=== PATIENT | male | born 1960 | race Caucasian/White ===

== ENCOUNTER → 2023-06-05 | Outpatient (CLI) | payer OTHER ==
--- NOTE | 2023-06-05 15:54 | XR ---
EXAMINATION TYPE: XR shoulder complete RT DATE OF EXAM: 06/05/2023 COMPARISON: NONE HISTORY: Pain TECHNIQUE: Three views are submitted. FINDINGS: The osseous structures are intact. There is no acute fracture or dislocation. The AC joint is widen ed measuring 7 mm. There is severe narrowing of the glenohumeral joint. IMPRESSION: 1. Severe glenohumeral joint arthropathy. 2. Widening of the AC joint could be related to chronic infarction or chronic AC joint ligamentous in jury. Correlate clinically and with MRI as clinically warranted.
== END | disposition home or self-care (01) ==
LOC: RADXRMAIN 15:34
PROVIDERS: ATTEND Internal Medicine
DX: M19.011 Primary osteoarthritis, right shoulder (principal)

== ENCOUNTER 2023-06-16 09:02 | Emergency (ER) | payer OTHER ==
[2023-06-16] MEDS ORDERED: SODIUM CHLORIDE 0.9% 1,000 ML IV STA (09:33)
[2023-06-16] MEDS ORDERED: ONDANSETRON 4 MG/2 ML VIAL IVP STA (09:33)
--- NOTE | 2023-06-16 09:34 | ED ---
General Adult HPI - General Chief complaint: Recheck/Abnormal Lab/Rx Stated complaint: high blood sugar Time Seen by Provider: 06/16/23 09:12 Source: patient Mode of arrival: wheelchair Limitations: altered mental status, physical limitation - History of Present Illness Initial comments: Dictation was produced using [employer] dictation software. please excuse any grammatical, word or spelling errors. Chief Complaint: 63-year-old male presents emergency department for weakness and diarrhea History of Present Illness: 63-year-old male who has past medical history of CVA with residual right-sided deficits. Patient states that this morning he woke up he did not feel well. He states he felt generalized weakness maybe a little bit of dizziness. He did have one bout of watery diarrhea this morning. He states that he had no recent travel. No recent hospitalization or antibiotics. The ROS documented in this emergency department record has been reviewed and confirmed by me. Those systems with pertinent positive or negative responses have been documented in the HPI. All other systems are other negative and/or noncontributory. - Related Data Allergies Allergy/AdvReac Type Severity Reaction Status Date / Time No Known Allergies Allergy Verified 06/16/23 09:08 Review of Systems ROS Statement: Those systems with pertinent positive or pertinent negative responses have been documented in the HPI. ROS Other: All systems not noted in ROS Statement are negative. Past Medical History Past Medical History: Diabetes Mellitus, Myocardial Infarction (VA) History of Any Multi-Drug Resistant Organisms: None Reported Past Surgical History: No Surgical Hx Reported Past Psychological History: No Psychological Hx Reported Smoking Status: Former smoker Past Alcohol Use History: Occasional Past Drug Use History: None Reported General Exam - General Exam Comments Initial Comments: PHYSICAL EXAM: General Impression: Alert and oriented x3, not in acute distress HEENT: Normocephalic atraumatic, extra-ocular movements intact, pupils equal and reactive to light bilaterally, mucous membranes moist. Cardiovascular: Heart regular rate and rhythm Chest: Able to complete full sentences, no retractions, no tachypnea Abdomen: abdomen soft, non-tender, non-distended, no organomegaly Musculoskeletal: Pulses present and equal in all extremities, no peripheral edema Motor: no focal deficits noted Neurological: CN II-XII grossly intact, no focal motor or sensory deficits noted Skin: Intact with no visualized rashes Psych: Normal affect and mood Limitations: altered mental status, physical limitation Course Vital Signs 06/16/23 09:05 Temperature 98.0 F Pulse Rate 98 Respiratory 16 Rate Blood Pressure 132/84 O2 Sat by Pulse 95 Oximetry EKG Findings - EKG Comments: EKG Findings:: My EKG interpretation: Ventricular rate 91, sinus rhythm,. Interval 186, QRS 88, QTC 419. No TX prolongation, no QTC prolongation, no ST or T-wave changes noted. Overall, this EKG is unremarkable Medical Decision Making - Medical Decision Making Was pt. sent in by a medical professional or institution (DAVID Garcia, SOCIAL SERVICE COORDINATOR, urgent care, hospital, or [facility]...) When possible be specific @ -No Did you speak to anyone other than the patient for history (EMS, parent, family, police, friend...)? What history was obtained from this source @ -No Did you review nursing and triage notes (agree or disagree)? Why? @ -I reviewed and agree with nursing and triage notes Were old charts reviewed (outside hosp., previous admission, EMS record, old EKG, old radiological studies, urgent care reports/EKG's, [facility] records)? Report findings @ -No old charts were reviewed Differential Diagnosis (chest pain, altered mental status, abdominal pain women, abdominal pain men, vaginal bleeding, musculoskeletal, weakness, fever, dyspnea, syncope, headache, dizziness, GI bleed, back pain, seizure, CVA, palpatations, mental health)? @ -Differential Weakness: Hypoglycemia, shock, sepsis, hyponatremia, anemia, infection, VA, ETOH, adverse medicine reaction, overdose, stroke, this is not meant to be an all-inclusive list. EKG interpreted by me (3pts min.). @ -None done X-rays interpreted by me (1pt min.). @ -None done CT interpreted by me (1pt min.). @ -None done U/S interpreted by me (1pt. min.). @ -None done What testing was considered but not performed or refused? (CT, X-rays, U/S, labs)? Why? @ -None What meds were considered but not given or refused? Why? @ -None Did you discuss the management of the patient with other professionals (professionals i.e. DAVID Garcia, SOCIAL SERVICE COORDINATOR, lab, RT, psych nurse, manager social services, vocational placement specialist, teacher, college service officer, casework manager)? Give summary @ -No Was smoking cessation discussed for >3mins.? @ -No Was critical care preformed (if so, how long)? @ -No Were there social determinants of health that impacted care today? How? (Homelessness, low income, unemployed, alcoholism, drug addiction, transportation, low edu. Level, literacy, decrease access to med. care, skilled nursing, rehab)? @ -No Was there de-escalation of care discussed even if they declined (Discuss DNR or withdrawal of care, Hospice)? DNR status @ -No What co-morbidities impacted this encounter? (DM, HTN, Smoking, COPD, CAD, Cancer, CVA, ARF, Chemo, Hep., AIDS, mental health diagnosis, sleep apnea, morbid obesity)? @ -None Was patient admitted / discharged? Hospital course, mention meds given and route, prescriptions, significant lab abnormalities, going to OR and other pertinent info. @ -63-year-old male presents emergency department for generalized weakness nausea and diarrhea. Vital signs upon arrival are within acceptable limits. Physical examination is benign. Laboratory evaluation shows leukocytosis of 15.6 likely secondary to stress. Metabolic panel is unremarkable. Patient observed in emergency department with improvement of symptoms after IV fluids and antiemetics. Patient discharged advised up with primary care doctor. Undiagnosed new problem with uncertain prognosis? @ -No Drug Therapy requiring intensive monitoring for toxicity (Heparin, Nitro, Insulin, Cardizem)? @ -No Were any procedures done? @ -No Diagnosis/symptom? Acute, or Chronic, or Acute on Chronic? Uncomplicated (without systemic symptoms) or Complicated (systemic symptoms)? @ -Weakness Side effects of treatment? @ -No Exacerbation, Progression, or Severe Exacerbation? @ -No Poses a threat to life or bodily function? How? (Chest pain, [place], VA, pneumonia, PE, COPD, DKA, ARF, appy, cholecystitis, CVA, Diverticulitis, Homicidal, Suicidal, threat to staff... and all critical care pts) @ -No - Lab Data Result diagrams: 06/16/23 09:35 06/16/23 09:35 Lab Results 06/16/23 06/16/23 Range/Units 09:35 09:35 WBC 15.6 H (3.8-10.6) k/uL RBC 5.19 (4.30-5.90) m/uL Hgb 14.9 (13.0-17.5) gm/dL Hct 45.3 (39.0-53.0) % MCV 87.1 (80.0-100.0) fL MCH 28.6 (25.0-35.0) pg MCHC 32.9 (31.0-37.0) g/dL RDW 15.0 (11.5-15.5) % Plt Count 229 (150-450) k/uL MPV 8.5 Neutrophils % 80 % Lymphocytes % 10 % Monocytes % 6 % Eosinophils % 3 % Basophils % 0 % Neutrophils # 12.6 H (1.3-7.7) k/uL Lymphocytes # 1.5 (1.0-4.8) k/uL Monocytes # 0.9 (0-1.0) k/uL Eosinophils # 0.5 (0-0.7) k/uL Basophils # 0.1 (0-0.2) k/uL Sodium 139 (137-145) mmol/L Potassium 3.6 (3.5-5.1) mmol/L Chloride 104 (98-107) mmol/L Carbon Dioxide 25 (22-30) mmol/L Anion Gap 10 mmol/L BUN 21 H (9-20) mg/dL Creatinine 0.76 (0.66-1.25) mg/dL Est GFR (CKD-EPI)AfAm >90 (>60 ml/min/1.73 sqM) Est GFR (CKD-EPI)NonAf >90 (>60 ml/min/1.73 sqM) Glucose 144 H (74-99) mg/dL Calcium 9.5 (8.4-10.2) mg/dL Disposition Clinical Impression: Weakness Disposition: HOME SELF-CARE Condition: Good Instructions (If sedation given, give patient instructions): Weakness (ED) Is patient prescribed a controlled substance at d/c from ED?: No Referrals: Michell Maguire MD [Primary Care Provider] - 1-2 days Time of Disposition: 11:14
[2023-06-16 09:49] LABS: Basophils # (A) 0.1 k/uL (0-0.2); Basophils % (A) 0 %; Eosinophils # (A) 0.5 k/uL (0-0.7); Eosinophils % (A) 3 %; HCT 45.3 % (39.0-53.0); HGB 14.9 gm/dL (13.0-17.5); Lymphocytes # (A) 1.5 k/uL (1.0-4.8); Lymphocytes % (A) 10 %; MCH 28.6 pg (25.0-35.0); MCHC 32.9 g/dL (31.0-37.0); MCV 87.1 fL (80.0-100.0); Mean Platelet Volume 8.5; Monocytes # (A) 0.9 k/uL (0-1.0); Monocytes % (A) 6 %; Neutrophils # (A) 12.6 k/uL (1.3-7.7); Neutrophils % (A) 80 %; Platelet Count 229 k/uL (150-450); RBC 5.19 m/uL (4.30-5.90); WBC 15.6 k/uL (3.8-10.6)
[2023-06-16 09:56] LABS: African American GFR (CKD) >90 (>60 ml/min/1.73 sqM); Anion Gap 10 mmol/L; Blood Urea Nitrogen 21 mg/dL (9-20); Calcium 9.5 mg/dL (8.4-10.2); Carbon Dioxide 25 mmol/L (22-30); Chloride 104 mmol/L (98-107); Glucose 144 mg/dL (74-99); Non-African American GFR(CKD) >90 (>60 ml/min/1.73 sqM); Potassium 3.6 mmol/L (3.5-5.1); Sodium 139 mmol/L (137-145)
[2023-06-16 12:50] VITALS: BP 147/81; PULSE 80; RESP 18; TEMP 98.1
== END 2023-06-16 12:00 | disposition home or self-care (01) ==
LOC: EC 09:02
DX: R53.1 Weakness (principal); E11.9 Type 2 diabetes mellitus without complications; I25.2 Old myocardial infarction; Z87.891 Personal history of nicotine dependence
CPT/HCPCS: 36415; 93005; 80048; 85025; 99285; 96374; 96361; J2405

== ENCOUNTER → 2023-08-23 | Outpatient (CLI) | payer OTHER ==
--- NOTE | 2023-08-23 09:33 | US ---
EXAMINATION TYPE: US carotid duplex BILAT DATE OF EXAM: 08/23/2023 COMPARISON: NONE CLINICAL INDICATION: Male, 63 years old with history of Z86.73 hx of cva, R94.31 adn ekg; CVA, dizzin ess TECHNIQUE: Carotid duplex ultrasound examination. Indirect Doppler criteria was utilized. FINDINGS: EXAM MEASUREMENTS: RIGHT: Peak Systolic Velocity (PSV) cm/sec ----- Right CCA: 64.0 ----- Right ICA: 81.6 ----- Right ECA: 122 ICA/CCA ratio: 1.3 RIGHT: End Diastole cm/sec ----- Right CCA: 12.9 ----- Right ICA: 14.9 ----- Right ECA: 3.4 LEFT: Peak Systolic Velocity (PSV) cm/sec ----- Left CCA: 93.6 ----- Left ICA: 59.1 ----- Left ECA: 135 ICA/CCA ratio: 0.6 LEFT: End Diastole cm/sec ----- Left CCA: 12.0 ----- Left ICA: 19.2 ----- Left ECA: 0.0 VERTEBRALS (direction of flow): Right Vertebral: Antegrade Left Vertebral: Antegrade Rhythm: Normal DRAMA TEACHER NOTES: Heterogeneous plaque bilaterally, however no significant elevated velocities. IMPRESSION: Less than 50% stenosis of the bilateral carotid bifurcations. Criteria for Assigning % of Stenosis / Diameter reduction (Estimation based on the indirect measurements of the internal carotid artery velocities (ICA PSV). 1. Normal (no stenosis)=ICA PSV < 125 cm/s: ratio < 2.0: ICA EDV<40 cm/s. 2. Less than 50% stenosis=ICA PSV < 125 cm/s: ratio < 2.0: ICA EDV<40 cm/s. 3. 50 to 69% stenosis=ICA PSV of 125 to 230 cm/s: ration 2.0 ? 4.0: ICA EDV 40-100 cm/s. 4. Greater than 70% stenosis to near occlusion= ICA PSV > 230 cm/s: ratio > 4.0: ICA EDV > 100 cm/s. 5. Near occlusion= ICA PSV velocities may be low or undetectable: variable ratio and ICA EDV. 6. Total occlusion=unable to detect flow.
--- NOTE | 2023-08-23 12:45 | NM ---
EXAMINATION TYPE: NM stress lexiscan cardiolite DATE OF EXAM: 08/23/2023 COMPARISON: NONE CLINICAL INDICATION: Male, 63 years old with history of Z86.73 hx of cva, R94.31 adn ekg; TECHNIQUE: After the intravenous administration of 9.7 mCi Tc 99m Sestamibi - Cardiolite resting SPE CT images acquired 60 minutes post injection. The patient received 0.4mg Lexiscan, 25.3 mCi Tc 99m Sestamibi - Stress images obtained [address] injection FINDINGS: Review of stress and rest SPECT images demonstrates no distinct perfusion abnormality. Abnormality al selam the inferior lateral margin of the myocardial wall is likely is artifactual. Gated analysis shows normal wall motion with an estimated left ventricular ejection fraction of 55 %. IMPRESSION: 1. There is a area of reduced stress imaging uptake involving the inferior lateral myocardium. Suspec t this may be artifactual but should be correlated clinically for confirmation to exclude stress-ind uced reversible ischemia.
--- NOTE | 2023-08-23 12:55 | CA ---
Lexiscan Nuclear Stress Test Report Name: Clifton Coronel Exam Date: 08/23/2023 11:01 Exam Location: [place] Stress Ht (in): 69 Wt (lb): 129 BSA: 1.71 Ordering Phys: Michell Maguire MD Referring Phys: Brenda Vaz Technologist: DEION,, Age: 63 Gender: M : 1960 Procedure CPT: Indications: Z86.73 hx of cva, R94.31 adn ekg ICD-10 Codes: Patient History: Vertigo and hypertension Medications: Meds past 24 hrs: Pretest Chest Pain: STRESS TEST Lexiscan Protocol Exercise Duration (min:sec): 02:[address] Depressions (mm): Angina Score: Jolly Score: Resting HR (bpm): 70 Peak HR (bpm): 92 Resting BP (mmHg): 97 / 67 Peak BP (mmHg): 111 / 61 MPHR: 157 Target HR: 133 % MPHR: 59 METS: 1.0 Total Dose: Peak Dose: Atropine: Double Product: 63177 BP Response: Stress Termination: Headache Stress Symptoms: Stress Summary: ECG ANALYSIS Resting ECG: Sinus rhythm. Incomplete left bundle branch block. No arrhythmias. Normal repolarization. Stress ECG: No ECG changes from baseline with Lexiscan infusion. CONCLUSIONS No ECG evidence of ischemia with Lexiscan infusion. Nuclear test results to follow. Dr. Chris Lorenzo MD (Electronically Signed) Final Date: 23 August 2023 12:55
== END | disposition home or self-care (01) ==
LOC: RADUSWWP 08:23
PROVIDERS: ATTEND Internal Medicine
DX: I65.23 Occlusion and stenosis of bilateral carotid arteries (principal); R94.31 Abnormal electrocardiogram [ECG] [EKG]; Z86.73 Personal history of transient ischemic attack (TIA), and cerebral infarction without residual deficits
CPT/HCPCS: 93017; 93880; 78452; A9500

== ENCOUNTER 2023-09-04 11:02 | Inpatient (IN) | payer OTHER ==
--- NOTE | 2023-09-04 11:05 | ED ---
General Adult HPI - General Source: patient, family, RN notes reviewed Mode of arrival: wheelchair Limitations: no limitations <Jamey Manning - Last Filed: 09/04/23 11:04> - General Source: patient, family, RN notes reviewed Limitations: no limitations <Azam Cobos - Last Filed: 09/04/23 13:02> - General Stated complaint: SOB, Dizziness Time Seen by Provider: 09/04/23 11:04 - History of Present Illness Initial comments: 63-year-old male presents emergency department with family for evaluation of increasing weakness. Patient reportedly has been a long term and family has noticed that he been getting continuously worse. They states they didn't overnight stay with him and his upper urinating every few minutes is complaining is dizzy, short of breath. No surgeries very weak. (Jamey Manning) Patient is a pleasant 63-year-old male presenting to the emergency department with general weakness. Symptoms have been occurring for the last couple months, worse the past few days. Patient has had chest discomfort since this morning. Patient is somewhat a poor historian and son provides majority of history. Patient reportedly feels a little bit short of breath and a little dizzy. Patient has been urinating frequency. Blood sugars have been running high. Blood sugar yesterday was 400, today was 360. Patient has had decreased appetite. No oral intake today. Patient did have a shaking episode while in x-ray however did not fall. Patient does have a history of seizures and is on Keppra. no new isolated area of weakness. Patient does come from nursing facility. (Azam Cobos) - Related Data Home Medications Medication Instructions Recorded Confirmed Atorvastatin [Lipitor] 80 mg PO DAILY 07/12/23 07/12/23 Clopidogrel [Plavix] 75 mg PO DAILY 07/12/23 07/12/23 Empagliflozin [Jardiance] 25 mg PO DAILY 07/12/23 07/12/23 Insulin Aspart [NovoLOG Flexpen] See Protocol SQ ACHS PRN 07/12/23 07/12/23 amLODIPine [Norvasc] 5 mg PO DAILY 07/12/23 07/12/23 levETIRAcetam [Keppra] 500 mg PO Q12HR 07/12/23 07/12/23 Previous Rx's Medication Instructions Recorded Acetaminophen Tab [Tylenol] 650 mg PO Q6HR PRN tab 07/16/23 Cephalexin [Keflex] 500 mg PO Q8HR 7 Days #21 cap 07/16/23 Docusate [Colace] 100 mg PO BID cap 07/16/23 Enoxaparin [Lovenox] 40 mg SQ DAILY 7 Days each 07/16/23 Gabapentin [Neurontin] 300 mg PO BID #6 cap 07/16/23 Insulin Glargine,Hum.rec.anlog 20 units SQ HS #0 07/16/23 [Lantus Solostar Pen] metFORMIN HCL [Glucophage] 500 mg PO BID-W/MEALS tab 07/16/23 traMADol HCl [Ultram] 50 mg PO TID PRN #9 tab 07/16/23 Metoclopramide [Reglan] 10 mg PO ACHS PRN #30 tab 07/17/23 Ondansetron [Zofran] 4 mg PO Q8HR PRN #20 tab 07/17/23 Allergies Allergy/AdvReac Type Severity Reaction Status Date / Time No Known Allergies Allergy Verified 09/04/23 11:24 Review of Systems ROS Other: All systems not noted in ROS Statement are negative. <Jamey Manning - Last Filed: 09/04/23 11:04> ROS Other: All systems not noted in ROS Statement are negative. Constitutional: Denies: fever Eyes: Denies: eye pain ENT: Denies: ear pain Respiratory: Reports: as per HPI Cardiovascular: Reports: as per HPI, chest pain Endocrine: Reports: fatigue Gastrointestinal: Reports: nausea Genitourinary: Reports: frequency Musculoskeletal: Denies: back pain Skin: Denies: rash Neurological: Reports: as per HPI <Azam Cobos - Last Filed: 09/04/23 13:02> ROS Statement: Those systems with pertinent positive or pertinent negative responses have been documented in the HPI. Past Medical History Past Medical History: Diabetes Mellitus, Myocardial Infarction ([place]) Additional Past Medical History / Comment(s): cva 2019 Last Myocardial Infarction Date:: states few years ago History of Any Multi-Drug Resistant Organisms: None Reported Past Surgical History: No Surgical Hx Reported Past Anesthesia/Blood Transfusion Reactions: No Reported Reaction Past Psychological History: No Psychological Hx Reported Smoking Status: Former smoker Past Alcohol Use History: Occasional Past Drug Use History: None Reported <Jamey Manning - Last Filed: 09/04/23 11:04> General Exam <Jamey Manning - Last Filed: 09/04/23 11:04> Limitations: no limitations General appearance: alert, in no apparent distress Head exam: Present: atraumatic Eye exam: Present: normal appearance, PERRL, EOMI ENT exam: Present: normal oropharynx Neck exam: Present: normal inspection. Absent: tenderness, meningismus Respiratory exam: Present: normal lung sounds bilaterally Cardiovascular Exam: Present: regular rate, normal rhythm GI/Abdominal exam: Present: soft. Absent: tenderness Extremities exam: Present: normal inspection. Absent: pedal edema, calf tenderness Neurological exam: Present: alert Expanded Neurological exam: Present: protecting the airway Patient oriented to: Absent: time Speech: Present: fluid speech Motor strength exam: RUE: 4 (Reported as chronic), LUE: 5, RLE: 5, LLE: 5 Eye Response: (4) open spontaneously Motor Response: (6) obeys commands Verbal Response: (4) confused conversation Psychiatric exam: Present: normal affect, normal mood Skin exam: Present: normal color <Azam Cobos - Last Filed: 09/04/23 13:02> - General Exam Comments Initial Comments: Visual Physical Exam Vital signs reviewed General: Well-appearing, nontoxic, no acute distress. Head: Normocephalic, atraumatic Eyes: PERRLA, EOMI ENT: Airway patent Chest: Nonlabored breathing Skin: No visual rash, normal skin tone Neuro: Alert and oriented 3 Musculoskeletal: No gross abnormalities (Jamey Manning) Course Vital Signs 09/04/23 11:24 Temperature 98.9 F Pulse Rate 100 Respiratory 18 Rate Blood Pressure 87/63 O2 Sat by Pulse 98 Oximetry EKG Findings - EKG Results: EKG: interpreted by ERMD (Superior axis. Septal Q waves.), sinus rhythm, normal ST/T <Azam Cobos - Last Filed: 09/04/23 13:02> Medical Decision Making <Jamey Manning - Last Filed: 09/04/23 11:04> - Lab Data Result diagrams: 09/04/23 11:32 09/04/23 11:32 <Azam Cobos - Last Filed: 09/04/23 13:02> - Medical Decision Making I performed a quick note portion of the chart signed Jamey Manning PA-C (Jamey Manning) Was pt. sent in by a medical professional or institution (, DAVID, STEAM CLEANING MACHINE OPERATOR, urgent care, hospital, or long term...) When possible be specific @ -Patient was sent in by nursing facility Did you speak to anyone other than the patient for history (EMS, parent, family, police, friend...)? What history was obtained from this source @ -Son is present and provides majority of history. Did you review nursing and triage notes (agree or disagree)? Why? @ -I reviewed and agree with nursing and triage notes Were old charts reviewed (outside hosp., previous admission, EMS record, old EKG, old radiological studies, urgent care reports/EKG's, long term records)? Report findings @ -Previous admission reviewed Differential Diagnosis (chest pain, altered mental status, abdominal pain women, abdominal pain men, vaginal bleeding, weakness, fever, dyspnea, syncope, headache, dizziness, GI bleed, back pain, seizure, CVA, palpatations, mental health, musculoskeletal)? @ -Differential Chest Pain: Stable Angina, Unstable Angina, STEMI, NSTEMI Aortic Dissection, Pneumothorax, Musculoskeletal, Esophageal Spasm GERD, Cholecystitis, Pancreatitis, Zoster, this is not meant to be an all-inclusive list. EKG interpreted by me (3pts min.). @ -As above X-rays interpreted by me (1pt min.). @ -Chest x-ray shows no acute abnormality. CT interpreted by me (1pt min.). @ -None done U/S interpreted by me (1pt. min.). @ -None done What testing was considered but not performed or refused? (CT, X-rays, U/S, labs)? Why? @ -None What meds were considered but not given or refused? Why? @ -None Did you discuss the management of the patient with other professionals (professionals i.e. , DAVID, STEAM CLEANING MACHINE OPERATOR, lab, RT, psych nurse, director social, marketing strategy lead, teacher, wildlife conservation officer, vocational case manager)? Give summary @ -Case was discussed with Dr. Maguire who will admit his patient Was smoking cessation discussed for >3mins.? @ -No Was critical care preformed (if so, how long)? @ -No Were there social determinants of health that impacted care today? How? ( Homelessness, low income, unemployed, alcoholism, drug addiction, transportation, low edu. Level, literacy, decrease access to med. care, [facility], rehab)? @ -No Was there de-escalation of care discussed even if they declined (Discuss DNR or withdrawal of care, Hospice)? DNR status @ -No What co-morbidities impacted this encounter? (DM, HTN, Smoking, COPD, CAD, Cancer, CVA, ARF, Chemo, Hep., AIDS, mental health diagnosis, sleep apnea, morbid obesity)? @ -None Was patient admitted / discharged? Hospital course, mention meds given and route, prescriptions, significant lab abnormalities, going to OR and other pertinent info. @ -Patient reevaluated and unchanged. Patient is updated. Patient presents with new-onset chest pain. Patient will be admitted. Admission orders written. Cardiology will be placed on consult. Patient also does have dehydration and hyperglycemia and will be provided fluids for this. Urinalysis still pending. Undiagnosed new problem with uncertain prognosis? @ -No Drug Therapy requiring intensive monitoring for toxicity (Heparin, Nitro, Insulin, Cardizem)? @ -No Were any procedures done? @ -No Diagnosis/symptom? @ -Dehydration, chest pain, hyperglycemia Acute, or Chronic, or Acute on Chronic? @ -Acute, acute, acute on chronic Uncomplicated (without systemic symptoms) or Complicated (systemic symptoms)? @ -default Side effects of treatment? @ -No Exacerbation, Progression, or Severe Exacerbation? @ -No Poses a threat to life or bodily function? How? (Chest pain, USA, DC, pneumonia, PE, COPD, DKA, ARF, appy, cholecystitis, CVA, Diverticulitis, Homicidal, Suicidal, threat to staff... and all critical care pts) @ -No (Azam Cobos) - Lab Data Lab Results 09/04/23 09/04/23 09/04/23 Range/Units 11:32 11:32 11:32 WBC 15.6 H (3.8-10.6) k/uL RBC 4.56 (4.30-5.90) m/uL Hgb 13.3 (13.0-17.5) gm/dL Hct 41.3 (39.0-53.0) % MCV 90.6 (80.0-100.0) fL MCH 29.2 (25.0-35.0) pg MCHC 32.2 (31.0-37.0) g/dL RDW 14.5 (11.5-15.5) % Plt Count 300 (150-450) k/uL MPV 7.9 Neutrophils % 82 % Lymphocytes % 11 % Monocytes % 5 % Eosinophils % 1 % Basophils % 1 % Neutrophils # 12.7 H (1.3-7.7) k/uL Lymphocytes # 1.8 (1.0-4.8) k/uL Monocytes # 0.7 (0-1.0) k/uL Eosinophils # 0.1 (0-0.7) k/uL Basophils # 0.1 (0-0.2) k/uL PT 10.8 (10.0-12.5) sec INR 1.0 (<1.2) APTT 23.7 (22.0-30.0) sec VBG pH (7.31-7.41) VBG pCO2 (37-51) mmHg VBG HCO3 (24-28) mmol/L Sodium 136 L (137-145) mmol/L Potassium 4.8 (3.5-5.1) mmol/L Chloride 95 L (98-107) mmol/L Carbon Dioxide 15 L (22-30) mmol/L Anion Gap 26 mmol/L BUN 35 H (9-20) mg/dL Creatinine 0.89 (0.66-1.25) mg/dL Est GFR (CKD-EPI)AfAm >90 (>60 ml/min/1.73 sqM) Est GFR (CKD-EPI)NonAf >90 (>60 ml/min/1.73 sqM) Glucose 309 H (74-99) mg/dL Plasma Lactic Acid Iraj (0.7-2.0) mmol/L Calcium 10.1 (8.4-10.2) mg/dL Magnesium 2.0 (1.6-2.3) mg/dL Total Bilirubin 1.7 H (0.2-1.3) mg/dL AST 42 (17-59) U/L ALT 50 H (4-49) U/L Alkaline Phosphatase 102 (38-126) U/L Troponin I (0.000-0.034) ng/mL NT-Pro-B Natriuret Pep 318 pg/mL Total Protein 7.7 (6.3-8.2) g/dL Albumin 4.5 (3.5-5.0) g/dL 09/04/23 09/04/23 09/04/23 Range/Units 11:32 11:32 11:32 WBC (3.8-10.6) k/uL RBC (4.30-5.90) m/uL Hgb (13.0-17.5) gm/dL Hct (39.0-53.0) % MCV (80.0-100.0) fL MCH (25.0-35.0) pg MCHC (31.0-37.0) g/dL RDW (11.5-15.5) % Plt Count (150-450) k/uL MPV Neutrophils % % Lymphocytes % % Monocytes % % Eosinophils % % Basophils % % Neutrophils # (1.3-7.7) k/uL Lymphocytes # (1.0-4.8) k/uL Monocytes # (0-1.0) k/uL Eosinophils # (0-0.7) k/uL Basophils # (0-0.2) k/uL PT (10.0-12.5) sec INR (<1.2) APTT (22.0-30.0) sec VBG pH 7.23 L (7.31-7.41) VBG pCO2 42 (37-51) mmHg VBG HCO3 18 L (24-28) mmol/L Sodium (137-145) mmol/L Potassium (3.5-5.1) mmol/L Chloride (98-107) mmol/L Carbon Dioxide (22-30) mmol/L Anion Gap mmol/L BUN (9-20) mg/dL Creatinine (0.66-1.25) mg/dL Est GFR (CKD-EPI)AfAm (>60 ml/min/1.73 sqM) Est GFR (CKD-EPI)NonAf (>60 ml/min/1.73 sqM) Glucose (74-99) mg/dL Plasma Lactic Acid Iraj 1.8 (0.7-2.0) mmol/L Calcium (8.4-10.2) mg/dL Magnesium (1.6-2.3) mg/dL Total Bilirubin (0.2-1.3) mg/dL AST (17-59) U/L ALT (4-49) U/L Alkaline Phosphatase (38-126) U/L Troponin I <0.012 (0.000-0.034) ng/mL NT-Pro-B Natriuret Pep pg/mL Total Protein (6.3-8.2) g/dL Albumin (3.5-5.0) g/dL Disposition <Jamey Manning - Last Filed: 09/04/23 11:04> Is patient prescribed a controlled substance at d/c from ED?: No Time of Disposition: 13:02 <Azam Cobos - Last Filed: 09/04/23 13:02> Clinical Impression: Chest pain, Dehydration Disposition: ADMITTED IP TO THIS HOSP Referrals: Michell Maguire MD [Primary Care Provider] - 1-2 days
[2023-09-04 11:54] LABS: Basophils # (A) 0.1 k/uL (0-0.2); Basophils % (A) 1 %; Eosinophils # (A) 0.1 k/uL (0-0.7); Eosinophils % (A) 1 %; HCT 41.3 % (39.0-53.0); HGB 13.3 gm/dL (13.0-17.5); Lymphocytes # (A) 1.8 k/uL (1.0-4.8); Lymphocytes % (A) 11 %; MCH 29.2 pg (25.0-35.0); MCHC 32.2 g/dL (31.0-37.0); MCV 90.6 fL (80.0-100.0); Mean Platelet Volume 7.9; Monocytes # (A) 0.7 k/uL (0-1.0); Monocytes % (A) 5 %; Neutrophils # (A) 12.7 k/uL (1.3-7.7); Neutrophils % (A) 82 %; Platelet Count 300 k/uL (150-450); RBC 4.56 m/uL (4.30-5.90); RDW 14.5 % (11.5-15.5); WBC 15.6 k/uL (3.8-10.6)
[2023-09-04 12:02] LABS: VBG PH 7.23 (7.31-7.41)
[2023-09-04 12:04] LABS: Partial Thromboplastin Time 23.7 sec (22.0-30.0); Prothrombin Time 10.8 sec (10.0-12.5)
[2023-09-04 12:05] LABS: ALT 50 U/L (4-49); African American GFR (CKD) >90 (>60 ml/min/1.73 sqM); Albumin 4.5 g/dL (3.5-5.0); Anion Gap 26 mmol/L; Blood Urea Nitrogen 35 mg/dL (9-20); Calcium 10.1 mg/dL (8.4-10.2); Carbon Dioxide 15 mmol/L (22-30); Chloride 95 mmol/L (98-107); Glucose 309 mg/dL (74-99); Non-African American GFR(CKD) >90 (>60 ml/min/1.73 sqM); Sodium 136 mmol/L (137-145)
--- NOTE | 2023-09-04 12:11 | XR ---
EXAMINATION TYPE: XR chest 2V DATE OF EXAM: 09/04/2023 COMPARISON: 07/12/2023 TECHNIQUE: PA and lateral views submitted. HISTORY: Weakness FINDINGS: The lungs are clear and there is no pneumothorax, pleural effusion, or focal pneumonia. Heart size normal and no overt failure. Osseous structures demonstrate hypertrophic and degenerative changes of the spine. Hyperinflation of the lungs. Atherosclerotic change of the aorta. IMPRESSION: 1. No acute process. COPD.
[2023-09-04 12:12] LABS: AST 42 U/L (17-59); Alkaline Phosphatase 102 U/L (38-126); Potassium 4.8 mmol/L (3.5-5.1); Total Bilirubin 1.7 mg/dL (0.2-1.3); Total Protein 7.7 g/dL (6.3-8.2)
[2023-09-04 12:14] LABS: NT-Pro-B-Type Natriuretic Pept 318 pg/mL
[2023-09-04] MEDS ORDERED: SODIUM CHLORIDE 0.9% 1,000 ML IV STA (12:25)
[2023-09-04] MEDS ORDERED: FAMOTIDINE 20 MG/2 ML VIAL IV STA (12:25)
[2023-09-04] MEDS ORDERED: levETIRAcetam IV 500 MG/5 ML VIAL IVP STA (12:26)
[2023-09-04] MEDS ORDERED: ASPIRIN 81 MG PO STA (12:26)
[2023-09-04] MEDS ORDERED: INSULIN REGULAR 100 UNIT/ML VIAL (IV) IV ONE (12:26)
[2023-09-04] MEDS ORDERED: NITROGLYCERIN SL TABS 0.4 MG TAB SUBLINGUAL PRN (13:02)
[2023-09-04 14:05] LABS: Glucose,Whole Blood 315 mg/dL (70-110)
[2023-09-04] MEDS ORDERED: SODIUM CHLORIDE 0.9% 500 ML 500 ML IV STA (14:10)
[2023-09-04 14:39] LABS: Appearance,Urine Clear (Clear); Bilirubin,Urine Negative (Negative); Blood,Urine Negative (Negative); Color,Urine Colorless; Glucose,Urine (UA) 4+ (Negative); Leukocyte Esterase,Urine Negative (Negative); Nitrite,Urine Negative (Negative); Protein,Urine Negative (Negative); Specific Gravity,Urine 1.017 (1.001-1.035); Urobilinogen,Urine <2.0 mg/dL (<2.0)
[2023-09-04 15:09] LABS: Ketones,Urine 2+ (Negative)
[2023-09-04 18:43] LABS: Glucose,Whole Blood 334 mg/dL (70-110)
[2023-09-04 21:04] LABS: Glucose,Whole Blood 344 mg/dL (70-110)
[2023-09-04] MEDS ORDERED: INSULIN REGULAR BOLUS (FROM DRIP BAG) IV ONE (22:07)
[2023-09-04] MEDS ORDERED: Magnesium Replacement Protocol 1 EACH MISC MISCELLANE PRN (22:07)
[2023-09-04] MEDS ORDERED: Potassium Replacement Protocol 1 EACH MISC MISCELLANE PRN (22:07)
[2023-09-04] MEDS ORDERED: DEXTROSE 50% SYRINGE 50 ML IVP PRN ×2 (22:07)
[2023-09-04] MEDS ORDERED: LOPERAMIDE 2 MG CAP PO PRN (22:11)
[2023-09-04] MEDS ORDERED: ACETAMINOPHEN TAB 325 MG TAB PO PRN (22:11)
[2023-09-04] MEDS ORDERED: traMADol 50 MG TAB PO PRN (22:11)
[2023-09-04] MEDS ORDERED: ONDANSETRON 4 MG TAB PO PRN (22:11)
[2023-09-04 22:57] LABS: Basophils # (A) 0.1 k/uL (0-0.2); Basophils % (A) 0 %; Eosinophils # (A) 0.1 k/uL (0-0.7); Eosinophils % (A) 1 %; HCT 41.7 % (39.0-53.0); HGB 13.1 gm/dL (13.0-17.5); Hypochromasia Marked; Lymphocytes # (A) 0.8 k/uL (1.0-4.8); Lymphocytes % (A) 5 %; MCH 29.7 pg (25.0-35.0); MCHC 31.5 g/dL (31.0-37.0); MCV 94.3 fL (80.0-100.0); Mean Platelet Volume 7.8; Monocytes % (A) 6 %; Neutrophils # (A) 14.8 k/uL (1.3-7.7); Neutrophils % (A) 88 %; Platelet Count 290 k/uL (150-450); RBC 4.42 m/uL (4.30-5.90); RDW 14.2 % (11.5-15.5); WBC 16.9 k/uL (3.8-10.6)
[2023-09-04 23:01] LABS: VBG PH 7.15 (7.31-7.41)
[2023-09-04 23:15] LABS: African American GFR (CKD) >90 (>60 ml/min/1.73 sqM); Anion Gap 30 mmol/L; Blood Urea Nitrogen 41 mg/dL (9-20); Chloride 97 mmol/L (98-107); Glucose 395 mg/dL (74-99); Non-African American GFR(CKD) 87 (>60 ml/min/1.73 sqM); Phosphorus 6.7 mg/dL (2.5-4.5); Potassium 5.2 mmol/L (3.5-5.1); Sodium 135 mmol/L (137-145)
[2023-09-04 23:17] LABS: Carbon Dioxide 8 mmol/L (22-30)
[2023-09-04 23:51] LABS: Glucose,Whole Blood 411 mg/dL (70-110)
[2023-09-04] MEDS: INSULIN REGULAR 100 UNIT in SODIUM CHLORIDE 0.9% 100 ML IV SCH (23:52)
[2023-09-04] MEDS: SODIUM CHLORIDE 0.9% 1,000 ML IV SCH (23:56)
[2023-09-04] MEDS: ATORVASTATIN 80 MG TAB PO SCH (23:59)
[2023-09-05 00:49] LABS: African American GFR (CKD) >90 (>60 ml/min/1.73 sqM); Anion Gap 30 mmol/L; Blood Urea Nitrogen 42 mg/dL (9-20); Chloride 97 mmol/L (98-107); Glucose 406 mg/dL (74-99); Non-African American GFR(CKD) 86 (>60 ml/min/1.73 sqM); Potassium 4.9 mmol/L (3.5-5.1); Sodium 133 mmol/L (137-145)
[2023-09-05 00:52] LABS: Carbon Dioxide 6 mmol/L (22-30)
[2023-09-05 01:04] LABS: Glucose,Whole Blood 383 mg/dL (70-110)
[2023-09-05 02:17] LABS: Glucose,Whole Blood 304 mg/dL (70-110)
[2023-09-05 03:05] LABS: Glucose,Whole Blood 275 mg/dL (70-110)
[2023-09-05] MEDS: SODIUM CHLORIDE 0.9% 1,000 ML IV SCH ×3 (03:31→13:38)
[2023-09-05 04:04] LABS: Glucose,Whole Blood 224 mg/dL (70-110)
--- NOTE | 2023-09-05 04:38 | P.CNPUL ---
History of Present Illness Consult date: 09/05/23 Requesting physician: Michell Maguire Reason for consult: other (Diabetic ketoacidosis) Chief complaint: Generalized weakness and high blood sugars History of present illness: I am seeing this patient in new consultation today 09/05/2023 for acute diabetic ketoacidosis. Patient is a 63-year-old white male with past medical history significant for diabetes mellitus type 2, diabetic neuropathy, previous CVA with memory impairment, seizure disorder, hyperlipidemia, hypertension, hepatitis C status post treatment, and recent COVID-19 infection 2 months ago. Patient reportedly recently moved to [place], and resides at [facility]. He has significant limitations post CVA. Apparently, while at the [facility], staff noticed the patient to be increasingly weak. He had high blood sugars And increased thirst and urinary frequency. Most recent available labs show a blood glucose of 406, serum bicarb of 6, anion gap of 30, and he is acetone positive. This is consistent with acute diabetic ketoacidosis. Patient was not started on insulin infusion until around midnight. He did have a VBG at that time which showed a pH of 7.15 and pCO2 27. He is just been started on normal s rico at 200 ML's per hour. Most recent BMP shows a sodium 133, potassium 4.9, chloride 97, BUN 42, creatinine 0.94, and glucose is reported above. No significant hemodynamic instability or hyperkalemia. Patient is currently lying in bed, comfortable on room air, in no acute distress. He's had adequate oral intake. No nausea or vomiting or abdominal pain. Actually denies any specific complaints. Patient reportedly had some chest discomfort and mild shortness of breath on arrival, which he currently denies. Troponins less than 0.012. NT proBNP level 318. EKG shows normal sinus rhythm without any acute ischemic changes. Chest x-ray did not show any acute cardiopulmonary disease processes. We will repeat patient's labs in an hour, patient may need to be transferred to the intensive care unit if his acidosis does not improve or worsens. Review of Systems REVIEW OF SYSTEMS: CONSTITUTIONAL: Denies any recent significant weight loss or weight gain. EYES: Denies change in vision. EARS, NOSE, MOUTH, THROAT: Denies headaches, denies sore throat. CARDIOVASCULAR: Denies chest pain, palpitations or syncopal episodes. RESPIRATORY: Denies shortness of breath, cough, congestion or hemoptysis. GASTROINTESTINAL: Denies change in appetite, abdominal pain, nausea and vomiting, or diarrhea GENITOURINARY: Denies hematuria, denies infections. Admits polyuria and polydipsia MUSKULOSKELETAL: Denies pain, denies swelling. INTEGUMENTARY: Denies rash, denies eczema. NEUROLOGICAL: Denies recent memory loss, no recent seizure activity. PSYCHIATRIC: Denies anxiety, denies depression. HEMATOLOGIC/LYMPHATIC: Denies anemia, denies enlarged lymph node Past Medical History Past Medical History: Diabetes Mellitus, Myocardial Infarction ([place]) Additional Past Medical History / Comment(s): cva 2019 Last Myocardial Infarction Date:: states few years ago History of Any Multi-Drug Resistant Organisms: None Reported Past Surgical History: No Surgical Hx Reported Past Anesthesia/Blood Transfusion Reactions: No Reported Reaction Past Psychological History: No Psychological Hx Reported Smoking Status: Former smoker Past Alcohol Use History: None Reported, Occasional Past Drug Use History: None Reported Medications and Allergies Home Medications Medication Instructions Recorded Confirmed Type Atorvastatin [Lipitor] 80 mg PO HS 07/12/23 09/04/23 History Clopidogrel [Plavix] 75 mg PO DAILY 07/12/23 09/04/23 History Empagliflozin [Jardiance] 25 mg PO DAILY 07/12/23 09/04/23 History amLODIPine [Norvasc] 5 mg PO DAILY 07/12/23 09/04/23 History levETIRAcetam [Keppra] 500 mg PO BID 07/12/23 09/04/23 History metFORMIN HCL [Glucophage] 500 mg PO BID-W/MEALS tab 07/16/23 09/04/23 Rx Acetaminophen [Tylenol 8 Hour] 650 mg PO Q6H PRN 09/04/23 09/04/23 History Insulin Glargine,Hum.rec.anlog 46 units SQ HS 09/04/23 09/04/23 History [Lantus Solostar Pen] Insulin Lispro [humaLOG Kwikpen] See Protocol SQ ACHS 09/04/23 09/04/23 History Loperamide [Imodium] 2 mg PO DAILY PRN 09/04/23 09/04/23 History Losartan [Cozaar] 25 mg PO DAILY 09/04/23 09/04/23 History Ondansetron [Zofran] 4 mg PO Q8HR PRN 09/04/23 09/04/23 History traMADol HCl [Ultram] 50 mg PO BID PRN 09/04/23 09/04/23 History Allergies Allergy/AdvReac Type Severity Reaction Status Date / Time No Known Allergies Allergy Verified 09/04/23 14:40 Physical Exam Vitals: Vital Signs Temp Pulse Pulse Resp BP BP Pulse Ox 09/05/23 02:00 98.1 F 108 H 17 99/58 95 09/04/23 22:15 102 H 17 09/04/23 21:41 98.0 F 106 H 18 104/63 98 09/04/23 18:40 102 H 18 112/64 98 09/04/23 16:58 105 H 16 117/72 98 09/04/23 14:12 100 20 120/70 97 09/04/23 13:09 107 H 20 112/68 99 09/04/23 11:24 98.9 F 100 18 87/63 98 Intake and Output 09/04/23 09/04/23 09/05/23 14:59 22:59 06:59 Intake Total 22.056 Output Total 140 380 Balance -140 -357.944 Intake: Intake, IV Titration 22.056 Amount Insulin Regular 100 unit 22.056 In Sodium Chloride 0.9% 100 ml @ 0.1 UNITS/KG/HR 5.91 mls/hr IV .Q17H6M [facility] Rx#:[id number] Output: Urine 140 380 Other: Voiding Method Urinal Urinal # Voids 1 2 Weight 58.513 kg 58.513 kg GENERAL EXAM: Alert, 63-year-old white male, comfortable in no apparent distress. HEAD: Normocephalic and atraumatic EYES: Normal reaction of pupils, equal size. NOSE: Clear with pink turbinates. THROAT: No erythema or exudates. Dry mucous membranes NECK: No masses, no JVD. CHEST: No chest wall deformity. LUNGS: Equal air entry with no crackles, wheeze, rhonchi or dullness. On room air. No conversational dyspnea or accessory muscle use.. No kussmaul respirations noted. CVS: S1 and S2 normal with no audible murmur, regular rhythm. No extra heart sounds ABDOMEN: No hepatosplenomegaly, active bowel sounds, no guarding or rigidity. Dexicom subq glucometer in place. SPINE: No scoliosis or deformity SKIN: No rashes CENTRAL NERVOUS SYSTEM: No focal deficits, tone is normal in all 4 extremities. Alert but oriented to self only. EXTREMITIES: There is no peripheral edema, clubbing, or cyanosis. Peripheral pulses are intact. Results - Laboratory Findings CBC and BMP: 09/04/23 22:38 09/05/23 04:12 PT/INR, D-dimer PT 10.8 sec (10.0-12.5) 09/04/23 11:32 INR 1.0 (<1.2) 09/04/23 11:32 Abnormal lab findings: Abnormal Labs 09/04/23 09/04/23 09/04/23 11:32 11:32 11:32 WBC 15.6 H Neutrophils # 12.7 H Lymphocytes # VBG pH VBG pCO2 VBG HCO3 Sodium 136 L Potassium Chloride 95 L Carbon Dioxide 15 L BUN 35 H Glucose 309 H POC Glucose (mg/dL) Phosphorus Total Bilirubin 1.7 H ALT 50 H Urine Glucose (UA) 4+ H Urine Ketones 2+ H 09/04/23 09/04/23 09/04/23 11:32 14:04 18:41 WBC Neutrophils # Lymphocytes # VBG pH 7.23 L VBG pCO2 VBG HCO3 18 L Sodium Potassium Chloride Carbon Dioxide BUN Glucose POC Glucose (mg/dL) 315 H 334 H Phosphorus Total Bilirubin ALT Urine Glucose (UA) Urine Ketones 09/04/23 09/04/23 09/04/23 21:02 22:38 22:38 WBC 16.9 H Neutrophils # 14.8 H Lymphocytes # 0.8 L VBG pH VBG pCO2 VBG HCO3 Sodium 135 L Potassium 5.2 H Chloride 97 L Carbon Dioxide 8 L* BUN 41 H Glucose 395 H POC Glucose (mg/dL) 344 H Phosphorus 6.7 H Total Bilirubin ALT Urine Glucose (UA) Urine Ketones 09/04/23 09/04/23 09/05/23 22:38 23:50 00:19 WBC Neutrophils # Lymphocytes # VBG pH 7.15 L* VBG pCO2 27 L VBG HCO3 9 L* Sodium 133 L Potassium Chloride 97 L Carbon Dioxide 6 L* BUN 42 H Glucose 406 H POC Glucose (mg/dL) 411 H Phosphorus Total Bilirubin ALT Urine Glucose (UA) Urine Ketones 09/05/23 09/05/23 09/05/23 01:02 02:15 03:03 WBC Neutrophils # Lymphocytes # VBG pH VBG pCO2 VBG HCO3 Sodium Potassium Chloride Carbon Dioxide BUN Glucose POC Glucose (mg/dL) 383 H 304 H 275 H Phosphorus Total Bilirubin ALT Urine Glucose (UA) Urine Ketones 09/05/23 04:02 WBC Neutrophils # Lymphocytes # VBG pH VBG pCO2 VBG HCO3 Sodium Potassium Chloride Carbon Dioxide BUN Glucose POC Glucose (mg/dL) 224 H Phosphorus Total Bilirubin ALT Urine Glucose (UA) Urine Ketones - Diagnostic Findings Chest x-ray: image reviewed Assessment and Plan Assessment: Acute diabetic ketoacidosis Metabolic anion gap acidosis, secondary to above Leukocytosis, secondary to above, doubt infectious etiology Generalized weakness and dehydration Prerenal azotemia Diabetes mellitus type 2, insulin-dependent, complicated by diabetic neuropathy Hyperlipidemia Hypertension History of CVA, with residual memory impairment and visual impairment History of seizure disorder, managed on Keppra History of hepatitis C status/post treatment Former tobacco smoker Plan: Patient's medications, labs, chest x-ray reviewed Most recent labs show a blood glucose of 406, serum bicarb 6, anion gap 30, and he is acetone positive consistent with diabetic ketoacidosis. Patient was just recently started on the DKA protocol around midnight. This includes insulin infusing at 9 units per hour, normal saline infusing at 200 ML's per hour, and frequent lab draws. Patient has no severe hyperkalemia. No signs of hemodynamic instability. We will recheck labs in approximately 30 minutes. Adam montiel may have to be moved to the intensive care unit if his acidosis does not improve or worsens. I have personally seen and examined the patient, performed the documentation and the assessment and plan as written. Number of minutes spent on the visit:20 this is a joint evaluation that was done along with a nurse practitioner. This evaluation was done and 30 minutes. The patient was hospitalized for poorly controlled blood sugar and a component of DKA. He is currently on insulin drip which is running at 4.5 units an hour. He is also taking metformin at home/[facility] in combination with Lantus 46 units He is also on D5 half-normal saline running at 150 mL an hour and the patient's most recent 9 gap is down to 18 and a serum bicarb is up to 15. White cell count at 16.9 with a hemoglobin of 13.1. Home medications have been resumed. His chest x-ray shows no acute cardiac pulmonary process. The patient is on room air oxygen. The patient is hemodynamically stable and afebrile. We'll treat this patient based on the Protocol and we'll transition him to long-acting insulin once his anion gap is closed. Time with Patient: Greater than 30
[2023-09-05 04:46] LABS: African American GFR (CKD) >90 (>60 ml/min/1.73 sqM); Anion Gap 18 mmol/L; Blood Urea Nitrogen 39 mg/dL (9-20); Calcium 8.6 mg/dL (8.4-10.2); Carbon Dioxide 15 mmol/L (22-30); Chloride 102 mmol/L (98-107); Glucose 203 mg/dL (74-99); Non-African American GFR(CKD) >90 (>60 ml/min/1.73 sqM); Potassium 3.5 mmol/L (3.5-5.1); Sodium 135 mmol/L (137-145)
[2023-09-05] MEDS: D5-0.45% NACL WITH KCL 20MEQ/L 1,000 ML IV SCH ×2 (04:46→13:38)
[2023-09-05 04:47] LABS: African American GFR (CKD) >90 (>60 ml/min/1.73 sqM); Anion Gap 18 mmol/L; Blood Urea Nitrogen 40 mg/dL (9-20); Carbon Dioxide 15 mmol/L (22-30); Chloride 102 mmol/L (98-107); Glucose 203 mg/dL (74-99); Non-African American GFR(CKD) >90 (>60 ml/min/1.73 sqM); Phosphorus 3.9 mg/dL (2.5-4.5); Potassium 3.5 mmol/L (3.5-5.1); Sodium 135 mmol/L (137-145)
[2023-09-05] MEDS ORDERED: Potassium Replacement Protocol 1 EACH MISC MISCELLANE PRN (04:54)
[2023-09-05] MEDS ORDERED: POTASSIUM CHLORIDE ER 20 MEQ TAB.ER PO SCH (05:00)
[2023-09-05 05:09] LABS: Glucose,Whole Blood 212 mg/dL (70-110)
[2023-09-05 06:03] LABS: Glucose,Whole Blood 158 mg/dL (70-110)
[2023-09-05 07:32] LABS: Glucose,Whole Blood 167 mg/dL (70-110)
[2023-09-05] MEDS: CLOPIDOGREL 75 MG TAB PO SCH (08:26)
[2023-09-05] MEDS: ASPIRIN 325 MG TAB PO SCH (08:26)
[2023-09-05] MEDS: LOSARTAN 25 MG TAB PO SCH (08:26)
[2023-09-05] MEDS: levETIRAcetam 500 MG TAB PO SCH ×3 (08:26→20:13)
[2023-09-05] MEDS: amLODIPine 5 MG TAB PO SCH (08:26)
[2023-09-05 09:08] LABS: Chol/HDL Ratio 2.41 Ratio; LDL Cholesterol,Calculated 61.5 mg/dL (0.0-131.0); VLDL Calculation 10.96 mg/dL (5.00-40.00)
[2023-09-05 09:49] LABS: Glucose,Whole Blood 92 mg/dL (70-110)
[2023-09-05 10:18] LABS: Glucose,Whole Blood 102 mg/dL (70-110)
[2023-09-05] MEDS: INSULIN REGULAR 100 UNIT in SODIUM CHLORIDE 0.9% 100 ML IV SCH (10:44)
[2023-09-05 11:03] LABS: Glucose,Whole Blood 89 mg/dL (70-110)
[2023-09-05 11:29] VITALS: BMI 19.0
[2023-09-05 11:36] LABS: Glucose,Whole Blood 101 mg/dL (70-110)
[2023-09-05 11:53] LABS: African American GFR (CKD) >90 (>60 ml/min/1.73 sqM); Anion Gap 9 mmol/L; Blood Urea Nitrogen 30 mg/dL (9-20); Calcium 8.6 mg/dL (8.4-10.2); Carbon Dioxide 21 mmol/L (22-30); Chloride 105 mmol/L (98-107); Glucose 91 mg/dL (74-99); Non-African American GFR(CKD) >90 (>60 ml/min/1.73 sqM); Potassium 3.9 mmol/L (3.5-5.1); Sodium 135 mmol/L (137-145)
[2023-09-05 12:09] LABS: Glucose,Whole Blood 153 mg/dL (70-110)
[2023-09-05] MEDS ORDERED: DEXTROSE 50% SYRINGE 50 ML IVP PRN ×2 (13:14)
[2023-09-05 16:36] LABS: Glucose,Whole Blood 486 mg/dL (70-110)
[2023-09-05] MEDS: INSULIN ASPART (NovoLOG) 100 UNIT/ML VIAL SQ SCH ×3 (16:41→22:29)
[2023-09-05] MEDS ORDERED: INSULIN ASPART (NovoLOG) 100 UNIT/ML VIAL SQ ONE (16:54)
[2023-09-05] MEDS: ATORVASTATIN 80 MG TAB PO SCH (20:13)
[2023-09-05] MEDS ORDERED: INSULIN DETEMIR (LEVEMIR) 100 UNIT/ML SYR SQ SCH ×2 (21:00)
[2023-09-05 22:01] LABS: Glucose,Whole Blood 167 mg/dL (70-110)
[2023-09-06] MEDS: SODIUM CHLORIDE 0.9% 1,000 ML IV SCH ×2 (02:32→18:40)
[2023-09-06 06:00] LABS: Glucose,Whole Blood 31 mg/dL (70-110)
[2023-09-06 06:18] LABS: Glucose,Whole Blood 95 mg/dL (70-110)
[2023-09-06 08:36] LABS: Glucose,Whole Blood 43 mg/dL (70-110)
[2023-09-06 08:36] LABS: Glucose,Whole Blood 46 mg/dL (70-110)
[2023-09-06] MEDS: INSULIN ASPART (NovoLOG) 100 UNIT/ML VIAL SQ SCH ×7 (08:36→19:58)
[2023-09-06] MEDS: LOSARTAN 25 MG TAB PO SCH (08:44)
[2023-09-06] MEDS: CLOPIDOGREL 75 MG TAB PO SCH (08:44)
[2023-09-06] MEDS: amLODIPine 5 MG TAB PO SCH (08:44)
[2023-09-06] MEDS: levETIRAcetam 500 MG TAB PO SCH ×2 (08:44→19:57)
[2023-09-06] MEDS: ASPIRIN 325 MG TAB PO SCH (08:44)
[2023-09-06 08:46] LABS: Glucose,Whole Blood 122 mg/dL (70-110)
[2023-09-06 09:36] LABS: Glucose,Whole Blood 122 mg/dL (70-110)
[2023-09-06 09:56] LABS: HCT 40.3 % (39.0-53.0); HGB 13.4 gm/dL (13.0-17.5); MCHC 33.2 g/dL (31.0-37.0); Mean Platelet Volume 7.3; Platelet Count 268 k/uL (150-450); RBC 4.61 m/uL (4.30-5.90); RDW 14.3 % (11.5-15.5); WBC 14.8 k/uL (3.8-10.6)
[2023-09-06] MEDS: INSULIN REGULAR 100 UNIT in SODIUM CHLORIDE 0.9% 100 ML IV SCH (10:14)
[2023-09-06 10:32] LABS: MCV 87.4 fL (80.0-100.0)
[2023-09-06 11:41] LABS: Glucose,Whole Blood 181 mg/dL (70-110)
[2023-09-06 12:54] LABS: African American GFR (CKD) >90 (>60 ml/min/1.73 sqM); Anion Gap 14 mmol/L; Blood Urea Nitrogen 16 mg/dL (9-20); Calcium 9.2 mg/dL (8.4-10.2); Carbon Dioxide 23 mmol/L (22-30); Chloride 104 mmol/L (98-107); Glucose 135 mg/dL (74-99); Non-African American GFR(CKD) >90 (>60 ml/min/1.73 sqM); Potassium 3.8 mmol/L (3.5-5.1); Sodium 141 mmol/L (137-145)
--- NOTE | 2023-09-06 13:35 | P.PN ---
Subjective Progress Note Date: 09/06/23 I am seeing this patient in new consultation today 09/05/2023 for acute diabetic ketoacidosis. Patient is a 63-year-old white male with past medical history significant for diabetes mellitus type 2, diabetic neuropathy, previous CVA with memory impairment, seizure disorder, hyperlipidemia, hypertension, hepatitis C status post treatment, and recent COVID-19 infection 2 months ago. Patient reportedly recently moved to [place], and resides at [facility]. He has significant limitations post CVA. Apparently, while at the group home, staff noticed the patient to be increasingly weak. He had high blood sugars And increased thirst and urinary frequency. Most recent available labs show a blood glucose of 406, serum bicarb of 6, anion gap of 30, and he is acetone positive. This is consistent with acute diabetic ketoacidosis. Patient was not started on insulin infusion until around midnight. He did have a VBG at that time which showed a pH of 7.15 and pCO2 27. He is just been started on normal saline at 200 ML's per hour. Most recent BMP shows a sodium 133, potassium 4.9, chloride 97, BUN 42, creatinine 0.94, and glucose is reported above. No significant hemodynamic instability or hyperkalemia. Patient is currently lying in bed, comfortable on room air, in no acute distress. He's had adequate oral intake. No nausea or vomiting or abdominal pain. Actually denies any specific complaints. Patient reportedly had some chest discomfort and mild shortness of breath on arrival, which he currently denies. Troponins less than 0.012. NT proBNP level 318. EKG shows normal sinus rhythm without any acute ischemic changes. Chest x-ray did not show any acute cardiopulmonary disease processes. We will repeat patient's labs in an hour, patient may need to be transferred to the intensive care unit if his acidosis does not improve or worsens. On today's evaluation of 09/06/2023, the patient is doing well. He is on room air oxygen. He is communicating. Adequate mentation. 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 The patient was restarted on aspirin, Plavix, and Lipitor. He is also on Cozaar 25 mg by mouth daily. The patient is also on Keppra. The blood work from today shows a regular basis, 14.8, hemoglobin 15.4 and a platelet count of 268, BUN is at 60 with a creatinine of 0.4 and sodium levels of 141. Anion gap is at 14. He has no specific complaints. Hemodynamically stable. No chest pain. No focal neurological deficits. Objective - Vital Signs Vital signs: Vital Signs Temp 97.3 F L 09/06/23 08:41 Pulse 95 09/06/23 08:41 Resp 17 09/06/23 08:41 BP 171/92 09/06/23 08:41 Pulse Ox 98 09/06/23 08:41 FiO2 Intake & Output 09/05/23 09/06/23 09/06/23 18:59 06:59 18:59 Intake Total 633.938 118 Output Total 820 1160 Balance -186.062 -1160 118 Weight 58.513 kg Intake: Intake, IV Titration 35.938 Amount Insulin Regular 100 unit 35.938 In Sodium Chloride 0.9% 100 ml @ 0.1 UNITS/KG/HR 5.91 mls/hr IV .[id number] BROOKE Rx#:[id number] Oral 598 118 Output: Urine 820 1160 Other: Voiding Method Urinal Urinal Urinal # Voids 2 - Exam GENERAL EXAM: Alert, 63-year-old white male, comfortable in no apparent distress. HEAD: Normocephalic and atraumatic EYES: Normal reaction of pupils, equal size. NOSE: Clear with pink turbinates. THROAT: No erythema or exudates. Dry mucous membranes NECK: No masses, no JVD. CHEST: No chest wall deformity. LUNGS: Equal air entry with no crackles, wheeze, rhonchi or dullness. On room air. No conversational dyspnea or accessory muscle use.. No kussmaul respirations noted. CVS: S1 and S2 normal with no audible murmur, regular rhythm. No extra heart sounds ABDOMEN: No hepatosplenomegaly, active bowel sounds, no guarding or rigidity. Dexicom subq glucometer in place. SPINE: No scoliosis or deformity SKIN: No rashes CENTRAL NERVOUS SYSTEM: No focal deficits, tone is normal in all 4 extremities. Alert but oriented to self only. EXTREMITIES: There is no peripheral edema, clubbing, or cyanosis. Peripheral pulses are intact. - Labs CBC & Chem 7: 09/06/23 09:30 09/06/23 09:30 Labs: Abnormal Lab Results - Last 24 Hours (Table) 09/05/23 09/05/23 09/05/23 Range/Units 11:24 12:07 16:34 Sodium 135 L (137-145) mmol/L Carbon Dioxide 21 L (22-30) mmol/L BUN 30 H (9-20) mg/dL Creatinine 0.60 L (0.66-1.25) mg/dL POC Glucose (mg/dL) 153 H 486 H (70-110) mg/dL 09/05/23 09/06/23 09/06/23 Range/Units 21:59 05:57 08:27 Sodium (137-145) mmol/L Carbon Dioxide (22-30) mmol/L BUN (9-20) mg/dL Creatinine (0.66-1.25) mg/dL POC Glucose (mg/dL) 167 H 31 L 43 L (70-110) mg/dL 09/06/23 09/06/23 09/06/23 Range/Units 08:30 08:45 09:34 Sodium (137-145) mmol/L Carbon Dioxide (22-30) mmol/L BUN (9-20) mg/dL Creatinine (0.66-1.25) mg/dL POC Glucose (mg/dL) 46 L 122 H 122 H (70-110) mg/dL Assessment and Plan Assessment: Acute diabetic ketoacidosis, recovered and the patient is on long-acting insulin with Levemir Metabolic anion gap acidosis, secondary to above, recovered Leukocytosis, secondary to above, doubt infectious etiology, slightly improved compared to yesterday Generalized weakness and dehydration, improved Prerenal azotemia, improved Diabetes mellitus type 2, insulin-dependent, complicated by diabetic neuropathy Hyperlipidemia Hypertension History of CVA, with residual memory impairment and visual impairment History of seizure disorder, managed on Keppra History of hepatitis C status/post treatment Former tobacco smoker Plan: Continue Levemir 38 units at bedtime and 5 units of NovoLog with meals and a sliding scale coverage. Monitor blood sugar Diabetic education Continue aspirin and Plavix Continue Lipitor Continue losartan Tramadol for pain control Currently on room air oxygen
[2023-09-06 16:22] LABS: Glucose,Whole Blood 282 mg/dL (70-110)
[2023-09-06 19:51] LABS: Glucose,Whole Blood 205 mg/dL (70-110)
[2023-09-06] MEDS: ATORVASTATIN 80 MG TAB PO SCH (19:57)
[2023-09-06] MEDS ORDERED: INSULIN DETEMIR (LEVEMIR) 100 UNIT/ML SYR SQ SCH (21:00)
[2023-09-06 23:54] LABS: Glucose,Whole Blood 56 mg/dL (70-110)
[2023-09-06 23:55] LABS: Glucose,Whole Blood 77 mg/dL (70-110)
[2023-09-07 03:18] LABS: Glucose,Whole Blood 45 mg/dL (70-110)
[2023-09-07 03:42] LABS: Glucose,Whole Blood 65 mg/dL (70-110)
[2023-09-07 04:00] LABS: Glucose,Whole Blood 103 mg/dL (70-110)
[2023-09-07] MEDS: SODIUM CHLORIDE 0.9% 1,000 ML IV SCH (05:56)
[2023-09-07 06:03] LABS: Glucose,Whole Blood 102 mg/dL (70-110)
[2023-09-07] MEDS: ASPIRIN 325 MG TAB PO SCH (07:52)
[2023-09-07] MEDS: amLODIPine 5 MG TAB PO SCH (07:52)
[2023-09-07] MEDS: CLOPIDOGREL 75 MG TAB PO SCH (07:52)
[2023-09-07] MEDS: levETIRAcetam 500 MG TAB PO SCH ×2 (07:52→19:53)
[2023-09-07] MEDS: LOSARTAN 25 MG TAB PO SCH (07:52)
[2023-09-07] MEDS: INSULIN ASPART (NovoLOG) 100 UNIT/ML VIAL SQ SCH ×7 (07:57→19:53)
[2023-09-07 09:36] LABS: HCT 38.8 % (39.0-53.0); HGB 12.7 gm/dL (13.0-17.5); MCH 28.4 pg (25.0-35.0); MCHC 32.9 g/dL (31.0-37.0); MCV 86.4 fL (80.0-100.0); Mean Platelet Volume 7.8; Platelet Count 239 k/uL (150-450); RBC 4.49 m/uL (4.30-5.90); RDW 14.3 % (11.5-15.5); WBC 11.3 k/uL (3.8-10.6)
[2023-09-07 10:14] LABS: ALT 60 U/L (4-49); AST 77 U/L (17-59); African American GFR (CKD) >90 (>60 ml/min/1.73 sqM); Albumin 3.2 g/dL (3.5-5.0); Alkaline Phosphatase 83 U/L (38-126); Anion Gap 7 mmol/L; Blood Urea Nitrogen 15 mg/dL (9-20); Calcium 8.5 mg/dL (8.4-10.2); Carbon Dioxide 32 mmol/L (22-30); Chloride 101 mmol/L (98-107); Glucose 96 mg/dL (74-99); Non-African American GFR(CKD) >90 (>60 ml/min/1.73 sqM); Potassium 3.3 mmol/L (3.5-5.1); Sodium 140 mmol/L (137-145); Total Bilirubin 0.4 mg/dL (0.2-1.3); Total Protein 5.9 g/dL (6.3-8.2)
--- NOTE | 2023-09-07 11:54 | P.PN ---
Subjective Progress Note Date: 09/07/23 I am seeing this patient in new consultation today 09/05/2023 for acute diabetic ketoacidosis. Patient is a 63-year-old white male with past medical history significant for diabetes mellitus type 2, diabetic neuropathy, previous CVA with memory impairment, seizure disorder, hyperlipidemia, hypertension, hepatitis C status post treatment, and recent COVID-19 infection 2 months ago. Patient reportedly recently moved to [place], and resides at [facility]. He has significant limitations post CVA. Apparently, while at the senior living, staff noticed the patient to be increasingly weak. He had high blood sugars And increased thirst and urinary frequency. Most recent available labs show a blood glucose of 406, serum bicarb of 6, anion gap of 30, and he is acetone positive. This is consistent with acute diabetic ketoacidosis. Patient was not started on insulin infusion until around midnight. He did have a VBG at that time which showed a pH of 7.15 and pCO2 27. He is just been started on normal saline at 200 ML's per hour. Most recent BMP shows a sodium 133, potassium 4.9, chloride 97, BUN 42, creatinine 0.94, and glucose is reported above. No significant hemodynamic instability or hyperkalemia. Patient is currently lying in bed, comfortable on room air, in no acute distress. He's had adequate oral intake. No nausea or vomiting or abdominal pain. Actually denies any specific complaints. Patient reportedly had some chest discomfort and mild shortness of breath on arrival, which he currently denies. Troponins less than 0.012. NT proBNP level 318. EKG shows normal sinus rhythm without any acute ischemic changes. Chest x-ray did not show any acute cardiopulmonary disease processes. We will repeat patient's labs in an hour, patient may need to be transferred to the intensive care unit if his acidosis does not improve or worsens. On today's evaluation of 09/06/2023, the patient is doing well. He is on room air oxygen. He is communicating. Adequate mentation. 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 The patient was restarted on aspirin, Plavix, and Lipitor. He is also on Cozaar 25 mg by mouth daily. The patient is also on Keppra. The blood work from today shows a regular basis, 14.8, hemoglobin 15.4 and a platelet count of 268, BUN is at 60 with a creatinine of 0.4 and sodium levels of 141. Anion gap is at 14. He has no specific complaints. Hemodynamically stable. No chest pain. No focal neurological deficits. 09/07/2023, no new complaints and the patient is on Levemir insulin 38 units. The patient encounter some hypoglycemia overnight and for that reason the Levemir dose was reduced over 30 units . His overall respiratory status is stable. Mental status is stable. BUN is at 50 with a creatinine of 0.5. Bicarbonate 32 with a anion gap of 7. White cell count of 11.3 and the patient is currently on room air oxygen. Objective - Vital Signs Vital signs: Vital Signs Temp 98.5 F 09/07/23 07:50 Pulse 94 09/07/23 07:50 Resp 17 09/07/23 07:50 BP 118/72 09/07/23 07:50 Pulse Ox 97 09/07/23 07:50 FiO2 Intake & Output 09/06/23 09/07/23 09/07/23 18:59 06:59 18:59 Intake Total 595 118 236 Output Total 550 350 200 Balance 45 -232 36 Weight 58.513 kg Intake: Oral 595 118 236 Output: Urine 550 350 200 Other: Voiding Method Urinal Urinal Urinal # Voids 2 2 - Exam GENERAL EXAM: Alert, 63-year-old white male, comfortable in no apparent distress. HEAD: Normocephalic and atraumatic EYES: Normal reaction of pupils, equal size. NOSE: Clear with pink turbinates. THROAT: No erythema or exudates. Dry mucous membranes NECK: No masses, no JVD. CHEST: No chest wall deformity. LUNGS: Equal air entry with no crackles, wheeze, rhonchi or dullness. On room air. No conversational dyspnea or accessory muscle use.. No kussmaul respirations noted. CVS: S1 and S2 normal with no audible murmur, regular rhythm. No extra heart sounds ABDOMEN: No hepatosplenomegaly, active bowel sounds, no guarding or rigidity. Dexicom subq glucometer in place. SPINE: No scoliosis or deformity SKIN: No rashes CENTRAL NERVOUS SYSTEM: No focal deficits, tone is normal in all 4 extremities. Alert but oriented to self only. EXTREMITIES: There is no peripheral edema, clubbing, or cyanosis. Peripheral pulses are intact. - Labs CBC & Chem 7: 09/07/23 06:55 09/07/23 06:55 Labs: Abnormal Lab Results - Last 24 Hours (Table) 09/06/23 09/06/23 09/06/23 Range/Units 09:30 09:30 11:38 WBC 14.8 H (3.8-10.6) k/uL Hgb (13.0-17.5) gm/dL Hct (39.0-53.0) % Creatinine 0.46 L (0.66-1.25) mg/dL Glucose 135 H (74-99) mg/dL POC Glucose (mg/dL) 181 H (70-110) mg/dL C-Peptide (0.81-3.85) ng/mL 09/06/23 09/06/23 09/06/23 Range/Units 12:24 16:16 19:50 WBC (3.8-10.6) k/uL Hgb (13.0-17.5) gm/dL Hct (39.0-53.0) % Creatinine (0.66-1.25) mg/dL Glucose (74-99) mg/dL POC Glucose (mg/dL) 282 H 205 H (70-110) mg/dL C-Peptide <0.02 L (0.81-3.85) ng/mL 09/06/23 09/07/23 09/07/23 Range/Units 23:38 03:16 03:41 WBC (3.8-10.6) k/uL Hgb (13.0-17.5) gm/dL Hct (39.0-53.0) % Creatinine (0.66-1.25) mg/dL Glucose (74-99) mg/dL POC Glucose (mg/dL) 56 L 45 L 65 L (70-110) mg/dL C-Peptide (0.81-3.85) ng/mL 09/07/23 Range/Units 06:55 WBC 11.3 H (3.8-10.6) k/uL Hgb 12.7 L (13.0-17.5) gm/dL Hct 38.8 L (39.0-53.0) % Creatinine (0.66-1.25) mg/dL Glucose (74-99) mg/dL POC Glucose (mg/dL) (70-110) mg/dL C-Peptide (0.81-3.85) ng/mL Assessment and Plan Assessment: Acute diabetic ketoacidosis, recovered and the patient is on long-acting insulin with Levemir Metabolic anion gap acidosis, secondary to above, recovered Leukocytosis, secondary to above, doubt infectious etiology, slightly improved compared to yesterday Generalized weakness and dehydration, improved Prerenal azotemia, improved Diabetes mellitus type 2, insulin-dependent, complicated by diabetic neuropathy Hyperlipidemia Hypertension History of CVA, with residual memory impairment and visual impairment History of seizure disorder, managed on Keppra History of hepatitis C status/post treatment Former tobacco smoker Plan: Continue Levemir 30 units at bedtime and 5 units of NovoLog with meals and a sl iding scale coverage. Watch for any signs of hypoglycemia Anion gap is closed Change IV fluids to KVO Monitor blood sugar Diabetic education Continue aspirin and Plavix Continue Lipitor Continue losartan Tramadol for pain control Currently on room air oxygen
[2023-09-07 11:57] LABS: Glucose,Whole Blood 86 mg/dL (70-110)
--- NOTE | 2023-09-07 14:32 | P.HPIM ---
History of Present Illness H&P Date: 09/07/23 HISTORY OF PRESENT ILLNESS This is a 63-year-old male with past medical history of osteoarthritis ge neralized, diabetes mellitus type 2, diabetic neuropathy, and history of seizure disorder, history of stroke with short-term memory deficits, hepatitis C status post treatment, hypertension, hyperlipidemia, hidradenitis suppurativa. Patient had a hospitalization in June as he had been positive for Covid and ended up being discharged to [facility] in [place]. After he completed his course of isolation for Covid, patient was transferred to a long term locally. During his hospitalization in June, patient was also diagnosed with left axillary , UTI with sepsis, type II CO secondary to sepsis and Covid combination with urinary tract infection. Patient was brought into the emergency center due to increasing weakness at the long term. Patient did not seem to be gaining any strength along with frequent urination, dizziness and shortness of breath. Symptoms seem to be gradually worsening. Patient was found to be hypotensive initially. Chest x-ray revealed no acute process. COPD. CO2 was 15, blood sugar 309 and white count 15.6. Venous blood gas revealed pH of 7.23, pCO2 42, bicarbonate 18. Acetone was positive. Patient was started on DKA protocol and admitted to the hospital, consult with pulmonary medicine. REVIEW OF SYSTEMS Constitutional: positive for fever, no chills, no night sweats. No weight change. positive for weakness, fatigue or lethargy. No daytime sleepiness. HEENT: No headache. No blurred vision or double vision, no loss of vision. No loss of Hearing, no ringing in the ears, no dizziness. No nasal drainage or congestion. No epistaxis. No sore throat. Lungs: positive for shortness of breath,positive for cough, no sputum pr oduction. No wheezing. Cardiovascular: No chest pain, no lower extremity edema. No palpitations. No paroxysmal nocturnal dyspnea. No orthopnea. No lightheadedness or dizziness. No syncopal episodes. Abdominal: No abdominal pain. No nausea, vomiting. No diarrhea. No constipation. No bloody or tarry stools. No loss of appetite. Genitourinary: No dysuria, increased frequency, urgency. No urinary retention. Musculoskeletal: No myalgias.positive for muscle weakness, positive for gait dysfunction, frequent falls. No back pain. No neck pain. Integumentary: No wounds, positive for left axillary Hydradenitis suppurativa . No rash or pruritus. No unusual bruising. No change in hair or nails. Neurologic: No aphasia. No facial droop. No change in mentation. No head injury. No headache. No paralysis. No paresthesia. Psychiatric: No depression. No anxiety. No mood swings, CHI signs Endocrine: abnormal blood sugars. No weight change. No excessive sweating or thirst. No cold intolerance. MEDICAL HISTORY Hypertension and hypertensive cardiovascular disease. Hyperlipidemia. History of CVA. History of closed head injury. Diabetes mellitus type 2 with diabetic neuropathy. Hepatitis C status post treatment. Osteoarthritis. Hydradenitis suppurative SURGICAL HISTORY Intestinal surgical tear repair. 2005 SOCIAL HISTORY Patient smokes marijuana, he drinks about 1-2 cups of coffee every day, he denies any alcohol ingestion, no drug use or abuse. FAMILY HISTORY Father at age 72 from hypertension, mother at age of 72 from unknown cause, patient has one brother and 2 sisters and he also has 4 sons and 1 daughter. PHYSICAL EXAMINATION Gen: This is a 63-year-old male laying down in bed in no apparent distress. HEENT: Head is atraumatic, normocephalic. Pupils equal, round. Sclerae is anicteric. NECK: Supple. No JVD. No lymphadenopathy. No thyromegaly. LUNGS: Decreased breath sounds at the bases. Rhonchi, no expiratory wheezes, no chest wall tenderness, no intercostal retractions. HEART: first heart sound is depressed, second heart sounds normal, there is 1/6 diastolic murmur at the right second intercostal space ABDOMEN: Soft, nontender, nondistended, positive bowel sounds. EXTREMITIES: There is no edema, no calf tenderness, or sinus pedis +2 bilaterally. NEUROLOGICAL: Patient is awake, alert and oriented x3. Cranial nerves 2 through 12 are grossly intact, muscle power 4 out of 5 in upper extremities and 4 out of 5 in bilateral lower extremity is. ASSESSMENT AND PLAN 1. Acute diabetic ketoacidosis. Continue DKA protocol, patient admitted to the cardiac stepdown unit. He is on an insulin drip, IV fluids of D5W. Continue 1 hour Accu-Cheks and adjust insulin drip appropriately 2. Metabolic acidosis secondary to DKA. Continue treatment in #1. 3. Leukocytosis secondary to DKA. No infectious process identified. 4. Recent diagnosis of COVID-19 with generalized weakness and debility. Patient completed isolation and treatment for Covid. 5. Hypertension and hypertensive cardiovascular disease. Continue patient on amlodipine 5 mg orally once every day, losartan 25 mg daily and monitor the patient blood pressure very closely. 6. Mixed hyperlipidemia. Continue patient on atorvastatin 80 mg once every day, monitor lipid panel, keep LDL 55-70. 7. History of CVA in the past continue patient on atorvastatin 80 mg once every day as well as Lopid 75 milligrams once every day for secondary stroke prevention. 8. Diabetes mellitus type 2. Patient may have converted to type I. Continue insulin drip and plan to transition to Levemir and scale insulin, scheduled insulin with meals. Hold metformin. 9. Diabetic polyneuropathy. 10. History of seizure disorder. Continue patient on Keppra 500 mg orally twice every day. 11. History of closed head injury. Stable. 12. History of hepatitis C. Stable. 13. Left hydradenitis suppurative s/p IV antibtiotics, stable. 14. DVT prophylaxis. Lovenox 40 mg subcutaneously every 24 hours. 15. GI prophylaxis. Continue Protonix 40 mg orally once every day. 16. Admit to inpatient. Estimate a length of stay 2 midnights. 17. Full code. 17. family day care worker consultation for discharge planning. 18. PT OT evaluation. Impression and plan of care have been directed as dictated by the signing physician. Mey Bello nurse practitioner acting as scribe for signing physician. Past Medical History Past Medical History: Diabetes Mellitus, Myocardial Infarction (CO) Additional Past Medical History / Comment(s): cva 2019 Last Myocardial Infarction Date:: states few years ago History of Any Multi-Drug Resistant Organisms: None Reported Past Surgical History: No Surgical Hx Reported Past Anesthesia/Blood Transfusion Reactions: No Reported Reaction Past Psychological History: No Psychological Hx Reported Smoking Status: Former smoker Past Alcohol Use History: None Reported, Occasional Past Drug Use History: None Reported Medications and Allergies Home Medications Medication Instructions Recorded Confirmed Type Atorvastatin [Lipitor] 80 mg PO HS 07/12/23 09/04/23 History Clopidogrel [Plavix] 75 mg PO DAILY 07/12/23 09/04/23 History Empagliflozin [Jardiance] 25 mg PO DAILY 07/12/23 09/04/23 History amLODIPine [Norvasc] 5 mg PO DAILY 07/12/23 09/04/23 History levETIRAcetam [Keppra] 500 mg PO BID 07/12/23 09/04/23 History metFORMIN HCL [Glucophage] 500 mg PO BID-W/MEALS tab 07/16/23 09/04/23 Rx Acetaminophen [Tylenol 8 Hour] 650 mg PO Q6H PRN 09/04/23 09/04/23 History Insulin Glargine,Hum.rec.anlog 46 units SQ HS 09/04/23 09/04/23 History [Lantus Solostar Pen] Insulin Lispro [humaLOG Kwikpen] See Protocol SQ ACHS 09/04/23 09/04/23 History Loperamide [Imodium] 2 mg PO DAILY PRN 09/04/23 09/04/23 History Losartan [Cozaar] 25 mg PO DAILY 09/04/23 09/04/23 History Ondansetron [Zofran] 4 mg PO Q8HR PRN 09/04/23 09/04/23 History traMADol HCl [Ultram] 50 mg PO BID PRN 09/04/23 09/04/23 History Allergies Allergy/AdvReac Type Severity Reaction Status Date / Time No Known Allergies Allergy Verified 09/04/23 14:40 Physical Exam Vitals: Vital Signs Temp Pulse Resp BP Pulse Ox 09/07/23 12:44 93 17 128/80 97 09/07/23 11:30 96 09/07/23 07:50 98.5 F 94 17 118/72 97 09/07/23 03:21 98.5 F 95 20 136/73 96 09/06/23 23:30 98.4 F 111 H 18 149/79 98 09/06/23 20:05 98.2 F 99 18 142/72 95 09/06/23 19:36 97.5 F L 94 18 104/68 97 09/06/23 16:11 97.6 F 91 18 147/76 98 09/06/23 15:00 97.7 F 90 16 154/83 98 Intake and Output 09/06/23 09/07/23 09/07/23 22:59 06:59 14:59 Intake Total 357 118 236 Output Total 425 125 625 [facility] -68 -7 -389 Intake: Oral 357 118 236 Output: Urine 425 125 625 Other: Voiding Method Urinal Urinal Urinal # Voids 2 Weight 58.513 kg Results CBC & Chem 7: 09/07/23 06:55 09/07/23 06:55 Labs: Abnormal Lab Results - Last 24 Hours (Table) 09/06/23 09/06/23 09/06/23 Range/Units 12:24 12:24 16:16 WBC (3.8-10.6) k/uL Hgb (13.0-17.5) gm/dL Hct (39.0-53.0) % Potassium (3.5-5.1) mmol/L Carbon Dioxide (22-30) mmol/L Creatinine (0.66-1.25) mg/dL POC Glucose (mg/dL) 282 H (70-110) mg/dL C-Peptide <0.02 L (0.81-3.85) ng/mL AST (17-59) U/L ALT (4-49) U/L Total Protein (6.3-8.2) g/dL Albumin (3.5-5.0) g/dL WILLA Antibody >120 H (<5) IU/mL 09/06/23 09/06/23 09/07/23 Range/Units 19:50 23:38 03:16 WBC (3.8-10.6) k/uL Hgb (13.0-17.5) gm/dL Hct (39.0-53.0) % Potassium (3.5-5.1) mmol/L Carbon Dioxide (22-30) mmol/L Creatinine (0.66-1.25) mg/dL POC Glucose (mg/dL) 205 H 56 L 45 L (70-110) mg/dL C-Peptide (0.81-3.85) ng/mL AST (17-59) U/L ALT (4-49) U/L Total Protein (6.3-8.2) g/dL Albumin (3.5-5.0) g/dL WILLA Antibody (<5) IU/mL 09/07/23 09/07/23 09/07/23 Range/Units 03:41 06:55 06:55 WBC 11.3 H (3.8-10.6) k/uL Hgb 12.7 L (13.0-17.5) gm/dL Hct 38.8 L (39.0-53.0) % Potassium 3.3 L (3.5-5.1) mmol/L Carbon Dioxide 32 H (22-30) mmol/L Creatinine 0.53 L (0.66-1.25) mg/dL POC Glucose (mg/dL) 65 L (70-110) mg/dL C-Peptide (0.81-3.85) ng/mL AST 77 H (17-59) U/L ALT 60 H (4-49) U/L Total Protein 5.9 L (6.3-8.2) g/dL Albumin 3.2 L (3.5-5.0) g/dL WILLA Antibody (<5) IU/mL Thrombosis Risk Factor Assmnt - Choose All That Apply Any of the Below Risk Factors Present?: No Other Risk Factors: Yes Each Risk Factor Represents 2 Points: Age 61-74 years Other congenital or acquired thrombophilia - If yes, enter type in comment: No Thrombosis Risk Factor Assessment Total Risk Factor Score: 2 Thrombosis Risk Factor Assessment Level: Low Risk
--- NOTE | 2023-09-07 14:36 | P.PN ---
Subjective Progress Note Date: 09/05/23 HISTORY OF PRESENT ILLNESS This is a 63-year-old male with past medical history of osteoarthritis generali zed, diabetes mellitus type 2, diabetic neuropathy, and history of seizure disorder, history of stroke with short-term memory deficits, hepatitis C status post treatment, hypertension, hyperlipidemia, hidradenitis suppurativa. Patient had a hospitalization in June as he had been positive for Covid and ended up being discharged to [facility] in [place]. After he completed his course of isolation for Covid, patient was transferred to a group home locally. During his hospitalization in June, patient was also diagnosed with left axillary , UTI with sepsis, type II AR secondary to sepsis and Covid combination with urinary tract infection. Patient was brought into the emergency center due to increasing weakness at the group home. Patient did not seem to be gaining any strength along with frequent urination, dizziness and shortness of breath. Symptoms seem to be gradually worsening. Patient was found to be hypotensive initially. Chest x-ray revealed no acute process. COPD. CO2 was 15, blood sugar 309 and white count 15.6. Venous blood gas revealed pH of 7.23, pCO2 42, bicarbonate 18. Acetone was positive. Patient was started on DKA protocol and admitted to the hospital, consult with pulmonary medicine. 09/05: Patient's blood sugars are much improved. Insulin drip is on hold for the past hour and a half. IV fluids transitioned to 0.9 normal saline and decreased to 75 mL per hour. Patient has been seen by pulmonary medicine. Repeat blood work reveals sodium 135, potassium 3.9, chloride 105, CO2 21, BUN 30 and creatinine 0.6. Capillary blood glucose running between 89 and 153. Tonight, patient will be started on Levemir 20 units at bedtime, 5 units of NovoLog 3 times daily with meals and NovoLog scale. Patient's son has discussed discharge planning with the residential case manager and plan is for [facility] or [facility]. If he is not accepted at one of these facilities, son will consider taking him home with 24-hour care. REVIEW OF SYSTEMS Constitutional: no fever, no chills, no night sweats. Noted weight loss. positive for weakness, fatigue or lethargy. No daytime sleepiness. HEENT: No headache. No blurred vision or double vision, no loss of vision. No loss of Hearing, no ringing in the ears, no dizziness. No nasal drainage or congestion. No epistaxis. No sore throat. Lungs: positive for shortness of breath,positive for cough, no sputum production. No wheezing. Cardiovascular: No chest pain, no lower extremity edema. No palpitations. No paroxysmal nocturnal dyspnea. No orthopnea. No lightheadedness or dizziness. No syncopal episodes. Abdominal: No abdominal pain. No nausea, vomiting. No diarrhea. No constipation. No bloody or tarry stools. No loss of appetite. Genitourinary: No dysuria, increased frequency, urgency. No urinary retention. Musculoskeletal: No myalgias.positive for muscle weakness, positive for gait dysfunction, frequent falls. No back pain. No neck pain. Integumentary: No wounds, positive for left axillary Hydradenitis suppurativa . No rash or pruritus. No unusual bruising. No change in hair or nails. Neurologic: No aphasia. No facial droop. No change in mentation. No head injury. No headache. No paralysis. No paresthesia. Psychiatric: No depression. No anxiety. No mood swings, CHI signs Endocrine: abnormal blood sugars. Noted weight change. No excessive sweating or thirst. No cold intolerance. PHYSICAL EXAMINATION Gen: This is a 63-year-old male laying down in bed in no apparent distress. HEENT: Head is atraumatic, normocephalic. Pupils equal, round. Sclerae is anicteric. NECK: Supple. No JVD. No lymphadenopathy. No thyromegaly. LUNGS: Decreased breath sounds at the bases. Rhonchi, no expiratory wheezes, no chest wall tenderness, no intercostal retractions. HEART: first heart sound is depressed, second heart sounds normal, there is 1/6 diastolic murmur at the right second intercostal space ABDOMEN: Soft, nontender, nondistended, positive bowel sounds. EXTREMITIES: There is no edema, no calf tenderness, or sinus pedis +2 bilaterally. NEUROLOGICAL: Patient is awake, alert and oriented x3. Cranial nerves 2 through 12 are grossly intact, muscle power 4 out of 5 in upper extremities and 4 out of 5 in bilateral lower extremity is. ASSESSMENT AND PLAN 1. Acute diabetic ketoacidosis. Continue DKA protocol, patient admitted to the cardiac stepdown unit. Discontinue insulin drip, IV fluids changed to 0.9NS. Levemir 20 units at hs, novolog 3units with meals, and scale 2. Metabolic acidosis secondary to DKA. Continue treatment in #1. 3. Leukocytosis secondary to DKA. No infectious process identified. 4. Recent diagnosis of COVID-19 with generalized weakness and debility. Patient completed isolation and treatment for Covid. 5. Hypertension and hypertensive cardiovascular disease. Continue patient on amlodipine 5 mg orally once every day, losartan 25 mg daily and monitor the patient blood pressure very closely. 6. Mixed hyperlipidemia. Continue patient on atorvastatin 80 mg once every day, monitor lipid panel, keep LDL 55-70. 7. History of CVA in the past continue patient on atorvastatin 80 mg once every day as well as Lopid 75 milligrams once every day for secondary stroke prevention. 8. Diabetes mellitus type 2. Patient may have converted to type I. Continue insulin drip and plan to transition to Levemir and scale insulin, scheduled insulin with meals. Hold metformin. 9. Diabetic polyneuropathy. 10. History of seizure disorder. Continue patient on Keppra 500 mg orally twice every day. 11. History of closed head injury. Stable. 12. History of hepatitis C. Stable. 13. Left hydradenitis suppurative s/p IV antibtiotics, stable. 14. DVT prophylaxis. Lovenox 40 mg subcutaneously every 24 hours. 15. GI prophylaxis. Continue Protonix 40 mg orally once every day. 16. Admit to inpatient. Estimate a length of stay 2 midnights. 17. Full code. 17. conversion worker consultation for discharge planning. 18. PT OT evaluation. Impression and plan of care have been directed as dictated by the signing physician. Mey Bello nurse practitioner acting as scribe for signing physician. Objective - Vital Signs Vital signs: Vital Signs Temp 99.2 F 09/05/23 11:45 Pulse 100 09/05/23 11:45 Resp 17 09/05/23 11:45 BP 117/65 09/05/23 11:45 Pulse Ox 97 09/05/23 11:45 FiO2 Intake & Output 09/04/23 09/05/23 09/05/23 18:59 06:59 18:59 Intake Total 49.084 35.938 Output Total 520 320 Balance -470.916 -284.062 Weight 58.513 kg 58.513 kg 58.513 kg Intake: Intake, IV Titration 49.084 35.938 Amount Insulin Regular 100 unit 49.084 35.938 In Sodium Chloride 0.9% 100 ml @ 0.1 UNITS/KG/HR 5.91 mls/hr IV .Q17H6M [facility] Rx#:[id number] Output: Urine 520 320 Other: Voiding Method Urinal Urinal # Voids 2 - Labs CBC & Chem 7: 09/07/23 06:55 09/07/23 06:55 Labs: Abnormal Lab Results - Last 24 Hours (Table) 09/04/23 09/04/23 09/04/23 Range/Units 11:32 14:04 18:41 WBC (3.8-10.6) k/uL Neutrophils # (1.3-7.7) k/uL Lymphocytes # (1.0-4.8) k/uL VBG pH (7.31-7.41) VBG pCO2 (37-51) mmHg VBG HCO3 (24-28) mmol/L Sodium (137-145) mmol/L Potassium (3.5-5.1) mmol/L Chloride (98-107) mmol/L Carbon Dioxide (22-30) mmol/L BUN (9-20) mg/dL Creatinine (0.66-1.25) mg/dL Glucose (74-99) mg/dL POC Glucose (mg/dL) 315 H 334 H (70-110) mg/dL Phosphorus (2.5-4.5) mg/dL Urine Glucose (UA) 4+ H (Negative) Urine Ketones 2+ H (Negative) 09/04/23 09/04/23 09/04/23 Range/Units 21:02 22:38 22:38 WBC 16.9 H (3.8-10.6) k/uL Neutrophils # 14.8 H (1.3-7.7) k/uL Lymphocytes # 0.8 L (1.0-4.8) k/uL VBG pH (7.31-7.41) VBG pCO2 (37-51) mmHg VBG HCO3 (24-28) mmol/L Sodium 135 L (137-145) mmol/L Potassium 5.2 H (3.5-5.1) mmol/L Chloride 97 L (98-107) mmol/L Carbon Dioxide 8 L* (22-30) mmol/L BUN 41 H (9-20) mg/dL Creatinine (0.66-1.25) mg/dL Glucose 395 H (74-99) mg/dL POC Glucose (mg/dL) 344 H (70-110) mg/dL Phosphorus 6.7 H (2.5-4.5) mg/dL Urine Glucose (UA) (Negative) Urine Ketones (Negative) 09/04/23 09/04/23 09/05/23 Range/Units 22:38 23:50 00:19 WBC (3.8-10.6) k/uL Neutrophils # (1.3-7.7) k/uL Lymphocytes # (1.0-4.8) k/uL VBG pH 7.15 L* (7.31-7.41) VBG pCO2 27 L (37-51) mmHg VBG HCO3 9 L* (24-28) mmol/L Sodium 133 L (137-145) mmol/L Potassium (3.5-5.1) mmol/L Chloride 97 L (98-107) mmol/L Carbon Dioxide 6 L* (22-30) mmol/L BUN 42 H (9-20) mg/dL Creatinine (0.66-1.25) mg/dL Glucose 406 H (74-99) mg/dL POC Glucose (mg/dL) 411 H (70-110) mg/dL Phosphorus (2.5-4.5) mg/dL Urine Glucose (UA) (Negative) Urine Ketones (Negative) 09/05/23 09/05/23 09/05/23 Range/Units 01:02 02:15 03:03 WBC (3.8-10.6) k/uL Neutrophils # (1.3-7.7) k/uL Lymphocytes # (1.0-4.8) k/uL VBG pH (7.31-7.41) VBG pCO2 (37-51) mmHg VBG HCO3 (24-28) mmol/L Sodium (137-145) mmol/L Potassium (3.5-5.1) mmol/L Chloride (98-107) mmol/L Carbon Dioxide (22-30) mmol/L BUN (9-20) mg/dL Creatinine (0.66-1.25) mg/dL Glucose (74-99) mg/dL POC Glucose (mg/dL) 383 H 304 H 275 H (70-110) mg/dL Phosphorus (2.5-4.5) mg/dL Urine Glucose (UA) (Negative) Urine Ketones (Negative) 09/05/23 09/05/23 09/05/23 Range/Units 04:02 04:12 04:12 WBC (3.8-10.6) k/uL Neutrophils # (1.3-7.7) k/uL Lymphocytes # (1.0-4.8) k/uL VBG pH (7.31-7.41) VBG pCO2 (37-51) mmHg VBG HCO3 (24-28) mmol/L Sodium 135 L 135 L (137-145) mmol/L Potassium (3.5-5.1) mmol/L Chloride (98-107) mmol/L Carbon Dioxide 15 L 15 L (22-30) mmol/L BUN 40 H 39 H (9-20) mg/dL Creatinine (0.66-1.25) mg/dL Glucose 203 H 203 H (74-99) mg/dL POC Glucose (mg/dL) 224 H (70-110) mg/dL Phosphorus (2.5-4.5) mg/dL Urine Glucose (UA) (Negative) Urine Ketones (Negative) 09/05/23 09/05/23 09/05/23 Range/Units 05:07 05:59 07:30 WBC (3.8-10.6) k/uL Neutrophils # (1.3-7.7) k/uL Lymphocytes # (1.0-4.8) k/uL VBG pH (7.31-7.41) VBG pCO2 (37-51) mmHg VBG HCO3 (24-28) mmol/L Sodium (137-145) mmol/L Potassium (3.5-5.1) mmol/L Chloride (98-107) mmol/L Carbon Dioxide (22-30) mmol/L BUN (9-20) mg/dL Creatinine (0.66-1.25) mg/dL Glucose (74-99) mg/dL POC Glucose (mg/dL) 212 H 158 H 167 H (70-110) mg/dL Phosphorus (2.5-4.5) mg/dL Urine Glucose (UA) (Negative) Urine Ketones (Negative) 09/05/23 09/05/23 Range/Units 11:24 12:07 WBC (3.8-10.6) k/uL Neutrophils # (1.3-7.7) k/uL Lymphocytes # (1.0-4.8) k/uL VBG pH (7.31-7.41) VBG pCO2 (37-51) mmHg VBG HCO3 (24-28) mmol/L Sodium 135 L (137-145) mmol/L Potassium (3.5-5.1) mmol/L Chloride (98-107) mmol/L Carbon Dioxide 21 L (22-30) mmol/L BUN 30 H (9-20) mg/dL Creatinine 0.60 L (0.66-1.25) mg/dL Glucose (74-99) mg/dL POC Glucose (mg/dL) 153 H (70-110) mg/dL Phosphorus (2.5-4.5) mg/dL Urine Glucose (UA) (Negative) Urine Ketones (Negative)
--- NOTE | 2023-09-07 14:38 | P.PN ---
Subjective Progress Note Date: 09/06/23 HISTORY OF PRESENT ILLNESS This is a 63-year-old male with past medical history of osteoarthritis general ized, diabetes mellitus type 2, diabetic neuropathy, and history of seizure disorder, history of stroke with short-term memory deficits, hepatitis C status post treatment, hypertension, hyperlipidemia, hidradenitis suppurativa. Patient had a hospitalization in June as he had been positive for Covid and ended up being discharged to [facility] in [place]. After he completed his course of isolation for Covid, patient was transferred to a alf locally. During his hospitalization in June, patient was also diagnosed with left axillary , UTI with sepsis, type II [place] secondary to sepsis and Covid combination with urinary tract infection. Patient was brought into the emergency center due to increasing weakness at the alf. Patient did not seem to be gaining any strength along with frequent urination, dizziness and shortness of breath. Symptoms seem to be gradually worsening. Patient was found to be hypotensive initially. Chest x-ray revealed no acute process. COPD. CO2 was 15, blood sugar 309 and white count 15.6. Venous blood gas revealed pH of 7.23, pCO2 42, bicarbonate 18. Acetone was positive. Patient was started on DKA protocol and admitted to the hospital, consult with pulmonary medicine. 09/05: Patient's blood sugars are much improved. Insulin drip is on hold for the past hour and a half. IV fluids transitioned to 0.9 normal saline and decreased to 75 mL per hour. Patient has been seen by pulmonary medicine. Repeat blood work reveals sodium 135, potassium 3.9, chloride 105, CO2 21, BUN 30 and creatinine 0.6. Capillary blood glucose running between 89 and 153. Tonight, patient will be started on Levemir 20 units at bedtime, 5 units of NovoLog 3 times daily with meals and NovoLog scale. Patient's son has discussed discharge planning with the special education case manager and plan is for [facility] or [facility]. If he is not accepted at one of these facilities, son will consider taking him home with 24-hour care. 09/06: Yesterday afternoon, Levemir was decreased because patient was having low blood sugars but later in the afternoon/evening his blood sugar jumped up to 444 and Levemir was increased to 46 last evening which he received. Blood sugar this morning was 40 and Levemir decreased to 38 units. Glutamic acid D carboxy autoantibody, insulin antibiotics, C-peptide ordered. Patient remains afebrile, heart rate in the 90s, blood pressure 126/78, pulse ox 96% on room air. WBC 14.8, hemoglobin 13.4 and platelet count 268. Chemistry panel results are still pending at this time. REVIEW OF SYSTEMS Constitutional: no fever, no chills, no night sweats. Noted weight loss. positive for weakness, fatigue or lethargy. No daytime sleepiness. HEENT: No headache. No blurred vision or double vision, no loss of vision. No loss of Hearing, no ringing in the ears, no dizziness. No nasal drainage or congestion. No epistaxis. No sore throat. Lungs: positive for shortness of breath,positive for cough, no sputum production. No wheezing. Cardiovascular: No chest pain, no lower extremity edema. No palpitations. No paroxysmal nocturnal dyspnea. No orthopnea. No lightheadedness or dizziness. No syncopal episodes. Abdominal: No abdominal pain. No nausea, vomiting. No diarrhea. No constipation. No bloody or tarry stools. No loss of appetite. Genitourinary: No dysuria, increased frequency, urgency. No urinary retention. Musculoskeletal: No myalgias.positive for muscle weakness, positive for gait dysfunction, frequent falls. No back pain. No neck pain. Integumentary: No wounds, positive for left axillary Hydradenitis suppurativa . No rash or pruritus. No unusual bruising. No change in hair or nails. Neurologic: No aphasia. No facial droop. No change in mentation. No head injury. No headache. No paralysis. No paresthesia. Psychiatric: No depression. No anxiety. No mood swings, CHI signs Endocrine: abnormal blood sugars. Noted weight change. No excessive sweating or thirst. No cold intolerance. PHYSICAL EXAMINATION Gen: This is a 63-year-old male laying down in bed in no apparent distress. HEENT: Head is atraumatic, normocephalic. Pupils equal, round. Sclerae is anicteric. NECK: Supple. No JVD. No lymphadenopathy. No thyromegaly. LUNGS: Decreased breath sounds at the bases. Rhonchi, no expiratory wheezes, no chest wall tenderness, no intercostal retractions. HEART: first heart sound is depressed, second heart sounds normal, there is 1/6 diastolic murmur at the right second intercostal space ABDOMEN: Soft, nontender, nondistended, positive bowel sounds. EXTREMITIES: There is no edema, no calf tenderness, or sinus pedis +2 bilaterally. NEUROLOGICAL: Patient is awake, alert and oriented x3. Cranial nerves 2 through 12 are grossly intact, muscle power 4 out of 5 in upper extremities and 4 out of 5 in bilateral lower extremity is. ASSESSMENT AND PLAN 1. Acute diabetic ketoacidosis. Continue DKA protocol, patient admitted to the cardiac stepdown unit. Continue IV fluids changed to 0.9NS. Levemir decreased to 38 units. Continue novolog 5 units with meals, and scale. Glutamic acid D carboxy autoantibody, insulin antibiotics, C-peptide ordered. 2. Metabolic acidosis secondary to DKA. Continue treatment in #1. 3. Leukocytosis secondary to DKA. No infectious process identified. 4. Recent diagnosis of COVID-19 with generalized weakness and debility. Patient completed isolation and treatment for Covid. 5. Hypertension and hypertensive cardiovascular disease. Continue patient on amlodipine 5 mg orally once every day, losartan 25 mg daily and monitor the patient blood pressure very closely. 6. Mixed hyperlipidemia. Continue patient on atorvastatin 80 mg once every day, monitor lipid panel, keep LDL 55-70. 7. History of CVA in the past continue patient on atorvastatin 80 mg once every day as well as Lopid 75 milligrams once every day for secondary stroke prevention. 8. Diabetes mellitus type 2. Patient may have converted to type I. Continue insulin drip and plan to transition to Levemir and scale insulin, scheduled insulin with meals. Hold metformin. 9. Diabetic polyneuropathy. 10. History of seizure disorder. Continue patient on Keppra 500 mg orally twice every day. 11. History of closed head injury. Stable. 12. History of hepatitis C. Stable. 13. Left hydradenitis suppurative s/p IV antibtiotics, stable. 14. DVT prophylaxis. Lovenox 40 mg subcutaneously every 24 hours. 15. GI prophylaxis. Continue Protonix 40 mg orally once every day. 16. Admit to inpatient. Estimate a length of stay 2 midnights. 17. Full code. 17. warehouse worker 2nd shift consultation for discharge planning. 18. PT OT evaluation. Impression and plan of care have been directed as dictated by the signing physician. Mey Bello nurse practitioner acting as scribe for signing physician. Objective - Vital Signs Vital signs: Vital Signs Temp 97.8 F 09/06/23 11:36 Pulse 90 09/06/23 11:36 Resp 17 09/06/23 11:36 BP 126/78 09/06/23 11:36 Pulse Ox 96 09/06/23 11:36 FiO2 Intake & Output 09/05/23 09/06/23 09/06/23 18:59 06:59 18:59 Intake Total 633.938 118 Output Total 820 1160 Balance -186.062 -1160 118 Weight 58.513 kg Intake: Intake, IV Titration 35.938 Amount Insulin Regular 100 unit 35.938 In Sodium Chloride 0.9% 100 ml @ 0.1 UNITS/KG/HR 5.91 mls/hr IV .Q17H6M [facility] Rx#:[id number] Oral 598 118 Output: Urine 820 1160 Other: Voiding Method Urinal Urinal Urinal # Voids 2 - Labs CBC & Chem 7: 09/07/23 06:55 09/07/23 06:55 Labs: Abnormal Lab Results - Last 24 Hours (Table) 09/05/23 09/05/23 09/05/23 Range/Units 12:07 16:34 21:59 WBC (3.8-10.6) k/uL POC Glucose (mg/dL) 153 H 486 H 167 H (70-110) mg/dL 09/06/23 09/06/23 09/06/23 Range/Units 05:57 08:27 08:30 WBC (3.8-10.6) k/uL POC Glucose (mg/dL) 31 L 43 L 46 L (70-110) mg/dL 09/06/23 09/06/23 09/06/23 Range/Units 08:45 09:30 09:34 WBC 14.8 H (3.8-10.6) k/uL POC Glucose (mg/dL) 122 H 122 H (70-110) mg/dL 09/06/23 Range/Units 11:38 WBC (3.8-10.6) k/uL POC Glucose (mg/dL) 181 H (70-110) mg/dL
[2023-09-07] MEDS: IOPAMIDOL CONTRAST (ORAL USE) VIAL PO PRN ×2 (15:10→16:09)
--- NOTE | 2023-09-07 15:21 | P.PN ---
Subjective Progress Note Date: 09/07/23 HISTORY OF PRESENT ILLNESS This is a 63-year-old male with past medical history of osteoarthritis generali zed, diabetes mellitus type 2, diabetic neuropathy, and history of seizure disorder, history of stroke with short-term memory deficits, hepatitis C status post treatment, hypertension, hyperlipidemia, hidradenitis suppurativa. Patient had a hospitalization in June as he had been positive for Covid and ended up being discharged to [facility] in [place]. After he completed his course of isolation for Covid, patient was transferred to a fpc locally. During his hospitalization in June, patient was also diagnosed with left axillary , UTI with sepsis, type II CT secondary to sepsis and Covid combination with urinary tract infection. Patient was brought into the emergency center due to increasing weakness at the fpc. Patient did not seem to be gaining any strength along with frequent urination, dizziness and shortness of breath. Symptoms seem to be gradually worsening. Patient was found to be hypotensive initially. Chest x-ray revealed no acute process. COPD. CO2 was 15, blood sugar 309 and white count 15.6. Venous blood gas revealed pH of 7.23, pCO2 42, bicarbonate 18. Acetone was positive. Patient was started on DKA protocol and admitted to the hospital, consult with pulmonary medicine. 09/05: Patient's blood sugars are much improved. Insulin drip is on hold for the past hour and a half. IV fluids transitioned to 0.9 normal saline and decreased to 75 mL per hour. Patient has been seen by pulmonary medicine. Repeat blood work reveals sodium 135, potassium 3.9, chloride 105, CO2 21, BUN 30 and creatinine 0.6. Capillary blood glucose running between 89 and 153. Tonight, patient will be started on Levemir 20 units at bedtime, 5 units of NovoLog 3 times daily with meals and NovoLog scale. Patient's son has discussed discharge planning with the egg caser and plan is for [facility] or [facility]. If he is not accepted at one of these facilities, son will consider taking him home with 24-hour care. 09/06: Yesterday afternoon, Levemir was decreased because patient was having low blood sugars but later in the afternoon/evening his blood sugar jumped up to 444 and Levemir was increased to 46 last evening which he received. Blood sugar this morning was 40 and Levemir decreased to 38 units. Glutamic acid D carboxy autoantibody, insulin antibiotics, C-peptide ordered. Patient remains afebrile, heart rate in the 90s, blood pressure 126/78, pulse ox 96% on room air. WBC 14.8, hemoglobin 13.4 and platelet count 268. Chemistry panel results are still pending at this time. 09/07: WILLA antibiotic elevated at greater than 120. Again this morning patient was low blood sugar and insulin adjusted, Levemir to 20 units at bedtime and NovoLog will be decreased to 3 units with meals and continue scale. Sinuses at the bedside and concerned about multiple issues including concern for cancer and weight loss. He seems to be eating okay at this point. We will order CT of the chest abdomen and pelvis. If patient is doing well tomorrow, plan for discharge to [facility]. REVIEW OF SYSTEMS Constitutional: no fever, no chills, no night sweats. Noted weight loss. positive for weakness, fatigue or lethargy. No daytime sleepiness. HEENT: No headache. No blurred vision or double vision, no loss of vision. No loss of Hearing, no ringing in the ears, no dizziness. No nasal drainage or congestion. No epistaxis. No sore throat. Lungs: positive for shortness of breath,positive for cough, no sputum production. No wheezing. Cardiovascular: No chest pain, no lower extremity edema. No palpitations. No paroxysmal nocturnal dyspnea. No orthopnea. No lightheadedness or dizziness. No syncopal episodes. Abdominal: No abdominal pain. No nausea, vomiting. No diarrhea. No constipation. No bloody or tarry stools. No loss of appetite. Genitourinary: No dysuria, increased frequency, urgency. No urinary retention. Musculoskeletal: No myalgias.positive for muscle weakness, positive for gait dysfunction, frequent falls. No back pain. No neck pain. Integumentary: No wounds, positive for left axillary Hydradenitis suppurativa . No rash or pruritus. No unusual bruising. No change in hair or nails. Neurologic: No aphasia. No facial droop. No change in mentation. No head injury. No headache. No paralysis. No paresthesia. Psychiatric: No depression. No anxiety. No mood swings, CHI signs Endocrine: abnormal blood sugars. Noted weight change. No excessive sweating or thirst. No cold intolerance. PHYSICAL EXAMINATION Gen: This is a 63-year-old male laying down in bed in no apparent di stress. HEENT: Head is atraumatic, normocephalic. Pupils equal, round. Sclerae is anicteric. NECK: Supple. No JVD. No lymphadenopathy. No thyromegaly. LUNGS: Decreased breath sounds at the bases. Rhonchi, no expiratory wheezes, no chest wall tenderness, no intercostal retractions. HEART: first heart sound is depressed, second heart sounds normal, there is 1/6 diastolic murmur at the right second intercostal space ABDOMEN: Soft, nontender, nondistended, positive bowel sounds. EXTREMITIES: There is no edema, no calf tenderness, or dorsalis pedis +2 bilaterally. NEUROLOGICAL: Patient is awake, alert and oriented x3. Cranial nerves 2 through 12 are grossly intact, muscle power 4 out of 5 in upper extremities and 4 out of 5 in bilateral lower extremity is. ASSESSMENT AND PLAN 1. Acute diabetic ketoacidosis. Continue DKA protocol, patient admitted to the cardiac stepdown unit. Continue IV fluids changed to 0.9NS. Levemir decreased to 38 units. Continue novolog 5 units with meals, and scale.Insulin antibiotics, C-peptide ordered. 2. Metabolic acidosis secondary to DKA. Continue treatment in #1. 3. Leukocytosis secondary to DKA. No infectious process identified. 4. Recent diagnosis of COVID-19 with generalized weakness and debility. Patient completed isolation and treatment for Covid. 5. Hypertension and hypertensive cardiovascular disease. Continue patient on amlodipine 5 mg orally once every day, losartan 25 mg daily and monitor the patient blood pressure very closely. 6. Mixed hyperlipidemia. Continue patient on atorvastatin 80 mg once every day, monitor lipid panel, keep LDL 55-70. 7. History of CVA in the past continue patient on atorvastatin 80 mg once every day as well as Lopid 75 milligrams once every day for secondary stroke prev ention. 8. Diabetes mellitus type 2. Patient may have converted to type I. Continue insulin drip and plan to transition to Levemir and scale insulin, scheduled insulin with meals. Hold metformin. 9. Diabetic polyneuropathy. 10. History of seizure disorder. Continue patient on Keppra 500 mg orally twice every day. 11. History of closed head injury. Stable. 12. History of hepatitis C. Stable. 13. Left hydradenitis suppurative s/p IV antibtiotics, stable. 14. DVT prophylaxis. Lovenox 40 mg subcutaneously every 24 hours. 15. GI prophylaxis. Continue Protonix 40 mg orally once every day. 16. Full code. 17. behavioral health worker consultation for discharge planning. 18. PT OT evaluation. Impression and plan of care have been directed as dictated by the signing physician. Mey Bello nurse practitioner acting as scribe for signing physician. Objective - Vital Signs Vital signs: Vital Signs Temp 98.5 F 09/07/23 07:50 Pulse 93 09/07/23 12:44 Resp 17 09/07/23 12:44 BP 128/80 09/07/23 12:44 Pulse Ox 97 09/07/23 12:44 FiO2 Intake & Output 09/06/23 09/07/23 09/07/23 18:59 06:59 18:59 Intake Total 595 118 236 Output Total 550 350 625 Balance 45 -232 -389 Weight 58.513 kg Intake: Oral 595 118 236 Output: Urine 550 350 625 Other: Voiding Method Urinal Urinal Urinal # Voids 2 2 - Labs CBC & Chem 7: 09/07/23 06:55 09/07/23 06:55 Labs: Abnormal Lab Results - Last 24 Hours (Table) 09/06/23 09/06/23 09/06/23 Range/Units 12:24 12:24 16:16 WBC (3.8-10.6) k/uL Hgb (13.0-17.5) gm/dL Hct (39.0-53.0) % Potassium (3.5-5.1) mmol/L Carbon Dioxide (22-30) mmol/L Creatinine (0.66-1.25) mg/dL POC Glucose (mg/dL) 282 H (70-110) mg/dL C-Peptide <0.02 L (0.81-3.85) ng/mL AST (17-59) U/L ALT (4-49) U/L Total Protein (6.3-8.2) g/dL Albumin (3.5-5.0) g/dL WILLA Antibody >120 H (<5) IU/mL 09/06/23 09/06/23 09/07/23 Range/Units 19:50 23:38 03:16 WBC (3.8-10.6) k/uL Hgb (13.0-17.5) gm/dL Hct (39.0-53.0) % Potassium (3.5-5.1) mmol/L Carbon Dioxide (22-30) mmol/L Creatinine (0.66-1.25) mg/dL POC Glucose (mg/dL) 205 H 56 L 45 L (70-110) mg/dL C-Peptide (0.81-3.85) ng/mL AST (17-59) U/L ALT (4-49) U/L Total Protein (6.3-8.2) g/dL Albumin (3.5-5.0) g/dL WILLA Antibody (<5) IU/mL 09/07/23 09/07/23 09/07/23 Range/Units 03:41 06:55 06:55 WBC 11.3 H (3.8-10.6) k/uL Hgb 12.7 L (13.0-17.5) gm/dL Hct 38.8 L (39.0-53.0) % Potassium 3.3 L (3.5-5.1) mmol/L Carbon Dioxide 32 H (22-30) mmol/L Creatinine 0.53 L (0.66-1.25) mg/dL POC Glucose (mg/dL) 65 L (70-110) mg/dL C-Peptide (0.81-3.85) ng/mL AST 77 H (17-59) U/L ALT 60 H (4-49) U/L Total Protein 5.9 L (6.3-8.2) g/dL Albumin 3.2 L (3.5-5.0) g/dL WILLA Antibody (<5) IU/mL
--- NOTE | 2023-09-07 15:25 | P.DS ---
Providers Date of admission: 09/04/23 15:50 Expected date of discharge: 09/08/23 Attending physician: Michell Maguire Consults: 09/05/23 03:18 Consult Physician Urgent Consulting Provider: Iron Rahman Consult Reason/Comments: critical gases Do you want consulting provider notified?: Yes, Notify in am 09/05/23 03:21 Consult Physician Urgent Consulting Provider: Iron Rahman Consult Reason/Comments: DKA Critical gases Do you want consulting provider notified?: Yes Primary care physician: Michell Maguire Hospital Course: HISTORY OF PRESENT ILLNESS This is a 63-year-old male with past medical history of osteoarthritis generalized, diabetes mellitus type 2, diabetic neuropathy, and history of seizure disorder, history of stroke with short-term memory deficits, hepatitis C status post treatment, hypertension, hyperlipidemia, hidradenitis suppurativa. Patient had a hospitalization in June as he had been positive for Covid and ended up being discharged to [facility] in [place]. After he completed his course of isolation for Covid, patient was transferred to a skilled nursing locally. During his hospitalization in June, patient was also diagnosed with left axillary , UTI with sepsis, type II OR secondary to sepsis and Covid combination with urinary tract infection. Patient was brought into the emergency center due to increasing weakness at the skilled nursing. Patient did not seem to be gaining any strength along with frequent urination, dizziness and shortness of breath. Symptoms seem to be gradually worsening. Patient was found to be hypotensive initially. Chest x-ray revealed no acute process. COPD. CO2 was 15, blood sugar 309 and white count 15.6. Venous blood gas revealed pH of 7.23, pCO2 42, bicarbonate 18. Acetone was positive. Patient was started on DKA protocol and admitted to the hospital, consult with pulmonary medicine. 09/05: Patient's blood sugars are much improved. Insulin drip is on hold for the past hour and a half. IV fluids transitioned to 0.9 normal saline and decreased to 75 mL per hour. Patient has been seen by pulmonary medicine. Repeat blood work reveals sodium 135, potassium 3.9, chloride 105, CO2 21, BUN 30 and creatinine 0.6. Capillary blood glucose running between 89 and 153. Tonight, patient will be started on Levemir 20 units at bedtime, 5 units of NovoLog 3 times daily with meals and NovoLog scale. Patient's son has discussed discharge planning with the case managers and plan is for [facility] or [facility]. If he is not accepted at one of these facilities, son will consider taking him home with 24-hour care. 09/06: Yesterday afternoon, Levemir was decreased because patient was having low blood sugars but later in the afternoon/evening his blood sugar jumped up to 444 and Levemir was increased to 46 last evening which he received. Blood sugar this morning was 40 and Levemir decreased to 38 units. Glutamic acid D carboxy autoantibody, insulin antibiotics, C-peptide ordered. Patient remains afebrile, heart rate in the 90s, blood pressure 126/78, pulse ox 96% on room air. WBC 14.8, hemoglobin 13.4 and platelet count 268. Chemistry panel results are still pending at this time. 09/07: WILLA antibiotic elevated at greater than 120. Again this morning patient was low blood sugar and insulin adjusted, Levemir to 20 units at bedtime and NovoLog will be decreased to 3 units with meals and continue scale. Sinuses at the bedside and concerned about multiple issues including concern for cancer and weight loss. He seems to be eating okay at this point. We will order CT of the chest abdomen and pelvis. If patient is doing well tomorrow, plan for discharge to [facility]. DISCHARGE DIAGNOSES 1. Acute diabetic ketoacidosis. 2. Metabolic acidosis secondary to DKA. 3. Leukocytosis secondary to DKA. 4. Recent diagnosis of COVID-19 with generalized weakness and debility. 5. Hypertension and hypertensive cardiovascular disease. 6. Mixed hyperlipidemia. 7. History of CVA 8. Diabetes mellitus type 2 , converted to type I. 9. Diabetic polyneuropathy. 10. History of seizure disorder. 11. History of closed head injury. 12. History of hepatitis C. 13. Left hydradenitis suppurative s/p IV antibtiotics, stable. Greater than 35 minutes was utilized and coordinating patient's discharge. Impression and plan of care have been directed as dictated by the signing physician. Mey Bello nurse practitioner acting as scribe for signing physician. Plan - Discharge Summary Discharge Rx Participant: Yes New Discharge Prescriptions: New Insulin Detemir (Levemir) [Levemir] 20 unit SQ HS each INSULIN ASPART (NovoLOG) [NovoLOG (formulary)] 0 unit SQ ACHS each INSULIN ASPART (NovoLOG) [NovoLOG (formulary)] 3 unit SQ AC-TID each Continue Atorvastatin [Lipitor] 80 mg PO HS Loperamide [Imodium] 2 mg PO DAILY PRN PRN Reason: Diarrhea Acetaminophen [Tylenol 8 Hour] 650 mg PO Q6H PRN PRN Reason: Pain Losartan [Cozaar] 25 mg PO DAILY levETIRAcetam [Keppra] 500 mg PO BID Clopidogrel [Plavix] 75 mg PO DAILY amLODIPine [Norvasc] 5 mg PO DAILY Ondansetron [Zofran] 4 mg PO Q8HR PRN PRN Reason: Nausea And Vomiting Discontinued Empagliflozin [Jardiance] 25 mg PO DAILY metFORMIN HCL [Glucophage] 500 mg PO BID-W/MEALS tab Insulin Lispro [humaLOG Kwikpen] See Protocol SQ ACHS Insulin Glargine,Hum.rec.anlog [Lantus Solostar Pen] 46 units SQ HS traMADol HCl [Ultram] 50 mg PO BID PRN PRN Reason: Pain Discharge Medication List Atorvastatin [Lipitor] 80 mg PO HS 07/12/23 [History] Clopidogrel [Plavix] 75 mg PO DAILY 07/12/23 [History] amLODIPine [Norvasc] 5 mg PO DAILY 07/12/23 [History] levETIRAcetam [Keppra] 500 mg PO BID 07/12/23 [History] Acetaminophen [Tylenol 8 Hour] 650 mg PO Q6H PRN 09/04/23 [History] Loperamide [Imodium] 2 mg PO DAILY PRN 09/04/23 [History] Losartan [Cozaar] 25 mg PO DAILY 09/04/23 [History] Ondansetron [Zofran] 4 mg PO Q8HR PRN 09/04/23 [History] INSULIN ASPART (NovoLOG) [NovoLOG (formulary)] 0 unit SQ ACHS each 09/07/23 [Rx] INSULIN ASPART (NovoLOG) [NovoLOG (formulary)] 3 unit SQ AC-TID each 09/07/23 [Rx] Insulin Detemir (Levemir) [Levemir] 20 unit SQ HS each 09/07/23 [Rx] Follow up Appointment(s)/Referral(s): Michell Maguire MD [Primary Care Provider] - 1 Week (At [facility]) Activity/Diet/Wound Care/Special Instructions: Diet: Consistent Carb; No pasta/no bread Discharge Disposition: TRANSFER TO SNF/ECF
[2023-09-07 16:30] LABS: Glucose,Whole Blood 388 mg/dL (70-110)
[2023-09-07 17:52] LABS: Glucose,Whole Blood 392 mg/dL (70-110)
[2023-09-07] MEDS: ATORVASTATIN 80 MG TAB PO SCH (19:53)
[2023-09-07 19:54] LABS: Glucose,Whole Blood 395 mg/dL (70-110)
[2023-09-07] MEDS ORDERED: INSULIN DETEMIR (LEVEMIR) 100 UNIT/ML SYR SQ SCH ×2 (21:00)
[2023-09-07 22:25] LABS: Glucose,Whole Blood 231 mg/dL (70-110)
--- NOTE | 2023-09-07 23:20 | CT ---
EXAMINATION TYPE: CT ChestAbdPelvis w con DATE OF EXAM: 09/07/2023 COMPARISON: None HISTORY: 63-year-old male Unexplained weight loss, r/o malignancy. TECHNIQUE: Contiguous axial scanning of the chest, abdomen, and pelvis performed with IV Contrast, pa tient injected with 100 ml mL of Isovue 300. Delayed images through the kidneys were obtained. Ram l/sagittal reconstructions performed. CT DLP: 741.2 mGycm Automated exposure control for dose reduction was used. FINDINGS: CHEST: The heart is normal size without pericardial effusion. Three-vessel coronary artery calcifications ar e present. Ectatic ascending aorta 3.6 cm. Conventional branching anatomy. Prominent 1.1 cm subcarinal lymph node likely reactive/post inflammatory. Otherwise, no thoracic lymp hadenopathy by CT size criteria. There are some clustered nodularity in the right lower lobe measuring up to 8 mm, refer to axial imag es 35 and 37. Short interval follow-up recommended to reassess. No pleural effusion. Prominent strandy atelectasis in the lower lobes. Mild emphysematous change. Mi ld diffuse bronchial wall thickening. ABDOMEN: Liver borderline enlarged at 17.7 cm. Slight fatty infiltration. There is a vague area of hyperenhanc ement left liver lobe measuring 1.8 cm, axial image 54. Possible subtle washout on the delayed kidney images, axial image 20. Short-term follow-up to reassess. Portal venous system is patent. No biliary ductal dilatation. Gallbladder, adrenal glands, spleen, a atrophic pancreas show no gross anomaly. Possible mildly enlarged rancho hepatic lymph node measuring 2.3 x 1.3 cm, refer to axial series 301 i mage 24. Reassessed at follow-up. A couple nonobstructive 4 mm right renal calculi. A couple nonobstructing 3 mm left renal calculi. Mild to moderate nonspecific changes infrarenal abdominal aorta and common iliac arteries. No dilated small bowel, free fluid, or free air. No mesenteric or retroperitoneal lymphadenopathy. Normal appendix. There is moderate stool burden. No pericolonic inflammatory change. PELVIS: Prostate gland enlargement 4.8 cm wide. Pelvic phleboliths. Moderate circumferential bladder wall thi ckening. No abnormal fluid collection in the pelvis or pelvic lymphadenopathy. BONES: Mild degenerative change of the hips. Moderate to advanced degenerative disc disease L5-S1 and also m oderate at T9-T10. Normal variant sternal foramen. IMPRESSION: 1. COPD WITH MILD EMPHYSEMA. THERE IS SOME CLUSTERED NODULARITY IN THE RIGHT LOWER LOBE MEASURING UP TO 8 MM. ONE OF THESE HAVE A MORE GROUNDGLASS APPEARANCE. CONSIDER AN INFECTIOUS/INFLAMMATORY ETIOLOG Y. THREE-MONTH FOLLOW-UP CT TO ENSURE STABILITY. 2. HEPATIC STEATOSIS BUT WITH SUGGESTION OF A 1.8 CM LESION IN THE LEFT LIVER LOBE POSSIBLY WITH SOME DELAYED WASHOUT. GIVEN THE VERY SUBTLE APPEARANCE, FNH IS A POSSIBILITY. OTHER ETIOLOGIES NOT EXCLUD ED. REASSESS AT A THREE-MONTH FOLLOW-UP. 3. MILDLY ENLARGED 2.3 X 1.3 CM RANCHO HEPATIC LYMPH NODE SHOULD ALSO BE REASSESSED IN 3 MONTHS. POSSI BETH REACTIVE/POST INFLAMMATORY. 4. NONOBSTRUCTIVE BILATERAL RENAL CALCULI MEASURING UP TO 4 MM. 5. MODERATE CIRCUMFERENTIAL BLADDER WALL THICKENING MAY BE CHRONIC FOR THE PATIENT. CORRELATE TO EXCL UDE CYSTITIS. THERE IS MILD PROSTATOMEGALY AT 4.8 CM WIDE.
[2023-09-08 03:21] LABS: Glucose,Whole Blood 177 mg/dL (70-110)
[2023-09-08 06:20] LABS: Glucose,Whole Blood 231 mg/dL (70-110)
[2023-09-08 07:11] LABS: Glucose,Whole Blood 220 mg/dL (70-110)
[2023-09-08] MEDS: INSULIN ASPART (NovoLOG) 100 UNIT/ML VIAL SQ SCH ×6 (07:50→17:15)
[2023-09-08] MEDS: amLODIPine 5 MG TAB PO SCH (07:51)
[2023-09-08] MEDS: levETIRAcetam 500 MG TAB PO SCH (07:51)
[2023-09-08] MEDS: LOSARTAN 25 MG TAB PO SCH (07:51)
[2023-09-08] MEDS: ASPIRIN 325 MG TAB PO SCH (07:51)
[2023-09-08] MEDS: CLOPIDOGREL 75 MG TAB PO SCH (07:51)
[2023-09-08 08:10] VITALS: RESP 16
[2023-09-08] MEDS: SODIUM CHLORIDE 0.9% 1,000 ML IV SCH (08:33)
[2023-09-08 09:51] LABS: African American GFR (CKD) >90 (>60 ml/min/1.73 sqM); Anion Gap 10 mmol/L; Blood Urea Nitrogen 23 mg/dL (9-20); Carbon Dioxide 30 mmol/L (22-30); Chloride 97 mmol/L (98-107); Glucose 296 mg/dL (74-99); Non-African American GFR(CKD) >90 (>60 ml/min/1.73 sqM); Potassium 3.6 mmol/L (3.5-5.1); Sodium 137 mmol/L (137-145)
[2023-09-08 11:59] LABS: Glucose,Whole Blood 247 mg/dL (70-110)
--- NOTE | 2023-09-08 12:23 | P.PN ---
Subjective 63-year-old male with past medical history of osteoarthritis generalized, diabetes mellitus type 2, diabetic neuropathy, and history of seizure disorder, history of stroke with short-term memory deficits, hepatitis C status post treatment, hypertension, hyperlipidemia, hidradenitis suppurativa. Patient had a hospitalization in June as he had been positive for Covid and ended up being discharged to [facility] in [place]. After he completed his course of isolation for Covid, patient was transferred to a skilled nursing locally. During his hospitalization in June, patient was also diagnosed with left axillary , UTI with sepsis, type II OK secondary to sepsis and Covid combination with urinary tract infection. Patient was brought into the emergency center due to increasing weakness at the skilled nursing. Patient did not seem to be gaining any strength along with frequent urination, dizziness and shortness of breath. Symptoms seem to be gradually worsening. Patient was found to be hypotensive initially. Chest x-ray revealed no acute process. COPD. CO2 was 15, blood sugar 309 and white count 15.6. Venous blood gas revealed pH of 7.23, pCO2 42, bicarbonate 18. Acetone was positive. Patient was started on DKA protocol and admitted to the hospital, consult with pulmonary medicine. 09/05: Patient's blood sugars are much improved. Insulin drip is on hold for the past hour and a half. IV fluids transitioned to 0.9 normal saline and decreased to 75 mL per hour. Patient has been seen by pulmonary medicine. [facility] blood work reveals sodium 135, potassium 3.9, chloride 105, CO2 21, BUN 30 and creatinine 0.6. Capillary blood glucose running between 89 and 153. Tonight, patient will be started on Levemir 20 units at bedtime, 5 units of NovoLog 3 times daily with meals and NovoLog scale. Patient's son has discussed discharge planning with the registered nurse hh case manager and plan is for [facility] or [facility]. If he is not accepted at one of these facilities, son will consider taking him home with 24-hour care. 09/06: Yesterday afternoon, Levemir was decreased because patient was having low blood sugars but later in the afternoon/evening his blood sugar jumped up to 444 and Levemir was increased to 46 last evening which he received. Blood sugar this morning was 40 and Levemir decreased to 38 units. Glutamic acid D carboxy autoantibody, insulin antibiotics, C-peptide ordered. Patient remains afebrile, heart rate in the 90s, blood pressure 126/78, pulse ox 96% on room air. WBC 14.8, hemoglobin 13.4 and platelet count 268. Chemistry panel results are still pending at this time. 09/07: WILLA antibiotic elevated at greater than 120. Again this morning patient was low blood sugar and insulin adjusted, Levemir to 20 units at bedtime and NovoLog will be decreased to 3 units with meals and continue scale. Sinuses at the bedside and concerned about multiple issues including concern for cancer and weight loss. He seems to be eating okay at this point. We will order CT of the chest abdomen and pelvis. If patient is doing well tomorrow, plan for discharge to [facility]. 09/08: Patient seen and evaluated bedside, patient alert and oriented CT abdomen pelvis reviewed hemodynamically patient remains stable blood glucose well controlled encouraged increase oral intake and to discharge to rehab facility Serum chemistry revealed sodiumM renal function within normal limits care plan discussed with nursing staff. No overnight events. CT abdomen pelvis shows findings consistent with COPD hepatic steatosis reactive lymphadenopathy PHYSICAL EXAMINATION: GENERAL: The patient is alert and oriented x3, not in any acute distress chronically ill appearance HEENT: Pupils are round and equally reacting to light. EOMI. . CARDIOVASCULAR: S1 and S2 present. No murmurs, rubs, or gallops. PULMONARY: Chest is clear to auscultation, no wheezing or crackles. ABDOMEN: Soft, nontender, nondistended, normoactive bowel sounds. No palpable organomegaly. MUSCULOSKELETAL: No joint swelling or deformity. EXTREMITIES: No cyanosis, clubbing, or pedal edema. NEUROLOGICAL: Gross neurological examination did not reveal any focal deficits. SKIN: No rashes. DISCHARGE DIAGNOSES 1. Acute diabetic ketoacidosis. Resolved 2. Metabolic acidosis secondary to DKA. 3. Leukocytosis secondary to DKA. 4. Recent diagnosis of COVID-19 with generalized weakness and debility. 5. Hypertension and hypertensive cardiovascular disease. 6. Mixed hyperlipidemia. 7. History of CVA 8. Diabetes mellitus type 2 , converted to type I. 9. Diabetic polyneuropathy. 10. History of seizure disorder. 11. History of closed head injury. 12. History of hepatitis C. 13. Left hydradenitis suppurative s/p IV antibtiotics, stable. * Upon discharge continue patient on Levemir, NovoLog * Patient appropriately resuscitated with fluid continue Lipitor, Plavix, amlodipine, Keppra, Tylenol as needed * Outpatient follow-up with PCP Objective - Vital Signs Vital signs: Vital Signs Temp 97.7 F 09/08/23 07:49 Pulse 88 09/08/23 11:44 Resp 16 09/08/23 11:44 BP 144/80 09/08/23 11:44 Pulse Ox 96 09/08/23 11:44 FiO2 Intake & Output 09/07/23 09/08/23 09/08/23 18:59 06:59 18:59 Intake Total 354 370 Output Total 925 800 Balance -571 -800 370 Weight 58.513 kg Intake: IV 10 Invasive Line 1 10 Oral 354 360 Output: Urine 925 800 Other: Voiding Method Urinal External Catheter External Catheter # Voids 2 # Bowel Movements 1 - Labs CBC & Chem 7: 09/07/23 06:55 09/08/23 08:39 Labs: Abnormal Lab Results - Last 24 Hours (Table) 09/06/23 09/07/23 09/07/23 Range/Units 12:24 16:28 17:49 Chloride (98-107) mmol/L BUN (9-20) mg/dL Creatinine (0.66-1.25) mg/dL Glucose (74-99) mg/dL POC Glucose (mg/dL) 388 H 392 H (70-110) mg/dL WILLA Antibody >120 H (<5) IU/mL 09/07/23 09/07/23 09/08/23 Range/Units 19:51 22:23 03:18 Chloride (98-107) mmol/L BUN (9-20) mg/dL Creatinine (0.66-1.25) mg/dL Glucose (74-99) mg/dL POC Glucose (mg/dL) 395 H 231 H 177 H (70-110) mg/dL WILLA Antibody (<5) IU/mL 09/08/23 09/08/23 09/08/23 Range/Units 06:17 07:06 08:39 Chloride 97 L (98-107) mmol/L BUN 23 H (9-20) mg/dL Creatinine 0.56 L (0.66-1.25) mg/dL Glucose 296 H (74-99) mg/dL POC Glucose (mg/dL) 231 H 220 H (70-110) mg/dL WILLA Antibody (<5) IU/mL 09/08/23 Range/Units 11:42 Chloride (98-107) mmol/L BUN (9-20) mg/dL Creatinine (0.66-1.25) mg/dL Glucose (74-99) mg/dL POC Glucose (mg/dL) 247 H (70-110) mg/dL WILLA Antibody (<5) IU/mL
--- NOTE | 2023-09-08 12:43 | P.PN ---
Subjective Progress Note Date: 09/08/23 I am seeing this patient in new consultation today 09/05/2023 for acute diabetic ketoacidosis. Patient is a 63-year-old white male with past medical history significant for diabetes mellitus type 2, diabetic neuropathy, previous CVA with memory impairment, seizure disorder, hyperlipidemia, hypertension, hepatitis C status post treatment, and recent COVID-19 infection 2 months ago. Patient reportedly recently moved to [place], and resides at [facility]. He has significant limitations post CVA. Apparently, [facility] at the [facility], staff noticed the patient to be increasingly weak. He had high blood sugars And increased thirst and urinary frequency. Most recent available labs show a blood glucose of 406, serum bicarb of 6, anion gap of 30, and he is acetone positive. This is consistent with acute diabetic ketoacidosis. Patient was not started on insulin infusion until around midnight. He did have a VBG at that time which showed a pH of 7.15 and pCO2 27. He is just been started on normal saline at 200 ML's per hour. Most recent BMP shows a sodium 133, potassium 4.9, chloride 97, BUN 42, creatinine 0.94, and glucose is reported above. No significant hemodynamic instability or hyperkalemia. Patient is currently lying in bed, comfortable on room air, in no acute distress. He's had adequate oral intake. No nausea or vomiting or abdominal pain. Actually denies any specific complaints. Patient reportedly had some chest discomfort and mild shortness of breath on arrival, which he currently denies. Troponins less than 0.012. NT proBNP level 318. EKG shows normal sinus rhythm without any acute ischemic changes. Chest x-ray did not show any acute cardiopulmonary disease processes. We will repeat patient's labs in an hour, patient may need to be transferred to the intensive care unit if his acidosis does not improve or worsens. On today's evaluation of 09/06/2023, the patient is doing well. He is on room air oxygen. He is communicating. Adequate mentation. 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 The patient was restarted on aspirin, Plavix, and Lipitor. He is also on Cozaar 25 mg by mouth daily. The patient is also on Keppra. The blood work from today shows a regular basis, 14.8, hemoglobin 15.4 and a platelet count of 268, BUN is at 60 with a creatinine of 0.4 and sodium levels of 141. Anion gap is at 14. He has no specific complaints. Hemodynamically stable. No chest pain. No focal neurological deficits. 09/07/2023, no new complaints and the patient is on Levemir insulin 38 units. The patient encounter some hypoglycemia overnight and for that reason the Levemir dose was reduced over 30 units . His overall respiratory status is stable. Mental status is stable. BUN is at 50 with a creatinine of 0.5. Bicarbonate 32 with a anion gap of 7. White cell count of 11.3 and the patient is currently on room air oxygen. On today's evaluation of , no new complaints. The computed tomography scan of the abdomen showed COPD and hepatic steatosis. The patient is currently on Levemir insulin. No nausea. No emesis. No chest pain. No shortness of breath. No other significant events overnight. Blood work from today shows a sodium level of 137, BUN is 23 and creatinine 0.5. Blood sugars at 247. The patient is currently on Levemir insulin 20 units along with 3 units with meals. He is also utilizing a sliding scale coverage. Remains on room air oxygen. Objective - Vital Signs Vital signs: Vital Signs Temp 97.7 F 09/08/23 07:49 Pulse 88 09/08/23 11:44 Resp 16 09/08/23 11:44 BP 144/80 09/08/23 11:44 Pulse Ox 96 09/08/23 11:44 FiO2 Intake & Output 09/07/23 09/08/23 09/08/23 18:59 06:59 18:59 Intake Total 354 370 Output Total 925 800 Balance -571 -800 370 Weight 58.513 kg Intake: IV 10 Invasive Line 1 10 Oral 354 360 Output: Urine 925 800 Other: Voiding Method Urinal External Catheter External Catheter # Voids 2 # Bowel Movements 1 - Exam GENERAL EXAM: Alert, 63-year-old white male, comfortable in no apparent distr ess. HEAD: Normocephalic and atraumatic EYES: Normal reaction of pupils, equal size. NOSE: Clear with pink turbinates. THROAT: No erythema or exudates. Dry mucous membranes NECK: No masses, no JVD. CHEST: No chest wall deformity. LUNGS: Equal air entry with no crackles, wheeze, rhonchi or dullness. On room air. No conversational dyspnea or accessory muscle use.. No kussmaul respirations noted. CVS: S1 and S2 normal with no audible murmur, regular rhythm. No extra heart sounds ABDOMEN: No hepatosplenomegaly, active bowel sounds, no guarding or rigidity. Dexicom subq glucometer in place. SPINE: No scoliosis or deformity SKIN: No rashes CENTRAL NERVOUS SYSTEM: No focal deficits, tone is normal in all 4 extremities. Alert but oriented to self only. EXTREMITIES: There is no peripheral edema, clubbing, or cyanosis. Peripheral pulses are intact. - Labs CBC & Chem 7: 09/07/23 06:55 09/08/23 08:39 Labs: Abnormal Lab Results - Last 24 Hours (Table) 09/06/23 09/07/23 09/07/23 Range/Units 12:24 16:28 17:49 Chloride (98-107) mmol/L BUN (9-20) mg/dL Creatinine (0.66-1.25) mg/dL Glucose (74-99) mg/dL POC Glucose (mg/dL) 388 H 392 H (70-110) mg/dL WILLA Antibody >120 H (<5) IU/mL 09/07/23 09/07/23 09/08/23 Range/Units 19:51 22:23 03:18 Chloride (98-107) mmol/L BUN (9-20) mg/dL Creatinine (0.66-1.25) mg/dL Glucose (74-99) mg/dL POC Glucose (mg/dL) 395 H 231 H 177 H (70-110) mg/dL WILLA Antibody (<5) IU/mL 09/08/23 09/08/23 09/08/23 Range/Units 06:17 07:06 08:39 Chloride 97 L (98-107) mmol/L BUN 23 H (9-20) mg/dL Creatinine 0.56 L (0.66-1.25) mg/dL Glucose 296 H (74-99) mg/dL POC Glucose (mg/dL) 231 H 220 H (70-110) mg/dL WILLA Antibody (<5) IU/mL 09/08/23 Range/Units 11:42 Chloride (98-107) mmol/L BUN (9-20) mg/dL Creatinine (0.66-1.25) mg/dL Glucose (74-99) mg/dL POC Glucose (mg/dL) 247 H (70-110) mg/dL WILLA Antibody (<5) IU/mL Assessment and Plan Assessment: Acute diabetic ketoacidosis, recovered and the patient is on long-acting insulin with Levemir Metabolic anion gap acidosis, secondary to above, recovered Leukocytosis, secondary to above, doubt infectious etiology, slightly improved compared to yesterday Generalized weakness and dehydration, improved Prerenal azotemia, improved Diabetes mellitus type 2, insulin-dependent, complicated by diabetic neuropathy Hyperlipidemia Hypertension History of CVA, with residual memory impairment and visual impairment History of seizure disorder, managed on Keppra History of hepatitis C status/post treatment Former tobacco smoker Plan: Continue Levemir 20 units at bedtime and 3 units of NovoLog with meals and a sliding scale coverage. CAT scan of the abdomen and pelvis was noted. Watch for any signs of hypoglycemia Anion gap is closed Change IV fluids to KVO Monitor blood sugar Diabetic education Continue aspirin and Plavix Continue Lipitor Continue losartan Continue Keppra. Tramadol for pain control Currently on room air oxygen Discharged to subacute rehab
[2023-09-08 16:11] LABS: Glucose,Whole Blood 368 mg/dL (70-110)
[2023-09-08 18:06] VITALS: BP 130/65; PULSE 75; TEMP 97.9
== END 2023-09-08 18:48 | DRG 420 ==
LOC: EC 11:02 → 6NMEDSUR 13:03 → OBSVTOIN 15:50 → 3SCARD 16:14
PROVIDERS: ADMIT Internal Medicine; ATTEND Internal Medicine
DX: E11.10 Type 2 diabetes mellitus with ketoacidosis without coma (principal); R55 Syncope and collapse; N17.9 Acute kidney failure, unspecified; I10 Essential (primary) hypertension; E11.42 Type 2 diabetes mellitus with diabetic polyneuropathy; G40.909 Epilepsy, unspecified, not intractable, without status epilepticus; I69.30 Unspecified sequelae of cerebral infarction; H54.7 Unspecified visual loss; Z79.4 Long term (current) use of insulin; E86.0 Dehydration; E78.5 Hyperlipidemia, unspecified; I95.9 Hypotension, unspecified; I25.2 Old myocardial infarction; I25.10 Atherosclerotic heart disease of native coronary artery without angina pectoris; Z79.02 Long term (current) use of antithrombotics/antiplatelets; Z79.84 Long term (current) use of oral hypoglycemic drugs; Z86.16 Personal history of COVID-19; L73.2 Hidradenitis suppurativa; B19.20 Unspecified viral hepatitis C without hepatic coma; Z89.519 Acquired absence of unspecified leg below knee; E11.649 Type 2 diabetes mellitus with hypoglycemia without coma; E78.2 Mixed hyperlipidemia; Z87.440 Personal history of urinary (tract) infections; Z79.899 Other long term (current) drug therapy; Z82.49 Family history of ischemic heart disease and other diseases of the circulatory system
CPT/HCPCS: 36415; 71046; 71260; 74177; 80048; 80051; 80053; 80061; 80177; 81003; 82009; 82565; 82803; 82947; 83519; 83605; 83735; 83880; 84100; 84484; 84520; 84681; 85025; 85027; 85610; 85730; 86337; 93005; 96361; 96374; 96375; 99285

== ENCOUNTER 2024-01-21 19:45 | Inpatient (IN) | payer OTHER ==
[2024-01-21 20:03] LABS: Glucose,Whole Blood 555 mg/dL (70-110)
--- NOTE | 2024-01-21 20:23 | ED ---
General Adult HPI - General Source: patient, EMS, RN notes reviewed, old records reviewed Mode of arrival: EMS Limitations: no limitations <Clifton Ruiz - Last Filed: 01/21/24 20:50> <Joycelyn Shea - Last Filed: 01/21/24 22:24> - General Chief complaint: Recheck/Abnormal Lab/Rx Stated complaint: Hyperglycemia Time Seen by Provider: 01/21/24 19:58 - History of Present Illness Initial comments: 63-year-old male presenting for evaluation of hyperglycemia. Patient's initial blood sugar in the 500s. He states he did not eat today, uncertain if he took insulin today. He is currently at [facility] and it was reported by paramedics that the blood sugar had been low throughout the day today. No fever. Patient did report several episodes of vomiting. (Clifton Ruiz) - Related Data Home Medications Medication Instructions Recorded Confirmed Atorvastatin [Lipitor] 80 mg PO HS 07/12/23 09/04/23 Clopidogrel [Plavix] 75 mg PO DAILY 07/12/23 09/04/23 amLODIPine [Norvasc] 5 mg PO DAILY 07/12/23 09/04/23 levETIRAcetam [Keppra] 500 mg PO BID 07/12/23 09/04/23 Acetaminophen [Tylenol 8 Hour] 650 mg PO Q6H PRN 09/04/23 09/04/23 Loperamide [Imodium] 2 mg PO DAILY PRN 09/04/23 09/04/23 Losartan [Cozaar] 25 mg PO DAILY 09/04/23 09/04/23 Ondansetron [Zofran] 4 mg PO Q8HR PRN 09/04/23 09/04/23 Previous Rx's Medication Instructions Recorded INSULIN ASPART (NovoLOG) [NovoLOG 0 unit SQ ACHS each 09/07/23 (formulary)] INSULIN ASPART (NovoLOG) [NovoLOG 3 unit SQ AC-TID each 09/07/23 (formulary)] Insulin Detemir (Levemir) [Levemir] 20 unit SQ HS each 09/07/23 Allergies Allergy/AdvReac Type Severity Reaction Status Date / Time No Known Allergies Allergy Verified 09/04/23 14:40 Review of Systems ROS Other: All systems not noted in ROS Statement are negative. <Clifton Ruiz Myrna - Last Filed: 01/21/24 20:50> ROS Other: All systems not noted in ROS Statement are negative. <Jocyelyn Shea - Last Filed: 01/21/24 22:24> ROS Statement: Those systems with pertinent positive or pertinent negative responses have been documented in the HPI. Past Medical History Past Medical History: Diabetes Mellitus, Myocardial Infarction ([place]) Additional Past Medical History / Comment(s): cva 2020 Last Myocardial Infarction Date:: states few years ago History of Any Multi-Drug Resistant Organisms: None Reported Past Surgical History: No Surgical Hx Reported Past Anesthesia/Blood Transfusion Reactions: No Reported Reaction Past Psychological History: No Psychological Hx Reported Smoking Status: Former smoker Past Alcohol Use History: None Reported, Occasional Past Drug Use History: None Reported <Clifton Ruiz Myrna - Last Filed: 01/21/24 20:50> General Exam Limitations: no limitations General appearance: alert, in no apparent distress Head exam: Present: atraumatic, normocephalic Eye exam: Present: normal appearance, PERRL ENT exam: Present: normal exam Neck exam: Present: normal inspection. Absent: tenderness, meningismus Respiratory exam: Present: normal lung sounds bilaterally. Absent: respiratory distress, wheezes Cardiovascular Exam: Present: regular rate, normal rhythm GI/Abdominal exam: Present: soft. Absent: distended, tenderness Neurological exam: Present: alert Skin exam: Present: warm, dry, intact <Clifton Ruiz Myrna - Last Filed: 01/21/24 20:50> Course Vital Signs 01/21/24 19:48 Temperature 97.8 F Pulse Rate 95 Respiratory 14 Rate Blood Pressure 135/69 O2 Sat by Pulse 96 Oximetry Medical Decision Making <Clifton Ruiz Myrna - Last Filed: 01/21/24 20:50> - Lab Data Result diagrams: 01/21/24 20:47 01/21/24 20:47 <Joycelyn Shea - Last Filed: 01/21/24 22:24> - Medical Decision Making Was pt. sent in by a medical professional or institution (, PA, ACCESS REGISTRAR, urgent care, hospital, or half-way...) When possible be specific @ -No Did you speak to anyone other than the patient for history (EMS, parent, family, police, friend...)? What history was obtained from this source @ -No Did you review nursing and triage notes (agree or disagree)? Why? @ -I reviewed and agree with nursing and triage notes Were old charts reviewed (outside hosp., previous admission, EMS record, old EKG, old radiological studies, urgent care reports/EKG's, half-way records)? Report findings @ -No old charts were reviewed Differential Diagnosis (chest pain, altered mental status, abdominal pain women, abdominal pain men, vaginal bleeding, weakness, fever, dyspnea, syncope, headache, dizziness, GI bleed, back pain, seizure, CVA, palpatations, mental health, musculoskeletal)? @ -Differential Weakness: Hypoglycemia, hyperglycemia, shock, sepsis, hyponatremia, anemia, infection, NC, ETOH, adverse medicine reaction, overdose, stroke, this is not meant to be an all-inclusive list. EKG interpreted by me (3pts min.). @Chest x-ray sinus tachycardia rate of 101, low voltage no ST segment elevation, LA interval 172, QRS duration 105, QTc 426 X-rays interpreted by me (1pt min.). @ -None done CT interpreted by me (1pt min.). @ -None done U/S interpreted by me (1pt. min.). @ -None done What testing was considered but not performed or refused? (CT, X-rays, U/S, labs)? Why? @ -None What meds were considered but not given or refused? Why? @ -None Did you discuss the management of the patient with other professionals (professionals i.e. , PA, ACCESS REGISTRAR, lab, RT, psych nurse, community mental health social worker, vehicle body maker, teacher, systems support officer, manager case)? Give summary @ -No Was smoking cessation discussed for >3mins.? @ -No Was critical care preformed (if so, how long)? @ -No Were there social determinants of health that impacted care today? How? (Homelessness, low income, unemployed, alcoholism, drug addiction, transportation, low edu. Level, literacy, decrease access to med. care, correction, rehab)? @ -No Was there de-escalation of care discussed even if they declined (Discuss DNR or withdrawal of care, Hospice)? DNR status @ -No What co-morbidities impacted this encounter? (DM, HTN, Smoking, COPD, CAD, Cancer, CVA, ARF, Chemo, Hep., AIDS, mental health diagnosis, sleep apnea, morbid obesity)? @Insulin-dependent diabetes Was patient admitted / discharged? Hospital course, mention meds given and route, prescriptions, significant lab abnormalities, going to OR and other pertinent info. @Patient care signed out at shift change to Dr. Shea awaiting laboratory testing, and reevaluation. (Clifton Ruiz) Was patient admitted / discharged? Hospital course, mention meds given and route, prescriptions, significant lab abnormalities, going to OR and other pertinent info. @ -Patient was signed out to me from Dr. Oneill. I did review the patient's labs. Glucose is 552. CO2 low at 12 with an anion gap of 22. Patient does have ketones in his urine as well as serum acetone's. He does meet criteria for DKA. Because of this the patient was initiated on an insulin drip. Every 1 hour Accu-Cheks will be performed. Called and spoke with Dr. Moyer who was agreeable to the patient's admission. He is currently pending a bed on the floor in stable condition Undiagnosed new problem with uncertain prognosis? @ -No Drug Therapy requiring intensive monitoring for toxicity (Heparin, Nitro, Insulin, Cardizem)? @ -Insulin Were any procedures done? @ -No Diagnosis/symptom? @ -Acute DKA Acute, or Chronic, or Acute on Chronic? @ -Acute Uncomplicated (without systemic symptoms) or Complicated (systemic symptoms)? @ -Complicated Side effects of treatment? @ -No Exacerbation, Progression, or Severe Exacerbation? @ -No Poses a threat to life or bodily function? How? (Chest pain, USA, NC, pneumonia, PE, COPD, DKA, ARF, appy, cholecystitis, CVA, Diverticulitis, Homicidal, Suicidal, threat to staff... and all critical care pts) @ -Yes, patient is in DKA. Critical care time of 35 minutes for diagnosis of DKA with insulin drip and every hour Accu-Cheks (Joycelyn Shea) - Lab Data Lab Results 01/21/24 01/21/24 01/21/24 Range/Units 20:01 20:47 20:47 WBC 13.0 H (3.8-10.6) k/uL RBC 4.68 (4.30-5.90) m/uL Hgb 12.9 L (13.0-17.5) gm/dL Hct 42.2 (39.0-53.0) % MCV 90.2 (80.0-100.0) fL MCH 27.6 (25.0-35.0) pg MCHC 30.6 L (31.0-37.0) g/dL RDW 14.1 (11.5-15.5) % Plt Count 193 (150-450) k/uL MPV 8.2 Neutrophils % 89 % Lymphocytes % 5 % Monocytes % 4 % Eosinophils % 1 % Basophils % 0 % Neutrophils # 11.6 H (1.3-7.7) k/uL Lymphocytes # 0.7 L (1.0-4.8) k/uL Monocytes # 0.5 (0-1.0) k/uL Eosinophils # 0.1 (0-0.7) k/uL Basophils # 0.0 (0-0.2) k/uL Sodium (137-145) mmol/L Potassium (3.5-5.1) mmol/L Chloride (98-107) mmol/L Carbon Dioxide (22-30) mmol/L Anion Gap mmol/L BUN (9-20) mg/dL Creatinine (0.66-1.25) mg/dL Est GFR (CKD-EPI)AfAm (>60 ml/min/1.73 sqM) Est GFR (CKD-EPI)NonAf (>60 ml/min/1.73 sqM) Glucose (74-99) mg/dL POC Glucose (mg/dL) 555 H (70-110) mg/dL POC Glu Asphalt Engineer ID Brenda Eid Calcium (8.4-10.2) mg/dL Total Bilirubin (0.2-1.3) mg/dL AST (17-59) U/L ALT (4-49) U/L Alkaline Phosphatase (38-126) U/L Total Protein (6.3-8.2) g/dL Albumin (3.5-5.0) g/dL Urine Color Colorless Urine Appearance Clear (Clear) Urine pH 5.0 (5.0-8.0) Ur Specific [place] 1.024 (1.001-1.035) Urine Protein Negative (Negative) Urine Glucose (UA) 4+ H (Negative) Urine Ketones 2+ H (Negative) Urine Blood Moderate H (Negative) Urine Nitrite Negative (Negative) Urine Bilirubin Negative (Negative) Urine Urobilinogen <2.0 (<2.0) mg/dL Ur Leukocyte Esterase Negative (Negative) Urine RBC 1 (0-5) /hpf Urine WBC 1 (0-5) /hpf Urine Mucus Rare H (None) /hpf Acetone, Qual (Negative) 01/21/24 Range/Units 20:47 WBC (3.8-10.6) k/uL RBC (4.30-5.90) m/uL Hgb (13.0-17.5) gm/dL Hct (39.0-53.0) % MCV (80.0-100.0) fL MCH (25.0-35.0) pg MCHC (31.0-37.0) g/dL RDW (11.5-15.5) % Plt Count (150-450) k/uL MPV Neutrophils % % Lymphocytes % % Monocytes % % Eosinophils % % Basophils % % Neutrophils # (1.3-7.7) k/uL Lymphocytes # (1.0-4.8) k/uL Monocytes # (0-1.0) k/uL Eosinophils # (0-0.7) k/uL Basophils # (0-0.2) k/uL Sodium 135 L (137-145) mmol/L Potassium 4.2 (3.5-5.1) mmol/L Chloride 101 (98-107) mmol/L Carbon Dioxide 12 L (22-30) mmol/L Anion Gap 22 mmol/L BUN 25 H (9-20) mg/dL Creatinine 0.73 (0.66-1.25) mg/dL Est GFR (CKD-EPI)AfAm >90 (>60 ml/min/1.73 sqM) Est GFR (CKD-EPI)NonAf >90 (>60 ml/min/1.73 sqM) Glucose 552 H* (74-99) mg/dL POC Glucose (mg/dL) (70-110) mg/dL POC Glu Asphalt Engineer ID Calcium 9.1 (8.4-10.2) mg/dL Total Bilirubin 1.3 (0.2-1.3) mg/dL AST 52 (17-59) U/L ALT 56 H (4-49) U/L Alkaline Phosphatase 85 (38-126) U/L Total Protein 6.6 (6.3-8.2) g/dL Albumin 4.1 (3.5-5.0) g/dL Urine Color Urine Appearance (Clear) Urine pH (5.0-8.0) Ur Specific [place] (1.001-1.035) Urine Protein (Negative) Urine Glucose (UA) (Negative) Urine Ketones (Negative) Urine Blood (Negative) Urine Nitrite (Negative) Urine Bilirubin (Negative) Urine Urobilinogen (<2.0) mg/dL Ur Leukocyte Esterase (Negative) Urine RBC (0-5) /hpf Urine WBC (0-5) /hpf Urine Mucus (None) /hpf Acetone, Qual Positive (Negative) Disposition <Clifton Ruiz - Last Filed: 01/21/24 20:50> Is patient prescribed a controlled substance at d/c from ED?: No Time of Disposition: 21:57 Decision to Admit Reason: Admit from EC Decision Date: 01/21/24 Decision Time: 21:57 <Joycelyn Shea - Last Filed: 01/21/24 22:24> Clinical Impression: Diabetic ketoacidosis Disposition: ADMITTED IP TO THIS [facility] Condition: Serious
[2024-01-21 21:02] LABS: Appearance,Urine Clear (Clear); Basophils % (A) 0 %; Bilirubin,Urine Negative (Negative); Blood,Urine Moderate (Negative); Color,Urine Colorless; Eosinophils # (A) 0.1 k/uL (0-0.7); Eosinophils % (A) 1 %; Glucose,Urine (UA) 4+ (Negative); HCT 42.2 % (39.0-53.0); HGB 12.9 gm/dL (13.0-17.5); Leukocyte Esterase,Urine Negative (Negative); Lymphocytes # (A) 0.7 k/uL (1.0-4.8); Lymphocytes % (A) 5 %; MCH 27.6 pg (25.0-35.0); MCHC 30.6 g/dL (31.0-37.0); MCV 90.2 fL (80.0-100.0); Mean Platelet Volume 8.2; Monocytes # (A) 0.5 k/uL (0-1.0); Monocytes % (A) 4 %; Mucus,Urine Rare /hpf; Neutrophils # (A) 11.6 k/uL (1.3-7.7); Neutrophils % (A) 89 %; Nitrite,Urine Negative (Negative); Platelet Count 193 k/uL (150-450); Protein,Urine Negative (Negative); RBC 4.68 m/uL (4.30-5.90); RBC,Urine 1 /hpf (0-5); RDW 14.1 % (11.5-15.5); Specific Gravity,Urine 1.024 (1.001-1.035); Urobilinogen,Urine <2.0 mg/dL (<2.0); WBC,Urine 1 /hpf (0-5)
[2024-01-21] MEDS: SODIUM CHLORIDE 0.9% 1,000 ML IV ONE (21:03)
[2024-01-21 21:06] LABS: Ketones,Urine 2+ (Negative)
[2024-01-21 21:24] LABS: ALT 56 U/L (4-49); AST 52 U/L (17-59); African American GFR (CKD) >90 (>60 ml/min/1.73 sqM); Albumin 4.1 g/dL (3.5-5.0); Alkaline Phosphatase 85 U/L (38-126); Anion Gap 22 mmol/L; Blood Urea Nitrogen 25 mg/dL (9-20); Calcium 9.1 mg/dL (8.4-10.2); Carbon Dioxide 12 mmol/L (22-30); Chloride 101 mmol/L (98-107); Non-African American GFR(CKD) >90 (>60 ml/min/1.73 sqM); Potassium 4.2 mmol/L (3.5-5.1); Sodium 135 mmol/L (137-145); Total Bilirubin 1.3 mg/dL (0.2-1.3); Total Protein 6.6 g/dL (6.3-8.2)
[2024-01-21 21:27] LABS: Glucose 552 mg/dL (74-99)
[2024-01-21] MEDS ORDERED: DEXTROSE 50% SYRINGE 50 ML IVP PRN ×2 (21:29)
[2024-01-21] MEDS ORDERED: Magnesium Replacement Protocol 1 EACH MISC MISCELLANE PRN (21:29)
[2024-01-21] MEDS ORDERED: Potassium Replacement Protocol 1 EACH MISC MISCELLANE PRN (21:29)
[2024-01-21] MEDS ORDERED: NALOXONE 0.4 MG/ML 1 ML VIAL IV PRN (21:57)
[2024-01-21] MEDS: INSULIN REGULAR 100 UNIT in SODIUM CHLORIDE 0.9% 100 ML IV SCH (22:07)
[2024-01-21 22:08] LABS: Glucose,Whole Blood 439 mg/dL (70-110)
[2024-01-21] MEDS: SODIUM CHLORIDE 0.9% 1,000 ML IV SCH (22:50)
[2024-01-21 23:01] LABS: Glucose,Whole Blood 415 mg/dL (70-110)
[2024-01-21] MEDS: ONDANSETRON 4 MG/2 ML VIAL IVP STA (23:58)
[2024-01-22 00:04] LABS: Glucose,Whole Blood 344 mg/dL (70-110)
[2024-01-22 00:31] LABS: Glucose,Whole Blood 368 mg/dL (70-110)
[2024-01-22 00:46] LABS: African American GFR (CKD) >90 (>60 ml/min/1.73 sqM); Anion Gap 19 mmol/L; Blood Urea Nitrogen 21 mg/dL (9-20); Carbon Dioxide 15 mmol/L (22-30); Chloride 105 mmol/L (98-107); Glucose 378 mg/dL (74-99); Non-African American GFR(CKD) >90 (>60 ml/min/1.73 sqM); Sodium 139 mmol/L (137-145)
[2024-01-22 01:31] LABS: Glucose,Whole Blood 291 mg/dL (70-110)
[2024-01-22] MEDS: D5-0.45% NACL WITH KCL 20MEQ/L 1,000 ML IV SCH (01:55)
[2024-01-22 02:27] LABS: Glucose,Whole Blood 301 mg/dL (70-110)
[2024-01-22 03:06] LABS: Glucose,Whole Blood 274 mg/dL (70-110)
[2024-01-22 04:13] LABS: Glucose,Whole Blood 243 mg/dL (70-110)
[2024-01-22 04:58] LABS: Glucose,Whole Blood 223 mg/dL (70-110)
[2024-01-22 06:23] LABS: Glucose,Whole Blood 206 mg/dL (70-110)
[2024-01-22 06:39] LABS: African American GFR (CKD) >90 (>60 ml/min/1.73 sqM); Anion Gap 12 mmol/L; Blood Urea Nitrogen 19 mg/dL (9-20); Carbon Dioxide 23 mmol/L (22-30); Chloride 106 mmol/L (98-107); Glucose 232 mg/dL (74-99); Non-African American GFR(CKD) >90 (>60 ml/min/1.73 sqM); Phosphorus 1.8 mg/dL (2.5-4.5); Potassium 3.6 mmol/L (3.5-5.1); Sodium 141 mmol/L (137-145)
[2024-01-22 07:04] LABS: Glucose,Whole Blood 206 mg/dL (70-110)
[2024-01-22 08:01] LABS: Glucose,Whole Blood 164 mg/dL (70-110)
[2024-01-22 09:11] LABS: Glucose,Whole Blood 135 mg/dL (70-110)
[2024-01-22 10:21] LABS: Glucose,Whole Blood 104 mg/dL (70-110)
[2024-01-22] MEDS ORDERED: ACETAMINOPHEN TAB 325 MG TAB PO PRN (10:57)
[2024-01-22] MEDS ORDERED: HYDROcodone/APAP 5-325MG 1 EACH TAB PO PRN (10:57)
[2024-01-22] MEDS ORDERED: ZINC OXIDE PASTE (Z-GUARD) 1 APPLIC TOPICAL PRN (10:57)
[2024-01-22 11:16] LABS: Glucose,Whole Blood 91 mg/dL (70-110)
[2024-01-22 11:50] LABS: Glucose,Whole Blood 94 mg/dL (70-110)
[2024-01-22] MEDS: CLOPIDOGREL 75 MG TAB PO SCH (12:23)
[2024-01-22] MEDS: amLODIPine 5 MG TAB PO SCH (12:23)
[2024-01-22] MEDS: LOSARTAN 50 MG TAB PO SCH (12:23)
[2024-01-22 12:27] LABS: Glucose,Whole Blood 123 mg/dL (70-110)
[2024-01-22] MEDS ORDERED: INSULIN ASPART (NovoLOG) 100 UNIT/ML VIAL SQ SCH (12:30)
[2024-01-22] MEDS: POTASSIUM PHOSPHATE 10 MMOL in SODIUM CHLORIDE 0.9% 250 ML IV ONE (13:11)
[2024-01-22 13:31] LABS: Glucose,Whole Blood 123 mg/dL (70-110)
[2024-01-22 14:33] LABS: Glucose,Whole Blood 110 mg/dL (70-110)
[2024-01-22 15:32] LABS: Glucose,Whole Blood 94 mg/dL (70-110)
--- NOTE | 2024-01-22 15:48 | P.HPIM ---
History of Present Illness H&P Date: 01/22/24 Chief Complaint: Diabetic ketoacidosis HISTORY OF PRESENT ILLNESS This is a 63-year-old male with past medical history of osteoarthritis generalized, diabetes mellitus type 1, diabetic neuropathy, and history of seizure disorder, history of stroke with short-term memory deficits, hepatitis C status post treatment, hypertension, hyperlipidemia, hidradenitis suppurativa, patient was transferred from [facility] on the [place] after his blood glucose level was greater than 500s for the last few hours despite attempting giving him megadoses of NovoLog he did receive 320 units 2 hours apart without any relief he was sent to the ER after the patient was complaining of increased dizziness nausea but no vomiting, there is suspicion for diabetic ketoacidosis, he was evaluated in the emergency department, he was found to have a CO2 of 15, he was diagnosed with diabetic ketoacidosis he was given IV fluid resuscitation, he was started on insulin drip, and he was admitted to hospital for further evaluation and treatment, patient will be transitioned eventually to his insulin which was increased to like 46 units of Levemir as well as NovoLog 14 units before each meal 3 times every day. REVIEW OF SYSTEMS Constitutional: no fever, no chills, no night sweats. No weight change. positive for weakness, fatigue or lethargy. No daytime sleepiness. HEENT: No headache. No blurred vision or double vision, no loss of vision. No loss of Hearing, no ringing in the ears, no dizziness. No nasal drainage or congestion. No epistaxis. No sore throat. Lungs: positive for shortness of breath,no cough, no sputum production. No wheezing. Cardiovascular: No chest pain, no lower extremity edema. No palpitations. No paroxysmal nocturnal dyspnea. No orthopnea. No lightheadedness or dizziness. No syncopal episodes. Abdominal: No abdominal pain. positive for nausea,no vomiting. No diarrhea. No constipation. No bloody or tarry stools. loss of appetite. Genitourinary: No dysuria, increased frequency, urgency. No urinary retention. Musculoskeletal: No myalgias.positive for muscle weakness, positive for gait dysfunction, frequent falls. No back pain. No neck pain. Integumentary: No wounds. No rash or pruritus. No unusual bruising. No change in hair or nails. Neurologic: No aphasia. No facial droop. No change in mentation. No head injury. No headache. No paralysis. No paresthesia. Psychiatric:positive for depression. No anxiety. No mood swings, CHI signs Endocrine: abnormal blood sugars. No weight change. No excessive sweating or thirst. No cold intolerance. MEDICAL HISTORY Hypertension and hypertensive cardiovascular disease. Hyperlipidemia. History of CVA. History of closed head injury. Diabetes mellitus type 2 with diabetic neuropathy. Hepatitis C status post treatment. Osteoarthritis. Hydradenitis suppurative SURGICAL HISTORY Intestinal surgical tear repair. 2005 SOCIAL HISTORY Patient smokes marijuana, he drinks about 1-2 cups of coffee every day, he denies any alcohol ingestion, no drug use or abuse. FAMILY HISTORY Father at age 72 from hypertension, mother at age of 72 from unknown cause, patient has one brother and 2 sisters and he also has 4 sons and 1 daughter. PHYSICAL EXAMINATION Gen: This is a 63-year-old male laying down in bed in no apparent distress. HEENT: Head is atraumatic, normocephalic. Pupils equal, round. Sclerae is anicteric. NECK: Supple. No JVD. No lymphadenopathy. No thyromegaly. LUNGS: Decreased breath sounds at the bases. few Rhonchi, no expiratory wheezes, no chest wall tenderness, no intercostal retractions. HEART: first heart sound is depressed, second heart sounds normal, there is 1/6 diastolic murmur at the right second intercostal space ABDOMEN: Soft, nontender, nondistended, positive bowel sounds. EXTREMITIES: There is no edema, no calf tenderness, or sinus pedis +2 bilaterally. NEUROLOGICAL: Patient is awake, alert and oriented x3. Cranial nerves 2 through 12 are grossly intact, muscle power 4 out of 5 in upper extremities and 4 out of 5 in bilateral lower extremity is. ASSESSMENT AND PLAN 1. Acute diabetic ketoacidosis. Continue DKA protocol, patient admitted to the cardiac stepdown unit. He is on an insulin drip, IV fluids of D5W. Continue 1 hour Accu-Cheks and adjust insulin drip appropriately 2. Metabolic acidosis secondary to DKA. Continue treatment in #1. 3. Leukocytosis secondary to DKA. No infectious process identified. 4. Hypertension and hypertensive cardiovascular disease. Continue patient on amlodipine 5 mg orally once every day, losartan 50 mg daily and monitor the patient blood pressure very closely. 5. Mixed hyperlipidemia. Continue patient on atorvastatin 80 mg once every day, monitor lipid panel, keep LDL 55-70. 6. History of CVA in the past continue patient on atorvastatin 80 mg once every day as well as Plavix 75 milligrams once every day for secondary stroke prevention. 7. Diabetes mellitus type 1. Patient may have converted to type I. Continue insulin drip and plan to transition to Levemir 42 units at bedtime along with NovoLog 14 units before each meal 3 times every day. 8. Diabetic polyneuropathy. Tight control of diabetes. 9. History of seizure disorder. Continue patient on Keppra 500 mg orally twice every day. 10. History of closed head injury. Stable. 11. History of hepatitis C. Stable. 12. DVT prophylaxis. Lovenox 40 mg subcutaneously every 24 hours. 13. GI prophylaxis. Continue Protonix 40 mg orally once every day. 14. Admit to inpatient. Estimate a length of stay 2 midnights. 15. Full code. 17. funeral workers consultation for discharge planning. Past Medical History Past Medical History: Diabetes Mellitus, Myocardial Infarction ([place]) Additional Past Medical History / Comment(s): cva 2020 Last Myocardial Infarction Date:: states few years ago History of Any Multi-Drug Resistant Organisms: None Reported Past Surgical History: No Surgical Hx Reported Past Anesthesia/Blood Transfusion Reactions: No Reported Reaction Past Psychological History: No Psychological Hx Reported Smoking Status: Former smoker Past Alcohol Use History: None Reported, Occasional Past Drug Use History: None Reported Medications and Allergies Home Medications Medication Instructions Recorded Confirmed Type Atorvastatin [Lipitor] 80 mg PO HS 07/12/23 01/22/24 History Clopidogrel [Plavix] 75 mg PO DAILY 07/12/23 01/22/24 History amLODIPine [Norvasc] 5 mg PO DAILY 07/12/23 01/22/24 History levETIRAcetam [Keppra] 500 mg PO BID 07/12/23 01/22/24 History Ondansetron [Zofran] 4 mg PO Q8HR PRN 09/04/23 01/22/24 History Acetaminophen Tab [Tylenol] 650 mg PO Q6H PRN 01/22/24 01/22/24 History HYDROcodone/APAP 5-325MG [[place] 1 tab PO Q8H PRN 01/22/24 01/22/24 History 5-325] INSULIN ASPART (NovoLOG) [NovoLOG 14 unit SQ AC-TID 01/22/24 01/22/24 History (formulary)] INSULIN ASPART (NovoLOG) [NovoLOG See Protocol SQ ACHS 01/22/24 01/22/24 History (formulary)] Insulin Detemir (Levemir) [Levemir] 42 unit SQ HS 01/22/24 01/22/24 History Losartan [Cozaar] 50 mg PO DAILY 01/22/24 01/22/24 History Oxybutynin ER [Ditropan XL] 10 mg PO DAILY 01/22/24 01/22/24 History Tamsulosin HCl [Flomax] 0.4 mg PO DAILY 01/22/24 01/22/24 History Z-Guard 1 applic TOPICAL DIRECTED PRN 01/22/24 01/22/24 History Allergies Allergy/AdvReac Type Severity Reaction Status Date / Time No Known Allergies Allergy Verified 01/22/24 08:31 Physical Exam Vitals: Vital Signs Temp Pulse Resp BP Pulse Ox 01/22/24 08:00 100 18 153/79 96 01/22/24 06:45 92 17 154/86 96 01/22/24 05:13 99 17 161/84 97 01/22/24 02:36 99.4 F 92 16 147/80 96 01/22/24 00:32 105 H 10 L 135/69 95 01/21/24 23:00 101 H 12 115/57 97 01/21/24 22:00 99 14 130/74 97 01/21/24 21:00 101 H 15 119/72 97 01/21/24 20:36 100 12 135/69 97 01/21/24 19:48 97.8 F 95 14 135/69 96 Intake and Output 01/21/24 01/22/24 01/22/24 22:59 06:59 14:59 Intake Total 35.044 65.956 Balance 35.044 65.956 Intake: Intake, IV Titration 35.044 65.956 Amount Insulin Regular 100 unit 35.044 65.956 In Sodium Chloride 0.9% 100 ml @ 0.1 UNITS/KG/HR 6.643 mls/hr IV .[id number] [facility] Rx#:[id number] Other: Weight 65.771 kg Results CBC & Chem 7: 01/21/24 20:47 04/02/24 05:48 Labs: Abnormal Lab Results - Last 24 Hours (Table) 01/21/24 01/21/24 01/21/24 Range/Units 20:01 20:47 20:47 WBC 13.0 H (3.8-10.6) k/uL Hgb 12.9 L (13.0-17.5) gm/dL MCHC 30.6 L (31.0-37.0) g/dL Neutrophils # 11.6 H (1.3-7.7) k/uL Lymphocytes # 0.7 L (1.0-4.8) k/uL Sodium (137-145) mmol/L Carbon Dioxide (22-30) mmol/L BUN (9-20) mg/dL Creatinine (0.66-1.25) mg/dL Glucose (74-99) mg/dL POC Glucose (mg/dL) 555 H (70-110) mg/dL Phosphorus (2.5-4.5) mg/dL ALT (4-49) U/L Urine Glucose (UA) 4+ H (Negative) Urine Ketones 2+ H (Negative) Urine Blood Moderate H (Negative) Urine Mucus Rare H (None) /hpf 01/21/24 01/21/24 01/21/24 Range/Units 20:47 22:06 23:00 WBC (3.8-10.6) k/uL Hgb (13.0-17.5) gm/dL MCHC (31.0-37.0) g/dL Neutrophils # (1.3-7.7) k/uL Lymphocytes # (1.0-4.8) k/uL Sodium 135 L (137-145) mmol/L Carbon Dioxide 12 L (22-30) mmol/L BUN 25 H (9-20) mg/dL Creatinine (0.66-1.25) mg/dL Glucose 552 H* (74-99) mg/dL POC Glucose (mg/dL) 439 H 415 H (70-110) mg/dL Phosphorus (2.5-4.5) mg/dL ALT 56 H (4-49) U/L Urine Glucose (UA) (Negative) Urine Ketones (Negative) Urine Blood (Negative) Urine Mucus (None) /hpf 01/21/24 01/22/2424 Range/Units 23:47 00:02 00:29 WBC (3.8-10.6) k/uL Hgb (13.0-17.5) gm/dL MCHC (31.0-37.0) g/dL Neutrophils # (1.3-7.7) k/uL Lymphocytes # (1.0-4.8) k/uL Sodium (137-145) mmol/L Carbon Dioxide 15 L (22-30) mmol/L BUN 21 H (9-20) mg/dL Creatinine (0.66-1.25) mg/dL Glucose 378 H (74-99) mg/dL POC Glucose (mg/dL) 344 H 368 H (70-110) mg/dL Phosphorus (2.5-4.5) mg/dL ALT (4-49) U/L Urine Glucose (UA) (Negative) Urine Ketones (Negative) Urine Blood (Negative) Urine Mucus (None) /hpf 01/22/24 01/22/24 01/22/24 Range/Units 01:30 02:25 03:04 WBC (3.8-10.6) k/uL Hgb (13.0-17.5) gm/dL MCHC (31.0-37.0) g/dL Neutrophils # (1.3-7.7) k/uL Lymphocytes # (1.0-4.8) k/uL Sodium (137-145) mmol/L Carbon Dioxide (22-30) mmol/L BUN (9-20) mg/dL Creatinine (0.66-1.25) mg/dL Glucose (74-99) mg/dL POC Glucose (mg/dL) 291 H 301 H 274 H (70-110) mg/dL Phosphorus (2.5-4.5) mg/dL ALT (4-49) U/L Urine Glucose (UA) (Negative) Urine Ketones (Negative) Urine Blood (Negative) Urine Mucus (None) /hpf 01/22/24 01/22/24 01/22/24 Range/Units 04:11 04:56 05:48 WBC (3.8-10.6) k/uL Hgb (13.0-17.5) gm/dL MCHC (31.0-37.0) g/dL Neutrophils # (1.3-7.7) k/uL Lymphocytes # (1.0-4.8) k/uL Sodium (137-145) mmol/L Carbon Dioxide (22-30) mmol/L BUN (9-20) mg/dL Creatinine 0.57 L (0.66-1.25) mg/dL Glucose 232 H (74-99) mg/dL POC Glucose (mg/dL) 243 H 223 H (70-110) mg/dL Phosphorus 1.8 L (2.5-4.5) mg/dL ALT (4-49) U/L Urine Glucose (UA) (Negative) Urine Ketones (Negative) Urine Blood (Negative) Urine Mucus (None) /hpf 01/22/24 01/22/24 01/22/24 Range/Units 06:21 07:03 07:59 WBC (3.8-10.6) k/uL Hgb (13.0-17.5) gm/dL MCHC (31.0-37.0) g/dL Neutrophils # (1.3-7.7) k/uL Lymphocytes # (1.0-4.8) k/uL Sodium (137-145) mmol/L Carbon Dioxide (22-30) mmol/L BUN (9-20) mg/dL Creatinine (0.66-1.25) mg/dL Glucose (74-99) mg/dL POC Glucose (mg/dL) 206 H 206 H 164 H (70-110) mg/dL Phosphorus (2.5-4.5) mg/dL ALT (4-49) U/L Urine Glucose (UA) (Negative) Urine Ketones (Negative) Urine Blood (Negative) Urine Mucus (None) /hpf 01/22/24 Range/Units 09:10 WBC (3.8-10.6) k/uL Hgb (13.0-17.5) gm/dL MCHC (31.0-37.0) g/dL Neutrophils # (1.3-7.7) k/uL Lymphocytes # (1.0-4.8) k/uL Sodium (137-145) mmol/L Carbon Dioxide (22-30) mmol/L BUN (9-20) mg/dL Creatinine (0.66-1.25) mg/dL Glucose (74-99) mg/dL POC Glucose (mg/dL) 135 H (70-110) mg/dL Phosphorus (2.5-4.5) mg/dL ALT (4-49) U/L Urine Glucose (UA) (Negative) Urine Ketones (Negative) Urine Blood (Negative) Urine Mucus (None) /hpf
[2024-01-22 16:08] LABS: Glucose,Whole Blood 108 mg/dL (70-110)
[2024-01-22 17:09] LABS: Glucose,Whole Blood 152 mg/dL (70-110)
[2024-01-22 18:05] LABS: Glucose,Whole Blood 151 mg/dL (70-110)
[2024-01-22 19:22] LABS: Glucose,Whole Blood 125 mg/dL (70-110)
[2024-01-22] MEDS: levETIRAcetam 500 MG TAB PO SCH (20:54)
[2024-01-22] MEDS: ATORVASTATIN 80 MG TAB PO SCH (20:54)
[2024-01-22 20:59] LABS: Glucose,Whole Blood 160 mg/dL (70-110)
[2024-01-22] MEDS ORDERED: INSULIN DETEMIR (LEVEMIR) 100 UNIT/ML SYR SQ SCH (21:00)
[2024-01-22 21:05] LABS: African American GFR (CKD) >90 (>60 ml/min/1.73 sqM); Anion Gap 10 mmol/L; Blood Urea Nitrogen 9 mg/dL (9-20); Calcium 8.9 mg/dL (8.4-10.2); Carbon Dioxide 21 mmol/L (22-30); Chloride 107 mmol/L (98-107); Glucose 154 mg/dL (74-99); Non-African American GFR(CKD) >90 (>60 ml/min/1.73 sqM); Potassium 3.3 mmol/L (3.5-5.1); Sodium 138 mmol/L (137-145)
[2024-01-22 22:05] LABS: ALT 54 U/L (4-49); AST 87 U/L (17-59); African American GFR (CKD) >90 (>60 ml/min/1.73 sqM); Albumin 3.7 g/dL (3.5-5.0); Alkaline Phosphatase 74 U/L (38-126); Anion Gap 9 mmol/L; Blood Urea Nitrogen 8 mg/dL (9-20); Calcium 8.5 mg/dL (8.4-10.2); Carbon Dioxide 23 mmol/L (22-30); Chloride 107 mmol/L (98-107); Glucose 158 mg/dL (74-99); Non-African American GFR(CKD) >90 (>60 ml/min/1.73 sqM); Potassium 3.1 mmol/L (3.5-5.1); Sodium 139 mmol/L (137-145); Total Bilirubin 0.9 mg/dL (0.2-1.3); Total Protein 6.4 g/dL (6.3-8.2)
[2024-01-22] MEDS: INSULIN ASPART (NovoLOG) 100 UNIT/ML VIAL SQ SCH (22:40)
[2024-01-22 22:53] LABS: Glucose,Whole Blood 151 mg/dL (70-110)
[2024-01-22] MEDS: INSULIN DETEMIR (LEVEMIR) 100 UNIT/ML SYR SQ SCH (22:53)
[2024-01-23 01:40] LABS: ALT 53 U/L (4-49); AST 78 U/L (17-59); African American GFR (CKD) >90 (>60 ml/min/1.73 sqM); Albumin 3.7 g/dL (3.5-5.0); Alkaline Phosphatase 83 U/L (38-126); Anion Gap 9 mmol/L; Blood Urea Nitrogen 6 mg/dL (9-20); Calcium 8.7 mg/dL (8.4-10.2); Carbon Dioxide 25 mmol/L (22-30); Chloride 105 mmol/L (98-107); Glucose 148 mg/dL (74-99); Non-African American GFR(CKD) >90 (>60 ml/min/1.73 sqM); Potassium 3.2 mmol/L (3.5-5.1); Sodium 139 mmol/L (137-145); Total Bilirubin 0.9 mg/dL (0.2-1.3); Total Protein 6.5 g/dL (6.3-8.2)
[2024-01-23 02:01] LABS: Glucose,Whole Blood 117 mg/dL (70-110)
[2024-01-23 06:05] LABS: Glucose,Whole Blood 70 mg/dL (70-110)
[2024-01-23 06:30] LABS: Glucose,Whole Blood 148 mg/dL (70-110)
[2024-01-23] MEDS: INSULIN ASPART (NovoLOG) 100 UNIT/ML VIAL SQ SCH ×2 (08:41→17:41)
[2024-01-23] MEDS: ENOXAPARIN 40 MG/0.4 ML SYRINGE SQ SCH (08:54)
[2024-01-23] MEDS: ONDANSETRON 4 MG TAB PO PRN (08:55)
[2024-01-23] MEDS: TAMSULOSIN 0.4 MG CAP.ER.24H PO SCH (08:55)
[2024-01-23] MEDS: OXYBUTYNIN 10 MG TAB.ER.24 PO SCH (08:55)
[2024-01-23 10:27] LABS: ALT 52 U/L (4-49); AST 65 U/L (17-59); African American GFR (CKD) >90 (>60 ml/min/1.73 sqM); Albumin 3.7 g/dL (3.5-5.0); Alkaline Phosphatase 85 U/L (38-126); Anion Gap 7 mmol/L; Blood Urea Nitrogen 4 mg/dL (9-20); Calcium 8.8 mg/dL (8.4-10.2); Carbon Dioxide 26 mmol/L (22-30); Chloride 107 mmol/L (98-107); Glucose 101 mg/dL (74-99); Non-African American GFR(CKD) >90 (>60 ml/min/1.73 sqM); Potassium 3.2 mmol/L (3.5-5.1); Sodium 140 mmol/L (137-145); Total Bilirubin 0.9 mg/dL (0.2-1.3); Total Protein 6.5 g/dL (6.3-8.2)
[2024-01-23 10:49] LABS: Basophils % (A) 0 %; Eosinophils # (A) 0.1 k/uL (0-0.7); Eosinophils % (A) 1 %; HCT 42.8 % (39.0-53.0); Lymphocytes # (A) 1.6 k/uL (1.0-4.8); Lymphocytes % (A) 14 %; MCH 27.9 pg (25.0-35.0); MCHC 32.8 g/dL (31.0-37.0); Mean Platelet Volume 8.4; Monocytes # (A) 0.8 k/uL (0-1.0); Monocytes % (A) 7 %; Neutrophils # (A) 8.7 k/uL (1.3-7.7); Neutrophils % (A) 76 %; Platelet Count 216 k/uL (150-450); RBC 5.03 m/uL (4.30-5.90); RDW 14.5 % (11.5-15.5); WBC 11.4 k/uL (3.8-10.6)
[2024-01-23 11:17] VITALS: BMI 21.4
[2024-01-23 11:28] LABS: Glucose,Whole Blood 116 mg/dL (70-110)
[2024-01-23] MEDS ORDERED: IOPAMIDOL CONTRAST (ORAL USE) VIAL PO PRN (14:33)
--- NOTE | 2024-01-23 14:46 | P.PN ---
Subjective Progress Note Date: 01/23/24 HISTORY OF PRESENT ILLNESS This is a 63-year-old male with past medical history of osteoarthritis generali zed, diabetes mellitus type 1, diabetic neuropathy, and history of seizure disorder, history of stroke with short-term memory deficits, hepatitis C status post treatment, hypertension, hyperlipidemia, hidradenitis suppurativa, patient was transferred from [facility] [place] after his blood glucose level was greater than 500s for the last few hours despite attempting giving him megadoses of NovoLog he did receive 320 units 2 hours apart without any relief he was sent to the ER after the patient was complaining of increased dizziness nausea but no vomiting, there is suspicion for diabetic ketoacidosis, he was evaluated in the emergency department, he was found to have a CO2 of 15, he was diagnosed with diabetic ketoacidosis he was given IV fluid resuscitation, he was started on insulin drip, and he was admitted to hospital for further evaluation and treatment, patient will be transitioned eventually to his insulin which was increased to like 46 units of Levemir as well as NovoLog 14 units before each meal 3 times every day. 01/22: Patient is lying down in bed he has not been eating much, he is nauseated, he had lost a lot of weight, his labs are okay except for low potassium which wa s replaced, patient's family asked the nursing staff about following up on the CT scan of the chest abdomen pelvis that was done in August 2023, we will order a CT chest abdomen pelvis with IV and oral contrast at this time, patient also developed to have a significant urinary retention, will discontinue oxybutynin completely, start the patient on Ramirez catheter, continue Flomax 0.4 mg once every day, keep the catheter for a week and then discontinue and void trial after that, patient is to decrease his Levemir to 38 units, decrease NovoLog to 5 units with each meal, plus the sliding scale insulin hold insulin if the patient is not eating we will follow-up with the patient continue physica l therapy and Occupational Therapy evaluation, the plan is to return back to [facility] on [facility] hopefully in the next 1 or 2 days. REVIEW OF SYSTEMS Constitutional: no fever, no chills, no night sweats. No weight change. positive for weakness, fatigue or lethargy. No daytime sleepiness. HEENT: No headache. No blurred vision or double vision, no loss of vision. No loss of Hearing, no ringing in the ears, no dizziness. No nasal drainage or congestion. No epistaxis. No sore throat. Lungs: positive for shortness of breath,no cough, no sputum production. No wheezing. Cardiovascular: No chest pain, no lower extremity edema. No palpitations. No paroxysmal nocturnal dyspnea. No orthopnea. No lightheadedness or dizziness. No syncopal episodes. Abdominal: No abdominal pain. positive for nausea,no vomiting. No diarrhea. No constipation. No bloody or tarry stools. loss of appetite. Genitourinary: No dysuria, increased frequency, urgency. No urinary retention. Musculoskeletal: No myalgias.positive for muscle weakness, positive for gait dysfunction, frequent falls. No back pain. No neck pain. Integumentary: No wounds. No rash or pruritus. No unusual bruising. No change in hair or nails. Neurologic: No aphasia. No facial droop. No change in mentation. No head injury. No headache. No paralysis. No paresthesia. Psychiatric:positive for depression. No anxiety. No mood swings, CHI signs Endocrine: abnormal blood sugars. No weight change. No excessive sweating or thirst. No cold intolerance. PHYSICAL EXAMINATION Gen: This is a 63-year-old male laying down in bed in no apparent distress. HEENT: Head is atraumatic, normocephalic. Pupils equal, round. Sclerae is anicteric. NECK: Supple. No JVD. No lymphadenopathy. No thyromegaly. LUNGS: Decreased breath sounds at the bases. few Rhonchi, no expiratory wheezes, no chest wall tenderness, no intercostal retractions. HEART: first heart sound is depressed, second heart sounds normal, there is 1/6 diastolic murmur at the right second intercostal space ABDOMEN: Soft, nontender, nondistended, positive bowel sounds. EXTREMITIES: There is no edema, no calf tenderness, or sinus pedis +2 bi laterally. NEUROLOGICAL: Patient is awake, alert and oriented x3. Cranial nerves 2 through 12 are grossly intact, muscle power 4 out of 5 in upper extremities and 4 out of 5 in bilateral lower extremity is. ASSESSMENT AND PLAN 1. Acute diabetic ketoacidosis. Resolved, switch the patient to Levemir 38 units at bedtime along with NovoLog 5 units before each meal plus the sliding scale, patient at this time is not eating and is not interested in eating, he is nauseated quite a bit likely related to gastroparesis we will start the patient on metoclopramide 5 mg IV push before each meal 3 times every day and at bedtime. 2. Metabolic acidosis secondary to DKA. Resolved. 3. Leukocytosis secondary to DKA. No infectious process identified. Resolved. 4. Hypertension and hypertensive cardiovascular disease. Continue patient on amlodipine 5 mg orally once every day, losartan 50 mg daily and monitor the patient blood pressure very closely. 5. Mixed hyperlipidemia. Continue patient on atorvastatin 80 mg once every day, monitor lipid panel, keep LDL 55-70. 6. History of CVA in the past continue patient on atorvastatin 80 mg once every day as well as Plavix 75 milligrams once every day for secondary stroke prevention. 7. Diabetes mellitus type 1. Patient may have converted to type I. patient was switched to Levemir 38 units at bedtime along with Humalog 5 units before each meal 3 times every day and a sliding scale insulin. 8. Gastroparesis. Start the patient on metoclopramide 5 mg IV push every 6 hours. Discontinue Zofran. 9. History of seizure disorder. Continue patient on Keppra 500 mg orally twice every day. 10. History of closed head injury. Stable. 11. History of hepatitis C. Stable. I will obtain CT scan of the abdomen and pelvis with contrast for further evaluation of lymphadenopathy and liver steatosis. 12. DVT prophylaxis. Lovenox 40 mg subcutaneously every 24 hours. 13. GI prophylaxis. Continue Protonix 40 mg orally once every day. 14. Groundglass nodularity of the lung with emphysema changes along with lymphadenopathy around the diana hepatis we will arrange for CT scan of the chest abdomen and pelvis for follow-up as it was recommended by radiologist to be done in in the next 3 months. 15. Continue to work with physical therapy. 16. Urinary retention initiate Ramirez catheter continue Flomax 0.4 mg once every day, discontinue oxybutynin. 17. Disposition back to [facility] [place] in 1 or 2 days. Objective - Vital Signs Vital signs: Vital Signs Temp 98.4 F 01/23/24 11:40 Pulse 87 01/23/24 11:40 Resp 20 01/23/24 11:40 BP 156/83 01/23/24 11:40 Pulse Ox 95 01/23/24 11:40 FiO2 Intake & Output 01/22/24 01/23/24 01/23/24 18:59 06:59 18:59 Intake Total 92.658 240 Output Total 2060 500 Balance 92.658 -1820 -500 Weight 65.771 kg 65.771 kg Intake: Intake, IV Titration 92.658 Amount Insulin Regular 100 unit 92.658 In Sodium Chloride 0.9% 100 ml @ 0.1 UNITS/KG/HR 6.643 mls/hr IV .[id number] [facility] Rx#:[id number] Oral 240 Output: Urine 1960 500 Straight 710 Post Void Residual 100 Other: Voiding Method External Catheter Urinal # Voids 1 - Labs CBC & Chem 7: 01/23/24 09:24 01/23/24 09:24 Labs: Abnormal Lab Results - Last 24 Hours (Table) 01/22/24 01/22/24 01/22/24 Range/Units 17:08 18:03 19:20 WBC (3.8-10.6) k/uL Neutrophils # (1.3-7.7) k/uL Potassium (3.5-5.1) mmol/L Carbon Dioxide (22-30) mmol/L BUN (9-20) mg/dL Creatinine (0.66-1.25) mg/dL Glucose (74-99) mg/dL POC Glucose (mg/dL) 152 H 151 H 125 H (70-110) mg/dL AST (17-59) U/L ALT (4-49) U/L 01/22/24 01/22/24 01/22/24 Range/Units 20:37 20:57 21:36 WBC (3.8-10.6) k/uL Neutrophils # (1.3-7.7) k/uL Potassium 3.3 L 3.1 L (3.5-5.1) mmol/L Carbon Dioxide 21 L (22-30) mmol/L BUN 8 L (9-20) mg/dL Creatinine 0.49 L 0.49 L (0.66-1.25) mg/dL Glucose 154 H 158 H (74-99) mg/dL POC Glucose (mg/dL) 160 H (70-110) mg/dL AST 87 H (17-59) U/L ALT 54 H (4-49) U/L 01/22/24 01/23/24 01/23/24 Range/Units 22:51 00:58 01:59 WBC (3.8-10.6) k/uL Neutrophils # (1.3-7.7) k/uL Potassium 3.2 L (3.5-5.1) mmol/L Carbon Dioxide (22-30) mmol/L BUN 6 L (9-20) mg/dL Creatinine 0.48 L (0.66-1.25) mg/dL Glucose 148 H (74-99) mg/dL POC Glucose (mg/dL) 151 H 117 H (70-110) mg/dL AST 78 H (17-59) U/L ALT 53 H (4-49) U/L 01/23/24 01/23/24 01/23/24 Range/Units 06:28 09:24 09:24 WBC 11.4 H (3.8-10.6) k/uL Neutrophils # 8.7 H (1.3-7.7) k/uL Potassium 3.2 L (3.5-5.1) mmol/L Carbon Dioxide (22-30) mmol/L BUN 4 L (9-20) mg/dL Creatinine 0.54 L (0.66-1.25) mg/dL Glucose 101 H (74-99) mg/dL POC Glucose (mg/dL) 148 H (70-110) mg/dL AST 65 H (17-59) U/L ALT 52 H (4-49) U/L 01/23/24 Range/Units 11:22 WBC (3.8-10.6) k/uL Neutrophils # (1.3-7.7) k/uL Potassium (3.5-5.1) mmol/L Carbon Dioxide (22-30) mmol/L BUN (9-20) mg/dL Creatinine (0.66-1.25) mg/dL Glucose (74-99) mg/dL POC Glucose (mg/dL) 116 H (70-110) mg/dL AST (17-59) U/L ALT (4-49) U/L
[2024-01-23 16:18] LABS: Glucose,Whole Blood 155 mg/dL (70-110)
[2024-01-23] MEDS: METOCLOPRAMIDE 5 MG/ML 2 ML VIAL IVP SCH (17:44)
[2024-01-23 20:02] LABS: Glucose,Whole Blood 212 mg/dL (70-110)
[2024-01-24 02:08] LABS: Glucose,Whole Blood 333 mg/dL (70-110)
[2024-01-24] MEDS: INSULIN DETEMIR (LEVEMIR) 100 UNIT/ML SYR SQ SCH (02:12)
[2024-01-24 06:16] LABS: Glucose,Whole Blood 217 mg/dL (70-110)
[2024-01-24 11:19] LABS: Basophils % (A) 0 %; Eosinophils # (A) 0.2 k/uL (0-0.7); Eosinophils % (A) 2 %; HCT 41.9 % (39.0-53.0); HGB 13.5 gm/dL (13.0-17.5); Lymphocytes # (A) 2.3 k/uL (1.0-4.8); Lymphocytes % (A) 23 %; MCH 27.5 pg (25.0-35.0); MCHC 32.2 g/dL (31.0-37.0); MCV 85.5 fL (80.0-100.0); Mean Platelet Volume 7.8; Monocytes # (A) 0.8 k/uL (0-1.0); Monocytes % (A) 9 %; Neutrophils # (A) 6.3 k/uL (1.3-7.7); Neutrophils % (A) 64 %; Platelet Count 210 k/uL (150-450); RDW 14.3 % (11.5-15.5); WBC 9.7 k/uL (3.8-10.6)
[2024-01-24 11:35] LABS: ALT 42 U/L (4-49); AST 42 U/L (17-59); African American GFR (CKD) >90 (>60 ml/min/1.73 sqM); Albumin 3.5 g/dL (3.5-5.0); Alkaline Phosphatase 85 U/L (38-126); Anion Gap 5 mmol/L; Blood Urea Nitrogen 9 mg/dL (9-20); Calcium 8.7 mg/dL (8.4-10.2); Carbon Dioxide 30 mmol/L (22-30); Chloride 105 mmol/L (98-107); Glucose 117 mg/dL (74-99); Magnesium 1.8 mg/dL (1.6-2.3); Non-African American GFR(CKD) >90 (>60 ml/min/1.73 sqM); Potassium 3.5 mmol/L (3.5-5.1); Sodium 140 mmol/L (137-145); Total Bilirubin 1.2 mg/dL (0.2-1.3); Total Protein 6.2 g/dL (6.3-8.2)
[2024-01-24 11:44] LABS: Glucose,Whole Blood 98 mg/dL (70-110)
--- NOTE | 2024-01-24 15:03 | P.PN ---
Subjective Progress Note Date: 01/24/24 HISTORY OF PRESENT ILLNESS This is a 63-year-old male with past medical history of osteoarthritis generali zed, diabetes mellitus type 1, diabetic neuropathy, and history of seizure disorder, history of stroke with short-term memory deficits, hepatitis C status post treatment, hypertension, hyperlipidemia, hidradenitis suppurativa, patient was transferred from [facility] after his blood glucose level was greater than 500s for the last few hours despite attempting giving him megadoses of NovoLog he did receive 320 units 2 hours apart without any relief he was sent to the ER after the patient was complaining of increased dizziness nausea but no vomiting, there is suspicion for diabetic ketoacidosis, he was evaluated in the emergency department, he was found to have a CO2 of 15, he was diagnosed with diabetic ketoacidosis he was given IV fluid resuscitation, he was started on insulin drip, and he was admitted to hospital for further evaluation and treatment, patient will be transitioned eventually to his insulin which was increased to like 46 units of Levemir as well as NovoLog 14 units before each meal 3 times every day. 01/22: Patient is lying down in bed he has not been eating much, he is nauseated, he had lost a lot of weight, his labs are okay except for low potassium which wa s replaced, patient's family asked the nursing staff about following up on the CT scan of the chest abdomen pelvis that was done in August 2023, we will order a CT chest abdomen pelvis with IV and oral contrast at this time, patient also developed to have a significant urinary retention, will discontinue oxybutynin completely, start the patient on Ramirez catheter, continue Flomax 0.4 mg once every day, keep the catheter for a week and then discontinue and void trial after that, patient is to decrease his Levemir to 38 units, decrease NovoLog to 5 units with each meal, plus the sliding scale insulin hold insulin if the patient is not eating we will follow-up with the patient continue physica l therapy and Occupational Therapy evaluation, the plan is to return back to [facility] hopefully in the next 1 or 2 days. 01/23: Patient is laying down in bed he is feeling a bit better today, he ate about 25% of his lunch today, he denies any chest pain, or shortness of breath, he refused to drink the contrast for the CT scan of the chest abdomen and pelvis, we will continue with IV contrast only at this point, patient did have a Ramirez catheter placed yesterday due to residual volume of greater than 250 mL, we will continue the patient on tamsulosin 0.4 mg once every day keep the Ramirez catheter in for a week, obtain the results of the CT scan of the chest abdomen and pelvis with IV contrast only, patient can be discharged back to [facility] [place] tomorrow morning. REVIEW OF SYSTEMS Constitutional: no fever, no chills, no night sweats. No weight change. positive for weakness, fatigue or lethargy. No daytime sleepiness. HEENT: No headache. No blurred vision or double vision, no loss of vision. No loss of Hearing, no ringing in the ears, no dizziness. No nasal drainage or congestion. No epistaxis. No sore throat. Lungs: positive for shortness of breath,no cough, no sputum production. No wheezing. Cardiovascular: No chest pain, no lower extremity edema. No palpitations. No paroxysmal nocturnal dyspnea. No orthopnea. No lightheadedness or dizziness. No syncopal episodes. Abdominal: No abdominal pain. positive for nausea,no vomiting. No diarrhea. No constipation. No bloody or tarry stools. loss of appetite. Genitourinary: No dysuria, increased frequency, urgency. No urinary retention. Musculoskeletal: No myalgias.positive for muscle weakness, positive for gait dysfunction, frequent falls. No back pain. No neck pain. Integumentary: No wounds. No rash or pruritus. No unusual bruising. No change in hair or nails. Neurologic: No aphasia. No facial droop. No change in mentation. No head injury. No headache. No paralysis. No paresthesia. Psychiatric:positive for depression. No anxiety. No mood swings, CHI signs Endocrine: abnormal blood sugars. No weight change. No excessive sweating or thirst. No cold intolerance. PHYSICAL EXAMINATION Gen: This is a 63-year-old male laying down in bed in no apparent distress. HEENT: Head is atraumatic, normocephalic. Pupils equal, round. Sclerae is anicteric. NECK: Supple. No JVD. No lymphadenopathy. No thyromegaly. LUNGS: Decreased breath sounds at the bases. few Rhonchi, no expiratory wheezes, no chest wall tenderness, no intercostal retractions. HEART: first heart sound is depressed, second heart sounds normal, there is 1/6 diastolic murmur at the right second intercostal space ABDOMEN: Soft, nontender, nondistended, positive bowel sounds. EXTREMITIES: There is no edema, no calf tenderness, or sinus pedis +2 bilaterally. NEUROLOGICAL: Patient is awake, alert and oriented x3. Cranial nerves 2 through 12 are grossly intact, muscle power 4 out of 5 in upper extremities and 4 out of 5 in bilateral lower extremity is. ASSESSMENT AND PLAN 1. Acute diabetic ketoacidosis. continue patient on Levemir 40 units at bedtime along with NovoLog 5 units before each meal plus the sliding scale, patient at this time is not eating and is not interested in eating, he is nauseated quite a bit likely related to gastroparesis we will start the patient on metoclopramide 5 mg IV push before each meal 3 times every day and at bedtime. 2. Metabolic acidosis secondary to DKA. Resolved. 3. Leukocytosis secondary to DKA. No infectious process identified. Resolved. 4. Hypertension and hypertensive cardiovascular disease. Continue patient on amlodipine 5 mg orally once every day, losartan 50 mg daily and monitor the patient blood pressure very closely. 5. Mixed hyperlipidemia. Continue patient on atorvastatin 80 mg once every day, monitor lipid panel, keep LDL 55-70. 6. History of CVA in the past continue patient on atorvastatin 80 mg once every day as well as Plavix 75 milligrams once every day for secondary stroke prevention. 7. Diabetes mellitus type 1. Patient may have converted to type I. patient was switched to Levemir 38 units at bedtime along with Humalog 5 units before each meal 3 times every day and a sliding scale insulin. 8. Gastroparesis. Start the patient on metoclopramide 5 mg IV push every 6 hours. Discontinue Zofran. 9. History of seizure disorder. Continue patient on Keppra 500 mg orally twice every day. 10. History of closed head injury. Stable. 11. History of hepatitis C. Stable. I will obtain CT scan of the abdomen and pelvis with contrast for further evaluation of lymphadenopathy and liver steatosis. 12. DVT prophylaxis. Lovenox 40 mg subcutaneously every 24 hours. 13. GI prophylaxis. Continue Protonix 40 mg orally once every day. 14. Groundglass nodularity of the lung with emphysema changes along with lymphadenopathy around the diana hepatis we will arrange for CT scan of the chest abdomen and pelvis for follow-up as it was recommended by radiologist to be done in in the next 3 months. 15. Continue to work with physical therapy. 16. Urinary retention continue Ramirez catheter continue Flomax 0.4 mg once every day. 17. Disposition back to [facility] on the [place] tomorrow morning. 18. I spoke with his kuwhmvuz-eb-rla Roya and I gave her update about his current condition. Objective - Vital Signs Vital signs: Vital Signs Temp 98.2 F 01/24/24 11:37 Pulse 90 01/24/24 11:37 Resp 16 01/24/24 13:07 BP 101/64 01/24/24 11:37 Pulse Ox 97 01/24/24 11:37 FiO2 Intake & Output 01/23/24 01/24/24 01/24/24 18:59 06:59 18:59 Intake Total 100 Output Total 500 1200 Balance -500 -1200 100 Weight 65.771 kg Intake: Oral 100 Output: Urine 500 1200 Other: Voiding Method Urinal Indwelling Catheter Indwelling Catheter - Labs CBC & Chem 7: 01/24/24 10:11 01/24/24 10:11 Labs: Abnormal Lab Results - Last 24 Hours (Table) 01/23/24 01/23/24 01/24/24 Range/Units 16:10 20:01 02:07 Creatinine (0.66-1.25) mg/dL Glucose (74-99) mg/dL POC Glucose (mg/dL) 155 H 212 H 333 H (70-110) mg/dL Total Protein (6.3-8.2) g/dL 01/24/24 01/24/24 Range/Units 06:15 10:11 Creatinine 0.57 L (0.66-1.25) mg/dL Glucose 117 H (74-99) mg/dL POC Glucose (mg/dL) 217 H (70-110) mg/dL Total Protein 6.2 L (6.3-8.2) g/dL
[2024-01-24 16:54] LABS: Glucose,Whole Blood 101 mg/dL (70-110)
[2024-01-24] MEDS: METOCLOPRAMIDE 5 MG/ML 2 ML VIAL IVP SCH (18:10)
--- NOTE | 2024-01-24 18:14 | CT ---
EXAMINATION TYPE: CT ChestAbdPelvis w con DATE OF EXAM: 01/24/2024 COMPARISON: CT 09/07/2023 HISTORY: weight loss CT DLP: 826.5 mGycm. Automated Exposure Control for Dose Reduction was Utilized. CONTRAST: CT scan of the thorax, abdomen and pelvis is performed with IV Contrast, patient injected w ith 100 ml mL of Isovue 300. FINDINGS: LUNGS: Airways are unremarkable. No acute pulmonary process or focal lung parenchymal findings. Scant right pleural effusion noted; pleural spaces otherwise unremarkable. MEDIASTINUM: Mildly enlarged subcarinal lymph node is stable. No other greater than 1 cm hilar or med iastinal lymph nodes. Thyroid is unremarkable. Esophagus is air distended and demonstrates stable nonspecific mild circumferential mural thickening throughout its middle and distal thirds. No cardiomegaly or pericardial effusion. Prominent left and right coronary calcifications are noted. Pulmonary arteries are not dilated. The aorta is not dilated. LIVER/GB: Left hepatic lobe 1.9 cm left hepatic lobe lesion in segment 2 is redemonstrated. It is not seen on arterial phase imaging but is hypodense to liver parenchyma on portal venous phase imaging. PANCREAS, SPLEEN, ADRENALS, KIDNEYS: No significant abnormality is seen. BOWEL: No bowel dilation or inflammation. Appendix has normal appearance. Colonic stool volume is wi thin normal limits. PELVIC STRUCTURES: Ramirez catheter is in place. Prostatomegaly redemonstrated. LYMPH NODES: Previously seen prominent diana hepatic lymph node is stable. No other greater than 1cm abdominal or pelvic lymph nodes are appreciated. VASCULATURE: Nonaneurysmal atherosclerotic changes seen throughout the visualized arterial anatomy, i ncluding the left and right coronary arteries. Celiac trunk, SMA, CANDELARIO, and bilateral renal arteries a re all patent and the bilateral aortoiliac inflow is widely patent. OSSEOUS STRUCTURES: No focal aggressive lesion. IMPRESSION: CHEST: New scant right pleural effusion. Nonspecific findings of stable mildly enlarged subcarinal ly mph node and circumferential esophageal mural thickening. Prominent left and right coronary calcifica tions. ABDOMEN AND PELVIS: 1.9 cm left hepatic lobe lesion for which further characterization is recommended with MRI Abdomen without and with contrast.
[2024-01-24 20:08] LABS: Glucose,Whole Blood 122 mg/dL (70-110)
[2024-01-25 03:20] LABS: Glucose,Whole Blood 244 mg/dL (70-110)
[2024-01-25 06:26] LABS: Glucose,Whole Blood 291 mg/dL (70-110)
[2024-01-25] MEDS: INSULIN DETEMIR (LEVEMIR) 100 UNIT/ML SYR SQ SCH (06:33)
[2024-01-25 09:20] VITALS: BP 139/71; PULSE 82; RESP 16; TEMP 98.2
--- NOTE | 2024-01-25 09:28 | P.DS ---
Providers Date of admission: 01/21/24 21:58 Expected date of discharge: 01/25/24 Attending physician: Michell Maguire Primary care physician: Michell Maguire Hospital Course: HISTORY OF PRESENT ILLNESS This is a 63-year-old male with past medical history of osteoarthritis generalized, diabetes mellitus type 1, diabetic neuropathy, and history of seizure disorder, history of stroke with short-term memory deficits, hepatitis C status post treatment, hypertension, hyperlipidemia, hidradenitis suppurativa, patient was transferred from [facility] on [facility] after his blood glucose level was greater than 500s for the last few hours despite attempting giving him megadoses of NovoLog he did receive 320 units 2 hours apart without any relief he was sent to the ER after the patient was complaining of increased dizziness nausea but no vomiting, there is suspicion for diabetic ketoacidosis, he was evaluated in the emergency department, he was found to have a CO2 of 15, he was diagnosed with diabetic ketoacidosis he was given IV fluid resuscitation, he was started on insulin drip, and he was admitted to hospital for further evaluation and treatment, patient will be transitioned eventually to his insulin which was increased to like 46 units of Levemir as well as NovoLog 14 units before each meal 3 times every day. 01/22: Patient is lying down in bed he has not been eating much, he is nauseated, he had lost a lot of weight, his labs are okay except for low potassium which was replaced, patient's family asked the nursing staff about following up on the CT scan of the chest abdomen pelvis that was done in August 2023, we will order a CT chest abdomen pelvis with IV and oral contrast at this time, patient also developed to have a significant urinary retention, will discontinue oxybutynin completely, start the patient on Ramirez catheter, continue Flomax 0.4 mg once every day, keep the catheter for a week and then discontinue and void trial after that, patient is to decrease his Levemir to 38 units, decrease NovoLog to 5 units with each meal, plus the sliding scale insulin hold insulin if the patient is not eating we will follow-up with the patient continue physical therapy and Occupational Therapy evaluation, the plan is to return back to [facility] on [facility] hopefully in the next 1 or 2 days. 4/4: Patient is laying down in bed he is feeling a bit better today, he ate about 25% of his lunch today, he denies any chest pain, or shortness of breath, he refused to drink the contrast for the CT scan of the chest abdomen and pelvis, we will continue with IV contrast only at this point, patient did have a Ramirez catheter placed yesterday due to residual volume of greater than 250 mL, we will continue the patient on tamsulosin 0.4 mg once every day keep the Ramriez catheter in for a week, obtain the results of the CT scan of the chest abdomen and pelvis with IV contrast only, patient can be discharged back to [facility] on the [facility]zo tomorrow morning. 01/[address] of the chest abdomen pelvis which did reveal scant right pleural effusion. Nonspecific findings of stable mildly enlarged subcarinal lymph node and circumferential esophageal mural thickening. Prominent left and right coronary calcifications. 1.9 cm left hepatic lobe lesion which further characterize the cessation is recommended with MRI of the abdomen without and with contrast. Blood sugars this morning running between 244 and 291. Adjustments to his insulin dosing will be done for discharge. Consult was placed with Dr. Winsome Valadez for EGD and plan is to have this performed as an outpatient next week. Blood pressure 139/71, heart rate 82, pulse ox 97% on room air. Patient is been afebrile. Patient will be discharged back to [facility] today in stable condition. DISCHARGE DIAGNOSES 1. Acute diabetic ketoacidosis. Resolved. 2. Metabolic acidosis secondary to DKA. Resolved. 3. Leukocytosis secondary to DKA. No infectious process identified. Resolved. 4. Hypertension and hypertensive cardiovascular disease. 5. Mixed hyperlipidemia. 6. History of CVA in the past. 7. Diabetes mellitus type 1. Patient may have converted to type I. 8. Gastroparesis. 9. History of seizure disorder. 10. History of closed head injury. Stable. 11. History of hepatitis C. Stable. 12. Groundglass nodularity of the lung with emphysema changes along with lymphadenopathy around the diana hepatis we will arrange for CT scan of the chest abdomen and pelvis for follow-up as it was recommended by radiologist to be done in in the next 3 months. 13. Urinary retention Discharge plan: Return to [facility] Greater than 35 minutes was utilized and coordinating patient's discharge. Impression and plan of care have been directed as dictated by the signing physician. Mey Bello nurse practitioner acting as scribe for signing physic gwen. Patient Condition at Discharge: Serious Plan - Discharge Summary Discharge Rx Participant: No New Discharge Prescriptions: New Metoclopramide HCl [Reglan] 10 mg PO TID #90 tablet INSULIN ASPART (NovoLOG) [NovoLOG (formulary)] 8 unit SQ AC-TID each Continue Atorvastatin [Lipitor] 80 mg PO HS Acetaminophen Tab [Tylenol] 650 mg PO Q6H PRN PRN Reason: Pain INSULIN ASPART (NovoLOG) [NovoLOG (formulary)] See Protocol SQ ACHS Z-Guard 1 applic TOPICAL DIRECTED PRN PRN Reason: MACERATION levETIRAcetam [Keppra] 500 mg PO BID Clopidogrel [Plavix] 75 mg PO DAILY amLODIPine [Norvasc] 5 mg PO DAILY Ondansetron [Zofran] 4 mg PO Q8HR PRN PRN Reason: Nausea Tamsulosin HCl [Flomax] 0.4 mg PO DAILY Losartan [Cozaar] 50 mg PO DAILY HYDROcodone/APAP 5-325MG [[place] 5-325] 1 tab PO Q8H PRN #9 tab PRN Reason: Pain Changed Insulin Detemir (Levemir) [Levemir] 46 unit SQ HS #0 Discontinued INSULIN ASPART (NovoLOG) [NovoLOG (formulary)] 14 unit SQ AC-TID Oxybutynin ER [Ditropan XL] 10 mg PO DAILY Discharge Medication List Atorvastatin [Lipitor] 80 mg PO HS 07/12/23 [History] Clopidogrel [Plavix] 75 mg PO DAILY 07/12/23 [History] amLODIPine [Norvasc] 5 mg PO DAILY 07/12/23 [History] levETIRAcetam [Keppra] 500 mg PO BID 07/12/23 [History] Ondansetron [Zofran] 4 mg PO Q8HR PRN 09/04/23 [History] Acetaminophen Tab [Tylenol] 650 mg PO Q6H PRN 01/22/24 [History] INSULIN ASPART (NovoLOG) [NovoLOG (formulary)] See Protocol SQ ACHS 01/22/24 [History] Losartan [Cozaar] 50 mg PO DAILY 01/22/24 [History] Tamsulosin HCl [Flomax] 0.4 mg PO DAILY 01/22/24 [History] Z-Guard 1 applic TOPICAL DIRECTED PRN 01/22/24 [History] HYDROcodone/APAP 5-325MG [[place] 5-325] 1 tab PO Q8H PRN #9 tab 01/25/24 [Rx] INSULIN ASPART (NovoLOG) [NovoLOG (formulary)] 8 unit SQ AC-TID each 01/25/24 [Rx] Insulin Detemir (Levemir) [Levemir] 46 unit SQ HS #0 01/25/24 [Rx] Metoclopramide HCl [Reglan] 10 mg PO TID #90 tablet 01/25/24 [Rx] Follow up Appointment(s)/Referral(s): Michell Maguire MD [Primary Care Provider] - 1 Week Discharge Disposition: TRANSFER TO SNF/ECF
--- NOTE | 2024-01-25 10:36 | P.CONS ---
History of Present Illness - Reason for Consult Consult date: 01/25/24 Esophageal thickening Requesting physician: Michell Maguire - Chief Complaint Hyperglycemia - History of Present Illness This is a pleasant 63-year-old male who presented to the emergency department 4 days ago from [facility] on [facility] with hyperglycemia with blood sugars in the 500s. Patient states he had some nausea and vomiting associated with the elevated sugars however that has resolved. Past medical history includes insulin-dependent diabetes mellitus, myocardial infarction on plavix, seizure disorder, history of stroke with short-term memory deficits and hepatitis C status posttreatment. Patient had a CT of the chest abdomen pelvis which reported new scant right pleural effusion nonspecific findings of stable mildly enlarged subcarinal lymph node and circumferential esophageal mural thickening. Prominent left and right coronary calcification. 1.9 cm left hepatic lobe lesion further characterization recommended with MRI abdomen without and with contrast. Patient states he currently has no nausea or vomiting. States he has not eaten in 3 days. Denies any abdominal pain. No difficulty with swallowing no previous history of peptic ulcer disease no previous history of upper endoscopy and does not believe he has had a colonoscopy in the past either. Review of Systems REVIEW OF SYSTEMS: CARDIOPULMONARY: No chest pain or shortness of breath. Gastrointestinal: No abdominal pain. Nausea and vomiting resolved. No he matemesis, coffee-ground emesis. No rectal bleeding, or melena. GENITOURINARY: No dysuria or hematuria. MUSCULOSKELETAL: Reports normal range of motion., Joint pain. SKIN: No rashes. No jaundice. ENDOCRINE: No chills, fevers. No excessive weight gain or loss. No polydipsia or polyuria. PSYCHIATRIC: Unremarkable. NEUROLOGY: No change in mental status. Denies dizziness, headache. ENT: Vision unremarkable. CONSTITUTIONAL: No recent weight loss. No fever, chills, night sweats. Past Medical History Past Medical History: Diabetes Mellitus, Myocardial Infarction ([place]) Additional Past Medical History / Comment(s): cva 2020 Last Myocardial Infarction Date:: states few years ago History of Any Multi-Drug Resistant Organisms: None Reported Past Surgical History: No Surgical Hx Reported Additional Past Surgical History / Comment(s): pt cannot remember hx r/t CVA residual effects Past Anesthesia/Blood Transfusion Reactions: No Reported Reaction Past Psychological History: No Psychological Hx Reported Smoking Status: Former smoker Past Alcohol Use History: None Reported, Occasional Past Drug Use History: Marijuana - Past Family History Father Family Medical History: Cancer Medications and Allergies Home Medications Medication Instructions Recorded Confirmed Type Atorvastatin [Lipitor] 80 mg PO HS 07/12/23 01/22/24 History Clopidogrel [Plavix] 75 mg PO DAILY 07/12/23 01/22/24 History amLODIPine [Norvasc] 5 mg PO DAILY 07/12/23 01/22/24 History levETIRAcetam [Keppra] 500 mg PO BID 07/12/23 01/22/24 History Ondansetron [Zofran] 4 mg PO Q8HR PRN 09/04/23 01/22/24 History Acetaminophen Tab [Tylenol] 650 mg PO Q6H PRN 01/22/24 01/22/24 History INSULIN ASPART (NovoLOG) [NovoLOG See Protocol SQ ACHS 01/22/24 01/22/24 History (formulary)] Losartan [Cozaar] 50 mg PO DAILY 01/22/24 01/22/24 History Tamsulosin HCl [Flomax] 0.4 mg PO DAILY 01/22/24 01/22/24 History Z-Guard 1 applic TOPICAL DIRECTED PRN 01/22/24 01/22/24 History HYDROcodone/APAP 5-325MG [[place] 1 tab PO Q8H PRN #9 tab 01/25/24 Rx 5-325] INSULIN ASPART (NovoLOG) [NovoLOG 8 unit SQ AC-TID each 01/25/24 Rx (formulary)] Insulin Detemir (Levemir) [Levemir] 46 unit SQ HS #0 01/25/24 01/22/24 Rx Metoclopramide HCl [Reglan] 10 mg PO TID #90 tablet 01/25/24 Rx Allergies Allergy/AdvReac Type Severity Reaction Status Date / Time No Known Allergies Allergy Verified 01/22/24 08:31 Physical Exam Vitals: Vital Signs Temp Pulse Resp BP Pulse Ox 01/25/24 08:55 98.2 F 82 16 139/71 97 01/25/24 04:00 98.3 F 87 18 152/83 97 01/25/24 01:11 85 16 01/24/24 23:52 99.4 F 85 16 125/70 97 01/24/24 20:00 99.0 F 81 18 157/71 97 01/24/24 18:45 98.3 F 79 18 114/65 97 01/24/24 15:27 98.0 F 84 16 111/67 97 01/24/24 13:07 16 01/24/24 11:37 98.2 F 90 16 101/64 97 Intake and Output 01/24/24 01/25/24 01/25/24 22:59 06:59 14:59 Intake Total 540 20 Balance 540 20 Intake: IV 20 Invasive Line 1 10 Invasive Line 2 10 Oral 540 Other: Voiding Method Indwelling Catheter Indwelling Catheter Indwelling Catheter # Bowel Movements 0 1 General appearance: The patient is alert, oriented, appears in no acute distress. HET: Head is normocephalic and atraumatic. Conjunctiva pink. Sclera anicteric. Neck: Supple without lymphadenopathy. Trachea midline. Heart: Regular. Lungs: Equal expansion, normal respiratory effort. Abdomen: Soft, nontender, nondistended with bowel sounds. No guarding or rigidity. Skin: No rashes. No jaundice. Extremities: Normal skin color and turgor. No pedal edema. Neurological: No focal deficits. Alert and oriented x3. Results CBC & Chem 7: 01/24/24 10:11 01/24/24 10:11 Labs: Abnormal Lab Results - Last 24 Hours (Table) 01/24/24 01/24/24 01/25/24 Range/Units 10:11 20:06 03:18 Creatinine 0.57 L (0.66-1.25) mg/dL Glucose 117 H (74-99) mg/dL POC Glucose (mg/dL) 122 H 244 H (70-110) mg/dL Total Protein 6.2 L (6.3-8.2) g/dL 01/25/24 Range/Units 06:25 Creatinine (0.66-1.25) mg/dL Glucose (74-99) mg/dL POC Glucose (mg/dL) 291 H (70-110) mg/dL Total Protein (6.3-8.2) g/dL Comments: CT of the chest abdomen pelvis which reported new scant right pleural effusion nonspecific findings of stable mildly enlarged subcarinal lymph node and circumferential esophageal mural thickening. Prominent left and right coronary calcification. 1.9 cm left hepatic lobe lesion further characterization recommended with MRI abdomen without and with contrast Assessment and Plan (1) Thickening of esophagus Narrative/Plan: 63-year-old male with multiple comorbidities presented with hyperglycemia and diabetic ketoacidosis with symptoms of nausea and vomiting. He underwent a CT of the chest abdomen pelvis that reported esophageal mural thickening. Gastroenterology consulted for abnormal CT finding. Patient is without any symptoms of dysphagia or epigastric or abdominal pain. Unclear etiology. Recommended proceeding with EGD however patient had Lovenox this morning as well as Plavix. Recommend outpatient upper endoscopy, hold Plavix for 5 days prior to EGD which is scheduled on 02/01/2024. Current Visit: Yes Status: Acute Code(s): K22.89 - OTHER SPECIFIED DISEASE OF ESOPHAGUS SNOMED Code(s): 47698509 (2) Liver lesion Narrative/Plan: Recommend outpatient MRI, this is discussed with primary care physician Current Visit: Yes Status: Acute Code(s): K76.9 - LIVER DISEASE, UNSPECIFIED SNOMED Code(s): 603789602 (3) Insulin dependent diabetes mellitus Current Visit: Yes Status: Acute Code(s): NIT0796 - SNOMED Code(s): 64610169 (4) Diabetic ketoacidosis Current Visit: Yes Status: Acute Code(s): E11.10 - TYPE 2 DIABETES MELLITUS WITH KETOACIDOSIS WITHOUT COMA SNOMED Code(s): 607204634 Plan: 1. Continue symptomatic and supportive care 2. Patient may have consistent carbohydrate diet 3. Recommended upper endoscopy however patient was given Plavix and Lovenox this morning. This was discussed with patient's primary care provider who agreed for outpatient endoscopy. Patient is scheduled for outpatient upper endoscopy on 02/01/2024 4. Patient to hold Plavix 5 days prior to scheduled EGD 5. Recommend outpatient MRI with and without contrast of liver, this was discussed with patient's primary care provider Thank you for this consultation, we will sign off at this time. Dr. Caitlyn Valadez I agree with the dictator's note, documented as a scribe by Tamanna Gross.
== END 2024-01-25 11:06 | DRG 420 ==
LOC: EC 19:45 → 3SCARD 21:58
PROVIDERS: ADMIT Internal Medicine; ATTEND Internal Medicine
DX: E10.10 Type 1 diabetes mellitus with ketoacidosis without coma (principal); I11.9 Hypertensive heart disease without heart failure; E10.42 Type 1 diabetes mellitus with diabetic polyneuropathy; E10.43 Type 1 diabetes mellitus with diabetic autonomic (poly)neuropathy; G40.909 Epilepsy, unspecified, not intractable, without status epilepticus; J43.9 Emphysema, unspecified; Z79.4 Long term (current) use of insulin; K76.89 Other specified diseases of liver; I69.311 Memory deficit following cerebral infarction; K31.84 Gastroparesis; D72.828 Other elevated white blood cell count; E78.2 Mixed hyperlipidemia; M15.9 Polyosteoarthritis, unspecified; R33.9 Retention of urine, unspecified; Z79.02 Long term (current) use of antithrombotics/antiplatelets; Z79.899 Other long term (current) drug therapy; I25.2 Old myocardial infarction; Z87.891 Personal history of nicotine dependence; Z87.820 Personal history of traumatic brain injury; Z86.19 Personal history of other infectious and parasitic diseases
CPT/HCPCS: 36415; 71260; 74177; 80048; 80051; 80053; 80177; 81001; 82009; 82105; 82565; 82947; 83735; 84100; 84520; 85025; 93005; 96361; 96365; 96375; 99285

== ENCOUNTER → 2024-02-08 | Day surgery (SDC) | payer OTHER ==
[2024-02-06 12:43] VITALS: BMI 22.1
[~2024-02-08] MED LIST: LIDOCAINE 1% INJ 10MG/ML (20 ML MDV) ONE; PROPOFOL 10 MG/ML 20 ML VIAL IV ONE
[2024-02-08] MEDS: LACTATED RINGERS 1,000 ML IV SCH (06:54)
[2024-02-08 06:56] VITALS: TEMP 97
[2024-02-08 06:57] LABS: Glucose,Whole Blood 225 mg/dL (70-110)
--- NOTE | 2024-02-08 07:14 | P.PCN ---
Date of Procedure: 02/08/24 Procedure(s) Performed: BRIEF HISTORY: Patient is a 63-year-old, pleasant, White male scheduled for an upper endoscopy as a part of evaluation of abnormal CAT scan that showed thickening of the distal esophagus. Patient denies any abdominal pain, nausea vomiting or heartburn. He denies any dysphagia.. PROCEDURE PERFORMED: Esophagogastroduodenoscopy With biopsy. PREOPERATIVE DIAGNOSIS: Abnormal CAT scan showing thickening of the distal esophagus. IV sedation per anesthesia. PROCEDURE: After informed consent was obtained, the patient was brought into the endoscopy unit. IV sedation was administered by Anesthesia under continuous monitoring. Initially the Olympus GIF-140 video endoscope was inserted into the mouth. Esophagus intubated without any difficulty. It was gradually advanced into the stomach and duodenum and carefully examined. The bulb and the second part of the duodenum appeared normal. The scope at this time was withdrawn to the stomach, adequately insufflated with air, and upon careful examination, mucosa of the antrum,A few scattered erosions consistent with gastritis and biopsies were done from this area. Mucosa of the body, cardia and the fundus appeared normal. The scope was then withdrawn into the esophagus. The GE junction was located at 39 cm from the incisors. The esophagus appeared normal. There were no erosions or ulcerations seen. In the mid and distal esophagus there where a few whitish plaques identified suspicious for Elena esophagitis and biopsies were done from this area. Rest of esophagus appeared normal and the patient tolerated the procedure well. IMPRESSION: 1.Diffuse scattered whitish plaques in the mid esophagus status post biopsies to rule out Elena esophagitis. 2.Mild antral gastritis. RECOMMENDATIONS: The findings of this examination were discussed with the patientAs well as his family. He was advised to follow with the biopsy results. Continue with current medications..
[2024-02-08 07:26] LABS: Glucose,Whole Blood 227 mg/dL (70-110)
[2024-02-08 07:41] VITALS: BP 156/83; PULSE 66; RESP 16
== END ==
LOC: ORWHC2ENDO 05:57
PROVIDERS: ATTEND Internal Medicine Gastroenterology
DX: K29.50 Unspecified chronic gastritis without bleeding (principal); K31.9 Disease of stomach and duodenum, unspecified; I25.2 Old myocardial infarction; I10 Essential (primary) hypertension; E78.5 Hyperlipidemia, unspecified; J44.9 Chronic obstructive pulmonary disease, unspecified; E11.9 Type 2 diabetes mellitus without complications; Z79.4 Long term (current) use of insulin; Z79.02 Long term (current) use of antithrombotics/antiplatelets; Z79.899 Other long term (current) drug therapy
CPT/HCPCS: 88305; 43239; J2001; J2704; 88312

== ENCOUNTER → 2024-02-18 | Outpatient (CLI) | payer OTHER ==
--- NOTE | 2024-02-19 08:28 | MR ---
EXAMINATION TYPE: MR abdomen wo/w con DATE OF EXAM: 02/18/2024 11:30 AM CLINICAL INDICATION:Male, 63 years old with history of liver abscess; COMPARISON: CT scan abdomen from 01/24/2024, 09/07/2023. TECHNIQUE: Multiplanar multi-sequence imaging was performed without contrast. Post contrast imaging was performed. Post IV contrast subtraction images were also submitted for review. IV Contrast: 6.5 cc Gadavist FINDINGS: LOWER CHEST: No gross irregularity. ABDOMEN Liver: No evidence for hepatic steatosis or cirrhosis. Left hepatic lobe observation measuring 21 x 2 0 mm is low T1 and higher T2 high DWI signal which has somewhat peripheral enhancement within septati ons also suggesting enhancement. This may have measured up to 18 mm on 09/07/2023. Gallbladder and Bile ducts: No evidence for ductal dilation, or biliary stricture or evidence of chol edocholithiasis. The gallbladder is within normal limits. Pancreas: No ductal dilation. No evidence for solid mass. Spleen: Normal for size. Adrenal glands: Unremarkable. Kidneys: Bilateral intrinsic high T1 signal lesions measuring up tor 10 mm on the right and 4 mm on t he left. No evidence for obstructive uropathy. No suspicious renal masses. Stomach and Bowel: No evidence for bowel wall thickening or evidence for obstruction. Retroperitoneum/Peritoneum: No evidence of pneumoperitoneum or free fluid. Vasculature: No aortic aneurysm. Musculoskeletal: The osseous structures appear intact. Lymph Nodes: No gross evidence for lymphadenopathy. Abdominal wall: Unremarkable. IMPRESSION: 1. Left hepatic lobe lesion measuring up to 21 mm with indeterminate enhancement characteristics. Ti ssue sampling recommended for definitive diagnosis. This does not have the appearance of an abscess. Solid hepatic neoplasm should be considered including malignancy. This may be minimally increased in size from 09/07/2023 however is poorly visualized on single phase CT scan at that time. 2. Bilateral Bosniak type II equivalent renal cysts.
== END | disposition home or self-care (01) ==
LOC: RADMRIMAIN 09:30
PROVIDERS: ATTEND Internal Medicine
DX: N28.1 Cyst of kidney, acquired (principal); A06.4 Amebic liver abscess
CPT/HCPCS: 74183; A9585

== ENCOUNTER 2024-06-28 02:16 | Inpatient (IN) | payer OTHER ==
[2024-06-28 02:25] LABS: Glucose,Whole Blood 179 mg/dL (70-110)
--- NOTE | 2024-06-28 02:46 | ED ---
Fall HPI - General Stated Complaint: Fall Time Seen by Provider: 06/28/24 02:24 Source: RN notes reviewed, old records reviewed Mode of arrival: EMS Limitations: no limitations - History of Present Illness Initial Comments: This is a 64-year-old female to the ER, patient presents today for evaluation of fall unknown cause of fall. Patient has complicated medical history but comes in for a fall with facial injury. Fall was unwitnessed patient is on blood thinners and was found on the floor MD Complaint: fall, other -: hour(s) Fall From: standing When Fall Occurred: 1 hour KARATE BL[facility]T Fall Witnessed: yes, by living facility staff Place Fall Occurred: home Loss of Consciousness: none Prolonged Down Time?: no Symptoms Prior to Fall: none Location: head, face Severity: moderate Quality: sharp Context: tripped/slipped Associated Symptoms: denies - Related Data Home Medications Medication Instructions Recorded Confirmed Atorvastatin [Lipitor] 80 mg PO HS@209907/12/23 06/28/24 Clopidogrel [Plavix] 75 mg PO DAILY@89907/12/23 06/28/24 amLODIPine [Norvasc] 5 mg PO DAILY@89907/12/23 06/28/24 levETIRAcetam [Keppra] 500 mg PO BID@899,209907/12/23 06/28/24 Ondansetron [Zofran] 4 mg PO Q8HR PRN 09/04/23 06/28/24 INSULIN ASPART (NovoLOG) [NovoLOG See Protocol SQ ACHS@09,13,18,01/22/24 06/28/24 (formulary)] Losartan [Cozaar] 50 mg PO DAILY@89901/22/24 06/28/24 Tamsulosin HCl [Flomax] 0.4 mg PO HS@209901/22/24 06/28/24 Glucerna Shake 1 can PO BID@0900,1700 06/28/24 06/28/24 Memantine [Namenda] 5 mg PO HS@209906/28/24 06/28/24 Metoclopramide HCl [Reglan] 10 mg PO TID@06,13,21 06/28/24 06/28/24 guaiFENesin [Mucinex] 600 mg PO BID@00,209906/28/24 06/28/24 Previous Rx's Medication Instructions Recorded Acetaminophen Tab [Tylenol] 650 mg PO Q6HR PRN tab 07/04/24 Amoxic-Pot Clav 875-125Mg 1 each PO Q12HR #14 tab 07/04/24 [Augmentin 875-125] Aspirin 81 mg PO DAILY tab 07/04/24 HYDROcodone/APAP 5-325MG [Alna 1 tab PO Q8H PRN #9 tab 07/04/24 5-325] INSULIN ASPART (NovoLOG) [NovoLOG 6 unit SQ AC-TID@,,18 #0 07/04/24 (formulary)] Insulin Detemir (Levemir) [Levemir] 34 unit SQ HS@2100 #0 07/04/24 Metoprolol Tartrate [Lopressor] 25 mg PO BID tab 07/04/24 Nitroglycerin Sl Tabs [Nitrostat] 0.4 mg SUBLINGUAL Q5M PRN tab 07/04/24 Allergies Allergy/AdvReac Type Severity Reaction Status Date / Time No Known Allergies Allergy Verified 06/28/24 11:50 Review of Systems ROS Statement: Those systems with pertinent positive or pertinent negative responses have been documented in the HPI. ROS Other: All systems not noted in ROS Statement are negative. Past Medical History Past Medical History: Diabetes Mellitus, Myocardial Infarction ([place]) Additional Past Medical History / Comment(s): cva 2019 Last Myocardial Infarction Date:: states few years ago History of Any Multi-Drug Resistant Organisms: None Reported Past Surgical History: No Surgical Hx Reported Additional Past Surgical History / Comment(s): pt cannot remember hx r/t CVA residual effects Past Anesthesia/Blood Transfusion Reactions: No Reported Reaction Smoking Status: Former smoker - Past Family History Father Family Medical History: Cancer Additional Family Medical History / Comment(s): unknown per patient General Exam General appearance: alert, in no apparent distress, anxious Head exam: Present: atraumatic, normocephalic, normal inspection Eye exam: Present: normal appearance, PERRL, EOMI. Absent: scleral icterus, conjunctival injection, periorbital swelling ENT exam: Present: normal exam, mucous membranes moist Neck exam: Present: normal inspection. Absent: tenderness, meningismus, lymphadenopathy Respiratory exam: Present: decreased breath sounds, prolonged expiratory. Absent: respiratory distress, wheezes, rales, rhonchi, stridor Cardiovascular Exam: Present: normal rhythm, tachycardia, normal heart sounds. Absent: systolic murmur, diastolic murmur, rubs, gallop, clicks GI/Abdominal exam: Present: soft, normal bowel sounds. Absent: distended, tenderness, guarding, rebound, rigid Extremities exam: Present: normal inspection, full ROM, normal capillary refill. Absent: tenderness, pedal edema, joint swelling, calf tenderness Back exam: Present: normal inspection Neurological exam: Present: alert, oriented X3, CN II-XII intact Psychiatric exam: Present: normal affect, normal mood Skin exam: Present: warm, dry, intact, normal color. Absent: rash Course Vital Signs 06/28/24 06/28/24 06/28/24 02:23 02:45 03:30 Temperature 97.4 F L Pulse Rate 108 H 106 H 104 H Respiratory 20 20 20 Rate Blood Pressure 116/68 128/68 107/64 O2 Sat by Pulse 92 L 92 L 96 Oximetry 06/28/24 06/28/24 06/28/24 04:30 06:47 07:56 Temperature Pulse Rate 101 H 90 92 Respiratory 20 16 16 Rate Blood Pressure 109/69 110/65 110/65 O2 Sat by Pulse 97 93 L 93 L Oximetry 06/28/24 06/28/24 06/28/24 09:20 10:44 13:56 Temperature Pulse Rate 92 75 81 Respiratory 18 14 16 Rate Blood Pressure 104/61 99/58 114/63 O2 Sat by Pulse 94 L 93 L 96 Oximetry 06/28/24 06/28/24 06/28/24 14:45 15:23 18:06 Temperature Pulse Rate 89 88 99 Respiratory 16 14 16 Rate Blood Pressure 130/45 113/80 136/84 O2 Sat by Pulse 96 96 94 L Oximetry 06/28/24 20:35 Temperature Pulse Rate 98 Respiratory 16 Rate Blood Pressure 128/72 O2 Sat by Pulse 95 Oximetry - Reevaluation(s) Reevaluation #1: 06/28/24 04:34 Medical records reviewed Reevaluation #2: 06/28/24 04:34 Patient has no chest pain here in the ER Reevaluation #3: 06/28/24 04:34 Patient informed of results questions answered Reevaluation #4: Was pt. sent in by a medical professional or institution (Dr., PA, [employer], urgent care, hospital, or custodial...) When possible be specific @ -no Did you speak to anyone other than the patient for history (EMS, parent, family, police, friend...)? What history was obtained from this source @ -no Did you review nursing and triage notes (agree or disagree)? Why? @ -agree Are old charts reviewed (outside hosp., previous admission, EMS record, old EKG, old radiological studies, urgent care reports/EKG's, custodial records)? Report findings @ -yes Differential Diagnosis (chest pain, altered mental status, abdominal pain women, abdominal pain men, vaginal bleeding, weakness, fever, dyspnea, syncope, headache, dizziness, GI bleed, back pain, seizure, CVA, palpatations, mental he alth, musculoskeletal)? @ -prior EKG interpreted by me (3pts min.). @ -yes X-rays interpreted by me (1pt min.). @ -yes negative for acute disease CT interpreted by me (1pt min.). @ -Yes negative for acute disease U/S interpreted by me (1pt. min.). @ -no What testing was considered but not performed or refused? (CT, X-rays, U/S, labs)? Why? @ -none What meds were considered but not given or refused? Why? @ -none Did you discuss the management of the patient with other professionals (deuce suarez i.e. DAVID Garcia, [employer], lab, RT, psych nurse, social media analyst, business administrator, teacher, digital controls technical officer, case maker)? Give summary @ -no Was smoking cessation discussed for >3mins.? @ -no Was critical care preformed (if so, how long)? @ -yes31 Were there social determinants of health that impacted care today? How? (Homelessness, low income, unemployed, alcoholism, drug addiction, transportation, low edu. Level, literacy, decrease access to med. care, longterm, rehab)? @ -none Was there de-escalation of care discussed even if they declined (Discuss DNR or withdrawal of care, Hospice)? DNR status @ -no What co-morbidities impacted this encounter? (DM, HTN, Smoking, COPD, CAD, Cancer, CVA, ARF, Chemo, Hep., AIDS, mental health diagnosis, sleep apnea, morbid obesity)? @ -none Was patient admitted / discharged? Hospital course, mention meds given and route, prescriptions, significant lab abnormalities, going to OR and other pertinent info. @ - 64 male found down, patient had a fall unknown cause, possible syncopal event suspected, patient is a fall on blood thinners, does have evidence of fa cial injury no significant traumatic injury found on CT scan, patient does have elevated troponin will admit for a non-ST elevated [place] Admitted Undiagnosed new problem with uncertain prognosis? @ -no Drug Therapy requiring intensive monitoring for toxicity (Heparin, Nitro, Insulin, Cardizem)? @ -no Were any procedures done? @ -no Diagnosis/symptom? @ -NSTEMI Acute, or Chronic, or Acute on Chronic? @ -Acute Uncomplicated (without systemic symptoms) or Complicated (systemic symptoms)? @ -Complicated Side effects of treatment? @ -no Exacerbation, Progression, or Severe Exacerbation? @ -exacerbation Poses a threat to life or bodily function? How? (Chest pain, [place], [place], pneumonia, PE, COPD, DKA, ARF, appy, cholecystitis, CVA, Diverticulitis, Homicidal, Suicidal, threat to staff... and all critical care pts) @ -yes NSTEMI Reevaluation #5: Differential Syncope: Valvular disease, hypertrophic cardiomyopathy, pulmonary embolism, tamponade, tachycardia, bradycardia, IA, hypovolemia, hemorrhage, dissection, anemia, intracranial hemorrhage, seizure, hypoglycemia, carbon monoxide poisoning, this is not meant to be an all-inclusive list. - Consultations Consultation #1: Spoke with [facility] who agrees to admit this patient Medical Decision Making - Medical Decision Making 64 male found down, patient had a fall unknown cause, possible syncopal event suspected, patient is a fall on blood thinners, does have evidence of facial injury no significant traumatic injury found on CT scan, patient does have elevated troponin will admit for a non-ST elevated IA - Lab Data Result diagrams: 07/04/24 06:07 07/04/24 06:07 Lab Results 06/28/24 06/28/24 06/28/24 Range/Units 02:24 02:26 02:26 WBC 14.3 H (3.8-10.6) k/uL RBC 4.62 (4.30-5.90) m/uL Hgb 13.3 (13.0-17.5) gm/dL Hct 39.2 (39.0-53.0) % MCV 84.9 D (80.0-100.0) fL MCH 28.9 (25.0-35.0) pg MCHC 34.0 (31.0-37.0) g/dL RDW 13.7 (11.5-15.5) % Plt Count 227 (150-450) k/uL MPV 8.8 Neutrophils % 86 % Lymphocytes % 5 % Monocytes % 8 % Eosinophils % 1 % Basophils % 0 % Neutrophils # 12.3 H (1.3-7.7) k/uL Lymphocytes # 0.6 L (1.0-4.8) k/uL Monocytes # 1.1 H (0-1.0) k/uL Eosinophils # 0.1 (0-0.7) k/uL Basophils # 0.0 (0-0.2) k/uL PT 10.2 (10.0-12.5) sec INR 0.9 (<1.2) APTT 26.1 (22.0-30.0) sec Sodium (137-145) mmol/L Potassium (3.5-5.1) mmol/L Chloride (98-107) mmol/L Carbon Dioxide (22-30) mmol/L Anion Gap mmol/L BUN (9-20) mg/dL Creatinine (0.66-1.25) mg/dL Est GFR (CKD-EPI)AfAm (>60 ml/min/1.73 sqM) Est GFR (CKD-EPI)NonAf (>60 ml/min/1.73 sqM) Glucose (74-99) mg/dL POC Glucose (mg/dL) 179 H (70-110) mg/dL POC Glu Pin Drafter ID Eddie Brito Calcium (8.4-10.2) mg/dL Phosphorus (2.5-4.5) mg/dL Magnesium (1.6-2.3) mg/dL Total Bilirubin (0.2-1.3) mg/dL AST (17-59) U/L ALT (4-49) U/L Alkaline Phosphatase (38-126) U/L Ammonia (<30) umol/L Troponin I (0.000-0.034) ng/mL NT-Pro-B Natriuret Pep pg/mL Total Protein (6.3-8.2) g/dL Albumin (3.5-5.0) g/dL 06/28/24 06/28/24 06/28/24 Range/Units 02:26 02:26 04:17 WBC (3.8-10.6) k/uL RBC (4.30-5.90) m/uL Hgb (13.0-17.5) gm/dL Hct (39.0-53.0) % MCV (80.0-100.0) fL MCH (25.0-35.0) pg MCHC (31.0-37.0) g/dL RDW (11.5-15.5) % Plt Count (150-450) k/uL MPV Neutrophils % % Lymphocytes % % Monocytes % % Eosinophils % % Basophils % % Neutrophils # (1.3-7.7) k/uL Lymphocytes # (1.0-4.8) k/uL Monocytes # (0-1.0) k/uL Eosinophils # (0-0.7) k/uL Basophils # (0-0.2) k/uL PT (10.0-12.5) sec INR (<1.2) APTT (22.0-30.0) sec Sodium 136 L (137-145) mmol/L Potassium 3.1 L (3.5-5.1) mmol/L Chloride 98 (98-107) mmol/L Carbon Dioxide 25 (22-30) mmol/L Anion Gap 13 mmol/L BUN 24 H (9-20) mg/dL Creatinine 1.23 (0.66-1.25) mg/dL Est GFR (CKD-EPI)AfAm 72 (>60 ml/min/1.73 sqM) Est GFR (CKD-EPI)NonAf 62 (>60 ml/min/1.73 sqM) Glucose 190 H (74-99) mg/dL POC Glucose (mg/dL) (70-110) mg/dL POC Glu Pin Drafter ID Calcium 9.7 (8.4-10.2) mg/dL Phosphorus 2.1 L (2.5-4.5) mg/dL Magnesium 1.9 (1.6-2.3) mg/dL Total Bilirubin 1.9 H (0.2-1.3) mg/dL AST 43 (17-59) U/L ALT 42 (4-49) U/L Alkaline Phosphatase 94 (38-126) U/L Ammonia <9 (<30) umol/L Troponin I 0.381 H* (0.000-0.034) ng/mL NT-Pro-B Natriuret Pep 412 pg/mL Total Protein 6.8 (6.3-8.2) g/dL Albumin 4.0 (3.5-5.0) g/dL - EKG Data -: EKG Interpreted by Me (EKG is sinus 107 [place] 144 QRS 94 QTc 413) - Radiology Data Radiology results: report reviewed (CT brain and C-spine facial bones negative for acute fracture), image reviewed Critical Care Time Critical Care Time: Yes Total Critical Care Time: 31 Disposition Clinical Impression: Fall, Pre-syncope, Chest pain, NSTEMI (non-ST elevated myocardial infarction) Disposition: ADMITTED IP TO THIS [facility] Condition: Serious Is patient prescribed a controlled substance at d/c from ED?: No Time of Disposition: 04:30
[2024-06-28 02:47] LABS: INR 0.9 (<1.2); Partial Thromboplastin Time 26.1 sec (22.0-30.0); Prothrombin Time 10.2 sec (10.0-12.5)
[2024-06-28 02:50] LABS: Anion Gap 13 mmol/L; Blood Urea Nitrogen 24 mg/dL (9-20); Carbon Dioxide 25 mmol/L (22-30); Chloride 98 mmol/L (98-107); Glucose 190 mg/dL (74-99); Potassium 3.1 mmol/L (3.5-5.1); Sodium 136 mmol/L (137-145)
[2024-06-28 02:51] LABS: ALT 42 U/L (4-49); AST 43 U/L (17-59); African American GFR (CKD) 72 (>60 ml/min/1.73 sqM); Alkaline Phosphatase 94 U/L (38-126); Calcium 9.7 mg/dL (8.4-10.2); Magnesium 1.9 mg/dL (1.6-2.3); Non-African American GFR(CKD) 62 (>60 ml/min/1.73 sqM); Phosphorus 2.1 mg/dL (2.5-4.5); Total Bilirubin 1.9 mg/dL (0.2-1.3); Total Protein 6.8 g/dL (6.3-8.2)
[2024-06-28] MEDS: SODIUM CHLORIDE 0.9% 500 ML 500 ML IV STA (02:52)
[2024-06-28 02:55] LABS: Basophils % (A) 0 %; Eosinophils # (A) 0.1 k/uL (0-0.7); Eosinophils % (A) 1 %; HCT 39.2 % (39.0-53.0); HGB 13.3 gm/dL (13.0-17.5); Lymphocytes # (A) 0.6 k/uL (1.0-4.8); Lymphocytes % (A) 5 %; MCH 28.9 pg (25.0-35.0); Mean Platelet Volume 8.8; Monocytes # (A) 1.1 k/uL (0-1.0); Monocytes % (A) 8 %; Neutrophils # (A) 12.3 k/uL (1.3-7.7); Neutrophils % (A) 86 %; Platelet Count 227 k/uL (150-450); RBC 4.62 m/uL (4.30-5.90); RDW 13.7 % (11.5-15.5); WBC 14.3 k/uL (3.8-10.6)
[2024-06-28 02:59] LABS: NT-Pro-B-Type Natriuretic Pept 412 pg/mL
[2024-06-28 03:08] LABS: MCV 84.9 fL (80.0-100.0)
--- NOTE | 2024-06-28 03:30 | CT ---
EXAM: CT Head Without Intravenous Contrast CLINICAL HISTORY: ITS.REASON CT Reason: fall TECHNIQUE: Axial computed tomography images of the head/brain without intravenous contrast. CTDI is 25.8 mGy and DLP is 866.1 mGy-cm. This CT exam was performed using one or more of the following dose reduction techniques: automated exposure control, adjustment of the mA and/or kV according to patient size, and/or use of iterative reconstruction technique. COMPARISON: No relevant prior studies available. FINDINGS: Brain: No hemorrhage or mass effect. Prior left [place] territory infarct. Ventricles: No hydrocephalus. Bones/joints: Age-indeterminate right nasal bone fracture. Soft tissues: Unremarkable. Sinuses: No air fluid level. Mastoid air cells: Clear. IMPRESSION: No acute hemorrhage, hydrocephalus, or mass effect. Age-indeterminate right nasal bone fracture. EXAM: CT Cervical Spine Without Intravenous Contrast CLINICAL HISTORY: ITS.REASON CT Reason: fall TECHNIQUE: Axial computed tomography images of the cervical spine without intravenous contrast. CTDI is 10.3 mGy and DLP is 303.6 mGy-cm. This CT exam was performed using one or more of the following dose reduction techniques: automated exposure control, adjustment of the mA and/or kV according to patient size, and/or use of iterative reconstruction technique. COMPARISON: No relevant prior studies available. FINDINGS: Vertebrae: No acute fracture. Discs/spinal canal/neural foramina: degenerative changes. Soft tissues: No prevertebral swelling. IMPRESSION: No acute fracture or subluxation.
--- NOTE | 2024-06-28 04:11 | CT ---
EXAM: CT Head and Maxillofacial Without Intravenous Contrast CLINICAL HISTORY: ITS.REASON CT Reason: fall TECHNIQUE: Axial computed tomography images of the head/brain and face without intravenous contrast. CTDI is 0 mGy and DLP is 0 mGy-cm. This CT exam was performed using one or more of the following dose reduction techniques: automated exposure control, adjustment of the mA and/or kV according to patient size, and/or use of iterative reconstruction technique. COMPARISON: No relevant prior studies available. FINDINGS: See Impression. IMPRESSION: Acute nasal bone fracture. Remaining facial bones are intact
[2024-06-28] MEDS: POTASSIUM BICARBONATE/CIT AC 20 MEQ TABLET.EFF PO ONE ×2 (04:15)
[2024-06-28] MEDS ORDERED: MORPHINE SULFATE 4 MG/ML SYRINGE IV PRN (04:26)
[2024-06-28] MEDS ORDERED: NITROGLYCERIN SL TABS 0.4 MG TAB SUBLINGUAL PRN (04:26)
[2024-06-28] MEDS: HEPARIN SOD,PORK IN 0.45% NACL 25,000 UNIT in 0.45% NACL 1 250ML.BAG IV SCH (04:38)
[2024-06-28] MEDS: ASPIRIN 81 MG PO STA (04:38)
[2024-06-28] MEDS: ATORVASTATIN 80 MG TAB PO STA (04:38)
[2024-06-28] MEDS: HEPARIN SODIUM 1,000 UN/ML (10ML VL) IV ONE (04:38)
[2024-06-28] MEDS: METOPROLOL TARTRATE 25 MG TAB PO SCH (09:18)
--- NOTE | 2024-06-28 10:09 | P.CRDCN ---
History of Present Illness Consult date: 06/28/24 History of present illness: HISTORY OF PRESENTING ILLNESS Patient is a 64-year-old male with past medical history of CVA, type 2 diabetes, hypertension, dyslipidemia. He is a very poor historian and is not able to tell me any sequence of events or any other clinically relevant details. On detailed review of medical chart patient had a Lexiscan nuclear stress test in August 2023 which did not show any major reversible or fixed perfusion defect and she did show some artifact involving the inferolateral wall with fixed defect. His echocardiogram from June 2023 did not show any regional wall motion abnormality with preserved LVEF and no major valvular abnormality. At that time he was hospitalized for mild elevated troponin and generalized weak ness and confusion. This time he presents with a similar complaints of generalized weakness confusi on and a suspected fall. It is unknown nature of a fall it was unwitnessed. It is not sure how long the patient was on floor. Resting ECG does not show any significant ST or T wave changes that are diagnostic for ischemia. He does not have any arrhythmias on telemetry monitoring since admission. His labs shows elevated troponin of 0.3 with a flat pattern. Along with this he has low potassium of 3.1 REVIEW OF SYSTEMS 14 point review of system is negative except what is mentioned above in HPI. PHYSICAL EXAMINATION Vital signs reviewed. Head: Normocephalic. Eyes: Sclerae nonicteric. Neck: Brisk carotid upstroke, Lungs: Diminished breath sounds with reduced inspiratory effort, no significant crackles or wheezing Heart: Regular rate and rhythm, S1-S2, no S3, mild systolic murmur audible Abdomen: Soft nontender, positive bowel sounds. Extremities: No edema, intact distal pulses. Neuro: Drowsy but arousable with verbal stimuli. Able to follow simple commands. Not interested in talking much. Detailed neuroexam was not performed ASSESSMENT Metabolic encephalopathy Generalized weakness Fall, unwitnessed with prolonged downtime Elevation of troponin with a flat pattern patterns, likely not related to acute coronary syndrome Right history of CVA Hypertension Type 2 diabetes Dyslipidemia PLAN Continue aspirin 81 mg, Lipitor 40 mg Continue management of for other comorbidities as per primary team Obtain alcohol levels, urine drug screen, urinalysis, CPK levels To find the etiology of the fall Obtain echocardiogram Continue telemetry monitoring At this time I will not heparinize patient for a flat troponin which I believe could be related to muscle injury and rhabdomyolysis from prolonged downtime and fall. He also has active nosebleeding. CT head and face did not show any acute fractures Consider neurology consult to evaluate for metabolic encephalopathy and fall Eric Enciso MD, [facility], [facility] Thank you for allowing [facility] to participate in this patient's care. Feel free to reach out in case of any followup questions. Past Medical History Past Medical History: Diabetes Mellitus, Myocardial Infarction ([place]) Additional Past Medical History / Comment(s): cva 2020 Last Myocardial Infarction Date:: states few years ago History of Any Multi-Drug Resistant Organisms: None Reported Past Surgical History: No Surgical Hx Reported Additional Past Surgical History / Comment(s): pt cannot remember hx r/t CVA residual effects Past Anesthesia/Blood Transfusion Reactions: No Reported Reaction Smoking Status: Former smoker - Past Family History Father Family Medical History: Cancer Additional Family Medical History / Comment(s): unknown per patient Medications and Allergies Home Medications Medication Instructions Recorded Confirmed Type Atorvastatin [Lipitor] 80 mg PO HS 07/12/23 02/06/24 History Clopidogrel [Plavix] 75 mg PO QAM 07/12/23 02/06/24 History amLODIPine [Norvasc] 5 mg PO QAM 07/12/23 02/06/24 History levETIRAcetam [Keppra] 500 mg PO BID 07/12/23 02/06/24 History Ondansetron [Zofran] 4 mg PO Q8HR PRN 09/04/23 02/06/24 History Acetaminophen Tab [Tylenol] 650 mg PO Q6H PRN 01/22/24 02/06/24 History INSULIN ASPART (NovoLOG) [NovoLOG See Protocol SQ ACHS 01/22/24 02/06/24 History (formulary)] Losartan [Cozaar] 50 mg PO DAILY 01/22/24 02/06/24 History Tamsulosin HCl [Flomax] 0.4 mg PO HS 01/22/24 02/06/24 History HYDROcodone/APAP 5-325MG [Foster 1 tab PO Q8H PRN #9 tab 01/25/24 02/06/24 Rx 5-325] INSULIN ASPART (NovoLOG) [NovoLOG 8 unit SQ AC-TID each 01/25/24 02/06/24 Rx (formulary)] Metoclopramide HCl [Reglan] 10 mg PO TID #90 tablet 01/25/24 02/06/24 Rx Insulin Detemir (Levemir) [Levemir] 46 unit SQ HS 01/30/24 02/06/24 History Allergies Allergy/AdvReac Type Severity Reaction Status Date / Time No Known Allergies Allergy Verified 01/30/24 14:32 Physical Exam Vitals: Vital Signs Temp Pulse Resp BP Pulse Ox 06/28/24 09:20 92 18 104/61 94 L 06/28/24 07:56 92 16 110/65 93 L 06/28/24 06:47 90 16 110/65 93 L 06/28/24 04:30 101 H 20 109/69 97 06/28/24 03:30 104 H 20 107/64 96 06/28/24 02:45 106 H 20 128/68 92 L 06/28/24 02:23 97.4 F L 108 H 20 116/68 92 L Intake and Output 06/27/24 06/28/24 06/28/24 22:59 06:59 14:59 Other: Weight 68.039 kg Results 06/28/24 02:26 06/28/24 02:26 Cardiac Enzymes 06/28/24 06/28/24 06/28/24 Range/Units 02:26 02:26 06:30 AST 43 (17-59) U/L Troponin I 0.381 H* 0.373 H* (0.000-0.034) ng/mL 06/28/24 Range/Units 07:51 AST (17-59) U/L Troponin I 0.371 H* (0.000-0.034) ng/mL Coagulation 06/28/24 Range/Units 02:26 PT 10.2 (10.0-12.5) sec APTT 26.1 (22.0-30.0) sec CBC 06/28/24 Range/Units 02:26 WBC 14.3 H (3.8-10.6) k/uL RBC 4.62 (4.30-5.90) m/uL Hgb 13.3 (13.0-17.5) gm/dL Hct 39.2 (39.0-53.0) % Plt Count 227 (150-450) k/uL Comprehensive Metabolic Panel 06/28/24 Range/Units 02:26 Sodium 136 L (137-145) mmol/L Potassium 3.1 L (3.5-5.1) mmol/L Chloride 98 (98-107) mmol/L Carbon Dioxide 25 (22-30) mmol/L BUN 24 H (9-20) mg/dL Creatinine 1.23 (0.66-1.25) mg/dL Glucose 190 H (74-99) mg/dL Calcium 9.7 (8.4-10.2) mg/dL AST 43 (17-59) U/L ALT 42 (4-49) U/L Alkaline Phosphatase 94 (38-126) U/L Total Protein 6.8 (6.3-8.2) g/dL Albumin 4.0 (3.5-5.0) g/dL Current Medications Generic Name Dose Route Start Last Admin Trade Name Freq PRN Reason Stop Dose Admin Aspirin 81 mg 06/29/24 09:00 Aspirin 81 Mg PO DAILY [facility] Atorvastatin Calcium 40 mg 06/28/24 21:00 Atorvastatin 40 Mg Tab PO [facility] Metoprolol Tartrate 25 mg 06/28/24 09:00 06/28/24 09:18 Metoprolol Tartrate 25 Mg Tab PO 25 mg BID [facility] Administration Morphine Sulfate 4 mg 06/28/24 04:26 Morphine Sulfate 4 Mg/Ml Syringe IV Q4HR PRN Chest Pain Nitroglycerin 0.4 mg 06/28/24 04:26 Nitroglycerin Sl Tabs 0.4 Mg Tab SUBLINGUAL Q5M PRN Chest Pain Intake and Output 06/27/24 06/28/24 06/28/24 22:59 06:59 14:59 Other: Weight 68.039 kg 06/28/24 02:26 06/28/24 02:26
[2024-06-28] MEDS ORDERED: DEXTROSE 50% SYRINGE 50 ML IVP PRN ×2 (10:37)
[2024-06-28] MEDS ORDERED: NALOXONE 0.4 MG/ML 1 ML VIAL IV PRN (10:38)
[2024-06-28] MEDS ORDERED: MAG HYDROX/AL HYDROX/SIMETH 30 ML CUP PO PRN (10:38)
--- NOTE | 2024-06-28 11:08 | XR ---
EXAMINATION TYPE: XR chest 2V DATE OF EXAM: 06/28/2024 11:04 AM CLINICAL INDICATION: Male, 64 years old with history of Shortness of breath; H COMPARISON: Chest radiographs from 09/04/2023 TECHNIQUE: XR chest 2V Frontal view of the chest. FINDINGS: Lungs/Pleura: Airspace opacities projecting over the spine lateral view and right lower lung on front al view. There is no evidence of pleural effusion, focal consolidation, or pneumothorax. Pulmonary vascularity: Unremarkable. Heart/mediastinum: Cardiomediastinal silhouette is unremarkable. Musculoskeletal: No acute osseous pathology. IMPRESSION: Right lower lung airspace opacities correlate for pneumonia.
[2024-06-28 11:34] LABS: Appearance,Urine Cloudy (Clear); Bilirubin,Urine Negative (Negative); Blood,Urine Small (Negative); Color,Urine Yellow; Glucose,Urine (UA) Negative (Negative); Hyaline Casts,Urine 2 /lpf (0-2); Ketones,Urine Negative (Negative); Leukocyte Esterase,Urine Moderate (Negative); Mucus,Urine Rare /hpf; Nitrite,Urine Negative (Negative); Protein,Urine 2+ (Negative); RBC,Urine 1 /hpf (0-5); Specific Gravity,Urine 1.024 (1.001-1.035); WBC,Urine 11 /hpf (0-5)
[2024-06-28 11:53] LABS: Glucose,Whole Blood 91 mg/dL (70-110)
[2024-06-28] MEDS: PIPERACILLIN-TAZOBACTAM 3.375 GM in SODIUM CHLORIDE 0.9% 100 ML IVPB SCH (12:14)
[2024-06-28] MEDS: INSULIN ASPART (NovoLOG) 100 UNIT/ML VIAL SQ SCH (12:15)
--- NOTE | 2024-06-28 13:48 | P.CNPUL ---
History of Present Illness Consult date: 06/28/24 Reason for consult: pneumonia History of present illness: This is a 64-year-old male patient, prison resident, who came into the emergency department from [facility] on the leg after sustaining a fall. The exact circumstances and the cause of fall is not clear. The patient had facial injury. The fall was unwitnessed and the patient had some epistaxis. Based on that, he came into the emergency department. The patient had a CAT scan of the head and the cervical spine that showed no acute hemorrhage. There was a right nasal bone fracture. CAT scan of the face was also done and showed an acute nasal bone fracture. Chest x-ray also showed a new onset right lower lobe consolidation. The patient is currently on room air oxygen. Limits congested cough no significant sputum production. Is a poor historian. The white cell count of 14 with a heme of 13.3. Normal coagulation profile. BUN 24 with a creatinine of 1.12 sodium level is at 136. Hemodynamically stable and the patient is afebrile. Cardiac rhythm is sinus. Troponins were elevated with levels of 0.3 x 3 respectively. The EKG showed normal sinus rhythm with left axis deviation. No ST segment elevation or depression. The patient accordingly will be seen by cardiology. Noted the patient's C the patient's proBNP elevated at 412. Liver function tests are essentially within normal limits. UA showing 11 WBCs, positive protein, alcohol level is less than 10. On a separate note, I reviewed records from the prison and the patient was being treated with a course of antibiotics utilizing a combination of Augmentin and Zithromax given to him by the primary care physician. Review of Systems Poor historian and information provided is not reliable Past Medical History Past Medical History: Diabetes Mellitus, Myocardial Infarction ([place]) Additional Past Medical History / Comment(s): cva 2019 Last Myocardial Infarction Date:: states few years ago History of Any Multi-Drug Resistant Organisms: None Reported Past Surgical History: No Surgical Hx Reported Additional Past Surgical History / Comment(s): pt cannot remember hx r/t CVA residual effects Past Anesthesia/Blood Transfusion Reactions: No Reported Reaction Smoking Status: Former smoker - Past Family History Father Family Medical History: Cancer Additional Family Medical History / Comment(s): unknown per patient Medications and Allergies Home Medications Medication Instructions Recorded Confirmed Type Atorvastatin [Lipitor] 80 mg PO HS@2100 07/12/23 09/07/24 History Clopidogrel [Plavix] 75 mg PO DAILY@89907/12/23 06/28/24 History amLODIPine [Norvasc] 5 mg PO DAILY@89907/12/23 06/28/24 History levETIRAcetam [Keppra] 500 mg PO BID@0900,209907/12/23 06/28/24 History Ondansetron [Zofran] 4 mg PO Q8HR PRN 09/04/23 06/28/24 History INSULIN ASPART (NovoLOG) [NovoLOG See Protocol SQ ACHS@,,,01/22/24 06/28/24 History (formulary)] Losartan [Cozaar] 50 mg PO DAILY@89901/22/24 06/28/24 History Tamsulosin HCl [Flomax] 0.4 mg PO HS@209901/22/24 06/28/24 History HYDROcodone/APAP 5-325MG [[place] 1 tab PO Q8H PRN #9 tab 01/25/24 06/28/24 Rx 5-325] Insulin Detemir (Levemir) [Levemir] 46 unit SQ HS@209901/30/24 06/28/24 History Amoxic-Pot Clav 875-125Mg 1 tab PO Q12HR 06/28/24 06/28/24 History [Augmentin 875-125] Azithromycin [Zithromax] 500 mg PO DAILY 06/28/24 06/28/24 History Glucerna Shake 1 can PO BID@0900,1700 06/28/24 06/28/24 History INSULIN ASPART (NovoLOG) [NovoLOG 8 unit SQ AC-TID@,,06/28/24 06/28/24 History (formulary)] Memantine [Namenda] 5 mg PO HS@209906/28/24 06/28/24 History Metoclopramide HCl [Reglan] 10 mg PO TID@,,06/28/24 06/28/24 History guaiFENesin [Mucinex] 600 mg PO BID@0900,209906/28/24 06/28/24 History Allergies Allergy/AdvReac Type Severity Reaction Status Date / Time No Known Allergies Allergy Verified 06/28/24 11:50 Physical Exam Vitals: Vital Signs Temp Pulse Resp BP Pulse Ox 06/28/24 10:44 75 14 99/58 93 L 06/28/24 09:20 92 18 104/61 94 L 06/28/24 07:56 92 16 110/65 93 L 06/28/24 06:47 90 16 110/65 93 L 06/28/24 04:30 101 H 20 109/69 97 06/28/24 03:30 104 H 20 107/64 96 06/28/24 02:45 106 H 20 128/68 92 L 06/28/24 02:23 97.4 F L 108 H 20 116/68 92 L Intake and Output 06/27/24 06/28/24 06/28/24 22:59 06:59 14:59 Other: Weight 68.039 kg GENERAL EXAM: Alert, 63-year-old white male, comfortable in no apparent distress. HEAD: Normocephalic and atraumatic EYES: Normal reaction of pupils, equal size. NOSE: Clear with pink turbinates. Dried blood over the nasal passages and the nostrils. No evidence of any acute bleeding THROAT: No erythema or exudates. Dry mucous membranes NECK: No masses, no JVD. CHEST: No chest wall deformity. LUNGS: Equal air entry no wheeze, rhonchi or dullness. On room air. No conversational dyspnea or accessory muscle use.. No kussmaul respirations noted. The patient is has crackles in the right lung base CVS: Cardiac exam revealed the PMI to be normally situated and sized. The rhythm was regular and no extrasystoles were noted during several minutes of auscultation. The first and second heart sounds were normal and physiologic splitting of the second heart sound was noted. There were no murmurs, rubs, clicks, or gallops. ABDOMEN: No hepatosplenomegaly, active bowel sounds, no guarding or rigidity. SPINE: No scoliosis or deformity SKIN: No rashes CENTRAL NERVOUS SYSTEM: No focal deficits, tone is normal in all 4 extremities. Poor historian. EXTREMITIES: There is no peripheral edema, clubbing, or cyanosis. Peripheral pulses are intact. Results - Laboratory Findings CBC and BMP: 06/28/24 02:26 06/28/24 02:26 PT/INR, D-dimer PT 10.2 sec (10.0-12.5) 06/28/24 02:26 INR 0.9 (<1.2) 06/28/24 02:26 Abnormal lab findings: Abnormal Labs 06/28/24 06/28/24 06/28/24 02:24 02:26 02:26 WBC 14.3 H Neutrophils # 12.3 H Lymphocytes # 0.6 L Monocytes # 1.1 H Sodium 136 L Potassium 3.1 L BUN 24 H Glucose 190 H POC Glucose (mg/dL) 179 H Phosphorus 2.1 L Total Bilirubin 1.9 H Troponin I Urine Protein Urine Blood Ur Leukocyte Esterase Urine WBC Urine Mucus 06/28/24 06/28/24 06/28/24 02:26 06:30 07:51 WBC Neutrophils # Lymphocytes # Monocytes # Sodium Potassium BUN Glucose POC Glucose (mg/dL) Phosphorus Total Bilirubin Troponin I 0.381 H* 0.373 H* 0.371 H* Urine Protein Urine Blood Ur Leukocyte Esterase Urine WBC Urine Mucus 06/28/24 10:31 WBC Neutrophils # Lymphocytes # Monocytes # Sodium Potassium BUN Glucose POC Glucose (mg/dL) Phosphorus Total Bilirubin Troponin I Urine Protein 2+ H Urine Blood Small H Ur Leukocyte Esterase Moderate H Urine WBC 11 H Urine Mucus Rare H - Diagnostic Findings Chest x-ray: image reviewed Assessment and Plan Plan: Acute fall with fracture of the right nasal bone. 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 CAT scan of the head and cervical spine were negative Right lower lobe pneumonia with obvious consolidation crackles in the right lung base on examination. Patient was being treated on an outpatient basis with a combination of Augmentin and Zithromax Leukocytosis, mild Abnormal troponin leak under investigation Generalized weakness and dehydration Diabetes mellitus type 2, insulin-dependent, complicated by diabetic neuropathy Hyperlipidemia Hypertension History of CVA, with residual memory impairment and visual impairment History of seizure disorder, managed on Keppra History of hepatitis C status/post treatment Former tobacco smoker Plan Stable on room air oxygen no signs of any respiratory distress Will cover the patient with IV Zosyn Monitor chest x-ray repeat chest x-ray within next 24 to 48 hours Echocardiogram Cardiology regarding the abnormal troponins Resume home medications IV fluids Will continue to follow
--- NOTE | 2024-06-28 14:07 | P.HPIM ---
History of Present Illness H&P Date: 06/28/24 History of present illness; patient is 64-year-old gentleman with past medical history significant for CVA, type 2 diabetes, hypertension, dyslipidemia who presented to the ER because of a fall. Patient is a poor historian and is a resident of a residential facility.. Patient was found face down on the floor with unknown downtime. Patient did not lose consciousness. Denies any chest pain or shortness of breath prior to it. Patient is complaining of facial pain. Denied any fever or chills. Because of this fall, patient brought to the ER Initial lab work done in the ER showed WBC 14.3, hemoglobin 13.3, sodium 136, potassium 3.1, chloride 98, carbon is a 25, BUN 24, creatinine 1.23, glucose 190 phosphorous 2.1, bilirubin 1.9 troponin 0.381 EKG done in the ER showed heart rate of 104, no ST segment elevation or depression seen, no T-wave inversions seen. CT head done showed no acute intracranial process, no acute hemorrhage, no mass effect CT cervical spine done showed no acute fracture or subluxation CT face done showed acute nasal bone fracture Patient admitted to internal medicine service REVIEW OF SYSTEMS: CONSTITUTIONAL: No fever, no malaise, no fatigue. HEENT: No recent visual problems or hearing problems. Denied any sore throat. CARDIOVASCULAR: No chest pain, orthopnea, PND, no palpitations, no syncope. PULMONARY: No shortness of breath, no cough, no hemoptysis. GASTROINTESTINAL: No diarrhea, no nausea, no vomiting, no abdominal pain. NEUROLOGICAL: No headaches, no weakness, no numbness. HEMATOLOGICAL: Denies any bleeding or petechiae. GENITOURINARY: Denies any burning micturition, frequency, or urgency. MUSCULOSKELETAL/RHEUMATOLOGICAL: Denies any joint pain, swelling, or any muscle pain. ENDOCRINE: Denies any polyuria or polydipsia. The rest of the 14-point review of systems is negative. PHYSICAL EXAMINATION: GENERAL: The patient is alert and oriented x3, not in any acute distress. Ill looking HEENT: Pupils are round and equally reacting to light. EOMI. No scleral icterus. No conjunctival pallor. Normocephalic, atraumatic. No pharyngeal erythema. No thyromegaly. CARDIOVASCULAR: S1 and S2 present. No murmurs, rubs, or gallops. PULMONARY: Diminished breath sounds at the bases, right lower lobe crackles heard ABDOMEN: Soft, nontender, nondistended, normoactive bowel sounds. No palpable organomegaly. MUSCULOSKELETAL: No joint swelling or deformity. EXTREMITIES: No cyanosis, clubbing, or pedal edema. NEUROLOGICAL: Gross neurological examination did not reveal any focal deficits. SKIN: No rashes. Assessment and plan Metabolic encephalopathy Generalized weakness Hypokalemia Bacterial pneumonia Fall, unwitnessed with prolonged downtime Nasal bone fracture Elevation of troponin with a flat pattern patterns, likely not related to acute coronary syndrome Right history of CVA Hypertension Type 2 diabetes Dyslipidemia Monitor vital signs Monitor CBC Monitor CMP Continue telemetry monitoring Trend troponins. Replace electrolytes Fall precautions Start aspirin, Lipitor Start IV Zosyn Ordered blood sugar levels, sliding scale insulin Consult cardiology Consult pulmonary Consult ID PT and OT consulted Labs and medication were reviewed.. Continue same treatment. Continue with symptomatic treatment. Resume home medication. Monitor labs and vitals. DVT and GI prophylaxis. Further recommendations as per clinical course of the patient Dictation was produced using [employer] dictation software. please excuse any gram matical, word or spelling errors. Past Medical History Past Medical History: Diabetes Mellitus, Myocardial Infarction ([place]) Additional Past Medical History / Comment(s): cva 2019 Last Myocardial Infarction Date:: states few years ago History of Any Multi-Drug Resistant Organisms: None Reported Past Surgical History: No Surgical Hx Reported Additional Past Surgical History / Comment(s): pt cannot remember hx r/t CVA residual effects Past Anesthesia/Blood Transfusion Reactions: No Reported Reaction Smoking Status: Former smoker - Past Family History Father Family Medical History: Cancer Additional Family Medical History / Comment(s): unknown per patient Medications and Allergies Home Medications Medication Instructions Recorded Confirmed Type Atorvastatin [Lipitor] 80 mg PO HS@209907/12/23 06/28/24 History Clopidogrel [Plavix] 75 mg PO DAILY@89907/12/23 06/28/24 History amLODIPine [Norvasc] 5 mg PO DAILY@89907/12/23 06/28/24 History levETIRAcetam [Keppra] 500 mg PO BID@0900,209907/12/23 06/28/24 History Ondansetron [Zofran] 4 mg PO Q8HR PRN 09/04/23 06/28/24 History INSULIN ASPART (NovoLOG) [NovoLOG See Protocol SQ ACHS@,,,01/22/24 06/28/24 History (formulary)] Losartan [Cozaar] 50 mg PO DAILY@0900 01/22/24 06/28/24 History Tamsulosin HCl [Flomax] 0.4 mg PO HS@209901/22/24 06/28/24 History HYDROcodone/APAP 5-325MG [[place] 1 tab PO Q8H PRN #9 tab 01/25/24 06/28/24 Rx 5-325] Insulin Detemir (Levemir) [Levemir] 46 unit SQ HS@209901/30/24 06/28/24 History Amoxic-Pot Clav 875-125Mg 1 tab PO Q12HR 06/28/24 06/28/24 History [Augmentin 875-125] Azithromycin [Zithromax] 500 mg PO DAILY 06/28/24 06/28/24 History Glucerna Shake 1 can PO BID@0900,1700 06/28/24 06/28/24 History INSULIN ASPART (NovoLOG) [NovoLOG 8 unit SQ AC-TID@,,06/28/24 06/28/24 History (formulary)] Memantine [Namenda] 5 mg PO HS@209906/28/24 06/28/24 History Metoclopramide HCl [Reglan] 10 mg PO TID@06,,06/28/24 06/28/24 History guaiFENesin [Mucinex] 600 mg PO BID@0900,209906/28/24 06/28/24 History Allergies Allergy/AdvReac Type Severity Reaction Status Date / Time No Known Allergies Allergy Verified 06/28/24 11:50 Physical Exam Vitals: Vital Signs Temp Pulse Resp BP Pulse Ox 06/28/24 09:20 92 18 104/61 94 L 06/28/24 07:56 92 16 110/65 93 L 06/28/24 06:47 90 16 110/65 93 L 06/28/24 04:30 101 H 20 109/69 97 06/28/24 03:30 104 H 20 107/64 96 06/28/24 02:45 106 H 20 128/68 92 L 06/28/24 02:23 97.4 F L 108 H 20 116/68 92 L Intake and Output 06/27/24 06/28/24 06/28/24 22:59 06:59 14:59 Other: Weight 68.039 kg Results CBC & Chem 7: 06/28/24 02:26 06/28/24 02:26 Labs: Abnormal Lab Results - Last 24 Hours (Table) 06/28/24 06/28/24 06/28/24 Range/Units 02:24 02:26 02:26 WBC 14.3 H (3.8-10.6) k/uL Neutrophils # 12.3 H (1.3-7.7) k/uL Lymphocytes # 0.6 L (1.0-4.8) k/uL Monocytes # 1.1 H (0-1.0) k/uL Sodium 136 L (137-145) mmol/L Potassium 3.1 L (3.5-5.1) mmol/L BUN 24 H (9-20) mg/dL Glucose 190 H (74-99) mg/dL POC Glucose (mg/dL) 179 H (70-110) mg/dL Phosphorus 2.1 L (2.5-4.5) mg/dL Total Bilirubin 1.9 H (0.2-1.3) mg/dL Troponin I (0.000-0.034) ng/mL 06/28/24 06/28/24 06/28/24 Range/Units 02:26 06:30 07:51 WBC (3.8-10.6) k/uL Neutrophils # (1.3-7.7) k/uL Lymphocytes # (1.0-4.8) k/uL Monocytes # (0-1.0) k/uL Sodium (137-145) mmol/L Potassium (3.5-5.1) mmol/L BUN (9-20) mg/dL Glucose (74-99) mg/dL POC Glucose (mg/dL) (70-110) mg/dL Phosphorus (2.5-4.5) mg/dL Total Bilirubin (0.2-1.3) mg/dL Troponin I 0.381 H* 0.373 H* 0.371 H* (0.000-0.034) ng/mL
--- NOTE | 2024-06-28 15:59 | CA ---
Transthoracic Echo Report Name: Clifton Coronel Age: 64 Gender: M : 1960 Exam Date: 06/28/2024 10:30 Exam Location: [place] [facility] Ht (in): 69 Wt (lb): 150 Ordering Physician: Brice Goyal DO Attending/Referring Phys: [id number], Jay Jay Director Of Corporate Sponsorships Katarzyna Rose, GUILLE Procedure CPT: Indications: ACS Cardiac Hx: Technical Quality: Contrast 1: Total Dose (mL): Contrast 2: Total Dose (mL): MEASUREMENTS (Male / Female) Normal Values 2D ECHO LV Diastolic Diameter PLAX 4.6 cm 4.2 - 5.9 / 3.9 - 5.3 cm LV Systolic Diameter PLAX 3.3 cm IVS Diastolic Thickness 1.0 cm 0.6 - 1.0 / 0.6 - 0.9 cm LVPW Diastolic Thickness 1.0 cm 0.6 - 1.0 / 0.6 - 0.9 cm LV Relative Wall Thickness 0.4 LVOT Diameter 2.3 cm LV Diastolic Volume MOD 4C 94.5 cm??? LV Systolic Volume MOD 4C 53.1 cm??? LV Ejection Fraction MOD 4C 43.8 % LV Diastolic Length 4C 8.4 cm LV Systolic Length 4C 7.0 cm DOPPLER MV Area PHT 3.6 cm??? Mitral E Point Velocity 48.3 cm/s Mitral A Point Velocity 72.1 cm/s Mitral E to A Ratio 0.7 MV Deceleration Time 209.6 ms PV Peak Velocity 61.3 cm/s PV Peak Gradient 1.5 mmHg FINDINGS Left Ventricle Left ventricular ejection fraction is estimated at 55 %. Left ventricular cavity size normal. Left ventricular wall thickness normal. No obvious regional wall motion abnormalities. Right Ventricle Normal right ventricular size and function. Unable to estimate the right ventricular systolic pressure. Right Atrium Normal right atrial size. Left Atrium Normal left atrial size. Mitral Valve Structurally normal mitral valve. No mitral stenosis, regurgitation or prolapse. Aortic Valve Trileaflet aortic valve. No aortic valve stenosis or regurgitation. Tricuspid Valve Structurally normal tricuspid valve. No tricuspid stenosis, regurgitation or prolapse. Pulmonic Valve Pulmonic valve not well visualized. Pericardium Small pericardial effusion (normal variant). No tamponade physiology Aorta Aortic annulus normal. CONCLUSIONS Left ventricular ejection fraction is estimated at 55 %. No obvious regional wall motion abnormalities. Normal RV size and systolic function No significant valve dysfunction Small pericardial effusion with no signs of tamponade Previewed by: Dr Eric Enciso (Electronically Signed) Final Date: 28 June 2024 15:58
[2024-06-28 17:59] LABS: Glucose,Whole Blood 205 mg/dL (70-110)
[2024-06-28 20:21] LABS: Glucose,Whole Blood 143 mg/dL (70-110)
[2024-06-28] MEDS: ATORVASTATIN 40 MG TAB PO SCH (20:26)
--- NOTE | 2024-06-28 22:49 | P.CONS ---
History of Present Illness - Reason for Consult Consult date: 06/28/24 Pneumonia Requesting physician: Ra Moreno - Chief Complaint Fall and shortness of breath x 1 day - History of Present Illness Patient is a 64-year-old male with a past medical history significant for diabetes mellitus and [place] CVA former smoker has been brought to the hospital after apparently the patient have a fall with facial injury fall was unwitnessed and the patient did not recall loss of consciousness patient has been complaining of some headache but no urinary symptoms denies any chest pain some shortness of breath he also have a cough but are very clear about bringing up any sputum did have some nausea but no vomiting no abdominal pain or diarrhea on presentation to the hospital patient was afebrile and no fever have been found subsequently patient was not tachycardic hypotensive or hypoxic patient did have a white count of 14.3 with a left shift BUN was mildly elevated creatinine is 1.23 bilirubin was elevated respiratory exams are normal troponin is elevated urine is mildly positive serum alcohol was less than 10 patient did have a chest x-ray right lower lung airspace opacity correlate for pneumonia patient has been admitted to hospital he was started on Zosyn infectious was consulted for further management of antibiotic therapy Review of Systems Positive point and negatives has been mentioned in the HPI, complete review of systems was performed and all other systems are negative Past Medical History Past Medical History: Diabetes Mellitus, Myocardial Infarction (ME) Additional Past Medical History / Comment(s): cva 2019 Last Myocardial Infarction Date:: states few years ago History of Any Multi-Drug Resistant Organisms: None Reported Past Surgical History: No Surgical Hx Reported Additional Past Surgical History / Comment(s): pt cannot remember hx r/t CVA residual effects Past Anesthesia/Blood Transfusion Reactions: No Reported Reaction Smoking Status: Former smoker - Past Family History Father Family Medical History: Cancer Additional Family Medical History / Comment(s): unknown per patient Medications and Allergies Home Medications Medication Instructions Recorded Confirmed Type Atorvastatin [Lipitor] 80 mg PO HS@209907/12/23 06/28/24 History Clopidogrel [Plavix] 75 mg PO DAILY@89907/12/23 06/28/24 History amLODIPine [Norvasc] 5 mg PO DAILY@89907/12/23 06/28/24 History levETIRAcetam [Keppra] 500 mg PO BID@07/12/2324 History Ondansetron [Zofran] 4 mg PO Q8HR PRN 09/04/23 06/28/24 History INSULIN ASPART (NovoLOG) [NovoLOG See Protocol SQ ACHS@,,,01/22/24 06/28/24 History (formulary)] Losartan [Cozaar] 50 mg PO DAILY@0900 01/22/24 06/28/24 History Tamsulosin HCl [Flomax] 0.4 mg PO HS@209901/22/24 06/28/24 History HYDROcodone/APAP 5-325MG [[place] 1 tab PO Q8H PRN #9 tab 01/25/24 06/28/24 Rx 5-325] Insulin Detemir (Levemir) [Levemir] 46 unit SQ HS@209901/30/24 06/28/24 History Amoxic-Pot Clav 875-125Mg 1 tab PO Q12HR 06/28/24 06/28/24 History [Augmentin 875-125] Azithromycin [Zithromax] 500 mg PO DAILY 06/28/24 06/28/24 History Glucerna Shake 1 can PO BID@0900,1700 06/28/24 06/28/24 History INSULIN ASPART (NovoLOG) [NovoLOG 8 unit SQ AC-TID@,06/28/24 06/28/24 History (formulary)] Memantine [Namenda] 5 mg PO HS@209906/28/24 06/28/24 History Metoclopramide HCl [Reglan] 10 mg PO TID@,06/28/24 06/28/24 History guaiFENesin [Mucinex] 600 mg PO BID@0900,209906/28/24 06/28/24 History Allergies Allergy/AdvReac Type Severity Reaction Status Date / Time No Known Allergies Allergy Verified 06/28/24 11:50 Physical Exam Vitals: Vital Signs Temp Pulse Resp BP Pulse Ox 06/28/24 13:56 81 16 114/63 96 06/28/24 10:44 75 14 99/58 93 L 06/28/24 09:20 92 18 104/61 94 L 06/28/24 07:56 92 16 110/65 93 L 06/28/24 06:47 90 16 110/65 93 L 06/28/24 04:30 101 H 20 109/69 97 06/28/24 03:30 104 H 20 107/64 96 06/28/24 02:45 106 H 20 128/68 92 L 06/28/24 02:23 97.4 F L 108 H 20 116/68 92 L Intake and Output 06/27/24 06/28/24 06/28/24 22:59 06:59 14:59 Other: Weight 68.039 kg GENERAL DESCRIPTION: Middle-aged male lying in bed, no distress. No tachypnea or accessory muscle of respiration use. HEENT: Shows Pallor , no scleral icterus. Oral mucous membrane is dry. No pharyngeal erythema or thrush NECK: Trachea central, no thyromegaly. LUNGS: Unlabored breathing. Decreased breath sound the base HEART: S1, S2, regular rate and rhythm. No loud murmur ABDOMEN: Soft, no tenderness , guarding or rigidity, no organomegaly EXTREMITIES: No edema of feet. SKIN: No rash, no masses palpable. NEUROLOGICAL: The patient is awake, alert, oriented x3, mood and affect normal. Results CBC & Chem 7: 06/28/24 02:26 06/28/24 02:26 Labs: Abnormal Lab Results - Last 24 Hours (Table) 06/28/24 06/28/24 06/28/24 Range/Units 02:24 02:26 02:26 WBC 14.3 H (3.8-10.6) k/uL Neutrophils # 12.3 H (1.3-7.7) k/uL Lymphocytes # 0.6 L (1.0-4.8) k/uL Monocytes # 1.1 H (0-1.0) k/uL Sodium 136 L (137-145) mmol/L Potassium 3.1 L (3.5-5.1) mmol/L BUN 24 H (9-20) mg/dL Glucose 190 H (74-99) mg/dL POC Glucose (mg/dL) 179 H (70-110) mg/dL Phosphorus 2.1 L (2.5-4.5) mg/dL Total Bilirubin 1.9 H (0.2-1.3) mg/dL Troponin I (0.000-0.034) ng/mL Urine Protein (Negative) Urine Blood (Negative) Ur Leukocyte Esterase (Negative) Urine WBC (0-5) /hpf Urine Mucus (None) /hpf 06/28/24 06/28/24 06/28/24 Range/Units 02:26 06:30 07:51 WBC (3.8-10.6) k/uL Neutrophils # (1.3-7.7) k/uL Lymphocytes # (1.0-4.8) k/uL Monocytes # (0-1.0) k/uL Sodium (137-145) mmol/L Potassium (3.5-5.1) mmol/L BUN (9-20) mg/dL Glucose (74-99) mg/dL POC Glucose (mg/dL) (70-110) mg/dL Phosphorus (2.5-4.5) mg/dL Total Bilirubin (0.2-1.3) mg/dL Troponin I 0.381 H* 0.373 H* 0.371 H* (0.000-0.034) ng/mL Urine Protein (Negative) Urine Blood (Negative) Ur Leukocyte Esterase (Negative) Urine WBC (0-5) /hpf Urine Mucus (None) /hpf 06/28/24 Range/Units 10:31 WBC (3.8-10.6) k/uL Neutrophils # (1.3-7.7) k/uL Lymphocytes # (1.0-4.8) k/uL Monocytes # (0-1.0) k/uL Sodium (137-145) mmol/L Potassium (3.5-5.1) mmol/L BUN (9-20) mg/dL Glucose (74-99) mg/dL POC Glucose (mg/dL) (70-110) mg/dL Phosphorus (2.5-4.5) mg/dL Total Bilirubin (0.2-1.3) mg/dL Troponin I (0.000-0.034) ng/mL Urine Protein 2+ H (Negative) Urine Blood Small H (Negative) Ur Leukocyte Esterase Moderate H (Negative) Urine WBC 11 H (0-5) /hpf Urine Mucus Rare H (None) /hpf Assessment and Plan (1) Pneumonia Current Visit: Yes Status: Acute Code(s): J18.9 - PNEUMONIA, UNSPECIFIED ORGANISM SNOMED Code(s): 702841615 Plan: 1patient presented to hospital with fall also complaining of shortness of breath he did have a cough with some sputum production chest x-ray with right lower lobe infiltrate did have elevated white count concerning for pneumonia likely community-acquired aspiration pneumonia not entirely excluded 2-we will try to obtain sputum for Gram stain and culture check a CRP and procalcitonin 3-continue with Zosyn 3.375 g every 8 hours We will follow on clinical condition and cultures to further adjust medication if needed Thank you for this consultation we will follow the patient along with you Dictation was produced using [email or web address] dictation software. please excuse any grammatical, word or spelling errors. Time with Patient: Greater than 30
[2024-06-29 06:15] LABS: Glucose,Whole Blood 286 mg/dL (70-110)
[2024-06-29] MEDS ORDERED: ASPIRIN 325 MG TAB PO SCH (09:00)
[2024-06-29 09:01] LABS: C Reactive Protein 15.4 mg/dL (<1.0)
[2024-06-29 09:08] LABS: Basophils % (A) 0 %; Eosinophils # (A) 0.1 k/uL (0-0.7); Eosinophils % (A) 1 %; HGB 11.9 gm/dL (13.0-17.5); Lymphocytes % (A) 9 %; MCH 28.7 pg (25.0-35.0); MCHC 33.1 g/dL (31.0-37.0); MCV 86.7 fL (80.0-100.0); Mean Platelet Volume 8.2; Monocytes # (A) 0.9 k/uL (0-1.0); Monocytes % (A) 8 %; Neutrophils # (A) 9.5 k/uL (1.3-7.7); Neutrophils % (A) 82 %; Platelet Count 274 k/uL (150-450); RBC 4.15 m/uL (4.30-5.90); RDW 13.5 % (11.5-15.5); WBC 11.6 k/uL (3.8-10.6)
[2024-06-29 09:09] LABS: ALT 59 U/L (4-49); AST 62 U/L (17-59); African American GFR (CKD) >90 (>60 ml/min/1.73 sqM); Albumin 3.2 g/dL (3.5-5.0); Alkaline Phosphatase 74 U/L (38-126); Anion Gap 9 mmol/L; Blood Urea Nitrogen 19 mg/dL (9-20); Calcium 8.5 mg/dL (8.4-10.2); Carbon Dioxide 28 mmol/L (22-30); Chloride 98 mmol/L (98-107); Glucose 253 mg/dL (74-99); Non-African American GFR(CKD) >90 (>60 ml/min/1.73 sqM); Potassium 2.9 mmol/L (3.5-5.1); Sodium 135 mmol/L (137-145); Total Bilirubin 1.4 mg/dL (0.2-1.3); Total Protein 5.9 g/dL (6.3-8.2)
[2024-06-29] MEDS ORDERED: Potassium Replacement Protocol 1 EACH MISC MISCELLANE PRN (10:31)
[2024-06-29] MEDS: POTASSIUM CHLORIDE ER 20 MEQ TAB.ER PO SCH (10:48)
[2024-06-29] MEDS: ASPIRIN 81 MG PO SCH (10:49)
[2024-06-29 11:27] LABS: Glucose,Whole Blood 298 mg/dL (70-110)
--- NOTE | 2024-06-29 11:50 | P.PN ---
Subjective Progress Note Date: 06/29/24 This is a 64-year-old male patient, penitentiary resident, who came into the em ergency department from [facility] on the leg after sustaining a fall. The exact circumstances and the cause of fall is not clear. The patient had facial injury. The fall was unwitnessed and the patient had some epistaxis. Based on that, he came into the emergency department. The patient had a CAT scan of the head and the cervical spine that showed no acute hemorrhage. There was a right nasal bone fracture. CAT scan of the face was also done and showed an acute nasal bone fracture. Chest x-ray also showed a new onset right lower lobe consolidation. The patient is currently on room air oxygen. Limits congested cough no significant sputum production. Is a poor historian. The white cell count of 14 with a heme of 13.3. Normal coagulation profile. BUN 24 with a creatinine of 1.12 sodium level is at 136. Hemodynamically stable and the patient is afebrile. Cardiac rhythm is sinus. Troponins were elevated with levels of 0.3 x 3 respectively. The EKG showed normal sinus rhythm with left axis deviation. No ST segment elevation or depression. The patient accordingly will be seen by cardiology. Noted the patient's C the patient's proBNP elevated at 412. Liver function tests are essentially within normal limits. UA showing 11 WBCs, positive protein, alcohol level is less than 10. On a separate note, I reviewed records [facility] the [facility] and the patient was being treated with a course of antibiotics utilizing a combination of Augmentin and Zithromax given to him by the primary care physician. 06/29/2024, the patient is being seen for a follow-up., Comfortable remains on room air oxygen being treated for a pneumonia involving the lower lobes more so on the right. He is having some liquidy diarrhea the patient had 3 episodes. Currently on IV Zosyn. Will check stool for C. difficile. No nausea vomiting or abdominal pain. The white cell count 11.6 with a hemoglobin 11.9 and a platelet count of 274. Electrolytes show a potassium level of 2.9. Serum bica rbonate 28 with a BUN of 19 and a creatinine of 0.8. Objective - Vital Signs Vital signs: Vital Signs Temp 99.1 F 06/29/24 03:48 Pulse 100 06/29/24 03:48 Resp 16 06/29/24 03:48 BP 136/77 06/29/24 03:48 Pulse Ox 97 06/29/24 04:26 FiO2 35 06/29/24 04:26 Intake & Output 06/28/24 06/29/24 06/29/24 18:59 06:59 18:59 Intake Total 118 Balance 118 Weight 64.8 kg Intake: Oral 118 Other: Voiding Method Toilet # Voids 1 # Bowel Movements 3 - Exam GENERAL EXAM: Alert, 63-year-old white male, comfortable in no apparent dis tress. HEAD: Normocephalic and atraumatic EYES: Normal reaction of pupils, equal size. NOSE: Clear with pink turbinates. Dried blood over the nasal passages and the nostrils. No evidence of any acute bleeding THROAT: No erythema or exudates. Dry mucous membranes NECK: No masses, no JVD. CHEST: No chest wall deformity. LUNGS: Equal air entry no wheeze, rhonchi or dullness. On room air. No conv ersational dyspnea or accessory muscle use.. No kussmaul respirations noted. The patient is has crackles in the right lung base CVS: Cardiac exam revealed the PMI to be normally situated and sized. The rhythm was regular and no extrasystoles were noted during several minutes of auscultation. The first and second heart sounds were normal and physiologic splitting of the second heart sound was noted. There were no murmurs, rubs, clicks, or gallops. ABDOMEN: No hepatosplenomegaly, active bowel sounds, no guarding or rigidity. SPINE: No scoliosis or deformity SKIN: No rashes CENTRAL NERVOUS SYSTEM: No focal deficits, tone is normal in all 4 extremities. Poor historian. EXTREMITIES: There is no peripheral edema, clubbing, or cyanosis. Peripheral pulses are intact. - Labs CBC & Chem 7: 06/29/24 08:10 06/29/24 08:10 Labs: Abnormal Lab Results - Last 24 Hours (Table) 06/28/24 06/28/24 06/28/24 Range/Units 06:00 10:31 17:58 WBC (3.8-10.6) k/uL RBC (4.30-5.90) m/uL Hgb (13.0-17.5) gm/dL Hct (39.0-53.0) % Neutrophils # (1.3-7.7) k/uL Sodium (137-145) mmol/L Potassium (3.5-5.1) mmol/L Glucose (74-99) mg/dL POC Glucose (mg/dL) 205 H (70-110) mg/dL Hemoglobin A1c 9.1 H (<=6.0) % Total Bilirubin (0.2-1.3) mg/dL AST (17-59) U/L ALT (4-49) U/L C-Reactive Protein (<1.0) mg/dL Total Protein (6.3-8.2) g/dL Albumin (3.5-5.0) g/dL Urine Protein 2+ H (Negative) Urine Blood Small H (Negative) Ur Leukocyte Esterase Moderate H (Negative) Urine WBC 11 H (0-5) /hpf Urine Mucus Rare H (None) /hpf 06/28/24 06/29/24 06/29/24 Range/Units 20:20 06:14 06:46 WBC (3.8-10.6) k/uL RBC (4.30-5.90) m/uL Hgb (13.0-17.5) gm/dL Hct (39.0-53.0) % Neutrophils # (1.3-7.7) k/uL Sodium (137-145) mmol/L Potassium (3.5-5.1) mmol/L Glucose (74-99) mg/dL POC Glucose (mg/dL) 143 H 286 H (70-110) mg/dL Hemoglobin A1c (<=6.0) % Total Bilirubin (0.2-1.3) mg/dL AST (17-59) U/L ALT (4-49) U/L C-Reactive Protein 15.4 H (<1.0) mg/dL Total Protein (6.3-8.2) g/dL Albumin (3.5-5.0) g/dL Urine Protein (Negative) Urine Blood (Negative) Ur Leukocyte Esterase (Negative) Urine WBC (0-5) /hpf Urine Mucus (None) /hpf 06/29/24 06/29/24 Range/Units 08:10 08:10 WBC 11.6 H (3.8-10.6) k/uL RBC 4.15 L (4.30-5.90) m/uL Hgb 11.9 L (13.0-17.5) gm/dL Hct 36.0 L (39.0-53.0) % Neutrophils # 9.5 H (1.3-7.7) k/uL Sodium 135 L (137-145) mmol/L Potassium 2.9 L (3.5-5.1) mmol/L Glucose 253 H (74-99) mg/dL POC Glucose (mg/dL) (70-110) mg/dL Hemoglobin A1c (<=6.0) % Total Bilirubin 1.4 H (0.2-1.3) mg/dL AST 62 H (17-59) U/L ALT 59 H (4-49) U/L C-Reactive Protein (<1.0) mg/dL Total Protein 5.9 L (6.3-8.2) g/dL Albumin 3.2 L (3.5-5.0) g/dL Urine Protein (Negative) Urine Blood (Negative) Ur Leukocyte Esterase (Negative) Urine WBC (0-5) /hpf Urine Mucus (None) /hpf Assessment and Plan Plan: Acute fall with fracture of the right nasal bone. No evidence of any REPAIRER HELPER bleed. CAT scan of the head and cervical spine were negative Right lower lobe pneumonia with obvious consolidation crackles in the right lung base on examination. Patient was being treated on an outpatient basis with a combination of Augmentin and Zithromax Leukocytosis, mild Diarrhea, rule out C. difficile colitis Abnormal troponin leak under investigation Generalized weakness and dehydration Diabetes mellitus type 2, insulin-dependent, complicated by diabetic neuropathy Hyperlipidemia Hypertension History of CVA, with residual memory impairment and visual impairment History of seizure disorder, managed on Keppra History of hepatitis C status/post treatment Former tobacco smoker Plan Stable on room air oxygen no signs of any respiratory distress Monitor diarrhea and check stool for C. difficile if persistent diarrhea Continue IV Zosyn Monitor chest x-ray repeat chest x-ray within next 24 to 48 hours Echocardiogram Cardiology regarding the abnormal troponins Resume home medications IV fluids Will continue to follow
[2024-06-29 12:52] LABS: Chol/HDL Ratio 2.39 Ratio; LDL Cholesterol,Calculated 42.4 mg/dL (0.0-131.0); VLDL Calculation 12.26 mg/dL (5.00-40.00)
--- NOTE | 2024-06-29 13:05 | P.PN ---
Subjective Progress Note Date: 06/29/24 patient is 64-year-old gentleman with past medical history significant for CVA, type 2 diabetes, hypertension, dyslipidemia who presented to the ER because of a fall. Patient is a poor historian and is a resident of a penitentiary facility.. Patient was found face down on the floor with unknown downtime. Patient did not lose consciousness. Denies any chest pain or shortness of breath prior to it. Patient is complaining of facial pain. Denied any fever or chills. Because of this fall, patient brought to the ER Initial lab work done in the ER showed WBC 14.3, hemoglobin 13.3, sodium 136, potassium 3.1, chloride 98, carbon is a 25, BUN 24, creatinine 1.23, glucose 190 phosphorous 2.1, bilirubin 1.9 troponin 0.381 EKG done in the ER showed heart rate of 104, no ST segment elevation or depress ion seen, no T-wave inversions seen. CT head done showed no acute intracranial process, no acute hemorrhage, no mass effect CT cervical spine done showed no acute fracture or subluxation CT face done showed acute nasal bone fracture Patient admitted to internal medicine service 06/29. Patient seen and examined. Blood work on showed WBC 11.6, hemoglobin 0.9, platelet count 274, sodium 135, potassium 2.9, BUN 19, creatinine 0.89. States he feels better. Family at the bedside, answered their questions. REVIEW OF SYSTEMS: CONSTITUTIONAL: No fever, no malaise,. CARDIOVASCULAR: No chest pain, no palpitations, no syncope. PULMONARY: No shortness of breath, no cough, GASTROINTESTINAL: No diarrhea, no nausea, no vomiting, no abdominal pain. NEUROLOGICAL: No headaches, no weakness, PHYSICAL EXAMINATION: GENERAL: The patient is alert and oriented x3, chronically ill looking HEENT: Pupils are round and equally reacting to light. EOMI. No scleral icterus. No conjunctival pallor. Normocephalic, atraumatic. No pharyngeal erythema. No thyromegaly. CARDIOVASCULAR: S1 and S2 present. No murmurs, rubs, or gallops. PULMONARY: Chest is clear to auscultation, no wheezing or crackles. ABDOMEN: Soft, nontender, nondistended, normoactive bowel sounds. No palpable organomegaly. MUSCULOSKELETAL: No joint swelling or deformity. EXTREMITIES: No cyanosis, clubbing, or pedal edema. NEUROLOGICAL: Gross neurological examination did not reveal any focal deficits. SKIN: No rashes. Assessment and plan Metabolic encephalopathy Generalized weakness Hypokalemia Bacterial pneumonia Fall, unwitnessed with prolonged downtime Nasal bone fracture Elevation of troponin with a flat pattern patterns, likely not related to acute coronary syndrome Right history of CVA Hypertension Type 2 diabetes Dyslipidemia Monitor vital signs Monitor CBC Monitor CMP Continue telemetry monitoring Follow-up on blood cultures Continue IV Zosyn Continue aspirin, Lipitor Continue sliding scale insulin ID following Pulmonology following Labs and medication were reviewed.. Continue same treatment. Continue with symptomatic treatment. Resume home medication. Monitor labs and vitals. DVT and GI prophylaxis. Further recommendations as per clinical course of the patient Dictation was produced using [employer] dictation software. please excuse any grammatical, word or spelling errors. Objective - Vital Signs Vital signs: Vital Signs Temp 99.1 F 06/29/24 03:48 Pulse 100 06/29/24 03:48 Resp 16 06/29/24 03:48 BP 136/77 06/29/24 03:48 Pulse Ox 97 06/29/24 04:26 FiO2 35 06/29/24 04:26 Intake & Output 06/28/24 06/29/24 06/29/24 18:59 06:59 18:59 Intake Total 118 Balance 118 Weight 64.8 kg Intake: Oral 118 Other: Voiding Method Toilet # Voids 1 # Bowel Movements 3 - Labs CBC & Chem 7: 06/29/24 08:10 06/29/24 08:10 Labs: Abnormal Lab Results - Last 24 Hours (Table) 06/28/24 06/28/24 06/28/24 Range/Units 06:00 10:31 17:58 WBC (3.8-10.6) k/uL RBC (4.30-5.90) m/uL Hgb (13.0-17.5) gm/dL Hct (39.0-53.0) % Neutrophils # (1.3-7.7) k/uL Sodium (137-145) mmol/L Potassium (3.5-5.1) mmol/L Glucose (74-99) mg/dL POC Glucose (mg/dL) 205 H (70-110) mg/dL Hemoglobin A1c 9.1 H (<=6.0) % Total Bilirubin (0.2-1.3) mg/dL AST (17-59) U/L ALT (4-49) U/L C-Reactive Protein (<1.0) mg/dL Total Protein (6.3-8.2) g/dL Albumin (3.5-5.0) g/dL Urine Protein 2+ H (Negative) Urine Blood Small H (Negative) Ur Leukocyte Esterase Moderate H (Negative) Urine WBC 11 H (0-5) /hpf Urine Mucus Rare H (None) /hpf 06/28/24 06/29/24 06/29/24 Range/Units 20:20 06:14 06:46 WBC (3.8-10.6) k/uL RBC (4.30-5.90) m/uL Hgb (13.0-17.5) gm/dL Hct (39.0-53.0) % Neutrophils # (1.3-7.7) k/uL Sodium (137-145) mmol/L Potassium (3.5-5.1) mmol/L Glucose (74-99) mg/dL POC Glucose (mg/dL) 143 H 286 H (70-110) mg/dL Hemoglobin A1c (<=6.0) % Total Bilirubin (0.2-1.3) mg/dL AST (17-59) U/L ALT (4-49) U/L C-Reactive Protein 15.4 H (<1.0) mg/dL Total Protein (6.3-8.2) g/dL Albumin (3.5-5.0) g/dL Urine Protein (Negative) Urine Blood (Negative) Ur Leukocyte Esterase (Negative) Urine WBC (0-5) /hpf Urine Mucus (None) /hpf 06/29/24 06/29/24 Range/Units 08:10 08:10 WBC 11.6 H (3.8-10.6) k/uL RBC 4.15 L (4.30-5.90) m/uL Hgb 11.9 L (13.0-17.5) gm/dL Hct 36.0 L (39.0-53.0) % Neutrophils # 9.5 H (1.3-7.7) k/uL Sodium 135 L (137-145) mmol/L Potassium 2.9 L (3.5-5.1) mmol/L Glucose 253 H (74-99) mg/dL POC Glucose (mg/dL) (70-110) mg/dL Hemoglobin A1c (<=6.0) % Total Bilirubin 1.4 H (0.2-1.3) mg/dL AST 62 H (17-59) U/L ALT 59 H (4-49) U/L C-Reactive Protein (<1.0) mg/dL Total Protein 5.9 L (6.3-8.2) g/dL Albumin 3.2 L (3.5-5.0) g/dL Urine Protein (Negative) Urine Blood (Negative) Ur Leukocyte Esterase (Negative) Urine WBC (0-5) /hpf Urine Mucus (None) /hpf
--- NOTE | 2024-06-29 15:19 | P.PN ---
Subjective Progress Note Date: 06/29/24 Principal diagnosis: Reason for follow-up is pneumonia Patient is a 64-year-old male with a past medical history significant for diabetes mellitus and [place] CVA former smoker has been brought to the hospital after apparently the patient have a fall with facial injury, patient also noticed to have right lower lung airspace disease concerning for pneumonia prompting this consultation. On today's evaluation that is 06/29/2024, the patient continues to be afebrile, the patient is on room air and breathing comfortably, the Pt denies having any chest pain or any worsening cough, the patient denies having any abdominal pain no vomiting or any diarrhea has been reported by the nursing staff. Patient white count is down to 11.6, creatinine 0.89 Objective - Vital Signs Vital signs: Vital Signs Temp 98.1 F 06/29/24 13:00 Pulse 87 06/29/24 13:00 Resp 16 06/29/24 13:00 BP 134/74 06/29/24 13:00 Pulse Ox 97 06/29/24 13:00 FiO2 35 06/29/24 04:26 Intake & Output 06/28/24 06/29/24 06/29/24 18:59 06:59 18:59 Intake Total 598 Balance 598 Weight 64.8 kg Intake: Oral 598 Other: Voiding Method Toilet # Voids 1 # Bowel Movements 3 - Exam GENERAL DESCRIPTION: An elderly male lying in bed in no distress RESPIRATORY SYSTEM: Unlabored breathing , decreased breath sounds at bases HEART: S1 S2 regular rate and rhythm , ABDOMEN: Soft , no tenderness EXTREMITIES: No edema feet - Labs CBC & Chem 7: 06/29/24 08:10 06/29/24 08:10 Labs: Abnormal Lab Results - Last 24 Hours (Table) 06/28/24 06/28/24 06/28/24 Range/Units 06:00 17:58 20:20 WBC (3.8-10.6) k/uL RBC (4.30-5.90) m/uL Hgb (13.0-17.5) gm/dL Hct (39.0-53.0) % Neutrophils # (1.3-7.7) k/uL Sodium (137-145) mmol/L Potassium (3.5-5.1) mmol/L Glucose (74-99) mg/dL POC Glucose (mg/dL) 205 H 143 H (70-110) mg/dL Hemoglobin A1c 9.1 H (<=6.0) % Total Bilirubin (0.2-1.3) mg/dL AST (17-59) U/L ALT (4-49) U/L C-Reactive Protein (<1.0) mg/dL Total Protein (6.3-8.2) g/dL Albumin (3.5-5.0) g/dL HDL Cholesterol (40.00-60.00) mg/dL 06/29/24 06/29/24 06/29/24 Range/Units 06:14 06:46 08:10 WBC 11.6 H (3.8-10.6) k/uL RBC 4.15 L (4.30-5.90) m/uL Hgb 11.9 L (13.0-17.5) gm/dL Hct 36.0 L (39.0-53.0) % Neutrophils # 9.5 H (1.3-7.7) k/uL Sodium (137-145) mmol/L Potassium (3.5-5.1) mmol/L Glucose (74-99) mg/dL POC Glucose (mg/dL) 286 H (70-110) mg/dL Hemoglobin A1c (<=6.0) % Total Bilirubin (0.2-1.3) mg/dL AST (17-59) U/L ALT (4-49) U/L C-Reactive Protein 15.4 H (<1.0) mg/dL Total Protein (6.3-8.2) g/dL Albumin (3.5-5.0) g/dL HDL Cholesterol 39.30 L (40.00-60.00) mg/dL 06/29/24 06/29/24 Range/Units 08:10 11:26 WBC (3.8-10.6) k/uL RBC (4.30-5.90) m/uL Hgb (13.0-17.5) gm/dL Hct (39.0-53.0) % Neutrophils # (1.3-7.7) k/uL Sodium 135 L (137-145) mmol/L Potassium 2.9 L (3.5-5.1) mmol/L Glucose 253 H (74-99) mg/dL POC Glucose (mg/dL) 298 H (70-110) mg/dL Hemoglobin A1c (<=6.0) % Total Bilirubin 1.4 H (0.2-1.3) mg/dL AST 62 H (17-59) U/L ALT 59 H (4-49) U/L C-Reactive Protein (<1.0) mg/dL Total Protein 5.9 L (6.3-8.2) g/dL Albumin 3.2 L (3.5-5.0) g/dL HDL Cholesterol (40.00-60.00) mg/dL Assessment and Plan (1) Pneumonia Current Visit: Yes Status: Acute Code(s): J18.9 - PNEUMONIA, UNSPECIFIED ORGANISM SNOMED Code(s): 996087189 Plan: 1patient presented to hospital with fall also complaining of shortness of breath he did have a cough with some sputum production chest x-ray with right lower lobe infiltrate did have elevated white count concerning for pneumonia likely community-acquired aspiration pneumonia not entirely excluded 2-we will try to obtain sputum for Gram stain and culture 3-patient white count is trending down, to continue with Zosyn 3.375 g every 8 hours while waiting for the workup to be completed Dictation was produced using [employer] dictation software. please excuse any grammatical, word or spelling errors. Time with Patient: Less than 30
[2024-06-29 16:34] LABS: Glucose,Whole Blood 312 mg/dL (70-110)
--- NOTE | 2024-06-29 19:07 | P.PN ---
Subjective Progress Note Date: 06/29/24 HISTORY OF PRESENTING ILLNESS Patient is a 64-year-old male with past medical history of CVA, type 2 diabetes, hypertension, dyslipidemia. He is a very poor historian and is not able to tell me any sequence of events or any other clinically relevant details. On detailed review of medical chart patient had a Lexiscan nuclear stress test in August 2023 which did not show any major reversible or fixed perfusion defect and she did show some artifact involving the inferolateral wall with fixe d defect. His echocardiogram from June 2023 did not show any regional wall motion abnormality with preserved LVEF and no major valvular abnormality. At that time he was hospitalized for mild elevated troponin and generalized weakness and confusion. This time he presents with a similar complaints of generalized weakness confusion and a suspected fall. It is unknown nature of a fall it was unwitnessed. It is not sure how long the patient was on floor. Resting ECG does not show any significant ST or T wave changes that are diagnostic for ischemia. He does not have any arrhythmias on telemetry monitoring since admission. His labs shows elevated troponin of 0.3 with a flat pattern. Along with this he has low potassium of 3.1 Progress note June 29, 2024 I had a detailed discussion about patient's current condition, and her working diagnosis with the patient's son over the phone. Patient's son is concerned about elevated troponin. I explained him that his echocardiogram did not show any concerns of cardiomyopathy or any regional wall motion abnormality. He also had recent Lexiscan nuclear stress test in 2022 which did not show any concerns of acute ischemia. His ECG does not show any significant signs of acute ischemia as well. Considering all this I was not able to explain his elevation of troponins. Further this would not explain patient's generalized weakness, metabolic encephalopathy. For this I would recommend neurological evaluation. Rule out any possibility of stroke which can also cause elevation of troponin. PHYSICAL EXAMINATION Vital signs reviewed. Head: Normocephalic. Eyes: Sclerae nonicteric. Neck: Brisk carotid upstroke, Lungs: Diminished breath sounds with reduced inspiratory effort, no significant crackles or wheezing Heart: Regular rate and rhythm, S1-S2, no S3, mild systolic murmur audible Abdomen: Soft nontender, positive bowel sounds. Extremities: No edema, intact distal pulses. Neuro: Drowsy but arousable with verbal stimuli. Able to follow simple commands. Not interested in talking much. Detailed neuroexam was not performed ASSESSMENT Metabolic encephalopathy Generalized weakness Fall, unwitnessed with prolonged downtime Elevation of troponin with a flat pattern patterns, likely not related to acute coronary syndrome Right history of CVA Hypertension Type 2 diabetes Dyslipidemia Liver mass, being worked up for possible malignancy. Relevant labs Patient CPK levels, urinalysis, alcohol levels all came back within normal range. Echocardiogram showed an EF of 55 to 60% with no major valvular abnormalities or any significant regional wall motion normality PLAN Continue aspirin 81 mg, Lipitor 40 mg Continue management of for other comorbidities as per primary team Obtain alcohol levels, urine drug screen, urinalysis, CPK levels Continue telemetry monitoring At this time I will not heparinize patient for a flat troponin. CT head and face did not show any acute fractures. Would recommend neurological consult and detailed neurology evaluation. Objective - Vital Signs Vital signs: Vital Signs Temp 97.8 F 06/29/24 16:00 Pulse 85 06/29/24 16:00 Resp 16 06/29/24 16:00 BP 125/70 06/29/24 16:00 Pulse Ox 95 06/29/24 16:00 FiO2 35 06/29/24 04:26 Intake & Output 06/29/24 06/29/24 06/30/24 06:59 18:59 06:59 Intake Total 838 Balance 838 Weight 64.8 kg Intake: Oral 838 Other: Voiding Method Toilet Toilet # Voids 1 2 # Bowel Movements 3 - Labs CBC & Chem 7: 06/29/24 08:10 06/29/24 16:12 Labs: Abnormal Lab Results - Last 24 Hours (Table) 06/28/24 06/28/24 06/29/24 Range/Units 06:00 20:20 06:14 WBC (3.8-10.6) k/uL RBC (4.30-5.90) m/uL Hgb (13.0-17.5) gm/dL Hct (39.0-53.0) % Neutrophils # (1.3-7.7) k/uL Sodium (137-145) mmol/L Potassium (3.5-5.1) mmol/L Glucose (74-99) mg/dL POC Glucose (mg/dL) 143 H 286 H (70-110) mg/dL Hemoglobin A1c 9.1 H (<=6.0) % Total Bilirubin (0.2-1.3) mg/dL AST (17-59) U/L ALT (4-49) U/L C-Reactive Protein (<1.0) mg/dL Total Protein (6.3-8.2) g/dL Albumin (3.5-5.0) g/dL HDL Cholesterol (40.00-60.00) mg/dL 06/29/24 06/29/24 06/29/24 Range/Units 06:46 08:10 08:10 WBC 11.6 H (3.8-10.6) k/uL RBC 4.15 L (4.30-5.90) m/uL Hgb 11.9 L (13.0-17.5) gm/dL Hct 36.0 L (39.0-53.0) % Neutrophils # 9.5 H (1.3-7.7) k/uL Sodium 135 L (137-145) mmol/L Potassium 2.9 L (3.5-5.1) mmol/L Glucose 253 H (74-99) mg/dL POC Glucose (mg/dL) (70-110) mg/dL Hemoglobin A1c (<=6.0) % Total Bilirubin 1.4 H (0.2-1.3) mg/dL AST 62 H (17-59) U/L ALT 59 H (4-49) U/L C-Reactive Protein 15.4 H (<1.0) mg/dL Total Protein 5.9 L (6.3-8.2) g/dL Albumin 3.2 L (3.5-5.0) g/dL HDL Cholesterol 39.30 L (40.00-60.00) mg/dL 06/29/24 06/29/24 Range/Units 11:26 16:22 WBC (3.8-10.6) k/uL RBC (4.30-5.90) m/uL Hgb (13.0-17.5) gm/dL Hct (39.0-53.0) % Neutrophils # (1.3-7.7) k/uL Sodium (137-145) mmol/L Potassium (3.5-5.1) mmol/L Glucose (74-99) mg/dL POC Glucose (mg/dL) 298 H 312 H (70-110) mg/dL Hemoglobin A1c (<=6.0) % Total Bilirubin (0.2-1.3) mg/dL AST (17-59) U/L ALT (4-49) U/L C-Reactive Protein (<1.0) mg/dL Total Protein (6.3-8.2) g/dL Albumin (3.5-5.0) g/dL HDL Cholesterol (40.00-60.00) mg/dL
[2024-06-29 20:16] LABS: Urine Alcohol Negative (Negative)
[2024-06-29 20:17] LABS: Urine Barbiturate Negative (Negative); Urine Cocaine Negative (Negative); Urine Methadone Negative (Negative); Urine Opiates Positive (Negative); Urine Phencyclidine Negative (Negative)
[2024-06-29 20:31] LABS: Glucose,Whole Blood 280 mg/dL (70-110)
[2024-06-29] MEDS: ZINC OXIDE PASTE (Z-GUARD) 1 APPLIC TOPICAL SCH (21:45)
[2024-06-30] MEDS: METOCLOPRAMIDE 10 MG TAB PO SCH (05:24)
[2024-06-30 06:34] LABS: Glucose,Whole Blood 346 mg/dL (70-110)
[2024-06-30] MEDS: amLODIPine 5 MG TAB PO SCH (08:05)
[2024-06-30] MEDS: LOSARTAN 50 MG TAB PO SCH (08:05)
[2024-06-30] MEDS: levETIRAcetam 500 MG TAB PO SCH (08:05)
[2024-06-30] MEDS: CLOPIDOGREL 75 MG TAB PO SCH (08:05)
[2024-06-30] MEDS ORDERED: RX INFO: IV CONTRAST WAS GIVEN 1 EACH MISC MISCELLANE PRN (10:49)
--- NOTE | 2024-06-30 11:23 | P.PN ---
Subjective Progress Note Date: 06/30/24 HISTORY OF PRESENTING ILLNESS Patient is a 64-year-old male with past medical history of CVA, type 2 diabetes, hypertension, dyslipidemia. He is a very poor historian and is not able to tell me any sequence of events or any other clinically relevant details. On detailed review of medical chart patient had a Lexiscan nuclear stress test in August 2023 which did not show any major reversible or fixed perfusion defect and she did show some artifact involving the inferolateral wall with fixed defect. His echocardiogram from June 2023 did not show any regional wall motion abnormality with preserved LVEF and no major valvular abnormality. At that time he was hospitalized for mild elevated troponin and generalized weakness and confusion. This time he presents with a similar complaints of generalized weakness confusion and a suspected fall. It is unknown nature of a fall it was un witnessed. It is not sure how long the patient was on floor. Resting ECG does not show any significant ST or T wave changes that are diagnostic for ischemia. He does not have any arrhythmias on telemetry monitoring since admission. His labs shows elevated troponin of 0.3 with a flat pattern. Along with this he has low potassium of 3.1 June 29, 2024 I had a detailed discussion about patient's current condition, and her working diagnosis with the patient's son over the phone. Patient's son is concerned about elevated troponin. I explained him that his echocardiogram did not show any concerns of cardiomyopathy or any regional wall motion abnormality. He also had recent Lexiscan nuclear stress test in 2022 which did not show any concerns of acute ischemia. His ECG does not show any significant signs of acute ischemia as well. Considering all this I was not able to explain his elevation of troponins. Further this would not explain patient's generalized weakness, metabolic encep halopathy. For this I would recommend neurological evaluation. Rule out any possibility of stroke which can also cause elevation of troponin. 06/30 Patient denies having any chest pain and no shortness of breath. Blood pressure 127/66, heart rate 99, pulse ox 96% on room air. No repeat blood work is available. Patient is on IV Zosyn for pneumonia and followed by pulmonary medicine and infectious disease. PHYSICAL EXAMINATION Vital signs reviewed. Head: Normocephalic. Eyes: Sclerae nonicteric. Neck: Brisk carotid upstroke, Lungs: Diminished breath sounds with reduced inspiratory effort, no significant crackles or wheezing Heart: Regular rate and rhythm, S1-S2, no S3, mild systolic murmur audible Abdomen: Soft nontender, positive bowel sounds. Extremities: No edema, intact distal pulses. ASSESSMENT Metabolic encephalopathy Generalized weakness Fall, unwitnessed with prolonged downtime Elevation of troponin with a flat pattern patterns, likely not related to acute coronary syndrome Right history of CVA Hypertension Type 2 diabetes Dyslipidemia Liver mass Echocardiogram showed an EF of 55 to 60% with no major valvular abnormalities or any significant regional wall motion normality PLAN Patient is currently on the following cardiac medications: Amlodipine 5 mg daily, aspirin 81 mg daily, atorvastatin 40 mg at bedtime, Plavix 75 mg daily, losartan 50 mg daily, Lopressor 25 mg twice daily. Aspirin 81 mg, Lipitor 40 mg Continue management of for other comorbidities as per primary team Continue telemetry monitoring Nurse practitioner note has been reviewed, I agree with documented findings and plan of care. Patient was seen and examined. Objective - Vital Signs Vital signs: Vital Signs Temp 98.7 F 06/30/24 04:50 Pulse 93 06/30/24 04:50 Resp 20 06/30/24 04:50 BP 148/77 06/30/24 04:50 Pulse Ox 94 L 06/30/24 04:50 FiO2 35 06/29/24 04:26 Intake & Output 06/29/24 06/30/24 06/30/24 18:59 06:59 18:59 Intake Total 838 550 Output Total 650 Balance 838 -100 Weight 48 kg Intake: IV 10 Invasive Line 1 10 Oral 838 540 Output: Urine 650 Other: Voiding Method Toilet Toilet # Voids 2 # Bowel Movements 1 - Labs CBC & Chem 7: 06/29/24 08:10 06/29/24 16:12 Labs: Abnormal Lab Results - Last 24 Hours (Table) 06/28/24 06/29/24 06/29/24 Range/Units 10:31 06:46 08:10 WBC 11.6 H (3.8-10.6) k/uL RBC 4.15 L (4.30-5.90) m/uL Hgb 11.9 L (13.0-17.5) gm/dL Hct 36.0 L (39.0-53.0) % Neutrophils # 9.5 H (1.3-7.7) k/uL Sodium (137-145) mmol/L Potassium (3.5-5.1) mmol/L Glucose (74-99) mg/dL POC Glucose (mg/dL) (70-110) mg/dL Total Bilirubin (0.2-1.3) mg/dL AST (17-59) U/L ALT (4-49) U/L C-Reactive Protein 15.4 H (<1.0) mg/dL Total Protein (6.3-8.2) g/dL Albumin (3.5-5.0) g/dL HDL Cholesterol 39.30 L (40.00-60.00) mg/dL Urine Opiates Screen Positive A (Negative) U Cannabinoids Screen Positive A (Negative) 06/29/24 06/29/24 06/29/24 Range/Units 08:10 11:26 16:22 WBC (3.8-10.6) k/uL RBC (4.30-5.90) m/uL Hgb (13.0-17.5) gm/dL Hct (39.0-53.0) % Neutrophils # (1.3-7.7) k/uL Sodium 135 L (137-145) mmol/L Potassium 2.9 L (3.5-5.1) mmol/L Glucose 253 H (74-99) mg/dL POC Glucose (mg/dL) 298 H 312 H (70-110) mg/dL Total Bilirubin 1.4 H (0.2-1.3) mg/dL AST 62 H (17-59) U/L ALT 59 H (4-49) U/L C-Reactive Protein (<1.0) mg/dL Total Protein 5.9 L (6.3-8.2) g/dL Albumin 3.2 L (3.5-5.0) g/dL HDL Cholesterol (40.00-60.00) mg/dL Urine Opiates Screen (Negative) U Cannabinoids Screen (Negative) 06/29/24 06/30/24 Range/Units 20:30 06:33 WBC (3.8-10.6) k/uL RBC (4.30-5.90) m/uL Hgb (13.0-17.5) gm/dL Hct (39.0-53.0) % Neutrophils # (1.3-7.7) k/uL Sodium (137-145) mmol/L Potassium (3.5-5.1) mmol/L Glucose (74-99) mg/dL POC Glucose (mg/dL) 280 H 346 H (70-110) mg/dL Total Bilirubin (0.2-1.3) mg/dL AST (17-59) U/L ALT (4-49) U/L C-Reactive Protein (<1.0) mg/dL Total Protein (6.3-8.2) g/dL Albumin (3.5-5.0) g/dL HDL Cholesterol (40.00-60.00) mg/dL Urine Opiates Screen (Negative) U Cannabinoids Screen (Negative)
[2024-06-30 11:43] LABS: Glucose,Whole Blood 313 mg/dL (70-110)
[2024-06-30] MEDS: INSULIN ASPART (NovoLOG) 100 UNIT/ML VIAL SQ SCH (12:04)
[2024-06-30] MEDS ORDERED: INSULIN ASPART (NovoLOG) 100 UNIT/ML VIAL SQ SCH (12:30)
[2024-06-30 12:53] LABS: HCT 36.9 % (39.0-53.0); HGB 12.3 gm/dL (13.0-17.5); MCHC 33.2 g/dL (31.0-37.0); MCV 87.4 fL (80.0-100.0); Mean Platelet Volume 7.7; Platelet Count 323 k/uL (150-450); RBC 4.23 m/uL (4.30-5.90); RDW 13.4 % (11.5-15.5); WBC 12.9 k/uL (3.8-10.6)
[2024-06-30 13:11] LABS: ALT 99 U/L (4-49); AST 92 U/L (17-59); African American GFR (CKD) >90 (>60 ml/min/1.73 sqM); Albumin 3.5 g/dL (3.5-5.0); Alkaline Phosphatase 90 U/L (38-126); Anion Gap 14 mmol/L; Blood Urea Nitrogen 12 mg/dL (9-20); Calcium 8.7 mg/dL (8.4-10.2); Carbon Dioxide 23 mmol/L (22-30); Chloride 97 mmol/L (98-107); Creatine Kinase 94 U/L (55-170); Glucose 300 mg/dL (74-99); Non-African American GFR(CKD) >90 (>60 ml/min/1.73 sqM); Potassium 3.8 mmol/L (3.5-5.1); Sodium 134 mmol/L (137-145); Total Bilirubin 1.3 mg/dL (0.2-1.3); Total Protein 6.3 g/dL (6.3-8.2)
--- NOTE | 2024-06-30 13:41 | P.CNNES ---
History of Present Illness Consult date: 06/30/24 Requesting physician: Eric Enciso Reason for Consult: metabolic encephalopathy, suspect acute cva History of Present Illness: This is a 64-year-old gentleman with history of stroke with residual right hemiparesis, diabetes mellitus, myocardial infarction who presents emergency department from [facility] after sustaining a fall. Patient is not a great historian. The fall was not witnessed. No known exact cause of the fall patient seems the patient had facial injury. Patient denies any new focal deficit. Denies any visual disturbance, denies any speech difficulty. He stated that he had an old stroke that probably happened about 4 5 years ago with residual weakness over the right side upper and lower extremity. Cardiology is on board and felt the patient probably have metabolic encephalopathy but to rule out acute stroke. Denies any seizure history. But it seems that he is on Keppra 500 mg twice daily and that seems to be his home medication. He is also on Plavix 75 mg daily, Lipitor 80 mg nightly. Some of the workup during this hospital visit: Hospital visit patient's glucose level has been in the range of 200s to 300s. His AST is trending up was normal on presentation now it is 92. Also ALT was normal on presentation now it is 99 Ammonia level is less than 9 Panel is triglyceride is 61, cholesterol is 94, LDL is 42 and HDL is 39 Hemoglobin A1c is 9.1 Urine drug screen is positive for opiates and cannabinoids. Serum alcohol is less than 10 CT of the head on 06/28/2024 is reported as no acute hemorrhage, hydrocephalus or mass effect. Age-indeterminate right nasal bone fracture. CT cervical spine is reported as no acute fracture or subluxation. 2D echo was reported as left ventricular ejection fraction of 55%. No significant valve dysfunction. Chest x-ray shows right lower lung airspace opacity correlate for pneumonia. Review of Systems Limited and positive and negative as per HPI. Past Medical History Past Medical History: Diabetes Mellitus, Myocardial Infarction (DE) Additional Past Medical History / Comment(s): cva 2019 Last Myocardial Infarction Date:: states few years ago History of Any Multi-Drug Resistant Organisms: None Reported Past Surgical History: No Surgical Hx Reported Additional Past Surgical History / Comment(s): pt cannot remember hx r/t CVA residual effects Past Anesthesia/Blood Transfusion Reactions: No Reported Reaction Smoking Status: Former smoker - Past Family History Father Family Medical History: Cancer Additional Family Medical History / Comment(s): unknown per patient Medications and Allergies Home Medications Medication Instructions Recorded Confirmed Type Atorvastatin [Lipitor] 80 mg PO HS@209907/12/23 06/28/24 History Clopidogrel [Plavix] 75 mg PO DAILY@89907/12/23 06/28/24 History amLODIPine [Norvasc] 5 mg PO DAILY@89907/12/23 06/28/24 History levETIRAcetam [Keppra] 500 mg PO BID@899,209907/12/23 06/28/24 History Ondansetron [Zofran] 4 mg PO Q8HR PRN 09/04/23 06/28/24 History INSULIN ASPART (NovoLOG) [NovoLOG See Protocol SQ ACHS@,,,01/22/24 06/28/24 History (formulary)] Losartan [Cozaar] 50 mg PO DAILY@89901/22/24 06/28/24 History Tamsulosin HCl [Flomax] 0.4 mg PO HS@209901/22/24 06/28/24 History HYDROcodone/APAP 5-325MG [[place] 1 tab PO Q8H PRN #9 tab 01/25/24 06/28/24 Rx 5-325] Insulin Detemir (Levemir) [Levemir] 46 unit SQ HS@209901/30/24 06/28/24 History Amoxic-Pot Clav 875-125Mg 1 tab PO Q12HR 06/28/24 06/28/24 History [Augmentin 875-125] Azithromycin [Zithromax] 500 mg PO DAILY 06/28/24 06/28/24 History Glucerna Shake 1 can PO BID@0900,1700 06/28/24 06/28/24 History INSULIN ASPART (NovoLOG) [NovoLOG 8 unit SQ AC-TID@,06/28/24 06/28/24 History (formulary)] Memantine [Namenda] 5 mg PO HS@209906/28/24 06/28/24 History Metoclopramide HCl [Reglan] 10 mg PO TID@,,06/28/24 06/28/24 History guaiFENesin [Mucinex] 600 mg PO BID@0900,2100 06/28/24 06/28/24 History Allergies Allergy/AdvReac Type Severity Reaction Status Date / Time No Known Allergies Allergy Verified 06/28/24 11:50 Physical Examination - Vital Signs Vital Signs: Vital Signs Temp Pulse Pulse Resp BP BP Pulse Ox 06/30/24 09:07 95 06/30/24 08:00 98.5 F 99 20 127/66 96 06/30/24 04:50 98.7 F 93 20 148/77 94 L 06/30/24 00:33 99.1 F 89 20 139/74 94 L 06/29/24 19:50 98.7 F 91 16 140/69 96 06/29/24 16:00 97.8 F 85 16 125/70 95 06/29/24 14:00 16 Intake and Output 06/29/24 06/30/24 06/30/24 22:59 06:59 14:59 Intake Total 790 240 Output Total 200 450 Balance 590 -450 240 Intake: IV 10 Invasive Line 1 10 Oral 780 240 Output: Urine 200 450 Other: Voiding Method Toilet Toilet Toilet # Bowel Movements 1 Weight 48 kg General: Lying in bed and does not appear in acute distress. HENT: Supple neck. Neuro: Somewhat limited. The patient is awake alert oriented to self he correctly stated that he is in the hospital. He stated the year is he and he stated the month was April then later stated was September. He is able to identify objects correctly and was only 1 the pen other than that he was not able to identify glasses. He is somewhat slow responding. Does appear aphasic from limited language The pupils are round equal reactive to light. The pupils are round 3 to 4 mm bilaterally. Visual tan appears full to confrontation. Extraocular movements intact no nystagmus No facial weakness. Tongue is midline moves [id number] without any difficulty. Mild dysarthria. Motor: Is the right upper and lower is 4+ while the left is 5 out of 5. Sensation is normal to touch throughout Reflexes is 2 positive throughout Plantars is he refused to cooperate. Results - Laboratory Findings CBC and BMP: 06/30/24 12:34 06/30/24 12:34 Abnormal Lab Findings: Abnormal Labs 06/28/24 06/28/24 06/28/24 02:24 02:26 02:26 WBC 14.3 H RBC Hgb Hct Neutrophils # 12.3 H Lymphocytes # 0.6 L Monocytes # 1.1 H Sodium 136 L Potassium 3.1 L Chloride BUN 24 H Glucose 190 H POC Glucose (mg/dL) 179 H Hemoglobin A1c Phosphorus 2.1 L Total Bilirubin 1.9 H AST ALT Troponin I C-Reactive Protein Total Protein Albumin HDL Cholesterol Urine Protein Urine Blood Ur Leukocyte Esterase Urine WBC Urine Mucus Urine Opiates Screen U Cannabinoids Screen 06/28/24 06/28/24 06/28/24 02:26 06:00 06:30 WBC RBC Hgb Hct Neutrophils # Lymphocytes # Monocytes # Sodium Potassium Chloride BUN Glucose POC Glucose (mg/dL) Hemoglobin A1c 9.1 H Phosphorus Total Bilirubin AST ALT Troponin I 0.381 H* 0.373 H* C-Reactive Protein Total Protein Albumin HDL Cholesterol Urine Protein Urine Blood Ur Leukocyte Esterase Urine WBC Urine Mucus Urine Opiates Screen U Cannabinoids Screen 06/28/24 06/28/24 06/28/24 07:51 10:31 10:31 WBC RBC Hgb Hct Neutrophils # Lymphocytes # Monocytes # Sodium Potassium Chloride BUN Glucose POC Glucose (mg/dL) Hemoglobin A1c Phosphorus Total Bilirubin AST ALT Troponin I 0.371 H* C-Reactive Protein Total Protein Albumin HDL Cholesterol Urine Protein 2+ H Urine Blood Small H Ur Leukocyte Esterase Moderate H Urine WBC 11 H Urine Mucus Rare H Urine Opiates Screen Positive A U Cannabinoids Screen Positive A 06/28/24 06/28/24 06/29/24 17:58 20:20 06:14 WBC RBC Hgb Hct Neutrophils # Lymphocytes # Monocytes # Sodium Potassium Chloride BUN Glucose POC Glucose (mg/dL) 205 H 143 H 286 H Hemoglobin A1c Phosphorus Total Bilirubin AST ALT Troponin I C-Reactive Protein Total Protein Albumin HDL Cholesterol Urine Protein Urine Blood Ur Leukocyte Esterase Urine WBC Urine Mucus Urine Opiates Screen U Cannabinoids Screen 06/29/24 06/29/24 06/29/24 06:46 08:10 08:10 WBC 11.6 H RBC 4.15 L Hgb 11.9 L Hct 36.0 L Neutrophils # 9.5 H Lymphocytes # Monocytes # Sodium 135 L Potassium 2.9 L Chloride BUN Glucose 253 H POC Glucose (mg/dL) Hemoglobin A1c Phosphorus Total Bilirubin 1.4 H AST 62 H ALT 59 H Troponin I C-Reactive Protein 15.4 H Total Protein 5.9 L Albumin 3.2 L HDL Cholesterol 39.30 L Urine Protein Urine Blood Ur Leukocyte Esterase Urine WBC Urine Mucus Urine Opiates Screen U Cannabinoids Screen 06/29/24 06/29/24 06/29/24 11:26 16:22 20:30 WBC RBC Hgb Hct Neutrophils # Lymphocytes # Monocytes # Sodium Potassium Chloride BUN Glucose POC Glucose (mg/dL) 298 H 312 H 280 H Hemoglobin A1c Phosphorus Total Bilirubin AST ALT Troponin I C-Reactive Protein Total Protein Albumin HDL Cholesterol Urine Protein Urine Blood Ur Leukocyte Esterase Urine WBC Urine Mucus Urine Opiates Screen U Cannabinoids Screen 06/30/24 06/30/24 06/30/24 06:33 11:41 12:34 WBC 12.9 H RBC 4.23 L Hgb 12.3 L Hct 36.9 L Neutrophils # Lymphocytes # Monocytes # Sodium Potassium Chloride BUN Glucose POC Glucose (mg/dL) 346 H 313 H Hemoglobin A1c Phosphorus Total Bilirubin AST ALT Troponin I C-Reactive Protein Total Protein Albumin HDL Cholesterol Urine Protein Urine Blood Ur Leukocyte Esterase Urine WBC Urine Mucus Urine Opiates Screen U Cannabinoids Screen 06/30/24 12:34 WBC RBC Hgb Hct Neutrophils # Lymphocytes # Monocytes # Sodium 134 L Potassium Chloride 97 L BUN Glucose 300 H POC Glucose (mg/dL) Hemoglobin A1c Phosphorus Total Bilirubin AST 92 H ALT 99 H Troponin I C-Reactive Protein Total Protein Albumin HDL Cholesterol Urine Protein Urine Blood Ur Leukocyte Esterase Urine WBC Urine Mucus Urine Opiates Screen U Cannabinoids Screen Assessment and Plan Assessment: This is a 64-year-old gentleman with history of stroke in 2019 with residual right hemiparesis, diabetes mellitus, myocardial infarction who presents to the emergency department and 06/28/2024 from [facility] after a fall which was not witnessed and unsure exact cause. Patient is confused and he has a sugar level in the 200s to 300s during this admission. His AST and ALT is trending up. Chest x-ray shows questionable infiltrates. Altered mental status and likely metabolic encephalopathy. R/O Acute stroke. Initial CT head is negative for acute process.. Unsure if patient has recent seizure and that lead to his fall and confusion (especially with hx of stroke that can cause cortical irritability) and he is on home Keppra 500mg bid but denies hx of seizure (but again not great historian at this time). Fall of unknown etiology and possible due to above Acute transaminitis Uncontrolled sugar and sugar has been in the range of 200-300 History of diabetes mellitus and his hemoglobin A1c is 9.1 History of stroke 2019 with residual right hemiparesis History of myocardial infarction Plan: Ordered a repeat CT of the head. If CT of the head continues to be negative will proceed with MRI of the brain I ordered a routine EEG Patient is on home dose of Keppra 500 mg twice daily and he denies history of seizure Patient is on aspirin 81 times daily started by cardiology team. He is resumed on his home dose of Plavix 75 mg daily. Also started the patient on Plavix 75 mg daily Ordered vitamin B12. Patient had a recent TSH which was normal. Continue neurochecks Cardiac monitoring PT, OT are consulted. I also consulted CLINICAL PSYCHIATRIST. Will defer the rest of the medical management to primary and other specialist Thank you for the consultation. Time with Patient: Greater than 30
--- NOTE | 2024-06-30 15:17 | P.PN ---
Subjective Progress Note Date: 06/30/24 Principal diagnosis: Acute right lower lobe pneumonia/consolidation, community-acquired This is a 64-year-old male patient, [facility] resident, who came into the emergency department from [facility] on the leg after sustaining a fall. The exact circumstances and the cause of fall is not clear. The patient had facial injury. The fall was unwitnessed and the patient had some epistaxis. Based on that, he came into the emergency department. The patient had a CAT scan of the head and the cervical spine that showed no acute hemorrhage. There was a right nasal bone fracture. CAT scan of the face was also done and showed an acute nasal bone fracture. Chest x-ray also showed a new onset right lower lobe consolidation. The patient is currently on room air oxygen. Limits congested cough no significant sputum production. Is a poor historian. The white cell count of 14 with a heme of 13.3. Normal coagulation profile. BUN 24 with a creatinine of 1.12 sodium level is at 136. Hemodynamically stable and the patient is afebrile. Cardiac rhythm is sinus. Troponins were elevated with levels of 0.3 x 3 respectively. The EKG showed normal sinus rhythm with left ax is deviation. No ST segment elevation or depression. The patient accordingly will be seen by cardiology. Noted the patient's C the patient's proBNP elevated at 412. Liver function tests are essentially within normal limits. UA showing 11 WBCs, positive protein, alcohol level is less than 10. On a separate note, I reviewed records from the correction and the patient was being treated with a course of antibiotics utilizing a combination of Augmentin and Zithromax given to him by the primary care physician. 06/29/2024, the patient is being seen for a follow-up., Comfortable remains on room air oxygen being treated for a pneumonia involving the lower lobes more so on the right. He is having some liquidy diarrhea the patient had 3 episodes. Currently on IV Zosyn. Will check stool for C. difficile. No nausea vomiting or abdominal pain. The white cell count 11.6 with a hemoglobin 11.9 and a platelet count of 274. Electrolytes show a potassium level of 2.9. Serum bicarbonate 28 with a BUN of 19 and a creatinine of 0.8. Reevaluated today on 06/30/2024, patient is doing well, on room air, no further episodes of epistaxis, denies having shortness of breath cough or wheezing, eliseo st x-ray is showing a masslike consolidation in the right lower lobe hence I am recommending a CT of the chest. In the meantime the patient is receiving antibiotics for presumptive community-acquired pneumonia. Patient is afebrile, WBC count 12.9 hemoglobin 12.3 electrolytes are normal renal profile is normal Objective - Vital Signs Vital signs: Vital Signs Temp 98.1 F 06/30/24 12:00 Pulse 94 06/30/24 12:00 Resp 18 06/30/24 12:00 BP 149/81 06/30/24 12:00 Pulse Ox 97 06/30/24 12:00 FiO2 35 06/29/24 04:26 Intake & Output 06/29/24 06/30/24 06/30/24 18:59 06:59 18:59 Intake Total 838 550 420 Output Total 650 Balance 838 -100 420 Weight 48 kg Intake: IV 10 Invasive Line 1 10 Oral 838 540 420 Output: Urine 650 Other: Voiding Method Toilet Toilet Toilet # Voids 2 1 # Bowel Movements 1 - Exam GENERAL EXAM: Reveals 64-year-old white male in no distress on room air HEAD: Normocephalic and atraumatic EYES: Normal reaction of pupils, equal size. NOSE: Clear with pink turbinates. Dried blood over the nasal passages and the nostrils. No evidence of any acute bleeding THROAT: No erythema or exudates. Dry mucous membranes NECK: No masses, no JVD. CHEST: No chest wall deformity. LUNGS: Equal air entry no wheeze, rhonchi or dullness. On room air. CVS: Distant S1-S2, no S3 gallop, no murmur. ABDOMEN: No hepatosplenomegaly, active bowel sounds, no guarding or rigidity. SKIN: No rashes CENTRAL NERVOUS SYSTEM: Alert oriented x 3 but the patient is slow and is a very poor historian EXTREMITIES: No clubbing edema or cyanosis - Labs CBC & Chem 7: 06/30/24 12:34 06/30/24 12:34 Labs: Abnormal Lab Results - Last 24 Hours (Table) 06/28/24 06/29/24 06/29/24 Range/Units 10:31 16:22 20:30 WBC (3.8-10.6) k/uL RBC (4.30-5.90) m/uL Hgb (13.0-17.5) gm/dL Hct (39.0-53.0) % Sodium (137-145) mmol/L Chloride (98-107) mmol/L Glucose (74-99) mg/dL POC Glucose (mg/dL) 312 H 280 H (70-110) mg/dL AST (17-59) U/L ALT (4-49) U/L Urine Opiates Screen Positive A (Negative) U Cannabinoids Screen Positive A (Negative) 06/30/24 06/30/24 06/30/24 Range/Units 06:33 11:41 12:34 WBC 12.9 H (3.8-10.6) k/uL RBC 4.23 L (4.30-5.90) m/uL Hgb 12.3 L (13.0-17.5) gm/dL Hct 36.9 L (39.0-53.0) % Sodium (137-145) mmol/L Chloride (98-107) mmol/L Glucose (74-99) mg/dL POC Glucose (mg/dL) 346 H 313 H (70-110) mg/dL AST (17-59) U/L ALT (4-49) U/L Urine Opiates Screen (Negative) U Cannabinoids Screen (Negative) 06/30/24 Range/Units 12:34 WBC (3.8-10.6) k/uL RBC (4.30-5.90) m/uL Hgb (13.0-17.5) gm/dL Hct (39.0-53.0) % Sodium 134 L (137-145) mmol/L Chloride 97 L (98-107) mmol/L Glucose 300 H (74-99) mg/dL POC Glucose (mg/dL) (70-110) mg/dL AST 92 H (17-59) U/L ALT 99 H (4-49) U/L Urine Opiates Screen (Negative) U Cannabinoids Screen (Negative) Assessment and Plan Assessment: Impression Acute right nasal bone fractures secondary to fall Right lower lobe masslike consolidation hence ordering a CT of the chest to be done today Leukocytosis, mild Diarrhea, rule out C. difficile colitis Abnormal troponin leak under investigation Generalized weakness and dehydration Diabetes mellitus type 2, insulin-dependent, complicated by diabetic neuropathy Hyperlipidemia Hypertension History of CVA, with residual memory impairment and visual impairment History of seizure disorder, managed on Keppra History of hepatitis C status/post treatment Former tobacco smoker Recommendation: Continue Zosyn Continue IV fluids for his diarrhea and conservative measures, his C. difficile screen is negative CT of the chest with contrast to evaluate the masslike consolidation noted on chest x-ray Patient is being followed by neurology for his altered mental status and mild metabolic encephalopathy rule out acute stroke, head CT is negative for acute process Will continue to follow-up Time with Patient: Less than 30
[2024-06-30 16:37] LABS: Glucose,Whole Blood 255 mg/dL (70-110)
[2024-06-30 20:12] LABS: Glucose,Whole Blood 237 mg/dL (70-110)
[2024-06-30] MEDS: TAMSULOSIN 0.4 MG CAP.ER.24H PO SCH (20:39)
[2024-06-30] MEDS: INSULIN DETEMIR (LEVEMIR) 100 UNIT/ML SYR SQ SCH (20:39)
[2024-06-30] MEDS: MEMANTINE 5 MG TAB PO SCH (20:40)
[2024-07-01 06:12] LABS: Glucose,Whole Blood 78 mg/dL (70-110)
--- NOTE | 2024-07-01 09:47 | CDI ---
Documentation Clarification Form Date: 07/01/2024 From: Mary Holm RN CCDS Phone: [phone] Admit Date: 06/28/2024 04:26:00 AM Patient Name: Clifton Coronel Visit Number: [id number] Discharge Date: ATTENTION: The Clinical Documentation Specialists (CDI) and [facility] Coding Staff appreciate your assistance in clarifying documentation. Please respond to the clarification below the line at the bottom and electronically sign. The CDI & [facility] Coding staff will review the response and follow-up if needed. Please note: Queries are made part of the Legal Health Record. If you have any questions, please contact the author of this message via ITS. Doctor/Provider: Michlel Maguire MD: Rhabdomyolysis is documented in the Cardiology consult 06/28. Additional clarification regarding the type of rhabdomyolysis is requested. History/Risk Factors: 64-year-old male with a history of CVA, DM2, HTN who presents after suspected fall with generalized weakness and confusion Clinical Indicators: 06/28 H&P, HPI: "Patient was found face down on the floor with unknown downtime. Patient did not lose consciousness." 06/28 Cardiology consult, Plan: "At this time I will not heparinize patient for a flat troponin which I believe could be related to muscle injury and rhabdomyolysis from prolonged downtime and fall." 06/30 Creatine Kinase: 94 06/28-06/30 Potassium: 3.1, 2.9, 4.1, 3.8 Sodium: 136, 135, 134 AST: 43, 62, 92 AST: 42, 59, 99 Please clarify the type of rhabdomyolysis, if known: [ ] Traumatic rhabdomyolysis due to prolonged immobility [ ] Rhabdomyolysis ruled out [ ] Other, please specify [ ] Unable to Determine MTDD
[2024-07-01 11:29] LABS: Glucose,Whole Blood 195 mg/dL (70-110)
--- NOTE | 2024-07-01 11:58 | P.PN ---
Subjective Progress Note Date: 07/01/24 HISTORY OF PRESENTING ILLNESS Patient is a 64-year-old male with past medical history of CVA, type 2 diabetes, hypertension, dyslipidemia. He is a very poor historian and is not able to tell me any sequence of events or any other clinically relevant details. On detailed review of medical chart patient had a Lexiscan nuclear stress test in August 2023 which did not show any major reversible or fixed perfusion defect and she did show some artifact involving the inferolateral wall with fixed defect. His echocardiogram from June 2023 did not show any regional wall motion abnormality with preserved LVEF and no major valvular abnormality. At that time he was hospitalized for mild elevated troponin and generalized weakness and confusion. This time he presents with a similar complaints of generalized weakness confusion and a suspected fall. It is unknown nature of a fall it was un witnessed. It is not sure how long the patient was on floor. Resting ECG does not show any significant ST or T wave changes that are diagnostic for ischemia. He does not have any arrhythmias on telemetry monitoring since admission. His labs shows elevated troponin of 0.3 with a flat pattern. Along with this he has low potassium of 3.1 June 29, 2024 I had a detailed discussion about patient's current condition, and her working diagnosis with the patient's son over the phone. Patient's son is concerned about elevated troponin. I explained him that his echocardiogram did not show any concerns of cardiomyopathy or any regional wall motion abnormality. He also had recent Lexiscan nuclear stress test in 2022 which did not show any concerns of acute ischemia. His ECG does not show any significant signs of acute ischemia as well. Considering all this I was not able to explain his elevation of troponins. Further this would not explain patient's generalized weakness, metabolic encep halopathy. For this I would recommend neurological evaluation. Rule out any possibility of stroke which can also cause elevation of troponin. 06/30 Patient denies having any chest pain and no shortness of breath. Blood pressure 127/66, heart rate 99, pulse ox 96% on room air. No repeat blood work is available. Patient is on IV Zosyn for pneumonia and followed by pulmonary medicine and infectious disease. 07/01 Blood pressure 136/78, heart rate 95, pulse ox 95% on room air. CAT scan of the chest has been ordered by pulmonary medicine regarding a masslike consolidation on the right side. PHYSICAL EXAMINATION Vital signs reviewed. Head: Normocephalic. Eyes: Sclerae nonicteric. Neck: Brisk carotid upstroke, Lungs: Diminished breath sounds with reduced inspiratory effort, no significant crackles or wheezing Heart: Regular rate and rhythm, S1-S2, no S3, mild systolic murmur audible Abdomen: Soft nontender, positive bowel sounds. Extremities: No edema, intact distal pulses. ASSESSMENT Metabolic encephalopathy Generalized weakness Fall, unwitnessed Elevation of troponin with a flat pattern patterns, likely not related to acute coronary syndrome Masslike consolidation on the right side, pulmonary medicine working up with CAT scan History of CVA Hypertension Type 2 diabetes Dyslipidemia Liver mass Echocardiogram showed an EF of 55 to 60% with no major valvular abnormalities or any significant regional wall motion normality PLAN Continue cardiac medications: Amlodipine 5 mg daily, aspirin 81 mg daily, atorvastatin 40 mg at bedtime, Plavix 75 mg daily, losartan 50 mg daily, Lo pressor 25 mg twice daily. Aspirin 81 mg, Lipitor 40 mg Continue management of for other comorbidities as per primary team Continue telemetry monitoring Cardiology will sign off this case and follow on an as-needed basis. Please reconsult for any new concerns. Patient may follow-up in the office in one to 2 weeks. Nurse practitioner note has been reviewed, I agree with documented findings and plan of care. Patient was seen and examined. Objective - Vital Signs Vital signs: Vital Signs Temp 99.0 F 07/01/24 07:40 Pulse 95 07/01/24 07:40 Resp 20 07/01/24 07:40 BP 136/78 07/01/24 07:40 Pulse Ox 95 07/01/24 07:40 FiO2 35 06/29/24 04:26 Intake & Output 06/30/24 07/01/24 07/01/24 18:59 06:59 18:59 Intake Total 1580 Output Total 900 400 Balance 1580 -900 -400 Weight 48 kg 42 kg Intake: Intake, IV Titration 200 Amount Piperacillin-Tazobactam 3 200 .375 gm In Sodium Chloride 0.9% 100 ml @ 25 mls/hr IVPB [facility] Rx#: [id number] Oral 1380 Output: Urine 900 400 Other: Voiding Method Toilet Toilet Toilet Urinal Urinal # Voids 1 1 # Bowel Movements 1 - Labs CBC & Chem 7: 06/30/24 12:34 06/30/24 12:34 Labs: Abnormal Lab Results - Last 24 Hours (Table) 06/30/24 06/30/24 06/30/24 Range/Units 12:34 12:34 16:36 WBC 12.9 H (3.8-10.6) k/uL RBC 4.23 L (4.30-5.90) m/uL Hgb 12.3 L (13.0-17.5) gm/dL Hct 36.9 L (39.0-53.0) % Sodium 134 L (137-145) mmol/L Chloride 97 L (98-107) mmol/L Glucose 300 H (74-99) mg/dL POC Glucose (mg/dL) 255 H (70-110) mg/dL AST 92 H (17-59) U/L ALT 99 H (4-49) U/L 06/30/24 07/01/24 Range/Units 20:09 11:27 WBC (3.8-10.6) k/uL RBC (4.30-5.90) m/uL Hgb (13.0-17.5) gm/dL Hct (39.0-53.0) % Sodium (137-145) mmol/L Chloride (98-107) mmol/L Glucose (74-99) mg/dL POC Glucose (mg/dL) 237 H 195 H (70-110) mg/dL AST (17-59) U/L ALT (4-49) U/L
--- NOTE | 2024-07-01 13:03 | CT ---
EXAMINATION TYPE: CT brain wo con DATE OF EXAM: 06/30/2024 COMPARISON: 06/28/2024 HISTORY: confusion CT DLP: 1150.[address] of the brain was performed. The ventricles, basal cisterns and sulci overlying the cerebral convexities demonstrate mild enlargem ent. Left occipital remote infarct noted. There is no evidence for intracranial hemorrhage or sulcal effacement. There is decreased attenuation about the periventricular white matter and deep white matter of both c erebral hemispheres, compatible with chronic small vessel ischemia. Differential diagnosis does inclu de demyelination. No mass effects are seen.No midline shift. Osseous calvarium is intact. If symptoms persist consider MRI. IMPRESSION: 1. Age related atrophic and chronic small vessel ischemic change without acute intracranial process s een at this time.
--- NOTE | 2024-07-01 13:08 | CT ---
EXAMINATION TYPE: CT chest w con DATE OF EXAM: 06/30/2024 COMPARISON: 01/24/2024 HISTORY: ? lung nodule RLL CT DLP: 315 mGycm Automated exposure control for dose reduction was used. CONTRAST: CT scan of the chest is performed with IV Contrast, patient injected with 100 mL of Isovue 300. FINDINGS: LUNGS: There is a new pleural-based masslike density within the right lower lobe measuring 5.7 x 5.4 cm a couple of foci of internal air. There is also moderate airspace consolidation seen throughout th e right lower lobe. The findings could reflect necrotic pneumonia. Neoplasm is not excluded however. Strict clinical correlation is advised as well as appropriate follow-up following the therapeutic int ervention. The remainder of the lungs are clear. MEDIASTINUM: 1.8 cm subcarinal lymph node identified. Subcentimeter paratracheal lymph node seen. N o pericardial effusion is seen. Thoracic aorta is of normal caliber. The heart is not enlarged. UPPER ABDOMEN: No significant abnormality appreciated. OTHER: No additional significant abnormality is seen. IMPRESSION: 1. There is a new pleural-based masslike density within the right lower lobe measuring 5.7 x 5.4 cm a couple of foci of internal air. There is also moderate airspace consolidation seen throughout the ri ght lower lobe. The findings could reflect necrotic pneumonia. Neoplasm is not excluded however.
--- NOTE | 2024-07-01 13:56 | P.PN ---
Subjective Progress Note Date: 07/01/24 I am following-up with patient and he is accompanied with his son. Per the son the patient had multiple cysts in the past he thinks at least 4 or could be more and he does have right sided weakness as well as visual deficit from the stroke. The son stated the patient does have underlying history of seizure and the patient is on Keppra 500 mg twice daily. He stated that he thinks the patient is having a seizure every time he has an admission and he thinks he had a seizure in 4 times in the last 4 months and he thinks is probably once a month he is having a seizure. Objective - Vital Signs Vital signs: Vital Signs Temp 98.8 F 07/01/24 11:16 Pulse 83 07/01/24 13:01 Resp 20 07/01/24 11:16 BP 132/72 07/01/24 11:16 Pulse Ox 94 L 07/01/24 11:16 FiO2 35 06/29/24 04:26 Intake & Output 06/30/24 07/01/24 07/01/24 18:59 06:59 18:59 Intake Total 1580 Output Total 900 400 Balance 1580 -900 -400 Weight 48 kg 42 kg Intake: Intake, IV Titration 200 Amount Piperacillin-Tazobactam 3 200 .375 gm In Sodium Chloride 0.9% 100 ml @ 25 mls/hr IVPB Q[facility] Rx#: [id number] Oral 1380 Output: Urine 900 400 Other: Voiding Method Toilet Toilet Toilet Urinal Urinal # Voids 1 1 # Bowel Movements 1 - Exam General: Lying in bed and does not appear in acute distress. HENT: Supple neck. Neuro: Somewhat limited. The patient is awake alert oriented to self he correctly stated that he is in the hospital. He does not know the time. He is somewhat slow responding. Does appear aphasic from limited language The pupils are round equal reactive to light. The pupils are round 3 to 4 mm bilaterally. Visual tan is right homonymous hemianopsia to confrontation. Extraocular movements intact no nystagmus No facial weakness. Tongue is midline moves [id number] without any difficulty. Mild dysarthria. Motor: To assess individual muscle strength because of his cooperation but appears he has right sided weakness more than the left which seems old. Some of the workup during this hospital visit: Hospital visit patient's glucose level has been in the range of 200s to 300s. His AST is trending up was normal on presentation now it is 92. Also ALT was normal on presentation now it is 99 Ammonia level is less than 9 Lipid Panel is triglyceride is 61, cholesterol is 94, LDL is 42 and HDL is 39 Hemoglobin A1c is 9.1 Vitamin B12 is 546 Urine drug screen is positive for opiates and cannabinoids. Serum alcohol is less than 10 CT of the head on 06/28/2024 is reported as no acute hemorrhage, hydrocephalus or mass effect. Age-indeterminate right nasal bone fracture. CT cervical spine is reported as no acute fracture or subluxation. 2D echo was reported as left ventricular ejection fraction of 55%. No significant valve dysfunction. Chest x-ray shows right lower lung airspace opacity correlate for pneumonia. CT of the head is reported as age-related atrophy and chronic small vessel ischemic change without acute intracranial process seen at this time. I personally reviewed it and he has old left TANK COOPER stroke. CT chest is reported as there is new pleural-based masslike density within the right lower lobe ... For further could reflect a chronic pneumonia. Neoplasm is not excluded. - Labs CBC & Chem 7: 06/30/24 12:34 06/30/24 12:34 Labs: Abnormal Lab Results - Last 24 Hours (Table) 06/30/24 06/30/24 07/01/24 Range/Units 16:36 20:09 11:27 POC Glucose (mg/dL) 255 H 237 H 195 H (70-110) mg/dL Assessment and Plan Assessment: This is a 64-year-old gentleman with history of stroke in 2019 with residual right hemiparesis, diabetes mellitus, myocardial infarction who presents to the emergency department and 06/28/2024 from [facility] after a fall which was not witnessed and unsure exact cause. Patient is confused and he has a sugar level in the 200s to 300s during this admission. His AST and ALT is trending up. Chest x-ray shows questionable infiltrates. Altered mental status and likely metabolic encephalopathy. Repeat CT head is negative for acute or subacute stroke. New pleural-based masslike density in the right lower lobe could be necrotic pneumonia and neoplasm is not excluded on reported CT chest and [facility] is concerned about more of neoplasm Fall of unknown etiology and possible due to above History of seizures the patient is on Keppra and the son feels that the patient possibly had 4 seizures in the last 4-month and it is every time he is hospitalized he felt like he had a seizure. History of multiple strokes with residual right hemiparesis as well as right homonymous hemianposia Acute transaminitis Uncontrolled sugar and sugar has been in the range of 200-300 History of diabetes mellitus and his hemoglobin A1c is 9.1 History of myocardial infarction Plan: Thank MRI of the brain Routine EEG is completed today and preliminary report is negative for any seizure or discharges. I went up on his home Keppra from 500 to 1000 mg twice daily because of the son concerned about i having breakthrough seizures about 4 over in the last 4 months and that is when he is hospitalized. Will obtain a Keppra level. Patient is on aspirin 81 times daily started by cardiology team. He is resumed on his home dose of Plavix 75 mg daily. Continue neurochecks Cardiac monitoring PT, OT and [facility] are consulted. Pulmonary team is on board and spoke with the [facility] and he is concerned that the patient has lung mass Recommend Oncology consultation Will defer the rest of the medical management to primary and other specialist Overall condition is critical. The plan discussed with the patient, his son was at bedside and his nurse. Time with Patient: Less than 30
[2024-07-01] MEDS: HYDROcodone/APAP 5-325MG 1 EACH TAB PO PRN (15:09)
--- NOTE | 2024-07-01 15:17 | P.PN ---
Subjective Progress Note Date: 07/01/24 Principal diagnosis: Right lower lobe mass, highly suggestive of bronchogenic carcinoma This is a 64-year-old male patient, halfway resident, who came into the emergency department from [facility] on the leg after sustaining a fall. The exact circumstances and the cause of fall is not clear. The patient had facial injury. The fall was unwitnessed and the patient had some epistaxis. Based on that, he came into the emergency department. The patient had a CAT scan of the head and the cervical spine that showed no acute hemorrhage. There was a right nasal bone fracture. CAT scan of the face was also done and showed an acute nasal bone fracture. Chest x-ray also showed a new onset right lower lobe consolidation. The patient is currently on room air oxygen. Limits congested cough no significant sputum production. Is a poor historian. The white cell count of 14 with a heme of 13.3. Normal coagulation profile. BUN 24 with a creatinine of 1.12 sodium level is at 136. Hemodynamically stable and the patient is afebrile. Cardiac rhythm is sinus. Troponins were elevated with levels of 0.3 x 3 respectively. The EKG showed normal sinus rhythm with left ax is deviation. No ST segment elevation or depression. The patient accordingly will be seen by cardiology. Noted the patient's C the patient's proBNP elevated at 412. Liver function tests are essentially within normal limits. UA showing 11 WBCs, positive protein, alcohol level is less than 10. On a separate note, I reviewed records from the halfway and the patient was being treated with a course of antibiotics utilizing a combination of Augmentin and Zithromax given to him by the primary care physician. 06/29/2024, the patient is being seen for a follow-up., Comfortable remains on room air oxygen being treated for a pneumonia involving the lower lobes more so on the right. He is having some liquidy diarrhea the patient had 3 episodes. Currently on IV Zosyn. Will check stool for C. difficile. No nausea vomiting or abdominal pain. The white cell count 11.6 with a hemoglobin 11.9 and a platelet count of 274. Electrolytes show a potassium level of 2.9. Serum bicarbonate 28 with a BUN of 19 and a creatinine of 0.8. Reevaluated today on 06/30/2024, patient is doing well, on room air, no further episodes of epistaxis, denies having shortness of breath cough or wheezing, [facility] st x-ray is showing a masslike consolidation in the right lower lobe hence I am recommending a CT of the chest. In the meantime the patient is receiving antibiotics for presumptive community-acquired pneumonia. Patient is afebrile, WBC count 12.9 hemoglobin 12.3 electrolytes are normal renal profile is normal Patient was evaluated today on 07/01/2024, patient seems to be comfortable, not in distress, his CT of the chest is highly suggestive of bronchogenic carcinoma, CT of the brain showed age-related atrophic and chronic small vessel ischemia changes with old infarct left occipital area. At any rate patient is being followed by neurology for his mental status, I am quite concerned about his right lower lobe findings, would recommend further workup and possibly CT-guided needle biopsy or bronchoscopy and biopsy to evaluate for bronchogenic carcinoma or possibly necrotic or cavitary pneumonia in the right lower lobe. My clinical impression that this is more or less bronchogenic carcinoma unless proven otherwise. His procalcitonin level is normal hence infection is less likely Objective - Vital Signs Vital signs: Vital Signs Temp 98.8 F 07/01/24 11:16 Pulse 83 07/01/24 13:01 Resp 20 07/01/24 11:16 BP 132/72 07/01/24 11:16 Pulse Ox 94 L 07/01/24 11:16 FiO2 35 06/29/24 04:26 Intake & Output 06/30/24 07/01/24 07/01/24 18:59 06:59 18:59 Intake Total 1580 180 Output Total 900 400 Balance 1580 -900 -220 Weight 48 kg 42 kg Intake: Intake, IV Titration 200 Amount Piperacillin-Tazobactam 3 200 .375 gm In Sodium Chloride 0.9% 100 ml @ 25 mls/hr IVPB Q8H [facility] Rx#: [id number] Oral 1380 180 Output: Urine 900 400 Other: Voiding Method Toilet Toilet Toilet Urinal Urinal # Voids 1 1 # Bowel Movements 1 - Exam GENERAL EXAM: Reveals 64-year-old white male in no distress on room air HEAD: Normocephalic and atraumatic EYES: Normal reaction of pupils, equal size. NOSE: Clear with pink turbinates. Dried blood over the nasal passages and the nostrils. No evidence of any acute bleeding THROAT: No erythema or exudates. Dry mucous membranes NECK: No masses, no JVD. CHEST: No chest wall deformity. LUNGS: Equal air entry no wheeze, rhonchi or dullness. On room air. CVS: Distant S1-S2, no S3 gallop, no murmur. ABDOMEN: No hepatosplenomegaly, active bowel sounds, no guarding or rigidity. SKIN: No rashes CENTRAL NERVOUS SYSTEM: Alert oriented x 3 but the patient is slow and is a very poor historian EXTREMITIES: No clubbing edema or cyanosis - Labs CBC & Chem 7: 06/30/24 12:34 06/30/24 12:34 Labs: Abnormal Lab Results - Last 24 Hours (Table) 06/30/24 06/30/24 07/01/24 Range/Units 16:36 20:09 11:27 POC Glucose (mg/dL) 255 H 237 H 195 H (70-110) mg/dL Assessment and Plan Assessment: Impression Acute right nasal bone fractures secondary to fall Right lower lobe masslike highly suspicious for bronchogenic carcinoma with negative procalcitonin level. Leukocytosis, mild Diarrhea, rule out C. difficile colitis Abnormal troponin leak under investigation Generalized weakness and dehydration Diabetes mellitus type 2, insulin-dependent, complicated by diabetic neuropathy Hyperlipidemia Hypertension History of CVA, with residual memory impairment and visual impairment History of seizure disorder, managed on Keppra History of hepatitis C status/post treatment Former tobacco smoker Recommendation: Continue Zosyn Continue IV fluids for his diarrhea and conservative measures, his C. difficile screen is negative Will arrange for CT-guided needle biopsy, if declined to be done by interventional radiology, will arrange for bronchoscopy although the yield from CT-guided needle biopsy considering the mass is abutting the pleural surface is much higher Patient is being followed by neurology for his altered mental status and mild metabolic encephalopathy rule out acute stroke, head CT is negative for acute process Will continue to follow-up Time with Patient: Less than 30
--- NOTE | 2024-07-01 15:22 | P.PN ---
Subjective Progress Note Date: 06/30/24 Principal diagnosis: Reason for follow-up is pneumonia Patient is a 64-year-old male with a past medical history significant for diabetes mellitus and [place] CVA former smoker has been brought to the hospital after apparently the patient have a fall with facial injury, patient also noticed to have right lower lung airspace disease concerning for pneumonia prompting this consultation. On today's evaluation that is 06/30/2024, Patient is afebrile patient is currently on room air and denies having any shortness of breath, the patient denies any chest pain or worsening cough, the patient denies any nausea vomiting did not have any abdominal pain and no diarrhea. Patient white count is 12.9, creatinine 0.78 Objective - Vital Signs Vital signs: Vital Signs Temp 98.5 F 06/30/24 08:00 Pulse 99 06/30/24 08:00 Resp 20 06/30/24 08:00 BP 127/66 06/30/24 08:00 Pulse Ox 95 06/30/24 09:07 FiO2 35 06/29/24 04:26 Intake & Output 06/29/24 06/30/24 06/30/24 18:59 06:59 18:59 Intake Total 838 550 240 Output Total 650 Balance 838 -100 240 Weight 48 kg Intake: IV 10 Invasive Line 1 10 Oral 838 540 240 Output: Urine 650 Other: Voiding Method Toilet Toilet Toilet # Voids 2 # Bowel Movements 1 - Exam GENERAL DESCRIPTION: An elderly male lying in bed in no distress RESPIRATORY SYSTEM: Unlabored breathing , decreased breath sounds at bases HEART: S1 S2 regular rate and rhythm , ABDOMEN: Soft , no tenderness EXTREMITIES: No edema feet - Labs CBC & Chem 7: 06/30/24 12:34 06/30/24 12:34 Labs: Abnormal Lab Results - Last 24 Hours (Table) 06/28/24 06/29/24 06/29/24 Range/Units 10:31 16:22 20:30 WBC (3.8-10.6) k/uL RBC (4.30-5.90) m/uL Hgb (13.0-17.5) gm/dL Hct (39.0-53.0) % POC Glucose (mg/dL) 312 H 280 H (70-110) mg/dL Urine Opiates Screen Positive A (Negative) U Cannabinoids Screen Positive A (Negative) 06/30/24 06/30/24 06/30/24 Range/Units 06:33 11:41 12:34 WBC 12.9 H (3.8-10.6) k/uL RBC 4.23 L (4.30-5.90) m/uL Hgb 12.3 L (13.0-17.5) gm/dL Hct 36.9 L (39.0-53.0) % POC Glucose (mg/dL) 346 H 313 H (70-110) mg/dL Urine Opiates Screen (Negative) U Cannabinoids Screen (Negative) Assessment and Plan (1) Pneumonia Current Visit: Yes Status: Acute Code(s): J18.9 - PNEUMONIA, UNSPECIFIED ORGANISM SNOMED Code(s): 961051892 Plan: 1patient presented to hospital with fall also complaining of shortness of breath he did have a cough with some sputum production chest x-ray with right lower lobe infiltrate did have elevated white count concerning for pneumonia likely community-acquired aspiration pneumonia not entirely excluded 2-patient white count is trending down, patient to continue with Zosyn 3.375 g every 8 hours try to obtain a sputum to narrow down on antibiotics Dictation was produced using [employer] dictation software. please excuse any grammatical, word or spelling errors. Time with Patient: Less than 30
--- NOTE | 2024-07-01 15:24 | P.PN ---
Subjective Progress Note Date: 07/01/24 Principal diagnosis: Reason for follow-up is pneumonia Patient is a 64-year-old male with a past medical history significant for diabetes mellitus and [place] CVA former smoker has been brought to the hospital after apparently the patient have a fall with facial injury, patient also noticed to have right lower lung airspace disease concerning for pneumonia prompting this consultation. On today's evaluation that is 07/01/2024, patient has been afebrile, patient is breathing comfortably and is currently on room air, patient denies having any significant cough no chest pain shortness of breath, patient denies nausea vomiting or diarrhea and no abdominal pain. No new labs has been obtained today patient did have a CT of the chest concerning for right lower lobe mass concerning for necrotic pneumonia with the foci of internal air Objective - Vital Signs Vital signs: Vital Signs Temp 98.8 F 07/01/24 11:16 Pulse 83 07/01/24 13:01 Resp 20 07/01/24 11:16 BP 132/72 07/01/24 11:16 Pulse Ox 94 L 07/01/24 11:16 FiO2 35 06/29/24 04:26 Intake & Output 06/30/24 07/01/24 07/01/24 18:59 06:59 18:59 Intake Total 1580 180 Output Total 900 400 Balance 1580 -900 -220 Weight 48 kg 42 kg Intake: Intake, IV Titration 200 Amount Piperacillin-Tazobactam 3 200 .375 gm In Sodium Chloride 0.9% 100 ml @ 25 mls/hr IVPB Q8H [facility] Rx#: [id number] Oral 1380 180 Output: Urine 900 400 Other: Voiding Method Toilet Toilet Toilet Urinal Urinal # Voids 1 1 # Bowel Movements 1 - Exam GENERAL DESCRIPTION: An elderly male lying in bed in no distress RESPIRATORY SYSTEM: Unlabored breathing , decreased breath sounds at bases HEART: S1 S2 regular rate and rhythm , ABDOMEN: Soft , no tenderness EXTREMITIES: No edema feet - Labs CBC & Chem 7: 06/30/24 12:34 06/30/24 12:34 Labs: Abnormal Lab Results - Last 24 Hours (Table) 06/30/24 06/30/24 07/01/24 Range/Units 16:36 20:09 11:27 POC Glucose (mg/dL) 255 H 237 H 195 H (70-110) mg/dL Assessment and Plan (1) Pneumonia Current Visit: Yes Status: Acute Code(s): J18.9 - PNEUMONIA, UNSPECIFIED ORGANISM SNOMED Code(s): 648722091 Plan: 1patient presented to hospital with fall also complaining of shortness of breath he did have a cough with some sputum production chest x-ray with right lower lobe infiltrate did have elevated white count concerning for pneumonia likely community-acquired aspiration pneumonia not entirely excluded 2-patient did have significant normality on the right lower lobe on the chest CT IR has been consulted for biopsy versus bronchoscopy and biopsy of the pulmonary following the patient continue with Zosyn while waiting for the workup to be completed Dictation was produced using [employer] dictation software. please excuse any grammatical, word or spelling errors. Time with Patient: Less than 30
[2024-07-01 16:16] LABS: Glucose,Whole Blood 417 mg/dL (70-110)
[2024-07-01 17:01] LABS: Glucose,Whole Blood 459 mg/dL (70-110)
--- NOTE | 2024-07-01 18:50 | P.PN ---
Subjective Progress Note Date: 06/30/24 HISTORY OF PRESENT ILLNESS: This is a 64-year-old male with a previous medical history significant for diabetes mellitus type 1 insulin requiring, hypertension and hypertensive heart vascular disease, mixed hyperlipidemia, history of seizure disorder, 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, patient has been residing at [facility] on [facility] for quite some times, his sugar has been very uncontrolled due to the patient noncompliance with the diet and taking his insulin, apparently the patient developed to have a significant mental status changes with significant diaphoresis few days prior to the admission at that time laboratory evaluation was obtained and patient showed a white count of 20,000, at that time I started the patient on oral antibiotic in the form of Augmentin after obtaining chest x-ray that showed right lower lobe infiltrate, suggestive of possible aspiration pneumonia, his urinalysis did not show evidence of acute abnormalities, apparently the patient had fallen that day off the bed and he was found on the floor the fall was unwitnessed and the patient did have minimal bruising from his nose, and he cut his lip, and he was having some epistaxis at that time I sent the patient to the emergency department at [facility] where he was evaluated by CT scan of the brain did not show evidence of acute infarct or bleed, had a CT scan of the cervical spine negative for fracture CT of the facial bones showed nasal bone fracture, his chest x-ray did show evidence of right lower lobe infiltrate, initially was started on Zosyn 3.375 g piggyback every 8 hours, he was seen in consultation by pulmonary medicine as well as by infectious disease, sputum culture was obtained, and the patient also was seen in consultation by cardiology because the patient troponin was slightly elevated apparently the patient was admitted to the hospital for metabolic toxic encephalopathy likely due to right lower lobe pneumonia likely community-acquired pneumonia, patient was kept on Zosyn at that time, he was seen as a said by cardiology who kept him on aspirin and atorvastatin, and then he was seen also in consultation by neurology who recommended for the patient to have a CT scan of the brain again that did not show evidence of acute abnormalities this was followed by an MRI of the brain that is still pending at the time of dictation. Patient was admitted through the weekend under the hospitalist service. 06/30: Patient is laying down in bed in no apparent distress, he continues to be a bit slower than normal, but he has been feeling as having poor appetite, patient also also was only taking the sliding scale insulin, he was started back on his Levemir 23 units at bedtime along with 4 units before each meal along with a sliding scale insulin, he was maintained on current treatment plan, and patient will be seen in consultation by physical therapy and Occupational Therapy most likely the patient will be able to be transferred back to [facility] on the [place] in the next 1 or 2 days, meanwhile we will continue to monitor the patient very closely and follow-up with the patient very closely as well. REVIEW OF SYSTEMS Constitutional: no fever, no chills, no night sweats. No weight change. positive for weakness, fatigue or lethargy. No daytime sleepiness. HEENT: No headache. No blurred vision or double vision, no loss of vision. No loss of Hearing, no ringing in the ears, no dizziness. No nasal drainage or congestion. No epistaxis. No sore throat. Lungs: positive for shortness of breath,no cough, no sputum production. No w heezing. Cardiovascular: No chest pain, no lower extremity edema. No palpitations. No paroxysmal nocturnal dyspnea. No orthopnea. No lightheadedness or dizziness. No syncopal episodes. Abdominal: No abdominal pain. positive for nausea,no vomiting. No diarrhea. No constipation. No bloody or tarry stools. loss of appetite. Genitourinary: No dysuria, increased frequency, urgency. No urinary retention. Musculoskeletal: No myalgias.positive for muscle weakness, positive for gait dysfunction, frequent falls. No back pain. No neck pain. Integumentary: No wounds. No rash or pruritus. No unusual bruising. No change in hair or nails. Neurologic: No aphasia. No facial droop. No change in mentation. No head injury. No headache. No paralysis. No paresthesia. Psychiatric:positive for depression. No anxiety. No mood swings, CHI signs Endocrine: abnormal blood sugars. No weight change. No excessive sweating or thirst. No cold intolerance. PHYSICAL EXAMINATION Gen: This is a 64-year-old male laying down in bed in no apparent distress. HEENT: Head is atraumatic, normocephalic. Pupils equal, round. Sclerae is anicteric. NECK: Supple. No JVD. No lymphadenopathy. No thyromegaly. LUNGS: Decreased breath sounds at the bases. few Rhonchi, no expiratory wheezes, no chest wall tenderness, no intercostal retractions. HEART: first heart sound is depressed, second heart sounds normal, there is no gallop or murmur. ABDOMEN: Soft, nontender, nondistended, positive bowel sounds. EXTREMITIES: There is no edema, no calf tenderness, or sinus pedis +2 bilaterally. NEUROLOGICAL: Patient is awake, alert and oriented x3. Cranial nerves 2 through 12 are grossly intact, muscle power 4 out of 5 in upper extremities and 4 out of 5 in bilateral lower extremity is. ASSESSMENT AND PLAN 1. Acute toxic metabolic encephalopathy likely due to right lower lobe pneumoni a with sepsis rule out acute ischemic event. Patient has been seen in consultation by neurology who recommended to go for MRI of the brain with and without gadolinium he has been on aspirin 81 mg once every day, atorvastatin 40 mg once every day, we will continue to monitor the patient very closely, continue patient on Zosyn 3.375 g piggyback every 8 hours, obtain the final result of the sputum culture. 2. Elevated troponin likely due to type II SC secondary to sepsis. No evidence of acute coronary syndrome continue patient on aspirin 81 g once every day, atorvastatin 40 mg once every day, cardiology has been following. Patient underwent echocardiogram that showed evidence of ejection fraction 55%, with no significant valvular abnormalities 3. Leukocytosis likely due to right lower lobe pneumonia with sepsis. Patient has been followed by pulmonary medicine, continue IV antibiotic for now. 4. Hypertension and hypertensive cardiovascular disease. Continue patient on losartan 50 mg once every day, metoprolol 25 mg orally twice every day. 5. Mixed hyperlipidemia. Continue patient on atorvastatin 80 mg once every day, monitor lipid panel, keep LDL 55-70. 6. History of CVA in the past continue patient on atorvastatin 40 mg once every day as well as Plavix 75 mg orally once every day and aspirin 81 mg once every day as well. MRI of the brain still pending. 7. Diabetes mellitus type 1. Patient may have converted to type I. patient was switched to Levemir 23 units at bedtime along with Humalog 4 units before each meal 3 times every day and a sliding scale insulin. 8. Gastroparesis. We will continue patient on metoprolol clopamide 5 mg orally 3 times every day before meals. 9. History of seizure disorder. Continue patient on Keppra 1000 mg orally twice every day. 10. History of closed head injury. Stable. 11. History of hepatitis C. with a prior liver lesion suggestive of possible hepatoma patient was seen in consultation by [facility] liver clinic and he was supposed to have a repeated MRI of the liver in July we will try to obtain ev al the patient in the hospital. 12. DVT prophylaxis. Lovenox 40 mg subcutaneously every 24 hours. 13. GI prophylaxis. Continue Protonix 40 mg orally once every day. 14. Nasal fracture. Stable at this time. 15. Medical debility. Physical therapy evaluation. 16. Enlarged prostate. Continue tamsulosin 0.4 mg once every day. 17. black off worker consultation for discharge planning Objective - Vital Signs Vital signs: Vital Signs Temp 98.5 F 06/30/24 08:00 Pulse 99 06/30/24 08:00 Resp 20 06/30/24 08:00 BP 127/66 06/30/24 08:00 Pulse Ox 95 06/30/24 09:07 FiO2 35 06/29/24 04:26 Intake & Output 06/29/24 06/30/24 06/30/24 18:59 06:59 18:59 Intake Total 838 550 240 Output Total 650 Balance 838 -100 240 Weight 48 kg Intake: IV 10 Invasive Line 1 10 Oral 838 540 240 Output: Urine 650 Other: Voiding Method Toilet Toilet Toilet # Voids 2 # Bowel Movements 1 - Labs CBC & Chem 7: 06/30/24 12:34 06/30/24 12:34 Labs: Abnormal Lab Results - Last 24 Hours (Table) 06/28/24 06/29/24 06/29/24 Range/Units 10:31 16:22 20:30 WBC (3.8-10.6) k/uL RBC (4.30-5.90) m/uL Hgb (13.0-17.5) gm/dL Hct (39.0-53.0) % POC Glucose (mg/dL) 312 H 280 H (70-110) mg/dL Urine Opiates Screen Positive A (Negative) U Cannabinoids Screen Positive A (Negative) 06/30/24 06/30/24 06/30/24 Range/Units 06:33 11:41 12:34 WBC 12.9 H (3.8-10.6) k/uL RBC 4.23 L (4.30-5.90) m/uL Hgb 12.3 L (13.0-17.5) gm/dL Hct 36.9 L (39.0-53.0) % POC Glucose (mg/dL) 346 H 313 H (70-110) mg/dL Urine Opiates Screen (Negative) U Cannabinoids Screen (Negative)
--- NOTE | 2024-07-01 18:53 | P.PN ---
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, patient has been residing at [facility] for quite some times, his sugar has been very uncontrolled due to the patient noncompliance with the diet and taking his insulin, apparently the patient developed to have a significant mental status changes with significant diaphoresis few days prior to the admission at that time laboratory evaluation was obtained and patient showed a white count of 20,000, at that time I started the patient on oral antibiotic in the form of Augmentin after obtaining chest x-ray that showed right lower lobe infiltrate, suggestive of possible aspiration pneumonia, his urinalysis did not show evidence of acute abnormalities, apparently the patient had fallen that day off the bed and he was found on the floor the fall was unwitnessed and the patient did have minimal bruising from his nose, and he cut his lip, and he was having some epistaxis at that time I sent the patient to the emergency department at [facility] where he was evaluated by CT scan of the brain did not show evidence of acute infarct or bleed, had a CT scan of the cervical spine negative for fracture CT of the facial bones showed nasal bone fracture, his chest x-ray did show evidence of right lower lobe infiltrate, initially was started on Zosyn 3.375 g piggyback every 8 hours, he was seen in consultation by pulmonary medicine as well as by infectious disease, sputum culture was obtained, and the patient also was seen in consultation by cardiology because the patient troponin was slightly elevated apparently the patient was admitted to the hospital for metabolic toxic encephalopathy likely due to right lower lobe pneumonia likely community-acquired pneumonia, patient was kept on Zosyn at that time, he was seen as a said by cardiology who kept him on aspirin and atorvastatin, and then he was seen also in consultation by neurology who recommended for the patient to have a CT scan of the brain again that did not show evidence of acute abnormalities this was followed by an MRI of the brain that is still pending at the time of dictation. Patient was admitted through the weekend under the hospitalist service. 06/30: Patient is laying down in bed in no apparent distress, he continues to be a bit slower than normal, but he has been feeling as having poor appetite, patient also also was only taking the sliding scale insulin, he was started back on his Levemir 23 units at bedtime along with 4 units before each meal along with a sliding scale insulin, he was maintained on current treatment plan, and patient will be seen in consultation by physical therapy and Occupational Therapy most likely the patient will be able to be transferred back to [facility] on the [facility] in the next 1 or 2 days, meanwhile we will continue to monitor the patient very closely and follow-up with the patient very closely as well. 07/01: Patient is laying down in bed in no apparent distress, he is more awake and more alert today, he is eating better today, he has been doing better, however his blood glucose level is quite elevated today, he has brought blood glucose level in the morning was about 78, will continue Levemir 23 units, continue with a sliding scale insulin as well, monitor the patient very closely, patient underwent CT scan of the chest with contrast that showed evidence of 5.7 x 5.4 centimeter masslike density with a few air foci in the air suggestive of either necrotizing pneumonia versus neoplasm, patient has been on Zosyn at this point, has been followed by pulmonary medicine, will continue with this, will discuss with pulmonary team whether or not the patient will need to have more aggressive treatment, sputum cultures will need to be collected, MRI of the brain was done still pending at the time of dictation. MRI of the abdomen still pending at the time of dictation. REVIEW OF SYSTEMS Constitutional: no fever, no chills, no night sweats. No weight change. positive for weakness, fatigue or lethargy. No daytime sleepiness. HEENT: No headache. No blurred vision or double vision, no loss of vision. No loss of Hearing, no ringing in the ears, no dizziness. No nasal drainage or congestion. No epistaxis. No sore throat. Lungs: positive for shortness of breath,no cough, no sputum production. No wheezing. Cardiovascular: No chest pain, no lower extremity edema. No palpitations. No paroxysmal nocturnal dyspnea. No orthopnea. No lightheadedness or dizziness. No syncopal episodes. Abdominal: No abdominal pain. positive for nausea,no vomiting. No diarrhea. No constipation. No bloody or tarry stools. loss of appetite. Genitourinary: No dysuria, increased frequency, urgency. No urinary retention. Musculoskeletal: No myalgias.positive for muscle weakness, positive for gait dysfunction, frequent falls. No back pain. No neck pain. Integumentary: No wounds. No rash or pruritus. No unusual bruising. No change in hair or nails. Neurologic: No aphasia. No facial droop. No change in mentation. No head injury. No headache. No paralysis. No paresthesia. Psychiatric:positive for depression. No anxiety. No mood swings, CHI signs Endocrine: abnormal blood sugars. No weight change. No excessive sweating or thirst. No cold intolerance. PHYSICAL EXAMINATION Gen: This is a 64-year-old male laying down in bed in no apparent distress. HEENT: Head is atraumatic, normocephalic. Pupils equal, round. Sclerae is anicteric. NECK: Supple. No JVD. No lymphadenopathy. No thyromegaly. LUNGS: Decreased breath sounds at the bases. few Rhonchi, no expiratory wheezes, no chest wall tenderness, no intercostal retractions. HEART: first heart sound is depressed, second heart sounds normal, there is no gallop or murmur. ABDOMEN: Soft, nontender, nondistended, positive bowel sounds. EXTREMITIES: There is no edema, no calf tenderness, or sinus pedis +2 bilaterally. NEUROLOGICAL: Patient is awake, alert and oriented x3. Cranial nerves 2 through 12 are grossly intact, muscle power 4 out of 5 in upper extremities and 4 out of 5 in bilateral lower extremity is. ASSESSMENT AND PLAN 1. Acute toxic metabolic encephalopathy likely due to right lower lobe pneumonia with sepsis rule out acute ischemic event. Patient has been seen in consultation by neurology who recommended to go for MRI of the brain with and without gadolinium he has been on aspirin 81 mg once every day, Plavix 75 mg once every day, atorvastatin 40 mg once every day, we will continue to monitor the patient very closely, continue patient on Zosyn 3.375 g piggyback every 8 hours, obtain the final result of the sputum culture. 2. Elevated troponin likely due to type II MT secondary to sepsis. No evidence of acute coronary syndrome continue patient on aspirin 81 g once every day, atorvastatin 40 mg once every day, metoprolol 25 mg orally twice every day cardiology has been following. Patient underwent echocardiogram that showed evidence of ejection fraction 55%, with no significant valvular abnormalities 3. Leukocytosis likely due to right lower lobe pneumonia with sepsis. Patient has been followed by pulmonary medicine, continue IV antibiotic for now. 4. Hypertension and hypertensive cardiovascular disease. Continue patient on losartan 50 mg once every day, metoprolol 25 mg orally twice every day. 5. Mixed hyperlipidemia. Continue patient on atorvastatin 80 mg once every day, monitor lipid panel, keep LDL 55-70. 6. History of CVA in the past continue patient on atorvastatin 40 mg once every day as well as Plavix 75 mg orally once every day and aspirin 81 mg once every day as well. MRI of the brain still pending. 7. Diabetes mellitus type 1. Patient may have converted to type I. patient was switched to Levemir 23 units at bedtime along with Humalog 4 units before each meal 3 times every day and a sliding scale insulin. 8. Gastroparesis. We will continue patient on metoprolol clopamide 5 mg orally 3 times every day before meals. 9. History of seizure disorder. Continue patient on Keppra 1000 mg orally twice every day. 10. Right lower lobe masslike density 5.7 x 5.4 cm possible necrotizing pneumonia versus neoplasm. Obtain carcinoembryonic antigen, continue IV antibiotic will discuss with pulmonary medicine. I will try to obtain sputum culture again. 11. History of hepatitis C. with a prior liver lesion suggestive of possible hepatoma patient was seen in consultation by [facility] liver clinic and he was supposed to have a repeated MRI of the liver in July we will try to obtain eval the patient in the hospital. 12. DVT prophylaxis. Lovenox 40 mg subcutaneously every 24 hours. 13. GI prophylaxis. Continue Protonix 40 mg orally once every day. 14. Nasal fracture. Stable at this time. 15. Medical debility. Physical therapy evaluation. 16. Enlarged prostate. Continue tamsulosin 0.4 mg once every day. 17. 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 Objective - Vital Signs Vital signs: Vital Signs Temp 98.2 F 07/01/24 15:00 Pulse 98 07/01/24 15:00 Resp 20 07/01/24 15:00 BP 133/70 07/01/24 15:00 Pulse Ox 95 07/01/24 15:00 FiO2 35 06/29/24 04:26 Intake & Output 06/30/24 07/01/24 07/01/24 18:59 06:59 18:59 Intake Total 1580 360 Output Total 900 700 Balance 1580 -900 -340 Weight 48 kg 42 kg Intake: Intake, IV Titration 200 Amount Piperacillin-Tazobactam 3 200 .375 gm In Sodium Chloride 0.9% 100 ml @ 25 mls/hr IVPB Q8H [facility] Rx#: [id number] Oral 1380 360 Output: Urine 900 700 Other: Voiding Method Toilet Toilet Toilet Urinal Urinal # Voids 1 1 # Bowel Movements 1 - Labs CBC & Chem 7: 06/30/24 12:34 06/30/24 12:34 Labs: Abnormal Lab Results - Last 24 Hours (Table) 06/30/24 07/01/24 07/01/24 Range/Units 20:09 11:27 16:15 POC Glucose (mg/dL) 237 H 195 H 417 H (70-110) mg/dL 07/01/24 Range/Units 17:00 POC Glucose (mg/dL) 459 H (70-110) mg/dL
--- NOTE | 2024-07-01 19:36 | MR ---
EXAMINATION TYPE: MR brain wo con DATE OF EXAM: 07/01/2024 COMPARISON: CT brain 07/10/2024 HISTORY: confusion. r/o stroke CONTRAST: Performed utilizing 0 mL intravenous Gadavist gadolinium contrast. TECHNIQUE: Multiplanar, multiecho imaging on a 3.0 Laura magnet is performed through the brain. Stud y is performed within 24 hours of arrival to the hospital. The craniovertebral junction is normal. The pituitary is normal. Diffusion-weighted imaging is performed. No abnormal hyperintensity is present to suggest an acute i ntracranial infarct or acute ischemic change. There is an old left occipital lobe infarct. There is some hypodensity within the left cerebral peduncle compatible some wallerian degeneration. Periventricular white matter hyperintensity is present best visualized on the inversion recovery weig hted sequences likely on the basis of chronic white matter ischemic change. There is a 1.5 x 0.9 cm a renny perpendicular to the left lateral ventricle in the centrum semiovale. This is nonspecific and can be related to microvascular ischemic change. Multiple sclerosis should be considered within the diff erential. White matter changes are present bilaterally. Largest on the right measures 0.6 cm in the r ight centrum semiovale. Ventricles and sulci are somewhat prominent for the patient age. IMPRESSION: 1. No acute intracranial process radiographically apparent. Chronic appearing changes appear stable f rom the CT exam. 2. Periventricular chronic appearing white matter ischemic-type changes. Differential diagnosis shoul d include multiple sclerosis. 3. Age-related atrophy
--- NOTE | 2024-07-01 20:03 | EEG ---
ELECTROENCEPHALOGRAM REPORT CLINICAL HISTORY: This is a 64-year-old gentleman with history of seizure, stroke with altered mental status. The video EEG is obtained to evaluate for seizure epileptiform activity. RELEVANT MEDICATION: Keppra. EEG TYPE: A routine 21-channel EEG with video using the 10/20 electrode placement system. DESCRIPTION: Wakefulness and drowsiness are obtained. During awake state, the background consists of low to moderate voltage of 5.5 to 6 hertz activity. There is no physiological stage 2 sleep architecture. There is no focal slowing. Interictal and ictal is none. ACTIVATION PROCEDURE: Photic stimulation did not evoke a posterior driving response. There is no abnormality during the photic stimulation. Hyperventilation is not performed. CLINICAL INTERPRETATION: This is an abnormal routine EEG. The background slowing is suggestive of moderate encephalopathy, likely due to toxic metabolic derangement. Otherwise, there is no focal slowing, epileptiform discharge, or seizure on the EEG. Clinical correlation is recommended. DONOVAN / AN: [id number] / MTDD
[2024-07-01 20:15] LABS: Glucose,Whole Blood 281 mg/dL (70-110)
[2024-07-01] MEDS: ENOXAPARIN 40 MG/0.4 ML SYRINGE SQ SCH (21:28)
[2024-07-01] MEDS: levETIRAcetam 500 MG TAB PO SCH (21:28)
[2024-07-02 06:37] LABS: Glucose,Whole Blood 86 mg/dL (70-110)
[2024-07-02 09:07] LABS: Basophils % (A) 0 %; Eosinophils # (A) 0.1 k/uL (0-0.7); Eosinophils % (A) 1 %; Lymphocytes # (A) 1.4 k/uL (1.0-4.8); Lymphocytes % (A) 14 %; MCH 28.9 pg (25.0-35.0); MCHC 34.2 g/dL (31.0-37.0); MCV 84.6 fL (80.0-100.0); Mean Platelet Volume 7.8; Monocytes # (A) 0.9 k/uL (0-1.0); Monocytes % (A) 9 %; Neutrophils # (A) 7.8 k/uL (1.3-7.7); Neutrophils % (A) 74 %; Platelet Count 332 k/uL (150-450); RBC 4.14 m/uL (4.30-5.90); RDW 13.6 % (11.5-15.5); WBC 10.4 k/uL (3.8-10.6)
[2024-07-02 09:46] LABS: ALT 71 U/L (4-49); AST 47 U/L (17-59); African American GFR (CKD) >90 (>60 ml/min/1.73 sqM); Albumin 3.1 g/dL (3.5-5.0); Alkaline Phosphatase 69 U/L (38-126); Anion Gap 8 mmol/L; Blood Urea Nitrogen 5 mg/dL (9-20); Calcium 8.7 mg/dL (8.4-10.2); Carbon Dioxide 30 mmol/L (22-30); Chloride 99 mmol/L (98-107); Glucose 141 mg/dL (74-99); Magnesium 1.6 mg/dL (1.6-2.3); Non-African American GFR(CKD) >90 (>60 ml/min/1.73 sqM); Sodium 137 mmol/L (137-145); Total Bilirubin 0.8 mg/dL (0.2-1.3); Total Protein 5.8 g/dL (6.3-8.2)
[2024-07-02] MEDS: POTASSIUM CHLORIDE ER 20 MEQ TAB.ER PO SCH (10:07)
[2024-07-02 11:43] LABS: Glucose,Whole Blood 210 mg/dL (70-110)
--- NOTE | 2024-07-02 13:15 | P.PN ---
Subjective Progress Note Date: 07/02/24 I am following-up with patient and per the nurse, is about the same. No seizure-like activities. Objective - Vital Signs Vital signs: Vital Signs Temp 98.6 F 07/02/24 11:00 Pulse 90 07/02/24 11:00 Resp 16 07/02/24 11:00 BP 155/77 07/02/24 11:00 Pulse Ox 96 07/02/24 11:00 FiO2 35 06/29/24 04:26 Intake & Output 07/01/24 07/02/24 07/02/24 18:59 06:59 18:59 Intake Total 360 540 Output Total 700 700 275 Balance -340 -160 -275 Weight 64.6 kg Intake: Oral 360 540 Output: Urine 700 700 275 Other: Voiding Method Toilet Toilet Toilet Urinal Urinal Urinal # Voids 1 # Bowel Movements 1 - Exam General: Lying in bed and does not appear in acute distress. HENT: Supple neck. Neuro: Somewhat limited. The patient is awake alert oriented to self he correctly stated that he is in the hospital. He stated the state is [place]. He is following simple commands. The pupils are round equal reactive to light. The pupils are round 3 to 4 mm bilaterally. Visual tan is right homonymous hemianopsia to confrontation. Extraocular movements intact no nystagmus No facial weakness. Tongue is midline moves [id number] without any difficulty. Mild dysarthria. Motor: To assess individual muscle strength because of his cooperation but appears he has right sided weakness more than the left which seems old. Some of the workup during this hospital visit: Hospital visit patient's glucose level has been in the range of 200s to 300s. His AST is trending up was normal on presentation now it is 92. Also ALT was normal on presentation now it is 99 Ammonia level is less than 9 Lipid Panel is triglyceride is 61, cholesterol is 94, LDL is 42 and HDL is 39 Hemoglobin A1c is 9.1 Vitamin B12 is 546 Urine drug screen is positive for opiates and cannabinoids. Serum alcohol is less than 10 CT of the head on 06/28/2024 is reported as no acute hemorrhage, hydrocephalus or mass effect. Age-indeterminate right nasal bone fracture. CT cervical spine is reported as no acute fracture or subluxation. 2D echo was reported as left ventricular ejection fraction of 55%. No significant valve dysfunction. Chest x-ray shows right lower lung airspace opacity correlate for pneumonia. CT of the head is reported as age-related atrophy and chronic small vessel ischemic change without acute intracranial process seen at this time. 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 CT chest is reported as there is new pleural-based masslike density within the right lower lobe ... For further could reflect a chronic pneumonia. Neoplasm is not excluded. Routine EEG: Is abnormal. The background slowing is suggestive of moderate encephalopathy, likely due to toxic-metabolic derangement. Otherwise, there is no focal slowing, epileptiform discharge or seizure on the EEG. MRI of the brain is reported as no acute intracranial process radiographically apparent. Chronic appearing changes appear stable from the CT. Periventricular chronic appearing white matter ischemic type changes. Differential diagnosis should include multiple sclerosis. I personally reviewed the MRI and I agree there is no acute or subacute stroke. I personally reviewed the MRI and I am not convinced patient has demyelinating disease and I feel this is more chronic microvascular disease - Labs CBC & Chem 7: 07/02/24 08:42 07/02/24 08:42 Labs: Abnormal Lab Results - Last 24 Hours (Table) 07/01/24 07/01/24 07/01/24 Range/Units 16:15 17:00 20:13 RBC (4.30-5.90) m/uL Hgb (13.0-17.5) gm/dL Hct (39.0-53.0) % Neutrophils # (1.3-7.7) k/uL Potassium (3.5-5.1) mmol/L BUN (9-20) mg/dL Glucose (74-99) mg/dL POC Glucose (mg/dL) 417 H 459 H 281 H (70-110) mg/dL ALT (4-49) U/L Total Protein (6.3-8.2) g/dL Albumin (3.5-5.0) g/dL 07/02/24 07/02/24 07/02/24 Range/Units 08:42 08:42 11:41 RBC 4.14 L (4.30-5.90) m/uL Hgb 12.0 L (13.0-17.5) gm/dL Hct 35.0 L (39.0-53.0) % Neutrophils # 7.8 H (1.3-7.7) k/uL Potassium 3.0 L (3.5-5.1) mmol/L BUN 5 L (9-20) mg/dL Glucose 141 H (74-99) mg/dL POC Glucose (mg/dL) 210 H (70-110) mg/dL ALT 71 H (4-49) U/L Total Protein 5.8 L (6.3-8.2) g/dL Albumin 3.1 L (3.5-5.0) g/dL Assessment and Plan Assessment: This is a 64-year-old gentleman with history of stroke in 2019 with residual right hemiparesis, diabetes mellitus, myocardial infarction who presents to the emergency department and 06/28/2024 from [facility] after a fall which was not witnessed and unsure exact cause. Patient is confused and he has a sugar level in the 200s to 300s during this admission. His AST and ALT is trending up. Chest x-ray shows questionable infiltrates. Altered mental status and likely metabolic encephalopathy. MRI Brain is negative for acute or subacute ischemic stroke. Routine EEG is negative for seizure or discharges New pleural-based masslike density in the right lower lobe could be necrotic pneumonia and neoplasm is not excluded on reported CT chest and tube making machine operator is concerned about more of neoplasm Fall of unknown etiology and possible due to above History of seizures the patient is on Keppra and the son feels that the patient possibly had 4 seizures in the last 4-month and it is every time he is hospital ized he felt like he had a seizure. Probably provoked History of multiple strokes with residual right hemiparesis as well as right homonymous hemianposia Acute transaminitis Uncontrolled sugar and sugar has been in the range of 200-300 History of diabetes mellitus and his hemoglobin A1c is 9.1 History of myocardial infarction Plan: Patient was on Keppra 500mg bid and initially yesterday went to 1000mg bid but since no seizure or discharges on EEG and no clinical seizures will go to 750mg bid. Pending Keppra level. Patient is on aspirin 81 times daily started by cardiology team. He is resumed on his home dose of Plavix 75 mg daily. Continue neurochecks Cardiac monitoring PT, OT and INTELLIGENCE SUPPORT OFFICER are consulted. Pulmonary team is on board and spoke with the tube making machine operator and he is concerned that the patient has lung mass Recommend Oncology consultation Will defer the rest of the medical management to primary and other specialist Overall condition is critical. The plan discussed with the patient and his nurse. Will follow-up patient sporadically. Time with Patient: Less than 30
--- NOTE | 2024-07-02 14:44 | MR ---
EXAMINATION TYPE: MR abdomen wo/w con DATE OF EXAM: 07/02/2024 1:09 PM INDICATION: Patient age:Male; 64 years old; Reason for study: History of liver disease with known tumor/mass; PHH. COMPARISON: MR abdomen 02/18/2024, CT chest abdomen pelvis 01/24/2024 TECHNIQUE: Multiplanar multi-sequence imaging was performed without and with IV contrast. The patien t was given 9 ccs of Gadavist intravenously and dynamic imaging was performed. Post IV contrast subtr action images were also submitted for review. FINDINGS: LOWER CHEST: Right lower lung consolidation identified. ABDOMEN Liver: No evidence for hepatic steatosis or cirrhosis. Left hepatic lobe lesion redemonstrated measur ing 2.5 cm (series 601, image 48), previously 2.5 cm when measured with similar technique. This lesio n demonstrates low T1 signal and high T2 signal with high DWI signal. There is peripheral enhancement identified. Diffuse patchy arterial enhancement identified throughout the liver. This is best apprec iated on series 902. Hepatic arteries and portal veins appear patent. Hepatic veins appear patent. Gallbladder and Bile ducts: No evidence for ductal dilation, or biliary stricture or evidence of chol edocholithiasis. The gallbladder is within normal limits.. Pancreas: No ductal dilation. No evidence for solid mass.. Spleen: Unremarkable. Adrenal glands: Unremarkable. Kidneys: Few bilateral intrinsic high T1 signal lesions measuring up tor 11 mm on the right and 4 mm on the left. No evidence for obstructive uropathy. No suspicious enhancing renal masses. . Stomach and Bowel: Unremarkable as visualized. Peritoneum: No evidence of pneumoperitoneum, free fluid, or adenopathy. Vasculature: Unremarkable. No aortic aneurysm. Abdominal wall: Unremarkable. Musculoskeletal: The osseous structures appear intact. IMPRESSION: 1. Stable left hepatic lobe lesion measuring 2.5 cm when measured with similar technique from prior MR 02/18/2024. Demonstrates similar indeterminate enhancement characteristics. Etiology includes solid hepatic neoplasm. Consider tissue sampling for definitive diagnosis. 2. Diffuse patchy heterogenous hepatic arterial enhancement. Etiologies include transient hepatic in tensity differences versus other etiologies like Budd-Chiari syndrome which is thought to be less lik ryan. Attention on follow-up exam. 3. Right lower lung consolidation. Correlate for pneumonia.
--- NOTE | 2024-07-02 15:25 | P.PN ---
Subjective Progress Note Date: 07/02/24 This is a 64-year-old male patient, [facility] resident, who came into the emergency department from [facility] on the leg after sustaining a fall. The exact circumstances and the cause of fall is not clear. The patient had facial injury. The fall was unwitnessed and the patient had some epistaxis. Based on that, he came into the emergency department. The patient had a CAT scan of the head and the cervical spine that showed no acute hemorrhage. There was a right nasal bone fracture. CAT scan of the face was also done and showed an acute nasal bone fracture. Chest x-ray also showed a new onset right lower lobe consolidation. The patient is currently on room air oxygen. Limits congested cough no significant sputum production. Is a poor historian. The white cell count of 14 with a heme of 13.3. Normal coagulation profile. BUN 24 with a creatinine of 1.12 sodium level is at 136. Hemodynamically stable and the patient is afebrile. Cardiac rhythm is sinus. Troponins were elevated with levels of 0.3 x 3 respectively. The EKG showed normal sinus rhythm with left axis deviation. No ST segment elevation or depression. The patient accordingly will be seen by cardiology. Noted the patient's C the patient's proBNP elevated at 412. Liver function tests are essentially within normal limits. UA showing 11 WBCs, positive protein, alcohol level is less than 10. On a separate note, I reviewed records from the [facility] and the patient was being treated with a course of antibiotics utilizing a combination of Augmentin and Zithromax given to him by the primary care physician. 06/29/2024, the patient is being seen for a follow-up., Comfortable remains on room air oxygen being treated for a pneumonia involving the lower lobes more so on the right. He is having some liquidy diarrhea the patient had 3 episodes. Currently on IV Zosyn. Will check stool for C. difficile. No nausea vomiting or abdominal pain. The white cell count 11.6 with a hemoglobin 11.9 and a platelet count of 274. Electrolytes show a potassium level of 2.9. Serum bicarbonate 28 with a BUN of 19 and a creatinine of 0.8. Reevaluated today on 06/30/2024, patient is doing well, on room air, no further episodes of epistaxis, denies having shortness of breath cough or wheezing, chest x-ray is showing a masslike consolidation in the right lower lobe hence I am recommending a CT of the chest. In the meantime the patient is receiving antibiotics for presumptive community-acquired pneumonia. Patient is afebrile, WBC count 12.9 hemoglobin 12.3 electrolytes are normal renal profile is normal Patient was evaluated today on 07/01/2024, patient seems to be comfortable, not in distress, his CT of the chest is highly suggestive of bronchogenic carcinoma, CT of the brain showed age-related atrophic and chronic small vessel ischemia changes with old infarct left occipital area. At any rate patient is being followed by neurology for his mental status, I am quite concerned about his right lower lobe findings, would recommend further workup and possibly CT-guided needle biopsy or bronchoscopy and biopsy to evaluate for bronchogenic carcinoma or possibly necrotic or cavitary pneumonia in the right lower lobe. My clinical impression that this is more or less bronchogenic carcinoma unless proven otherwise. His procalcitonin level is normal hence infection is less likely The patient is seen today July 02, 2024 in follow-up on the selective care unit. He is currently resting in bed. Awake and alert in no acute distress. Is maintaining O2 saturations in the 90s on room air. He has been afebrile. Hemodynamically stable. MRI of the brain revealed no acute intracranial process. Chronic appearing changes that are stable. Periventricular chronic appearing white matter ischemic type changes. Differential includes multiple sclerosis. Age-related atrophy. MRI of the abdomen revealed a stable left hepatic lobe lesion measuring 2.5 cm. Similar indeterminate enhancement dorota racteristics. Etiology includes solid hepatic neoplasm. Consider tissue diagnosis. Diffuse patchy heterogenous hepatic arterial enhancement. Right lower lung consolidation. Count 10.4. Hemoglobin 12.0. Platelets 332. Sodium 137. Potassium 3.0. Bicarb 30. BUN 5. Creatinine 0.67. Procalcitonin was normal at 0.21. Objective - Vital Signs Vital signs: Vital Signs Temp 98.6 F 07/02/24 11:00 Pulse 90 07/02/24 13:22 Resp 16 07/02/24 11:00 BP 155/77 07/02/24 11:00 Pulse Ox 96 07/02/24 11:00 FiO2 35 06/29/24 04:26 Intake & Output 07/01/24 07/02/24 07/02/24 18:59 06:59 18:59 Intake Total 360 540 Output Total 700 700 275 Balance -340 -160 -275 Weight 64.6 kg Intake: Oral 360 540 Output: Urine 700 700 275 Other: Voiding Method Toilet Toilet Toilet Urinal Urinal Urinal # Voids 1 # Bowel Movements 1 - Exam GENERAL EXAM: Reveals a 64-year-old male appears older than stated age, resting in bed, in no distress on room air HEAD: Normocephalic and atraumatic EYES: Normal reaction of pupils, equal size. NOSE: Clear with pink turbinates. Dried blood over the nasal passages and the nostrils. No evidence of any acute bleeding THROAT: No erythema or exudates. Dry mucous membranes NECK: No masses, no JVD. CHEST: No chest wall deformity. LUNGS: Equal air entry no wheeze, rhonchi or dullness. On room air. CVS: Distant S1-S2, no S3 gallop, no murmur. ABDOMEN: No hepatosplenomegaly, active bowel sounds, no guarding or rigidity. SKIN: No rashes CENTRAL NERVOUS SYSTEM: Alert oriented x 3 but the patient is slow to respond and is a very poor historian EXTREMITIES: No clubbing edema or cyanosis - Labs CBC & Chem 7: 07/02/24 08:42 07/02/24 08:42 Labs: Abnormal Lab Results - Last 24 Hours (Table) 07/01/24 07/01/24 07/01/24 Range/Units 16:15 17:00 20:13 RBC (4.30-5.90) m/uL Hgb (13.0-17.5) gm/dL Hct (39.0-53.0) % Neutrophils # (1.3-7.7) k/uL Potassium (3.5-5.1) mmol/L BUN (9-20) mg/dL Glucose (74-99) mg/dL POC Glucose (mg/dL) 417 H 459 H 281 H (70-110) mg/dL ALT (4-49) U/L Total Protein (6.3-8.2) g/dL Albumin (3.5-5.0) g/dL 07/02/24 07/02/24 07/02/24 Range/Units 08:42 08:42 11:41 RBC 4.14 L (4.30-5.90) m/uL Hgb 12.0 L (13.0-17.5) gm/dL Hct 35.0 L (39.0-53.0) % Neutrophils # 7.8 H (1.3-7.7) k/uL Potassium 3.0 L (3.5-5.1) mmol/L BUN 5 L (9-20) mg/dL Glucose 141 H (74-99) mg/dL POC Glucose (mg/dL) 210 H (70-110) mg/dL ALT 71 H (4-49) U/L Total Protein 5.8 L (6.3-8.2) g/dL Albumin 3.1 L (3.5-5.0) g/dL Assessment and Plan Assessment: Acute right nasal bone fractures secondary to fall Right lower lobe masslike highly suspicious for bronchogenic carcinoma with negative procalcitonin level Stable left hepatic lobe lesion measuring 2.5 cm. Hepatic neoplasm within the differential Leukocytosis, mild Diarrhea, rule out C. difficile colitis Abnormal troponin leak under investigation Generalized weakness and dehydration Diabetes mellitus type 2, insulin-dependent, complicated by diabetic neuropathy Hyperlipidemia Hypertension History of CVA, with residual memory impairment and visual impairment History of seizure disorder, managed on Keppra History of hepatitis C status/post treatment Former tobacco smoker Plan: The patient was seen and evaluated Currently stable and on room air Imaging, labs and medications reviewed Cleared for discharge from the pulmonary standpoint Recommend outpatient PET scan If positive, may consider interventional radiology for biopsy of the liver or the lung mass Plan is to return to [facility] [place] at discharge I have personally seen and examined the patient, performed the documentation and the assessment and plan as written. Number of minutes spent on the visit: 10 .
[2024-07-02 16:38] LABS: Glucose,Whole Blood 226 mg/dL (70-110)
[2024-07-02 20:12] LABS: Glucose,Whole Blood 182 mg/dL (70-110)
[2024-07-02] MEDS: ACETAMINOPHEN TAB 325 MG TAB PO PRN (21:02)
[2024-07-03 06:10] LABS: Glucose,Whole Blood 123 mg/dL (70-110)
--- NOTE | 2024-07-03 08:43 | P.PN ---
Subjective Progress Note Date: 07/02/24 Principal diagnosis: Reason for follow-up is pneumonia Patient is a 64-year-old male with a past medical history significant for diabetes mellitus and [place] CVA former smoker has been brought to the hospital after apparently the patient have a fall with facial injury, patient also noticed to have right lower lung airspace disease concerning for pneumonia prompting this consultation. On today's evaluation that is 07/02/2024, Patient is afebrile this morning patient denies having any chest pain shortness of breath, occasional cough, the patient is breathing comfortably and currently on room air, patient denies any abdominal pain no diarrhea no nausea no vomiting wbc 10.4 , Cr 0.67 , ALT trending down Objective - Vital Signs Vital signs: Vital Signs Temp 98.6 F 07/02/24 11:00 Pulse 90 07/02/24 11:00 Resp 16 07/02/24 11:00 BP 155/77 07/02/24 11:00 Pulse Ox 96 07/02/24 11:00 FiO2 35 06/29/24 04:26 Intake & Output 07/01/24 07/02/24 07/02/24 18:59 06:59 18:59 Intake Total 360 540 Output Total 700 700 275 Balance -340 -160 -275 Weight 64.6 kg Intake: Oral 360 540 Output: Urine 700 700 275 Other: Voiding Method Toilet Toilet Toilet Urinal Urinal Urinal # Voids 1 # Bowel Movements 1 - Exam GENERAL DESCRIPTION: An elderly male lying in bed in no distress RESPIRATORY SYSTEM: Unlabored breathing , decreased breath sounds at bases HEART: S1 S2 regular rate and rhythm , ABDOMEN: Soft , no tenderness EXTREMITIES: No edema feet - Labs CBC & Chem 7: 07/02/24 08:42 07/02/24 08:42 Labs: Abnormal Lab Results - Last 24 Hours (Table) 07/01/24 07/01/24 07/01/24 Range/Units 16:15 17:00 20:13 RBC (4.30-5.90) m/uL Hgb (13.0-17.5) gm/dL Hct (39.0-53.0) % Neutrophils # (1.3-7.7) k/uL Potassium (3.5-5.1) mmol/L BUN (9-20) mg/dL Glucose (74-99) mg/dL POC Glucose (mg/dL) 417 H 459 H 281 H (70-110) mg/dL ALT (4-49) U/L Total Protein (6.3-8.2) g/dL Albumin (3.5-5.0) g/dL 07/02/24 07/02/24 07/02/24 Range/Units 08:42 08:42 11:41 RBC 4.14 L (4.30-5.90) m/uL Hgb 12.0 L (13.0-17.5) gm/dL Hct 35.0 L (39.0-53.0) % Neutrophils # 7.8 H (1.3-7.7) k/uL Potassium 3.0 L (3.5-5.1) mmol/L BUN 5 L (9-20) mg/dL Glucose 141 H (74-99) mg/dL POC Glucose (mg/dL) 210 H (70-110) mg/dL ALT 71 H (4-49) U/L Total Protein 5.8 L (6.3-8.2) g/dL Albumin 3.1 L (3.5-5.0) g/dL Assessment and Plan (1) Pneumonia Current Visit: Yes Status: Acute Code(s): J18.9 - PNEUMONIA, UNSPECIFIED ORGANISM SNOMED Code(s): 297489895 Plan: 1patient presented to hospital with fall also complaining of shortness of breath he did have a cough with some sputum production chest x-ray with right lower lobe infiltrate did have elevated white count concerning for pneumonia likely community-acquired aspiration pneumonia not entirely excluded 2-patient did have significant normality on the right lower lobe on the chest CT IR has been consulted for biopsy however has to be done as outpatient as pt is on plavix , with high clinical suspicion for malignancy than infection will go ahead and dc zosyn and monitor closely off antibiotics Dictation was produced using [employer] dictation software. please excuse any grammatical, word or spelling errors. Time with Patient: Less than 30
[2024-07-03 11:27] LABS: Glucose,Whole Blood 107 mg/dL (70-110)
--- NOTE | 2024-07-03 12:37 | P.PN ---
Subjective Progress Note Date: 07/03/24 Principal diagnosis: Reason for follow-up is pneumonia Patient is a 64-year-old male with a past medical history significant for diabetes mellitus and [place] CVA former smoker has been brought to the hospital after apparently the patient have a fall with facial injury, patient also noticed to have right lower lung airspace disease concerning for pneumonia prompting this consultation. On today's evaluation that is 07/03/2024,the patient denies any fever or any chills, patient is breathing comfortably on room air, the patient denies chest pain shortness of breath has been complaining of cough but no sputum production, patient denies abdominal pain, no nausea vomiting or diarrhea. No new lab has been repeated today white count normal at 10.4 yesterday Objective - Vital Signs Vital signs: Vital Signs Temp 98.3 F 07/03/24 11:45 Pulse 84 07/03/24 11:45 Resp 17 07/03/24 11:45 BP 132/48 07/03/24 11:45 Pulse Ox 94 L 07/03/24 11:45 FiO2 35 06/29/24 04:26 Intake & Output 07/02/24 07/03/24 07/03/24 18:59 06:59 18:59 Intake Total 20 Output Total 275 200 Balance -275 -180 Weight 63.5 kg Intake: IV 20 Invasive Line 4 20 Output: Urine 275 200 Other: Voiding Method Toilet Toilet Toilet Urinal Urinal Urinal # Voids 1 1 # Bowel Movements 1 - Exam GENERAL DESCRIPTION: An elderly male lying in bed in no distress RESPIRATORY SYSTEM: Unlabored breathing , decreased breath sounds at bases HEART: S1 S2 regular rate and rhythm , ABDOMEN: Soft , no tenderness EXTREMITIES: No edema feet - Labs CBC & Chem 7: 07/02/24 08:42 07/02/24 08:42 Labs: Abnormal Lab Results - Last 24 Hours (Table) 07/02/24 07/02/24 07/03/24 Range/Units 16:37 20:11 06:09 POC Glucose (mg/dL) 226 H 182 H 123 H (70-110) mg/dL Assessment and Plan (1) Pneumonia Current Visit: Yes Status: Acute Code(s): J18.9 - PNEUMONIA, UNSPECIFIED ORGANISM SNOMED Code(s): 304308369 Plan: 1patient presented to hospital with fall also complaining of shortness of breath he did have a cough with some sputum production chest x-ray with right lower lobe infiltrate did have elevated white count concerning for pneumonia likely community-acquired aspiration pneumonia not entirely excluded 2-patient did have significant abnormality on the right lower lobe on the chest CT IR has been consulted for biopsy however has to be done as outpatient as pt is on plavix , with high clinical suspicion for malignancy than infection, the patient Zosyn was discontinued yesterday and will monitor closely off antibiotic Dictation was produced using [employer] dictation software. please excuse any grammatical, word or spelling errors. Time with Patient: Less than 30
--- NOTE | 2024-07-03 14:28 | P.PN ---
Subjective Progress Note Date: 07/03/24 Principal diagnosis: Right lower lobe mass, highly suggestive of bronchogenic carcinoma This is a 64-year-old male patient, long term resident, who came into the emergency department from [facility] on the leg after sustaining a fall. The exact circumstances and the cause of fall is not clear. The patient had facial injury. The fall was unwitnessed and the patient had some epistaxis. Based on that, he came into the emergency department. The patient had a CAT scan of the head and the cervical spine that showed no acute hemorrhage. There was a right nasal bone fracture. CAT scan of the face was also done and showed an acute nasal bone fracture. Chest x-ray also showed a new onset right lower lobe consolidation. The patient is currently on room air oxygen. Limits congested cough no significant sputum production. Is a poor historian. The white cell count of 14 with a heme of 13.3. Normal coagulation profile. BUN 24 with a creatinine of 1.12 sodium level is at 136. Hemodynamically stable and the patient is afebrile. Cardiac rhythm is sinus. Troponins were elevated with levels of 0.3 x 3 respectively. The EKG showed normal sinus rhythm with left ax is deviation. No ST segment elevation or depression. The patient accordingly will be seen by cardiology. Noted the patient's C the patient's proBNP elevated at 412. Liver function tests are essentially within normal limits. UA showing 11 WBCs, positive protein, alcohol level is less than 10. On a separate note, I reviewed records from the long term and the patient was being treated with a course of antibiotics utilizing a combination of Augmentin and Zithromax given to him by the primary care physician. 06/29/2024, the patient is being seen for a follow-up., Comfortable remains on room air oxygen being treated for a pneumonia involving the lower lobes more so on the right. He is having some liquidy diarrhea the patient had 3 episodes. Currently on IV Zosyn. Will check stool for C. difficile. No nausea vomiting or abdominal pain. The white cell count 11.6 with a hemoglobin 11.9 and a platelet count of 274. Electrolytes show a potassium level of 2.9. Serum bicarbonate 28 with a BUN of 19 and a creatinine of 0.8. Reevaluated today on 06/30/2024, patient is doing well, on room air, no further episodes of epistaxis, denies having shortness of breath cough or wheezing, eliseo st x-ray is showing a masslike consolidation in the right lower lobe hence I am recommending a CT of the chest. In the meantime the patient is receiving antibiotics for presumptive community-acquired pneumonia. Patient is afebrile, WBC count 12.9 hemoglobin 12.3 electrolytes are normal renal profile is normal Patient was evaluated today on 07/01/2024, patient seems to be comfortable, not in distress, his CT of the chest is highly suggestive of bronchogenic carcinoma, CT of the brain showed age-related atrophic and chronic small vessel ischemia changes with old infarct left occipital area. At any rate patient is being followed by neurology for his mental status, I am quite concerned about his right lower lobe findings, would recommend further workup and possibly CT-guided needle biopsy or bronchoscopy and biopsy to evaluate for bronchogenic carcinoma or possibly necrotic or cavitary pneumonia in the right lower lobe. My clinical impression that this is more or less bronchogenic carcinoma unless proven otherwise. His procalcitonin level is normal hence infection is less likely The patient is seen today July 02, 2024 in follow-up on the selective care unit. He is currently resting in bed. Awake and alert in no acute distress. Is maintaining O2 saturations in the 90s on room air. He has been afebrile. Hemodynamically stable. MRI of the brain revealed no acute intracranial process. Chronic appearing changes that are stable. Periventricular chronic appearing white matter ischemic type changes. Differential includes multiple sclerosis. Age-related atrophy. MRI of the abdomen revealed a stable left hepatic lobe lesion measuring 2.5 cm. Similar indeterminate enhancement characteristics. Etiology includes solid hepatic neoplasm. Consider tissue diagnosis. Diffuse patchy heterogenous hepatic arterial enhancement. Right lower lung consolidation. Count 10.4. Hemoglobin 12.0. Platelets 332. Sodium 137. Potassium 3.0. Bicarb 30. BUN 5. Creatinine 0.67. Procalcitonin was normal at 0.21. Patient was today on July 03, basically about the same, patient is on room air, not in any distress, I have reviewed the CT of the chest on this leah ent, I am suspecting that we are dealing most likely with malignancy rather than pneumonia. This needs to be addressed on outpatient basis, a PET scan would have to be done on outpatient basis, patient may have to have CT-guided needle biopsy and/or robotic Ion bronchoscopy. Considering the patient is on Plavix, interventional radiology will recommend holding Plavix for over a week. Hence I am recommending outpatient evaluation for this abnormality on the CT of the chest. Patient is on room air, O2 sat is 95%, does not seem to be in any distress. WBC count is 10.4 hemoglobin is 12 electrolytes are normal BUN is normal creatinine is normal potassium is a bit low at 3.0. This is being ad dressed accordingly Objective - Vital Signs Vital signs: Vital Signs Temp 98.3 F 07/03/24 11:45 Pulse 84 07/03/24 11:45 Resp 17 07/03/24 11:45 BP 132/48 07/03/24 11:45 Pulse Ox 94 L 07/03/24 11:45 FiO2 35 06/29/24 04:26 Intake & Output 07/02/24 07/03/24 07/03/24 18:59 06:59 18:59 Intake Total 20 480 Output Total 275 200 200 Balance -275 -180 280 Weight 63.5 kg Intake: IV 20 Invasive Line 4 20 Oral 480 Output: Urine 275 200 200 Other: Voiding Method Toilet Toilet Toilet Urinal Urinal Urinal # Voids 1 1 1 # Bowel Movements 1 - Exam GENERAL EXAM: Reveals 64-year-old white male in no distress on room air patient is slow and a very poor historian. HEAD: Normocephalic and atraumatic EYES: Normal reaction of pupils, equal size. NOSE: Clear with pink turbinates. Dried blood over the nasal passages and the nostrils. No evidence of any acute bleeding THROAT: No erythema or exudates. Dry mucous membranes NECK: No masses, no JVD. CHEST: No chest wall deformity. LUNGS: Equal air entry no wheeze, rhonchi or dullness. On room air. CVS: Distant S1-S2, no S3 gallop, no murmur. ABDOMEN: No hepatosplenomegaly, active bowel sounds, no guarding or rigidity. SKIN: No rashes CENTRAL NERVOUS SYSTEM: Alert oriented x 3 but the patient is slow and is a very poor historian EXTREMITIES: No clubbing edema or cyanosis - Labs CBC & Chem 7: 07/02/24 08:42 07/02/24 08:42 Labs: Abnormal Lab Results - Last 24 Hours (Table) 09/09/1407/02/24 07/03/24 Range/Units 16:37 20:11 06:09 POC Glucose (mg/dL) 226 H 182 H 123 H (70-110) mg/dL Assessment and Plan Assessment: Impression Acute right nasal bone fractures secondary to fall Right lower lobe masslike highly suspicious for bronchogenic carcinoma with negative procalcitonin level. Leukocytosis, mild Diarrhea, rule out C. difficile colitis Abnormal troponin leak under investigation Generalized weakness and dehydration Diabetes mellitus type 2, insulin-dependent, complicated by diabetic neuropathy Hyperlipidemia Hypertension History of CVA, with residual memory impairment and visual impairment History of seizure disorder, managed on Keppra History of hepatitis C status/post treatment Former tobacco smoker Recommendation: I would recommend stopping antibiotics Continue IV fluids for his diarrhea and conservative measures, his C. difficile screen is negative Will clear the patient for discharge once he is cleared by other consultants Outpatient follow-up and PET scan on outpatient basis Will follow Time with Patient: Less than 30
[2024-07-03 14:32] VITALS: BMI 20.7
[2024-07-03 16:49] LABS: Glucose,Whole Blood 317 mg/dL (70-110)
--- NOTE | 2024-07-03 18:11 | P.PN ---
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, patient has been residing at [facility] for quite some times, his sugar has been very uncontrolled due to the patient noncompliance with the diet and taking his insulin, apparently the patient developed to have a significant mental status changes with significant diaphoresis few days prior to the admission at that time laboratory evaluation was obtained and patient showed a white count of 20,000, at that time I started the patient on oral antibiotic in the form of Augmentin after obtaining chest x-ray that showed right lower lobe infiltrate, suggestive of possible aspiration pneumonia, his urinalysis did not show evidence of acute abnormalities, apparently the patient had fallen that day off the bed and he was found on the floor the fall was unwitnessed and the patient did have minimal bruising from his nose, and he cut his lip, and he was having some epistaxis at that time I sent the patient to the emergency department at [facility] where he was evaluated by CT scan of the brain did not show evidence of acute infarct or bleed, had a CT scan of the cervical spine negative for fracture CT of the facial bones showed nasal bone fracture, his chest x-ray did show evidence of right lower lobe infiltrate, initially was started on Zosyn 3.375 g piggyback every 8 hours, he was seen in consultation by pulmonary medicine as well as by infectious disease, sputum culture was obtained, and the patient also was seen in consultation by cardiology because the patient troponin was slightly elevated apparently the patient was admitted to the hospital for metabolic toxic encephalopathy likely due to right lower lobe pneumonia likely community-acquired pneumonia, patient was kept on Zosyn at that time, he was seen as a said by cardiology who kept him on aspirin and atorvastatin, and then he was seen also in consultation by neurology who recommended for the patient to have a CT scan of the brain again that did not show evidence of acute abnormalities this was followed by an MRI of the brain that is still pending at the time of dictation. Patient was admitted through the weekend under the hospitalist service. 06/30: Patient is laying down in bed in no apparent distress, he continues to be a bit slower than normal, but he has been feeling as having poor appetite, patient also also was only taking the sliding scale insulin, he was started back on his Levemir 23 units at bedtime along with 4 units before each meal along with a sliding scale insulin, he was maintained on current treatment plan, and patient will be seen in consultation by physical therapy and Occupational Therapy most likely the patient will be able to be transferred back to [facility] [place] in the next 1 or 2 days, meanwhile we will continue to monitor the patient very closely and follow-up with the patient very closely as well. 07/01: Patient is laying down in bed in no apparent distress, he is more awake and more alert today, he is eating better today, he has been doing better, however his blood glucose level is quite elevated today, he has brought blood glucose level in the morning was about 78, will continue Levemir 23 units, continue with a sliding scale insulin as well, monitor the patient very closely, patient underwent CT scan of the chest with contrast that showed evidence of 5.7 x 5.4 centimeter masslike density with a few air foci in the air suggestive of either necrotizing pneumonia versus neoplasm, patient has been on Zosyn at this point, has been followed by pulmonary medicine, will continue with this, will discuss with pulmonary team whether or not the patient will need to have more aggressive treatment, sputum cultures will need to be collected, MRI of the brain was done still pending at the time of dictation. MRI of the abdomen still pending at the time of dictation. 07/02: Patient is laying down in bed in no apparent distress, he appears to be generally weak, he was seen by pulmonary medicine, I spoke with the patient about the finding of the CT scan of the chest, and that showed evidence of a masslike density in the right lower lobe suggestive of bronchogenic carcinoma, we will discuss with pulmonary medicine possibility of other treatment options but the patient at this point in time is not a good candidate for any tissue chalo pling unless family elected otherwise, he is well-known to have a solid tumor in the liver he was seen in consultation by hepatology down at [facility] but at the same time it was recommended to repeat his MRI which we have done and that showed evidence of 2.5 cm left hepatic lobe suggestive of hepatocellular carcinoma as well, we will discuss with the family tomorrow morning what needs t o be done at this point. As they elected not to go for any sampling few month back. REVIEW OF SYSTEMS Constitutional: no fever, no chills, no night sweats. No weight change. positive for weakness, fatigue or lethargy. No daytime sleepiness. HEENT: No headache. No blurred vision or double vision, no loss of vision. No loss of Hearing, no ringing in the ears, no dizziness. No nasal drainage or congestion. No epistaxis. No sore throat. Lungs: positive for shortness of breath,no cough, no sputum production. No wheezing. Cardiovascular: No chest pain, no lower extremity edema. No palpitations. No paroxysmal nocturnal dyspnea. No orthopnea. No lightheadedness or dizziness. No syncopal episodes. Abdominal: No abdominal pain. positive for nausea,no vomiting. No diarrhea. No constipation. No bloody or tarry stools. loss of appetite. Genitourinary: No dysuria, increased frequency, urgency. No urinary retention. Musculoskeletal: No myalgias.positive for muscle weakness, positive for gait dysfunction, frequent falls. No back pain. No neck pain. Integumentary: No wounds. No rash or pruritus. No unusual bruising. No change in hair or nails. Neurologic: No aphasia. No facial droop. No change in mentation. No head injury. No headache. No paralysis. No paresthesia. Psychiatric:positive for depression. No anxiety. No mood swings, CHI signs Endocrine: abnormal blood sugars. No weight change. No excessive sweating or thirst. No cold intolerance. PHYSICAL EXAMINATION Gen: This is a 64-year-old male laying down in bed in no apparent distress. HEENT: Head is atraumatic, normocephalic. Pupils equal, round. Sclerae is anicteric. NECK: Supple. No JVD. No lymphadenopathy. No thyromegaly. LUNGS: Decreased breath sounds at the bases. few Rhonchi, no expiratory wheezes, no chest wall tenderness, no intercostal retractions. HEART: first heart sound is depressed, second heart sounds normal, there is no gallop or murmur. ABDOMEN: Soft, nontender, nondistended, positive bowel sounds. EXTREMITIES: There is no edema, no calf tenderness, or sinus pedis +2 bilaterally. NEUROLOGICAL: Patient is awake, alert and oriented x3. Cranial nerves 2 through 12 are grossly intact, muscle power 4 out of 5 in upper extremities and 4 out of 5 in bilateral lower extremity is. ASSESSMENT AND PLAN 1. Acute toxic metabolic encephalopathy likely due to right lower lobe pneumonia with sepsis rule out acute ischemic event. Patient has been seen in c onsultation by neurology who recommended to go for MRI of the brain with and without gadolinium he has been on aspirin 81 mg once every day, Plavix 75 mg once every day, atorvastatin 40 mg once every day, we will continue to monitor the patient very closely, patient has been on Zosyn and pulmonary recommending to stop the antibiotic over the next 24 hours. 2. Elevated troponin likely due to type II NV secondary to sepsis. No evidence of acute coronary syndrome continue patient on aspirin 81 g once every day, atorvastatin 40 mg once every day, metoprolol 25 mg orally twice every day cardiology has been following. Patient underwent echocardiogram that showed evidence of ejection fraction 55%, with no significant valvular abnormalities 3. Leukocytosis likely due to right lower lobe pneumonia with sepsis. Patient has been on Zosyn procalcitonin level is low. 4. Hypertension and hypertensive cardiovascular disease. Continue patient on losartan 50 mg once every day, metoprolol 25 mg orally twice every day. 5. Mixed hyperlipidemia. Continue patient on atorvastatin 80 mg once every day, monitor lipid panel, keep LDL 55-70. 6. History of CVA in the past continue patient on atorvastatin 40 mg once every day as well as Plavix 75 mg orally once every day and aspirin 81 mg once every day as well. MRI of the brain still pending. 7. Diabetes mellitus type 1. Patient may have converted to type I. patient was switched to Levemir 23 units at bedtime along with Humalog 4 units before each meal 3 times every day and a sliding scale insulin. 8. Gastroparesis. We will continue patient on metoprolol clopamide 5 mg orally 3 times every day before meals. 9. History of seizure disorder. Continue patient on Keppra 1000 mg orally twice every day. 10. Right lower lobe masslike density 5.7 x 5.4 cm possible necrotizing pneumonia versus neoplasm. Obtain carcinoembryonic antigen, continue IV antibiotic will discuss with pulmonary medicine. I will try to obtain sputum culture again. 11. History of hepatitis C. with a prior liver lesion suggestive of possible hepatoma patient was seen in consultation by [facility] liver clinic and he was supposed to have a repeated MRI of the liver in July we will try to obtain eval the patient in the hospital. 12. DVT prophylaxis. Lovenox 40 mg subcutaneously every 24 hours. 13. GI prophylaxis. Continue Protonix 40 mg orally once every day. 14. Nasal fracture. Stable at this time. 15. Medical debility. Physical therapy evaluation. 16. Enlarged prostate. Continue tamsulosin 0.4 mg once every day. 17. Right lower lobe mass suggestive of bronchogenic carcinoma. Will discuss with family the treatment plan at this point in time as the declined tissue sampling of the left hepatic lobe mass in the past. 18. Overall prognosis is very guarded patient will likely be transferred back to [facility] [place] over the next 1 or 2 days. Objective - Vital Signs Vital signs: Vital Signs Temp 98.6 F 07/02/24 11:00 Pulse 90 07/02/24 13:22 Resp 16 07/02/24 11:00 BP 155/77 07/02/24 11:00 Pulse Ox 96 07/02/24 11:00 FiO2 35 06/29/24 04:26 Intake & Output 07/01/24 07/02/24 07/02/24 18:59 06:59 18:59 Intake Total 360 540 Output Total 700 700 275 Balance -340 -160 -275 Weight 64.6 kg Intake: Oral 360 540 Output: Urine 700 700 275 Other: Voiding Method Toilet Toilet Toilet Urinal Urinal Urinal # Voids 1 # Bowel Movements 1 - Labs CBC & Chem 7: 07/02/24 08:42 07/02/24 08:42 Labs: Abnormal Lab Results - Last 24 Hours (Table) 07/01/24 07/01/24 07/01/24 Range/Units 16:15 17:00 20:13 RBC (4.30-5.90) m/uL Hgb (13.0-17.5) gm/dL Hct (39.0-53.0) % Neutrophils # (1.3-7.7) k/uL Potassium (3.5-5.1) mmol/L BUN (9-20) mg/dL Glucose (74-99) mg/dL POC Glucose (mg/dL) 417 H 459 H 281 H (70-110) mg/dL ALT (4-49) U/L Total Protein (6.3-8.2) g/dL Albumin (3.5-5.0) g/dL 07/02/24 07/02/24 07/02/24 Range/Units 08:42 08:42 11:41 RBC 4.14 L (4.30-5.90) m/uL Hgb 12.0 L (13.0-17.5) gm/dL Hct 35.0 L (39.0-53.0) % Neutrophils # 7.8 H (1.3-7.7) k/uL Potassium 3.0 L (3.5-5.1) mmol/L BUN 5 L (9-20) mg/dL Glucose 141 H (74-99) mg/dL POC Glucose (mg/dL) 210 H (70-110) mg/dL ALT 71 H (4-49) U/L Total Protein 5.8 L (6.3-8.2) g/dL Albumin 3.1 L (3.5-5.0) g/dL
--- NOTE | 2024-07-03 18:14 | P.PN ---
Subjective Progress Note Date: 07/03/24 HISTORY OF PRESENT ILLNESS: This is a 64-year-old male with a previous medical history significant for diabetes mellitus type 1 insulin requiring, hypertension and hypertensive heart vascular disease, mixed hyperlipidemia, history of seizure disorder, 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, patient has been residing at [facility] for quite some times, his sugar has been very uncontrolled due to the patient noncompliance with the diet and taking his insulin, apparently the patient developed to have a significant mental status changes with significant diaphoresis few days prior to the admission at that time laboratory evaluation was obtained and patient showed a white count of 20,000, at that time I started the patient on oral antibiotic in the form of Augmentin after obtaining chest x-ray that showed right lower lobe infiltrate, suggestive of possible aspiration pneumonia, his urinalysis did not show evidence of acute abnormalities, apparently the patient had fallen that day off the bed and he was found on the floor the fall was unwitnessed and the patient did have minimal bruising from his nose, and he cut his lip, and he was having some epistaxis at that time I sent the patient to the emergency department at [facility] where he was evaluated by CT scan of the brain did not show evidence of acute infarct or bleed, had a CT scan of the cervical spine negative for fracture CT of the facial bones showed nasal bone fracture, his chest x-ray did show evidence of right lower lobe infiltrate, initially was started on Zosyn 3.375 g piggyback every 8 hours, he was seen in consultation by pulmonary medicine as well as by infectious disease, sputum culture was obtained, and the patient also was seen in consultation by cardiology because the patient troponin was slightly elevated apparently the patient was admitted to the hospital for metabolic toxic encephalopathy likely due to right lower lobe pneumonia likely community-acquired pneumonia, patient was kept on Zosyn at that time, he was seen as a said by cardiology who kept him on aspirin and atorvastatin, and then he was seen also in consultation by neurology who recommended for the patient to have a CT scan of the brain again that did not show evidence of acute abnormalities this was followed by an MRI of the brain that is still pending at the time of dictation. Patient was admitted through the weekend under the hospitalist service. 06/30: Patient is laying down in bed in no apparent distress, he continues to be a bit slower than normal, but he has been feeling as having poor appetite, patient also also was only taking the sliding scale insulin, he was started back on his Levemir 23 units at bedtime along with 4 units before each meal along with a sliding scale insulin, he was maintained on current treatment plan, and patient will be seen in consultation by physical therapy and Occupational Therapy most likely the patient will be able to be transferred back to [facility] the [place] in the next 1 or 2 days, meanwhile we will continue to monitor the patient very closely and follow-up with the patient very closely as well. 07/01: Patient is laying down in bed in no apparent distress, he is more awake and more alert today, he is eating better today, he has been doing better, however his blood glucose level is quite elevated today, he has brought blood glucose level in the morning was about 78, will continue Levemir 23 units, continue with a sliding scale insulin as well, monitor the patient very closely, patient underwent CT scan of the chest with contrast that showed evidence of 5.7 x 5.4 centimeter masslike density with a few air foci in the air suggestive of either necrotizing pneumonia versus neoplasm, patient has been on Zosyn at this point, has been followed by pulmonary medicine, will continue with this, will discuss with pulmonary team whether or not the patient will need to have more aggressive treatment, sputum cultures will need to be collected, MRI of the brain was done still pending at the time of dictation. MRI of the abdomen still pending at the time of dictation. 07/02: Patient is laying down in bed in no apparent distress, he appears to be generally weak, he was seen by pulmonary medicine, I spoke with the patient about the finding of the CT scan of the chest, and that showed evidence of a masslike density in the right lower lobe suggestive of bronchogenic carcinoma, we will discuss with pulmonary medicine possibility of other treatment options but the patient at this point in time is not a good candidate for any tissue chalo pling unless family elected otherwise, he is well-known to have a solid tumor in the liver he was seen in consultation by hepatology down at [facility] but at the same time it was recommended to repeat his MRI which we have done and that showed evidence of 2.5 cm left hepatic lobe suggestive of hepatocellular carcinoma as well, we will discuss with the family tomorrow morning what needs t o be done at this point. As they elected not to go for any sampling few month back. 07/03: Patient son was at the bedside, he was updated about the current information about the MRI of the liver as well as the CT scan of the chest, and the right lower lobe mass suggestive of possible bronchogenic carcinoma, at this point in time patient will be transferred to [facility] the [place] over the next 24 hours, and hopefully we will try to do a PET scan as an outpatient, if this PET scan is positive then the family would need to make the decision whether or not they want to pursue tissue sampling as they declined any tissue sampling in the past for the liver mass. REVIEW OF SYSTEMS Constitutional: no fever, no chills, no night sweats. No weight change. positive for weakness, fatigue or lethargy. No daytime sleepiness. HEENT: No headache. No blurred vision or double vision, no loss of vision. No loss of Hearing, no ringing in the ears, no dizziness. No nasal drainage or congestion. No epistaxis. No sore throat. Lungs: positive for shortness of breath,no cough, no sputum production. No wheezing. Cardiovascular: No chest pain, no lower extremity edema. No palpitations. No paroxysmal nocturnal dyspnea. No orthopnea. No lightheadedness or dizziness. No syncopal episodes. Abdominal: No abdominal pain. positive for nausea,no vomiting. No diarrhea. No constipation. No bloody or tarry stools. loss of appetite. Genitourinary: No dysuria, increased frequency, urgency. No urinary retention. Musculoskeletal: No myalgias.positive for muscle weakness, positive for gait d ysfunction, frequent falls. No back pain. No neck pain. Integumentary: No wounds. No rash or pruritus. No unusual bruising. No change in hair or nails. Neurologic: No aphasia. No facial droop. No change in mentation. No head injury. No headache. No paralysis. No paresthesia. Psychiatric:positive for depression. No anxiety. No mood swings, CHI signs Endocrine: abnormal blood sugars. No weight change. No excessive sweating or thirst. No cold intolerance. PHYSICAL EXAMINATION Gen: This is a 64-year-old male laying down in bed in no apparent distress. HEENT: Head is atraumatic, normocephalic. Pupils equal, round. Sclerae is anicteric. NECK: Supple. No JVD. No lymphadenopathy. No thyromegaly. LUNGS: Decreased breath sounds at the bases. few Rhonchi, no expiratory wheezes, no chest wall tenderness, no intercostal retractions. HEART: first heart sound is depressed, second heart sounds normal, there is no gallop or murmur. ABDOMEN: Soft, nontender, nondistended, positive bowel sounds. EXTREMITIES: There is no edema, no calf tenderness, or sinus pedis +2 bilater ally. NEUROLOGICAL: Patient is awake, alert and oriented x3. Cranial nerves 2 through 12 are grossly intact, muscle power 4 out of 5 in upper extremities and 4 out of 5 in bilateral lower extremity is. ASSESSMENT AND PLAN 1. Acute toxic metabolic encephalopathy likely due to right lower lobe pneumonia with sepsis rule out acute ischemic event. Patient has been seen in consultation by neurology who recommended to go for MRI of the brain with and without gadolinium he has been on aspirin 81 mg once every day, Plavix 75 mg once every day, atorvastatin 40 mg once every day, we will continue to monitor the patient very closely, patient has been on Zosyn and pulmonary recommending to stop the antibiotic over the next 24 hours. 2. Elevated troponin likely due to type II CA secondary to sepsis. No evidence of acute coronary syndrome continue patient on aspirin 81 g once every day, desiree rvastatin 40 mg once every day, metoprolol 25 mg orally twice every day cardiology has been following. Patient underwent echocardiogram that showed evidence of ejection fraction 55%, with no significant valvular abnormalities 3. Leukocytosis likely due to right lower lobe pneumonia with sepsis. Patient has been on Zosyn procalcitonin level is low. We will switch the patient to oral Augmentin 875/125 mg orally twice every day. 4. Hypertension and hypertensive cardiovascular disease. Continue patient on losartan 50 mg once every day, metoprolol 25 mg orally twice every day. 5. Mixed hyperlipidemia. Continue patient on atorvastatin 80 mg once every day, monitor lipid panel, keep LDL 55-70. 6. History of CVA in the past continue patient on atorvastatin 40 mg once every day as well as Plavix 75 mg orally once every day and aspirin 81 mg once every day as well. MRI of the brain still pending. 7. Diabetes mellitus type 1. Patient may have converted to type I. patient was switched to Levemir 23 units at bedtime along with Humalog 4 units before each meal 3 times every day and a sliding scale insulin. 8. Gastroparesis. We will continue patient on metoprolol clopamide 5 mg orally 3 times every day before meals. 9. History of seizure disorder. Continue patient on Keppra 1000 mg orally twice every day. 10. Right lower lobe masslike density 5.7 x 5.4 cm possible necrotizing pneumonia versus neoplasm. Obtain carcinoembryonic antigen, continue IV antibiotic will discuss with pulmonary medicine. I will try to obtain sputum culture again. 11. History of hepatitis C. with a prior liver lesion suggestive of possible hepatoma patient was seen in consultation by [facility] liver clinic and he was supposed to have a repeated MRI of the liver in July we will try to obtain eval the patient in the hospital. 12. DVT prophylaxis. Lovenox 40 mg subcutaneously every 24 hours. 13. GI prophylaxis. Continue Protonix 40 mg orally once every day. 14. Nasal fracture. Stable at this time. 15. Medical debility. Physical therapy evaluation. 16. Enlarged prostate. Continue tamsulosin 0.4 mg once every day. 17. Right lower lobe mass suggestive of bronchogenic carcinoma. Will discuss with family the treatment plan at this point in time as the declined tissue sampling of the left hepatic lobe mass in the past. 18. Overall prognosis is very guarded patient will likely be transferred back to [facility] over the next 1 or 2 days. 19. Hypokalemia status post replacement. Repeat labs tomorrow morning. Objective - Vital Signs Vital signs: Vital Signs Temp 98.4 F 07/03/24 15:17 Pulse 94 07/03/24 15:17 Resp 15 07/03/24 15:17 BP 129/65 07/03/24 15:17 Pulse Ox 96 07/03/24 15:17 FiO2 35 06/29/24 04:26 Intake & Output 07/02/24 07/03/24 07/03/24 18:59 06:59 18:59 Intake Total 20 480 Output Total 275 200 200 Balance -275 -180 280 Weight 63.5 kg 63.5 kg Intake: IV 20 Invasive Line 4 20 Oral 480 Output: Urine 275 200 200 Other: Voiding Method Toilet Toilet Toilet Urinal Urinal Urinal # Voids 1 1 1 # Bowel Movements 1 1 - Labs CBC & Chem 7: 07/02/24 08:42 07/02/24 08:42 Labs: Abnormal Lab Results - Last 24 Hours (Table) 07/02/24 07/03/24 07/03/24 Range/Units 20:11 06:09 16:47 POC Glucose (mg/dL) 182 H 123 H 317 H (70-110) mg/dL
[2024-07-03 20:28] LABS: Glucose,Whole Blood 264 mg/dL (70-110)
[2024-07-03] MEDS: AMOXIC-POT CLAV 875-125MG 1 EACH TAB PO SCH (21:13)
[2024-07-04 06:11] LABS: Glucose,Whole Blood 171 mg/dL (70-110)
[2024-07-04 06:57] LABS: Basophils # (A) 0.1 k/uL (0-0.2); Basophils % (A) 1 %; Eosinophils # (A) 0.6 k/uL (0-0.7); Eosinophils % (A) 5 %; HCT 39.5 % (39.0-53.0); HGB 12.5 gm/dL (13.0-17.5); Lymphocytes # (A) 1.8 k/uL (1.0-4.8); Lymphocytes % (A) 17 %; MCH 27.7 pg (25.0-35.0); MCHC 31.6 g/dL (31.0-37.0); MCV 87.5 fL (80.0-100.0); Mean Platelet Volume 7.1; Monocytes # (A) 0.6 k/uL (0-1.0); Monocytes % (A) 6 %; Neutrophils # (A) 7.3 k/uL (1.3-7.7); Neutrophils % (A) 69 %; Platelet Count 451 k/uL (150-450); RBC 4.51 m/uL (4.30-5.90); RDW 13.3 % (11.5-15.5); WBC 10.6 k/uL (3.8-10.6)
[2024-07-04 07:23] LABS: ALT 51 U/L (4-49); AST 38 U/L (17-59); African American GFR (CKD) >90 (>60 ml/min/1.73 sqM); Albumin 3.2 g/dL (3.5-5.0); Alkaline Phosphatase 77 U/L (38-126); Anion Gap 7 mmol/L; Blood Urea Nitrogen 8 mg/dL (9-20); Calcium 9.2 mg/dL (8.4-10.2); Carbon Dioxide 29 mmol/L (22-30); Chloride 103 mmol/L (98-107); Glucose 179 mg/dL (74-99); Magnesium 1.8 mg/dL (1.6-2.3); Non-African American GFR(CKD) >90 (>60 ml/min/1.73 sqM); Potassium 3.7 mmol/L (3.5-5.1); Sodium 139 mmol/L (137-145); Total Bilirubin 0.6 mg/dL (0.2-1.3); Total Protein 6.1 g/dL (6.3-8.2)
[2024-07-04 07:44] LABS: Glucose,Whole Blood 154 mg/dL (70-110)
[2024-07-04 07:45] VITALS: RESP 15; TEMP 99.2
[2024-07-04 11:28] LABS: Glucose,Whole Blood 177 mg/dL (70-110)
--- NOTE | 2024-07-04 11:44 | P.DS ---
Providers Date of admission: 06/28/24 04:26 Expected date of discharge: 07/04/24 Attending physician: Michell Maguire Consults: 06/28/24 04:26 Consult Physician Urgent Consulting Provider: Chris Lorenzo Consult Reason/Comments: nstemi Do you want consulting provider notified?: Yes 06/28/24 10:29 Consult Physician Routine Consulting Provider: Iron Rahman Consult Reason/Comments: Acute respiratory failure Do you want consulting provider notified?: Yes 06/28/24 14:05 Consult Physician Routine Consulting Provider: Baron Edmonds Consult Reason/Comments: Bacterial pneumonia Do you want consulting provider notified?: Yes 06/29/24 13:16 Consult Physician Routine Consulting Provider: Al Najera Consult Reason/Comments: metabolic encephalopathy, suspect acute cva Do you want consulting provider notified?: Yes Primary care physician: Michell Maguire Hospital Course: HISTORY OF PRESENT ILLNESS: This is a 64-year-old male with a previous medical history significant for diabetes mellitus type 1 insulin requiring, hypertension and hypertensive heart vascular disease, mixed hyperlipidemia, history of seizure disorder, 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, patient has been residing at [facility] for quite some times, his sugar has been very uncontrolled due to the patient noncompliance with the diet and taking his insulin, apparently the patient developed to have a significant mental status changes with significant diaphoresis few days prior to the admission at that time laboratory evaluation was obtained and patient showed a white count of 20,000, at that time I started the patient on oral antibiotic in the form of Augmentin after obtaining chest x-ray that showed right lower lobe infiltrate, suggestive of possible aspiration pneumonia, his urinalysis did not show evidence of acute abnormalities, apparently the patient had fallen that day off the bed and he was found on the floor the fall was unwitnessed and the patient did have minimal bruising from his nose, and he cut his lip, and he was having some epistaxis at that time I sent the patient to the emergency department at [facility] where he was evaluated by CT scan of the brain did not show evidence of acute infarct or bleed, had a CT scan of the cervical spine negative for fracture CT of the facial bones showed nasal bone fracture, his chest x-ray did show evidence of right lower lobe infiltrate, initially was started on Zosyn 3.375 g piggyback every 8 hours, he was seen in consultation by pulmonary medicine as well as by infectious disease, sputum culture was obtained, and the patient also was seen in consultation by cardiology because the patient troponin was slightly elevated apparently the patient was admitted to the hospital for m etabolic toxic encephalopathy likely due to right lower lobe pneumonia likely community-acquired pneumonia, patient was kept on Zosyn at that time, he was seen as a said by cardiology who kept him on aspirin and atorvastatin, and then he was seen also in consultation by neurology who recommended for the patient to have a CT scan of the brain again that did not show evidence of acute abnormalities this was followed by an MRI of the brain that is still pending at the time of dictation. Patient was admitted through the weekend under the hospitalist service. 06/30: Patient is laying down in bed in no apparent distress, he continues to be a bit slower than normal, but he has been feeling as having poor appetite, patient also also was only taking the sliding scale insulin, he was started back on his Levemir 23 units at bedtime along with 4 units before each meal along with a sliding scale insulin, he was maintained on current treatment plan, and patient will be seen in consultation by physical therapy and Occupational Therapy most likely the patient will be able to be transferred back to [facility] on the [place] in the next 1 or 2 days, meanwhile we will continue to monitor the patient very c losely and follow-up with the patient very closely as well. 07/01: Patient is laying down in bed in no apparent distress, he is more awake and more alert today, he is eating better today, he has been doing better, however his blood glucose level is quite elevated today, he has brought blood glucose level in the morning was about 78, will continue Levemir 23 units, continue with a sliding scale insulin as well, monitor the patient very closely, patient underwent CT scan of the chest with contrast that showed evidence of 5.7 x 5.4 centimeter masslike density with a few air foci in the air suggestive of either necrotizing pneumonia versus neoplasm, patient has been on Zosyn at this point, has been followed by pulmonary medicine, will continue with this, will discuss with pulmonary team whether or not the patient will need to have more aggressive treatment, sputum cultures will need to be collected, MRI of the brain was done still pending at the time of dictation. MRI of the abdomen still pending at the time of dictation. 07/02: Patient is laying down in bed in no apparent distress, he appears to be generally weak, he was seen by pulmonary medicine, I spoke with the patient about the finding of the CT scan of the chest, and that showed evidence of a masslike density in the right lower lobe suggestive of bronchogenic carcinoma, we will discuss with pulmonary medicine possibility of other treatment options but the patient at this point in time is not a good candidate for any tissue sampling unless family elected otherwise, he is well-known to have a solid tumor in the liver he was seen in consultation by hepatology down at [facility] but at the same time it was recommended to repeat his MRI which we have done and that showed evidence of 2.5 cm left hepatic lobe suggestive of hepatocellular carcinoma as well, we will discuss with the family tomorrow morning what needs to be done at this point. As they elected not to go for any sampling few month back. 07/03: Patient son was at the bedside, he was updated about the current information about the MRI of the liver as well as the CT scan of the chest, and the right lower lobe mass suggestive of possible bronchogenic carcinoma, at this point in time patient will be transferred to [facility] on the [place] over the next 24 hours, and hopefully we will try to do a PET scan as an outpatient, if this PET scan is positive then the family would need to make the decision whether or not they want to pursue tissue sampling as they declined any tissue sampling in the past for the liver mass. 07/04: No new concerns overnight. Patient has been afebrile, heart rate is in the 80s and 90s, blood pressure 131/71, pulse ox 93% on room air. Repeat blood work reveals hemoglobin 12.5, WBC 10.6. Creatinine 0.61. Kepley blood glucose running between 154 and 264. Patient has been cleared for discharge from pulmonary medicine. Patient will be discharged back to [facility] once all arrangements are completed. DISCHARGE DIAGNOSES 1. Acute toxic metabolic encephalopathy likely due to right lower lobe pneumonia with sepsis ruled out acute ischemic event. 2. Elevated troponin likely due to type II MA secondary to sepsis. No evidence of acute coronary syndrome.Patient underwent echocardiogram that showed evidence of ejection fraction 55%, with no significant valvular abnormalities 3. Leukocytosis likely due to right lower lobe pneumonia with sepsis. 4. Hypertension and hypertensive cardiovascular disease. 5. Mixed hyperlipidemia. 6. History of CVA in the past 7. Diabetes mellitus type 1. 8. Gastroparesis. 9. History of seizure disorder. 10. Right lower lobe masslike density 5.7 x 5.4 cm possible necrotizing pneumonia versus neoplasm. 11. History of hepatitis C. with a prior liver lesion suggestive of possible hepatoma 12. Nasal fracture. 13. Enlarged prostate. 14. Right lower lobe mass suggestive of bronchogenic carcinoma. 15. Hypokalemia status post replacement. 16. Discharge back to [facility]. Greater than 35 minutes was utilized and coordinating patient's discharge. Impression and plan of care have been directed as dictated by the signing physician. Mey Bello nurse practitioner acting as scribe for signing physician. Patient Condition at Discharge: Serious Plan - Discharge Summary Discharge Rx Participant: No New Discharge Prescriptions: New Metoprolol Tartrate [Lopressor] 25 mg PO BID tab Acetaminophen Tab [Tylenol] 650 mg PO Q6HR PRN tab PRN Reason: Fever And/ Or Pain Aspirin 81 mg PO DAILY tab Amoxic-Pot Clav 875-125Mg [Augmentin 875-125] 1 each PO Q12HR #14 tab Nitroglycerin Sl Tabs [Nitrostat] 0.4 mg SUBLINGUAL Q5M PRN tab PRN Reason: Chest Pain Continue Atorvastatin [Lipitor] 80 mg PO HS@2100 INSULIN ASPART (NovoLOG) [NovoLOG (formulary)] See Protocol SQ ACHS@,,, Glucerna Shake 1 can PO BID@0900,1700 levETIRAcetam [Keppra] 500 mg PO BID@0900,2100 Clopidogrel [Plavix] 75 mg PO DAILY@0900 amLODIPine [Norvasc] 5 mg PO DAILY@0900 Ondansetron [Zofran] 4 mg PO Q8HR PRN PRN Reason: Nausea Tamsulosin HCl [Flomax] 0.4 mg PO HS@2100 Losartan [Cozaar] 50 mg PO DAILY@0900 guaiFENesin [Mucinex] 600 mg PO BID@0900,2100 Memantine [Namenda] 5 mg PO HS@2100 Metoclopramide HCl [Reglan] 10 mg PO TID@,, HYDROcodone/APAP 5-325MG [[place] 5-325] 1 tab PO Q8H PRN #9 tab PRN Reason: Pain Changed Insulin Detemir (Levemir) [Levemir] 34 unit SQ HS@2099 #0 INSULIN ASPART (NovoLOG) [NovoLOG (formulary)] 6 unit SQ AC-TID@,, #0 Discontinued Amoxic-Pot Clav 875-125Mg [Augmentin 875-125] 1 tab PO Q12HR Azithromycin [Zithromax] 500 mg PO DAILY Discharge Medication List Atorvastatin [Lipitor] 80 mg PO HS@209907/12/23 [History] Clopidogrel [Plavix] 75 mg PO DAILY@89907/12/23 [History] amLODIPine [Norvasc] 5 mg PO DAILY@89907/12/23 [History] levETIRAcetam [Keppra] 500 mg PO BID@899,209907/12/23 [History] Ondansetron [Zofran] 4 mg PO Q8HR PRN 09/04/23 [History] INSULIN ASPART (NovoLOG) [NovoLOG (formulary)] See Protocol SQ ACHS@,,,01/22/24 [History] Losartan [Cozaar] 50 mg PO DAILY@89901/22/24 [History] Tamsulosin HCl [Flomax] 0.4 mg PO HS@209901/22/24 [History] Glucerna Shake 1 can PO BID@0900,1700 06/28/24 [History] Memantine [Namenda] 5 mg PO HS@209906/28/24 [History] Metoclopramide HCl [Reglan] 10 mg PO TID@,,06/28/24 [History] guaiFENesin [Mucinex] 600 mg PO BID@00,209906/28/24 [History] Acetaminophen Tab [Tylenol] 650 mg PO Q6HR PRN tab 07/04/24 [Rx] Amoxic-Pot Clav 875-125Mg [Augmentin 875-125] 1 each PO Q12HR #14 tab 07/04/24 [Rx] Aspirin 81 mg PO DAILY tab 07/04/24 [Rx] HYDROcodone/APAP 5-325MG [[place] 5-325] 1 tab PO Q8H PRN #9 tab 07/04/24 [Rx] INSULIN ASPART (NovoLOG) [NovoLOG (formulary)] 6 unit SQ AC-TID@,,18 #0 07/04/24 [Rx] Insulin Detemir (Levemir) [Levemir] 34 unit SQ HS@2100 #0 07/04/24 [Rx] Metoprolol Tartrate [Lopressor] 25 mg PO BID tab 07/04/24 [Rx] Nitroglycerin Sl Tabs [Nitrostat] 0.4 mg SUBLINGUAL Q5M PRN tab 07/04/24 [Rx] Follow up Appointment(s)/Referral(s): Michell Maguire MD [Primary Care Provider] - 1 Week (at [facility]) Discharge Disposition: TRANSFER TO SNF/ECF
--- NOTE | 2024-07-04 12:49 | P.PN ---
Subjective Progress Note Date: 07/04/24 This is a 64-year-old male patient, intermediate resident, who came into the emergency department from [facility] on the [place] after sustaining a fall. The exact circumstances and the cause of fall is not clear. The patient had facial injury. The fall was unwitnessed and the patient had some epistaxis. Based on that, he came into the emergency department. The patient had a CAT scan of the head and the cervical spine that showed no acute hemorrhage. There was a right nasal bone fracture. CAT scan of the face was also done and showed an acute nasal bone fracture. Chest x-ray also showed a new onset right lower lobe consolidation. The patient is currently on room air oxygen. Limits congested cough no significant sputum production. Is a poor historian. The white cell count of 14 with a heme of 13.3. Normal coagulation profile. BUN 24 with a creatinine of 1.12 sodium level is at 136. Hemodynamically stable and the patient is afebrile. Cardiac rhythm is sinus. Troponins were elevated with levels of 0.3 x 3 respectively. The EKG showed normal sinus rhythm with left axis deviation. No ST segment elevation or depression. The patient accordingly will be seen by cardiology. Noted the patient's C the patient's proBNP elevated at 412. Liver function tests are essentially within normal limits. UA showing 11 WBCs, positive protein, alcohol level is less than 10. On a separate note, I reviewed records from the intermediate and the patient was being treated with a course of antibiotics utilizing a combination of Augmentin and Zithromax given to him by the primary care physician. 06/29/2024, the patient is being seen for a follow-up., Comfortable remains on room air oxygen being treated for a pneumonia involving the lower lobes more so on the right. He is having some liquidy diarrhea the patient had 3 episodes. Currently on IV Zosyn. Will check stool for C. difficile. No nausea vomiting or abdominal pain. The white cell count 11.6 with a hemoglobin 11.9 and a platelet count of 274. Electrolytes show a potassium level of 2.9. Serum bicarbonate 28 with a BUN of 19 and a creatinine of 0.8. Reevaluated today on 06/30/2024, patient is doing well, on room air, no further episodes of epistaxis, denies having shortness of breath cough or wheezing, chest x-ray is showing a masslike consolidation in the right lower lobe hence I am recommending a CT of the chest. In the meantime the patient is receiving antibiotics for presumptive community-acquired pneumonia. Patient is afebrile, WBC count 12.9 hemoglobin 12.3 electrolytes are normal renal profile is normal Patient was evaluated today on 07/01/2024, patient seems to be comfortable, not in distress, his CT of the chest is highly suggestive of bronchogenic carcinoma, CT of the brain showed age-related atrophic and chronic small vessel ischemia changes with old infarct left occipital area. At any rate patient is being followed by neurology for his mental status, I am quite concerned about his right lower lobe findings, would recommend further workup and possibly CT-guided needle biopsy or bronchoscopy and biopsy to evaluate for bronchogenic carcinoma or possibly necrotic or cavitary pneumonia in the right lower lobe. My clinical impression that this is more or less bronchogenic carcinoma unless proven otherwise. His procalcitonin level is normal hence infection is less likely The patient is seen today July 02, 2024 in follow-up on the selective care unit. He is currently resting in bed. Awake and alert in no acute distress. Is maintaining O2 saturations in the 90s on room air. He has been afebrile. Hemodynamically stable. MRI of the brain revealed no acute intracranial process. Chronic appearing changes that are stable. Periventricular chronic appearing white matter ischemic type changes. Differential includes multiple sclerosis. Age-related atrophy. MRI of the abdomen revealed a stable left hepatic lobe lesion measuring 2.5 cm. Similar indeterminate enhancement dorota racteristics. Etiology includes solid hepatic neoplasm. Consider tissue diagnosis. Diffuse patchy heterogenous hepatic arterial enhancement. Right lower lung consolidation. Count 10.4. Hemoglobin 12.0. Platelets 332. Sodium 137. Potassium 3.0. Bicarb 30. BUN 5. Creatinine 0.67. Procalcitonin was normal at 0.21. The patient is seen today July 04, 2024 in follow-up on the selective care unit. He is awake and alert in no acute distress. Minimally verbal. He is maintaining good O2 saturations in the 90s on room air. White count 10.6. Hemoglobin 12.5. Platelets 451. Sodium 139. Potassium 3.7. Bicarb 29. BUN 8. Creatinine 0.61. Glucose 179. He is currently afebrile. Hemodynamically stable. He remains on antibiotics in the form of Augmentin. Objective - Vital Signs Vital signs: Vital Signs Temp 99.2 F 07/04/24 07:45 Pulse 80 07/04/24 11:49 Resp 15 07/04/24 11:49 BP 122/74 07/04/24 11:49 Pulse Ox 96 07/04/24 11:49 FiO2 35 06/29/24 04:26 Intake & Output 07/03/24 07/04/24 07/04/24 18:59 06:59 18:59 Intake Total 480 20 240 Output Total 200 200 Balance 280 20 40 Weight 63.5 kg 63.9 kg Intake: IV 20 Invasive Line 4 20 Oral 480 240 Output: Urine 200 200 Other: Voiding Method Toilet Toilet Toilet Urinal Urinal Urinal # Voids 1 # Bowel Movements 1 - Exam GENERAL EXAM: Reveals a 64-year-old male, resting in bed, in no distress, on room air HEAD: Normocephalic and atraumatic EYES: Normal reaction of pupils, equal size. NOSE: Clear with pink turbinates. Dried blood over the nasal passages and the nostrils. No evidence of any acute bleeding THROAT: No erythema or exudates. Dry mucous membranes NECK: No masses, no JVD. CHEST: No chest wall deformity. LUNGS: Equal air entry no wheeze, rhonchi or dullness. On room air. CVS: Distant S1-S2, no S3 gallop, no murmur. ABDOMEN: No hepatosplenomegaly, active bowel sounds, no guarding or rigidity. SKIN: No rashes CENTRAL NERVOUS SYSTEM: Alert oriented x 3 but the patient is slow to respond and is a very poor historian EXTREMITIES: No clubbing edema or cyanosis - Labs CBC & Chem 7: 07/04/24 06:07 07/04/24 06:07 Labs: Abnormal Lab Results - Last 24 Hours (Table) 07/03/24 07/03/24 07/04/24 Range/Units 16:47 20:26 06:07 Hgb 12.5 L (13.0-17.5) gm/dL Plt Count 451 H (150-450) k/uL BUN (9-20) mg/dL Creatinine (0.66-1.25) mg/dL Glucose (74-99) mg/dL POC Glucose (mg/dL) 317 H 264 H (70-110) mg/dL ALT (4-49) U/L Total Protein (6.3-8.2) g/dL Albumin (3.5-5.0) g/dL 07/04/24 07/04/24 07/04/24 Range/Units 06:07 06:10 07:43 Hgb (13.0-17.5) gm/dL Plt Count (150-450) k/uL BUN 8 L (9-20) mg/dL Creatinine 0.61 L (0.66-1.25) mg/dL Glucose 179 H (74-99) mg/dL POC Glucose (mg/dL) 171 H 154 H (70-110) mg/dL ALT 51 H (4-49) U/L Total Protein 6.1 L (6.3-8.2) g/dL Albumin 3.2 L (3.5-5.0) g/dL 07/04/24 Range/Units 11:27 Hgb (13.0-17.5) gm/dL Plt Count (150-450) k/uL BUN (9-20) mg/dL Creatinine (0.66-1.25) mg/dL Glucose (74-99) mg/dL POC Glucose (mg/dL) 177 H (70-110) mg/dL ALT (4-49) U/L Total Protein (6.3-8.2) g/dL Albumin (3.5-5.0) g/dL Assessment and Plan Assessment: Acute right nasal bone fractures secondary to fall Right lower lobe masslike highly suspicious for bronchogenic carcinoma with negative procalcitonin level Stable left hepatic lobe lesion measuring 2.5 cm. Hepatic neoplasm within the differential Leukocytosis, mild Diarrhea, rule out C. difficile colitis Abnormal troponin leak under investigation Generalized weakness and dehydration Diabetes mellitus type 2, insulin-dependent, complicated by diabetic neuropathy Hyperlipidemia Hypertension History of CVA, with residual memory impairment and visual impairment History of seizure disorder, managed on Keppra History of hepatitis C status/post treatment Former tobacco smoker Plan: The patient was seen and evaluated Currently stable and on room air Labs and medications reviewed Cleared for discharge Recommend outpatient PET scan Plan is to return to [facility] [place] at discharge I have personally seen and examined the patient, performed the documentation and the assessment and plan as written. Number of minutes spent on the visit: 10.
--- NOTE | 2024-07-04 15:28 | P.PN ---
Subjective Progress Note Date: 07/04/24 Principal diagnosis: Reason for follow-up is pneumonia Patient is a 64-year-old male with a past medical history significant for diabetes mellitus and MT CVA former smoker has been brought to the hospital after apparently the patient have a fall with facial injury, patient also noticed to have right lower lung airspace disease concerning for pneumonia prompting this consultation. On today's evaluation that is 07/04/2024,the patient remains to be afebrile, patient is on room air not requiring supplemental oxygen and denies any shortness of breath no chest pain or worsening cough.Patient denies having any nausea or vomiting, no abdominal pain and no diarrhea has been reported. Patient white count is 10.6, creatinine 0.61 Objective - Vital Signs Vital signs: Vital Signs Temp 99.2 F 07/04/24 07:45 Pulse 80 07/04/24 11:49 Resp 15 07/04/24 11:49 BP 122/74 07/04/24 11:49 Pulse Ox 96 07/04/24 11:49 FiO2 35 06/29/24 04:26 Intake & Output 07/03/24 07/04/24 07/04/24 18:59 06:59 18:59 Intake Total 480 20 240 Output Total 200 200 Balance 280 20 40 Weight 63.5 kg 63.9 kg Intake: IV 20 Invasive Line 4 20 Oral 480 240 Output: Urine 200 200 Other: Voiding Method Toilet Toilet Toilet Urinal Urinal Urinal # Voids 1 # Bowel Movements 1 - Exam GENERAL DESCRIPTION: An elderly male lying in bed in no distress RESPIRATORY SYSTEM: Unlabored breathing , decreased breath sounds at bases HEART: S1 S2 regular rate and rhythm , ABDOMEN: Soft , no tenderness EXTREMITIES: No edema feet - Labs CBC & Chem 7: 07/04/24 06:07 07/04/24 06:07 Labs: Abnormal Lab Results - Last 24 Hours (Table) 07/03/24 07/03/24 07/04/24 Range/Units 16:47 20:26 06:07 Hgb 12.5 L (13.0-17.5) gm/dL Plt Count 451 H (150-450) k/uL BUN (9-20) mg/dL Creatinine (0.66-1.25) mg/dL Glucose (74-99) mg/dL POC Glucose (mg/dL) 317 H 264 H (70-110) mg/dL ALT (4-49) U/L Total Protein (6.3-8.2) g/dL Albumin (3.5-5.0) g/dL 07/04/24 07/04/24 07/04/24 Range/Units 06:07 06:10 07:43 Hgb (13.0-17.5) gm/dL Plt Count (150-450) k/uL BUN 8 L (9-20) mg/dL Creatinine 0.61 L (0.66-1.25) mg/dL Glucose 179 H (74-99) mg/dL POC Glucose (mg/dL) 171 H 154 H (70-110) mg/dL ALT 51 H (4-49) U/L Total Protein 6.1 L (6.3-8.2) g/dL Albumin 3.2 L (3.5-5.0) g/dL 07/04/24 Range/Units 11:27 Hgb (13.0-17.5) gm/dL Plt Count (150-450) k/uL BUN (9-20) mg/dL Creatinine (0.66-1.25) mg/dL Glucose (74-99) mg/dL POC Glucose (mg/dL) 177 H (70-110) mg/dL ALT (4-49) U/L Total Protein (6.3-8.2) g/dL Albumin (3.5-5.0) g/dL Assessment and Plan (1) Pneumonia Current Visit: Yes Status: Acute Code(s): J18.9 - PNEUMONIA, UNSPECIFIED ORGANISM SNOMED Code(s): 311159029 Plan: 1patient presented to hospital with fall also complaining of shortness of breath he did have a cough with some sputum production chest x-ray with right lower lobe infiltrate did have elevated white count concerning for pneumonia likely community-acquired aspiration pneumonia not entirely excluded 2-patient did have significant abnormality on the right lower lobe on the chest CT IR has been consulted for biopsy however has to be done as outpatient as pt is on plavix , with high clinical suspicion for malignancy than infection, the patient Zosyn has been discontinued the patient seem to be doing well off antibiotic hence recommending no antibiotic on discharge Dictation was produced using [employer] dictation software. please excuse any grammatical, word or spelling errors. Time with Patient: Less than 30
[2024-07-04 16:23] VITALS: BP 131/73; PULSE 88
[2024-07-04 16:43] LABS: Glucose,Whole Blood 277 mg/dL (70-110)
--- NOTE | 2024-07-07 07:42 | CDI ---
Documentation Clarification Form Date: 07/07/2024 From: Mary Holm Phone: [phone] Admit Date: 06/28/2024 04:26:00 AM Patient Name: Clifton Coronel Visit Number: [id number] Discharge Date: 07/04/2024 05:11:00 PM ATTENTION: The Clinical Documentation Specialists (CDI) and [facility] Coding Staff appreciate your assistance in clarifying documentation. Please respond to the clarification below the line at the bottom and electronically sign. The CDI & [facility] Coding staff will review the response and follow-up if needed. Please note: Queries are made part of the Legal Health Record. If you have any questions, please contact the author of this message via ITS. Doctor/Provider: Michell Maguire MD: Rhabdomyolysis is documented in the Cardiology consult 06/28. Additional clarification regarding the type of rhabdomyolysis is requested. History/Risk Factors: 64-year-old male with a history of CVA, DM2, HTN who presents after suspected fall with generalized weakness and confusion Clinical Indicators: 06/28 H&P, HPI: "Patient was found face down on the floor with unknown downtime. Patient did not lose consciousness." 06/28 Cardiology consult, Plan: "At this time I will not heparinize patient for a flat troponin which I believe could be related to muscle injury and rhabdomyolysis from prolonged downtime and fall." 06/30 Creatine Kinase: 94 06/28-06/30 Potassium: 3.1, 2.9, 4.1, 3.8 Sodium: 136, 135, 134 AST: 43, 62, 92 AST: 42, 59, 99 Please clarify the type of rhabdomyolysis, if known: [ ] Traumatic rhabdomyolysis due to prolonged immobility [ X ] Rhabdomyolysis ruled out [ ] Other, please specify [ ] Unable to Determine MTDD
== END 2024-07-04 17:11 | DRG 720 ==
LOC: EC 02:16 → 3SCARD 04:26
PROVIDERS: ADMIT Internal Medicine; ATTEND Internal Medicine
DX: A41.9 Sepsis, unspecified organism (principal); E10.43 Type 1 diabetes mellitus with diabetic autonomic (poly)neuropathy; E78.2 Mixed hyperlipidemia; E86.0 Dehydration; D49.0 Neoplasm of unspecified behavior of digestive system; E87.6 Hypokalemia; G40.909 Epilepsy, unspecified, not intractable, without status epilepticus; G92.8 Other toxic encephalopathy; I69.351 Hemiplegia and hemiparesis following cerebral infarction affecting right dominant side; I69.398 Other sequelae of cerebral infarction; H53.9 Unspecified visual disturbance; I21.A1 Myocardial infarction type 2; I11.9 Hypertensive heart disease without heart failure; I25.2 Old myocardial infarction; J96.00 Acute respiratory failure, unspecified whether with hypoxia or hypercapnia; K31.84 Gastroparesis; W18.30XA Fall on same level, unspecified, initial encounter; Y92.122 Bedroom in nursing home as the place of occurrence of the external cause; R74.01 Elevation of levels of liver transaminase levels; T38.3X6A Underdosing of insulin and oral hypoglycemic [antidiabetic] drugs, initial encounter; E10.65 Type 1 diabetes mellitus with hyperglycemia; J15.9 Unspecified bacterial pneumonia; N40.0 Benign prostatic hyperplasia without lower urinary tract symptoms; S01.511A Laceration without foreign body of lip, initial encounter; S02.2XXA Fracture of nasal bones, initial encounter for closed fracture; W06.XXXA Fall from bed, initial encounter; Z79.02 Long term (current) use of antithrombotics/antiplatelets; Z79.4 Long term (current) use of insulin; Z79.82 Long term (current) use of aspirin; Z79.899 Other long term (current) drug therapy; Z87.891 Personal history of nicotine dependence; Z91.119 Patient's noncompliance with dietary regimen due to unspecified reason; Z91.128 Patient's intentional underdosing of medication regimen for other reason; Z86.19 Personal history of other infectious and parasitic diseases; Z71.3 Dietary counseling and surveillance
CPT/HCPCS: 36415; 70450; 70486; 70551; 71046; 71260; 72125; 74183; 80053; 80061; 80177; 80306; 80320; 81001; 82140; 82378; 82550; 82552; 82607; 83036; 83735; 83880; 84100; 84132; 84145; 84484; 85025; 85027; 85610; 85730; 86140; 87324; 87449; 93005; 93306; 94760; 95816; 96360; 99291

== ENCOUNTER → 2024-07-18 | Outpatient (CLI) | payer OTHER | END | disposition home or self-care (01) | LOC: RADPETMAIN 09:29 | PROVIDERS: ATTEND Internal Medicine | DX: Z53.9 Procedure and treatment not carried out, unspecified reason (principal) ==

== ENCOUNTER → 2024-07-31 | Outpatient (CLI) | payer OTHER ==
--- NOTE | 2024-08-02 22:18 | PE ---
EXAMINATION TYPE: PET CT fusion skull to thigh DATE OF EXAM: 07/31/2024 CLINICAL INDICATION:Male, 64 years old with history of R91.8 R93.2; TECHNIQUE: Following the intravenous administration of 9.02 mCi of F-18 FDG, whole body images are performed from the skull base to the midthigh. Images are reviewed on the computer in the coronal, a xial, and sagittal planes. Reconstructed rotating images are created on independent workstation and reviewed on the computer. A non-contrast CT is performed in conjunction with the PET scan. Glucose level 205 mg/dL CT DLP: 424.57 mGycm, Automated exposure control for dose reduction was used. COMPARISON: CT 06/30/2024, 01/24/2024, 09/07/2023, PET/CT None, MRI: 07/02/2024 FINDINGS: Mediastinal SUV mean is 2.3. Hepatic parenchyma SUV mean is 3.1. SKULL BASE AND NECK: No suspicious radiotracer activity. CHEST, MEDIASTINUM, AND HILAR REGION: Resolution appreciated demonstrated patchy groundglass opacities within the right lower lobe with res idual masslike consolidation measuring grossly 2.8 x 3.4 cm, previously 5.4 x 5.7 cm. And shows maxim um SUV of 4.9. Enlarged subcarinal lymph node measuring 1.1 cm short axis with maximum SUV of 3.2. ABDOMEN AND PELVIS: Known left hepatic lobe liver lesion does not demonstrate radiotracer uptake above background. Maximu m SUV in this region is 4.4. MUSCULOSKELETAL STRUCTURES: No suspicious radiotracer activity. OTHER CT: Advanced bilateral carotid calcifications. Severe coronary artery calcifications. Mild to m oderate atherosclerotic calcification of the aorta and its branches. Nonobstructive bilateral renal c alculi. Postsurgical changes of the ascending colon with anastomosis. Prostate calcification. IMPRESSION: 1. Decreased size of masslike consolidation within the right lower lobe with resolution surrounding patchy airspace opacities. Demonstrates mild FDG radiotracer activity above background. May represent resolving infectious process. Underlying malignancy is not excluded. Follow-up CT chest in 3 months is recommended. 2. Stable mildly enlarged subcarinal lymph node with FDG activity just above background suggesting a reactive lymph node. 3. No other suspicious radiotracer uptake. [facility], , 08/02/2024 10:16 PM
== END | disposition home or self-care (01) ==
LOC: RADPETMAIN 06:55
PROVIDERS: ATTEND Internal Medicine
DX: R91.8 Other nonspecific abnormal finding of lung field (principal); R93.2 Abnormal findings on diagnostic imaging of liver and biliary tract
CPT/HCPCS: 78815

== ENCOUNTER 2024-08-18 15:47 | Emergency (ER) | payer OTHER ==
[2024-08-18 16:00] LABS: Glucose,Whole Blood 441 mg/dL (70-110)
[2024-08-18 17:10] LABS: Basophils % (A) 0 %; Eosinophils # (A) 0.3 k/uL (0-0.7); Eosinophils % (A) 4 %; HCT 38.5 % (39.0-53.0); HGB 12.4 gm/dL (13.0-17.5); Lymphocytes # (A) 1.3 k/uL (1.0-4.8); Lymphocytes % (A) 14 %; MCH 28.4 pg (25.0-35.0); MCHC 32.1 g/dL (31.0-37.0); MCV 88.5 fL (80.0-100.0); Mean Platelet Volume 7.8; Monocytes # (A) 0.5 k/uL (0-1.0); Monocytes % (A) 6 %; Neutrophils # (A) 6.7 k/uL (1.3-7.7); Neutrophils % (A) 75 %; Platelet Count 226 k/uL (150-450); RBC 4.36 m/uL (4.30-5.90); RDW 14.4 % (11.5-15.5); WBC 8.9 k/uL (3.8-10.6)
[2024-08-18] MEDS: SODIUM CHLORIDE 0.9% 1,000 ML IV STA ×2 (17:11→18:07)
[2024-08-18 17:13] LABS: VBG PH 7.4 (7.31-7.41)
[2024-08-18 17:25] LABS: Carbon Dioxide 22 mmol/L (22-30); Chloride 103 mmol/L (98-107); Glucose 460 mg/dL (74-99); Potassium 4.1 mmol/L (3.5-5.1); Sodium 133 mmol/L (137-145)
--- NOTE | 2024-08-18 17:25 | ED ---
Fall HPI - General Chief Complaint: Fall Stated Complaint: Fall-Head Injury Time Seen by Provider: 08/18/24 17:21 Source: patient, RN notes reviewed Mode of arrival: EMS - History of Present Illness Initial Comments: 64-year-old male presenting to the ER via EMS from [facility] for fall with head injury. Per [facility] staff, patient lost his balance and fell forward, striking his forehead on the floor. Per son, patient was recently diagnosed with a lung mass that is undergoing biopsy. Patient's blood glucose was elevated in the 500s on the way to the ER. Patient was given 15 units of insulin at this time (1300). [facility] staff reports patient is at his [facility] swati mental status. Patient does not remember falling, however denies any current symptoms such as chest pain, shortness of breath, headache, vision changes, extremity pain or injuries. Patient has history of diabetes, hypertension, CAD on Plavix, CVA - Related Data Home Medications Medication Instructions Recorded Confirmed Atorvastatin [Lipitor] 80 mg PO HS@209907/12/23 06/28/24 Clopidogrel [Plavix] 75 mg PO DAILY@89907/12/23 06/28/24 amLODIPine [Norvasc] 5 mg PO DAILY@89907/12/23 06/28/24 levETIRAcetam [Keppra] 500 mg PO BID@899,209907/12/23 06/28/24 Ondansetron [Zofran] 4 mg PO Q8HR PRN 09/04/23 06/28/24 INSULIN ASPART (NovoLOG) [NovoLOG See Protocol SQ ACHS@,,,01/22/24 06/28/24 (formulary)] Losartan [Cozaar] 50 mg PO DAILY@89901/22/24 06/28/24 Tamsulosin HCl [Flomax] 0.4 mg PO HS@209901/22/24 06/28/24 Glucerna Shake 1 can PO BID@0900,1700 06/28/24 06/28/24 Memantine [Namenda] 5 mg PO HS@209906/28/24 06/28/24 Metoclopramide HCl [Reglan] 10 mg PO TID@,,06/28/24 06/28/24 guaiFENesin [Mucinex] 600 mg PO BID@0900,2100 06/28/24 06/28/24 Previous Rx's Medication Instructions Recorded Acetaminophen Tab [Tylenol] 650 mg PO Q6HR PRN tab 07/04/24 Amoxic-Pot Clav 875-125Mg 1 each PO Q12HR #14 tab 07/04/24 [Augmentin 875-125] Aspirin 81 mg PO DAILY tab 07/04/24 HYDROcodone/APAP 5-325MG [Pomfret 1 tab PO Q8H PRN #9 tab 07/04/24 5-325] INSULIN ASPART (NovoLOG) [NovoLOG 6 unit SQ AC-TID@,,18 #0 07/04/24 (formulary)] Insulin Detemir (Levemir) [Levemir] 34 unit SQ HS@2100 #0 07/04/24 Metoprolol Tartrate [Lopressor] 25 mg PO BID tab 07/04/24 Nitroglycerin Sl Tabs [Nitrostat] 0.4 mg SUBLINGUAL Q5M PRN tab 07/04/24 Allergies Allergy/AdvReac Type Severity Reaction Status Date / Time No Known Allergies Allergy Verified 08/18/24 15:56 Review of Systems ROS Statement: Those systems with pertinent positive or pertinent negative responses have been documented in the HPI. ROS Other: All systems not noted in ROS Statement are negative. Past Medical History Past Medical History: Diabetes Mellitus, Myocardial Infarction (NV) Additional Past Medical History / Comment(s): cva 2019 Last Myocardial Infarction Date:: states few years ago History of Any Multi-Drug Resistant Organisms: None Reported Past Surgical History: No Surgical Hx Reported Additional Past Surgical History / Comment(s): pt cannot remember hx r/t CVA residual effects Past Anesthesia/Blood Transfusion Reactions: No Reported Reaction Past Psychological History: No Psychological Hx Reported Smoking Status: Former smoker Past Alcohol Use History: None Reported Past Drug Use History: None Reported - Past Family History Father Family Medical History: Cancer Additional Family Medical History / Comment(s): unknown per patient General Exam General appearance: alert, in no apparent distress Head exam: Present: normocephalic. Absent: normal inspection (There is a 3 cm superficial laceration present on right forehead, no active bleeding) Eye exam: Present: normal appearance, PERRL, EOMI. Absent: scleral icterus, conjunctival injection, periorbital swelling ENT exam: Present: normal exam, mucous membranes moist Neck exam: Present: normal inspection. Absent: tenderness, meningismus, lymphadenopathy Respiratory exam: Present: normal lung sounds bilaterally. Absent: respiratory distress, wheezes, rales, rhonchi, stridor Cardiovascular Exam: Present: regular rate, normal rhythm, normal heart sounds. Absent: systolic murmur, diastolic murmur, rubs, gallop, clicks GI/Abdominal exam: Present: soft, normal bowel sounds. Absent: distended, tenderness, guarding, rebound, rigid Neurological exam: Present: alert, CN II-XII intact. Absent: oriented X3 (Oriented x 2) Psychiatric exam: Present: normal affect, normal mood Skin exam: Present: warm, dry, intact, normal color. Absent: rash Course Vital Signs 08/18/24 08/18/24 08/18/24 15:53 16:56 18:59 Temperature 97.7 F 98.1 F 97.9 F Pulse Rate 74 72 84 Respiratory 20 18 18 Rate Blood Pressure 129/72 177/86 131/83 O2 Sat by Pulse 96 99 98 Oximetry Medical Decision Making - Medical Decision Making Was pt. sent in by a medical professional or institution (, PA, VENEER STACKER, urgent care, hospital, or half-way...) When possible be specific @ -No Did you speak to anyone other than the patient for history (EMS, parent, family, police, friend...)? What history was obtained from this source @ -EMS supplemented history Did you review nursing and triage notes (agree or disagree)? Why? @ -I reviewed and agree with nursing and triage notes Were old charts reviewed (outside hosp., previous admission, EMS record, old EKG, old radiological studies, urgent care reports/EKG's, half-way records)? Report findings @ -No old charts were reviewed Differential Diagnosis (chest pain, altered mental status, abdominal pain women, abdominal pain men, vaginal bleeding, weakness, fever, dyspnea, syncope, headache, dizziness, GI bleed, back pain, seizure, CVA, palpatations, mental health, musculoskeletal)? @ -Differential Dizziness: Benign paroxysmal positional Vertigo, Meniere's disease, otitis media, acoustic neuroma, vertebrobasilar insufficiency, cerebellar stroke, encephalitis, hypovolemic, arrhythmia, coronary artery syndrome, anemia, this is not meant to be an all-inclusive list EKG interpreted by me (3pts min.). @ -As above X-rays interpreted by me (1pt min.). @ -None done CT interpreted by me (1pt min.). @ -None done U/S interpreted by me (1pt. min.). @ -None done What testing was considered but not performed or refused? (CT, X-rays, U/S, labs)? Why? @ -None What meds were considered but not given or refused? Why? @ -None Did you discuss the management of the patient with other professionals (hoda cespedes i.e. , PA, VENEER STACKER, lab, RT, psych nurse, pediatric social worker, fiber machine tender, teacher, county records management officer, watch case polisher)? Give summary @ -No Was smoking cessation discussed for >3mins.? @ -No Was critical care preformed (if so, how long)? @ -No Were there social determinants of health that impacted care today? How? (Homelessness, low income, unemployed, alcoholism, drug addiction, transportation, low edu. Level, literacy, decrease access to med. care, [facility], rehab)? @ -No Was there de-escalation of care discussed even if they declined (Discuss DNR or withdrawal of care, Hospice)? DNR status @ -No What co-morbidities impacted this encounter? (DM, HTN, Smoking, COPD, CAD, Cancer, CVA, ARF, Chemo, Hep., AIDS, mental health diagnosis, sleep apnea, morbid obesity)? @ -None Was patient admitted / discharged? Hospital course, mention meds given and route, prescriptions, significant lab abnormalities, going to OR and other pertinent info. @ -Discharged. This is a 64-year-old male sent from [facility] for fall with head injury. Patient states he has been feeling lightheaded today. Denies chest pain, shortness of breath, headache. Vital signs are within acceptable limits. There is a superficial 3 mm laceration on right forehead. Initial blood glucose 441. CBC, CMP, VBG unremarkable. Troponin 0.058 which is reduced from baseline. Acetone positive. There is 4+ glucose in urine, 2+ ketones. Patient was provided with 2 L IV fluid bolus and given [address] head and neck revealed no acute intracranial process. CT PE obtained due to elevated D-dimer which was negative for PE. Steri-Strips applied to right forehead laceration. Blood glucose reduced to 406. Patient does not appear to be in DKA. I believe it is safe for patient to be discharged with close outpati ent follow-up. Case was discussed with my ED attending Dr. Goyal. Patient discharged in stable condition. Undiagnosed new problem with uncertain prognosis? @ -No Drug Therapy requiring intensive monitoring for toxicity (Heparin, Nitro, Insulin, Cardizem)? @ -No Were any procedures done? @ -No Diagnosis/symptom? @ -Fall with head injury, hyperglycemia Acute, or Chronic, or Acute on Chronic? @ -Acute Uncomplicated (without systemic symptoms) or Complicated (systemic symptoms)? @ -Complicated Side effects of treatment? @ -No Exacerbation, Progression, or Severe Exacerbation? @ -No Poses a threat to life or bodily function? How? (Chest pain, USA, NV, pneumonia, PE, COPD, DKA, ARF, appy, cholecystitis, CVA, Diverticulitis, Homicidal, Suicidal, threat to staff... and all critical care pts) @ -Not at this time - Lab Data Result diagrams: 08/18/24 16:48 08/18/24 16:48 Lab Results 08/18/24 08/18/24 08/18/24 Range/Units 15:59 16:48 16:48 WBC 8.9 (3.8-10.6) k/uL RBC 4.36 (4.30-5.90) m/uL Hgb 12.4 L (13.0-17.5) gm/dL Hct 38.5 L (39.0-53.0) % MCV 88.5 (80.0-100.0) fL MCH 28.4 (25.0-35.0) pg MCHC 32.1 (31.0-37.0) g/dL RDW 14.4 (11.5-15.5) % Plt Count 226 (150-450) k/uL MPV 7.8 Neutrophils % 75 % Lymphocytes % 14 % Monocytes % 6 % Eosinophils % 4 % Basophils % 0 % Neutrophils # 6.7 (1.3-7.7) k/uL Lymphocytes # 1.3 (1.0-4.8) k/uL Monocytes # 0.5 (0-1.0) k/uL Eosinophils # 0.3 (0-0.7) k/uL Basophils # 0.0 (0-0.2) k/uL D-Dimer (<0.60) mg/L FEU VBG pH (7.31-7.41) VBG pCO2 (37-51) mmHg VBG HCO3 (24-28) mmol/L Sodium 133 L (137-145) mmol/L Potassium 4.1 (3.5-5.1) mmol/L Chloride 103 (98-107) mmol/L Carbon Dioxide 22 (22-30) mmol/L Anion Gap 8 mmol/L BUN 16 (9-20) mg/dL Creatinine 0.70 (0.66-1.25) mg/dL Est GFR (CKD-EPI)AfAm >90 (>60 ml/min/1.73 sqM) Est GFR (CKD-EPI)NonAf >90 (>60 ml/min/1.73 sqM) Glucose 460 H (74-99) mg/dL POC Glucose (mg/dL) 441 H (70-110) mg/dL POC Glu Professor Of Literacy ID Kimber Vila Plasma Lactic Acid Iraj (0.7-2.0) mmol/L Calcium 8.6 (8.4-10.2) mg/dL Total Bilirubin 1.4 H (0.2-1.3) mg/dL AST 30 (17-59) U/L ALT 36 (4-49) U/L Alkaline Phosphatase 69 (38-126) U/L Troponin I (0.000-0.034) ng/mL Total Protein 6.0 L (6.3-8.2) g/dL Albumin 3.5 (3.5-5.0) g/dL Urine Color Urine Appearance (Clear) Urine pH (5.0-8.0) Ur Specific [place] (1.001-1.035) Urine Protein (Negative) Urine Glucose (UA) (Negative) Urine Ketones (Negative) Urine Blood (Negative) Urine Nitrite (Negative) Urine Bilirubin (Negative) Urine Urobilinogen (<2.0) mg/dL Ur Leukocyte Esterase (Negative) Acetone, Qual Positive (Negative) 08/18/24 08/18/24 08/18/24 Range/Units 16:48 16:48 16:48 WBC (3.8-10.6) k/uL RBC (4.30-5.90) m/uL Hgb (13.0-17.5) gm/dL Hct (39.0-53.0) % MCV (80.0-100.0) fL MCH (25.0-35.0) pg MCHC (31.0-37.0) g/dL RDW (11.5-15.5) % Plt Count (150-450) k/uL MPV Neutrophils % % Lymphocytes % % Monocytes % % Eosinophils % % Basophils % % Neutrophils # (1.3-7.7) k/uL Lymphocytes # (1.0-4.8) k/uL Monocytes # (0-1.0) k/uL Eosinophils # (0-0.7) k/uL Basophils # (0-0.2) k/uL D-Dimer (<0.60) mg/L FEU VBG pH 7.40 (7.31-7.41) VBG pCO2 38 (37-51) mmHg VBG HCO3 24 (24-28) mmol/L Sodium (137-145) mmol/L Potassium (3.5-5.1) mmol/L Chloride (98-107) mmol/L Carbon Dioxide (22-30) mmol/L Anion Gap mmol/L BUN (9-20) mg/dL Creatinine (0.66-1.25) mg/dL Est GFR (CKD-EPI)AfAm (>60 ml/min/1.73 sqM) Est GFR (CKD-EPI)NonAf (>60 ml/min/1.73 sqM) Glucose (74-99) mg/dL POC Glucose (mg/dL) (70-110) mg/dL POC Glu Professor Of Literacy ID Plasma Lactic Acid Iraj 1.1 (0.7-2.0) mmol/L Calcium (8.4-10.2) mg/dL Total Bilirubin (0.2-1.3) mg/dL AST (17-59) U/L ALT (4-49) U/L Alkaline Phosphatase (38-126) U/L Troponin I 0.058 H* (0.000-0.034) ng/mL Total Protein (6.3-8.2) g/dL Albumin (3.5-5.0) g/dL Urine Color Urine Appearance (Clear) Urine pH (5.0-8.0) Ur Specific [place] (1.001-1.035) Urine Protein (Negative) Urine Glucose (UA) (Negative) Urine Ketones (Negative) Urine Blood (Negative) Urine Nitrite (Negative) Urine Bilirubin (Negative) Urine Urobilinogen (<2.0) mg/dL Ur Leukocyte Esterase (Negative) Acetone, Qual (Negative) 08/18/24 08/18/24 08/18/24 Range/Units 16:48 17:13 18:09 WBC (3.8-10.6) k/uL RBC (4.30-5.90) m/uL Hgb (13.0-17.5) gm/dL Hct (39.0-53.0) % MCV (80.0-100.0) fL MCH (25.0-35.0) pg MCHC (31.0-37.0) g/dL RDW (11.5-15.5) % Plt Count (150-450) k/uL MPV Neutrophils % % Lymphocytes % % Monocytes % % Eosinophils % % Basophils % % Neutrophils # (1.3-7.7) k/uL Lymphocytes # (1.0-4.8) k/uL Monocytes # (0-1.0) k/uL Eosinophils # (0-0.7) k/uL Basophils # (0-0.2) k/uL D-Dimer 1.12 H (<0.60) mg/L FEU VBG pH (7.31-7.41) VBG pCO2 (37-51) mmHg VBG HCO3 (24-28) mmol/L Sodium (137-145) mmol/L Potassium (3.5-5.1) mmol/L Chloride (98-107) mmol/L Carbon Dioxide (22-30) mmol/L Anion Gap mmol/L BUN (9-20) mg/dL Creatinine (0.66-1.25) mg/dL Est GFR (CKD-EPI)AfAm (>60 ml/min/1.73 sqM) Est GFR (CKD-EPI)NonAf (>60 ml/min/1.73 sqM) Glucose (74-99) mg/dL POC Glucose (mg/dL) 463 H (70-110) mg/dL POC Glu Professor Of Literacy ID Gianluca Vincent Plasma Lactic Acid Iraj (0.7-2.0) mmol/L Calcium (8.4-10.2) mg/dL Total Bilirubin (0.2-1.3) mg/dL AST (17-59) U/L ALT (4-49) U/L Alkaline Phosphatase (38-126) U/L Troponin I (0.000-0.034) ng/mL Total Protein (6.3-8.2) g/dL Albumin (3.5-5.0) g/dL Urine Color Light Yellow Urine Appearance Clear (Clear) Urine pH 5.5 (5.0-8.0) Ur Specific [place] 1.030 (1.001-1.035) Urine Protein Negative (Negative) Urine Glucose (UA) 4+ H (Negative) Urine Ketones 2+ H (Negative) Urine Blood Negative (Negative) Urine Nitrite Negative (Negative) Urine Bilirubin Negative (Negative) Urine Urobilinogen <2.0 (<2.0) mg/dL Ur Leukocyte Esterase Negative (Negative) Acetone, Qual (Negative) - EKG Data -: EKG Interpreted by [facility] EKG Comments: EKG reveals normal sinus rhythm with left axis deviation. Ventricular rate 73 bpm, UT interval 187, QRS duration 105, QT/QTc 430/456 Disposition Clinical Impression: Hyperglycemia, Head injury, acute Disposition: HOME SELF-CARE Condition: Stable Instructions (If sedation given, give patient instructions): Diabetic Hyperglyc emia (ED) Additional Instructions: Please return to the Emergency Department if symptoms worsen or any other concerns. Is patient prescribed a controlled substance at d/c from ED?: No Referrals: Michell Maguire MD [Primary Care Provider] - 1-2 days Time of Disposition: 19:15
[2024-08-18 17:26] LABS: ALT 36 U/L (4-49); AST 30 U/L (17-59); African American GFR (CKD) >90 (>60 ml/min/1.73 sqM); Albumin 3.5 g/dL (3.5-5.0); Alkaline Phosphatase 69 U/L (38-126); Anion Gap 8 mmol/L; Blood Urea Nitrogen 16 mg/dL (9-20); Calcium 8.6 mg/dL (8.4-10.2); Non-African American GFR(CKD) >90 (>60 ml/min/1.73 sqM); Total Bilirubin 1.4 mg/dL (0.2-1.3)
[2024-08-18 17:32] LABS: Appearance,Urine Clear (Clear); Bilirubin,Urine Negative (Negative); Blood,Urine Negative (Negative); Color,Urine Light Yellow; Glucose,Urine (UA) 4+ (Negative); Leukocyte Esterase,Urine Negative (Negative); Nitrite,Urine Negative (Negative); PH, Urine 5.5 (5.0-8.0); Protein,Urine Negative (Negative); Urobilinogen,Urine <2.0 mg/dL (<2.0)
[2024-08-18 17:38] LABS: Ketones,Urine 2+ (Negative)
--- NOTE | 2024-08-18 18:03 | CT ---
EXAMINATION TYPE: CT brain cspine wo con DATE OF EXAM: 08/18/2024 5:29 PM COMPARISON: None CLINICAL INDICATION: Male, 64 years old with history of pain; pt brought in via ems from [facility] for c/o fall on thinners. pt states he got dizzy and fell and hit his head. Pain TECHNIQUE: Brain: Multiple axial CT images of the brain were obtained without IV contrast. Cspine: Axial CT images from the skull base to the inferior aspect of T2 we obtained without intraven ous contrast. Coronal and sagittal reformatted images were also reviewed. . CT DLP: 1301 mGycm, Automated exposure control for dose reduction was used. FINDINGS: Brain: Extra-axial spaces: No abnormal extra-axial fluid collections. Ventricular system: Within normal limits Cerebral parenchyma: Encephalomalacia the left occipital lobe and left parietal region from prior inj ury. Additional area of asymmetric posterior left frontal lobe white matter changes. No acute intrapa renchymal hemorrhage or mass effect. The haynes-white junction is well differentiated. Cerebellum: Unremarkable. Mass effect: No evidence of midline shift. Intracranial vasculature: Atherosclerotic calcifications of the intracranial vessels. Soft tissues: Right frontal forehead scalp edema. Calvarium/osseous structures: No depressed skull fracture. Paranasal sinuses and mastoid air cells: Clear. Visualized orbits: Orbital contents are intact. Cervical spine: Fracture: None. Osseous structures: Multilevel degenerative disc disease changes with endplate spurring and disc oste ophyte complex's. Vertebral alignment: Within normal limits. Spinal canal/Neural Foramina: No evidence of significant spinal canal narrowing. Facet joint uncovert ebral joint arthropathy scattered throughout the cervical spine with varying degrees of neural forami nal stenosis. Neck soft tissues: Prevertebral soft tissues are within normal limits. Other: The airway is patent. Atherosclerosis of the carotid bifurcations. IMPRESSION: 1. No acute intracranial process. 2. Prior left occipital and left parietal region encephalomalacia. 3. Right frontal scalp edema. 4. Scattered white matter changes consider correlation with MRI. 5. No evidence of cervical spine fracture. 6. Pzyi-um-pttatyco multilevel degenerative disc disease. [facility], , 08/18/2024 6:01 PM
[2024-08-18 18:11] LABS: Glucose,Whole Blood 463 mg/dL (70-110)
[2024-08-18] MEDS: INSULIN REGULAR 100 UNIT/ML VIAL (IV) IV ONE (18:33)
--- NOTE | 2024-08-18 19:01 | CT ---
EXAMINATION TYPE: CT angio chest DATE OF EXAM: 08/18/2024 6:27 PM COMPARISON: Pet/CT 07/31/2024, 06/30/2024. CLINICAL INDICATION: Male, 64 years old with history of dizziness, elevated D-dimer; Dizziness, eleva bhakti D-dimer. TECHNIQUE/CONTRAST: CTA scan of the thorax is performed with IV Contrast, patient injected with 80 ml mL of Isovue 370, M IP images are created and reviewed these are created on a separate workstation.. CT DLP: 326.2 mGycm, Automated exposure control for dose reduction was used. FINDINGS: Pulmonary Artery: There is no evidence for a central filling defect within the pulmonary vasculature to suggest acute pulmonary embolism. Limited evaluation of the segmental and subsegmental branches se condary to bolus timing. The pulmonary artery is of normal size. Similar right lower lobe consolidati on changes compared to PET/CT on 07/31/2024. Lungs/Pleura: No evidence of focal consolidation, pleural effusion or pneumothorax. Airway: Large airways are patent. Heart: Heart is within normal limits for size. Atherosclerosis of the arterial vasculature. Vasculature: No evidence of aortic aneurysm. Mediastinum: No gross evidence of adenopathy. Musculoskeletal: No acute osseous abnormalities Soft Tissues/lymph nodes: Unremarkable. Lower neck: No significant findings. Upper Abdomen: No significant findings. IMPRESSION: 1. No evidence of central pulmonary embolism. Limited evaluation of the segmental and subsegmental br anches. 2. Moderate severe coronary artery atherosclerosis. 3. Similar right lower lobe lobe consolidation compared to 07/31/2024. [facility], , 08/18/2024 6:59 PM
[2024-08-18 19:03] VITALS: PULSE 84; TEMP 97.9
[2024-08-18 19:04] LABS: Glucose,Whole Blood 406 mg/dL (70-110)
[2024-08-18] MEDS: INSULIN REGULAR 100 UNIT/ML VIAL (IM/SQ) SQ ONE (19:14)
[2024-08-18 20:16] LABS: Glucose,Whole Blood 334 mg/dL (70-110)
[2024-08-18 20:38] VITALS: BP 130/68; RESP 16
== END 2024-08-18 20:30 | disposition home or self-care (01) ==
LOC: EC 15:47
DX: S09.90XA Unspecified injury of head, initial encounter (principal); R73.9 Hyperglycemia, unspecified; Z87.891 Personal history of nicotine dependence; Z86.73 Personal history of transient ischemic attack (TIA), and cerebral infarction without residual deficits; W01.0XXA Fall on same level from slipping, tripping and stumbling without subsequent striking against object, initial encounter
CPT/HCPCS: 36415; 93005; 85379; 80053; 82803; 82009; 83605; 84484; 85025; 81003; 72125; 70450; 71275; 99284; 96360; 96361; Q9967